=== PATIENT | male | born 1940 | race Caucasian/White ===

== ENCOUNTER 2017-11-23 10:15 | Inpatient (IN) ==
[2017-11-23] MEDS ORDERED: Bisacodyl 10 MG Supp RECTAL PRN (14:59)
[2017-11-23] MEDS ORDERED: Acetaminophen 325 MG Tablet PO PRN (14:59)
[2017-11-23] MEDS ORDERED: Dextrose 50% in Water 50 ML Vial IV.PUSH PRN (15:15)
--- NOTE | 2017-11-23 17:06 | P.HP ---
<Mery Daniel - Last Filed: 11/23/17 16:43> History of Present Illness Service: 11/23/17 Primary Care Physician: UNKNOWN Chief Complaint: SOB History of Present Illness: 77-year-old male with past medical history significant for COPD, metastatic prostate cancer, bladder cancer, anemia, diastolic dysfunction, a.fib with prior ablation, HTN, obesity, and HLD who was originally admitted to [facility] on 10/26 due to septic shock, hypotension and hypoxemic respiratory failure found to be related to bilateral pneumonia. Patient was seen and evaluated by ID services during his admission and treated with IV cefepime and vancomycin. CT of chest did find adenopathy in right axillary area along with left upper nodule measuring 1.3cm possibly representing metastatic lesion, per radiologist. Patient was also noted to have low WBC count, currently on chemotherapy for metastatic prostate CA, follows with Dr. Richard Koo. Patient did have MATEO resulting in increase of creatinine to 1.46 with improvement with IVF. He was discharged from hospital on 11/02 and admitted to [facility]. He was subsequently discharged and admitted to [facility] on 11/13. While patient was in [facility] he developed tachycardia with questionable A. fib. Cardiology services consulted who did not believe patient was in A. fib rhythm. Patient also began developing increasing need for oxygen along with dyspnea on exertion. CT of the chest showed no PE, moderate to severe bilateral interstitial lung disease characteristic of either interstitial edema or pneumonitis, small left pleural effusion, line emphysematous lung changes. Patient underwent 2D echo which showed normal EF. Pulmonary services were consulted who recommended cardiac evaluation along with suspicions that respiratory symptoms were likely due to underlying history of smoking COPD, recommendations continue bronchodilators. Patient was treated with breathing treatments, oxygen increased to 6 L nasal cannula, tachycardia controlled with increase in Cardizem dose. Patient received 1 unit of PRBCs along with one- time dose of IV Lasix on 11/22 due to symptomatic anemia, H&H 8.3/25.7. Patient this morning with increasing need for oxygen, now on a nonrebreather mask. Started on empiric antibiotics for pneumonia including IV vancomycin and Zosyn. Patient was seen and examined early this morning while still in [facility]. He is awake, alert, and oriented, denies any dyspnea however there is noted dyspnea when patient is assisted to sit ups straight for examination. There is a noted cough however nonproductive, does not sound wet. Patient denies any nausea, vomiting, abdominal pain, headache, dizziness, lightheadedness, or chest pain. Patient transferred to ICU for closer monitoring, seen and examined around 4: 50pm resting comfortably in bed, heart rate noted to be in the 80s, O2 saturation 97% on partial nonrebreather. Patient is awake, alert and appears comfortable. He reports that his breathing is "better". He voices no acute concerns or complaint at the moment. Discussed with nurse who does not voice any acute concerns at the moment. Inpatient Certification: I certify that the inpatient services were ordered in accordance with Medicare regulations governing the order. This includes certification that hospital inpatient services are reasonable and necessary and in the case of services not specified as inpatient-only under 42 CFR 419.22(n), that they are appropriately provided as inpatient services in accordance to with the 2-midnight benchmark under 43 CFR 412.3(e) Estimated Total Length of Stay (Days): 4 Plans for Post Hospital Care: Not yet determined PMF - History History Provided By: Patient, Medical Record - Medical History Medical History: Medical History (Last Updated 11/13/17 @ 23:28 by Isacc Rnee RN) Atrial fibrillation Hypertension Port catheter in place Prostate cancer - Surgical History Surgical History: Surgical History (Last Updated 11/21/17 @ 15:24 by Mery Daniel) S/P ablation of atrial fibrillation - Family History Family History: Family History (Last Updated 11/14/17 @ 14:35 by Jeffery Robertson) Father Family history of cancer Sister Family history of cancer - Tobacco History Second Hand Smoke Exposure: No Smoking Status: Former smoker Tobacco Type: Cigarettes Packs Per Day: 1 - Alcohol History How Often Do You Have a Drink Containing Alcohol: Never - Substance Use History Substance History: No History of Abuse Medications and Allergies Allergies Allergy/AdvReac Type Severity Reaction Status Date / Time No Known Allergies Allergy Verified 11/13/17 18:08 Home Medications Medication Instructions Recorded Confirmed Type acetaminophen 650 mg PO Q4H PRN 11/13/17 11/23/17 History atorvastatin 10 mg PO DAILY 11/13/17 11/23/17 History budesonide 0.5 mg INHALATION Q12H 11/13/17 11/23/17 History diltiazem HCl 120 mg PO DAILY 11/13/17 11/23/17 History ferrous sulfate 325 mg PO DAILY 11/13/17 11/23/17 History heparin (porcine) 5,000 unit SUB-Q Q12H 11/13/17 11/23/17 History ipratropium-albuterol 3 ml INHALATION Q8H 11/13/17 11/23/17 History magnesium hydroxide 30 ml PO DAILY PRN 11/13/17 11/23/17 History metoprolol succinate 100 mg PO DAILY 11/13/17 11/23/17 History ondansetron 4 mg PO Q4HR 11/13/17 11/23/17 History prednisone 20 mg PO BID 11/13/17 11/23/17 History Active Medications: Active Medications Acetaminophen (Tylenol) 650 mg PO Q4H PRN PRN Reason: Pain 1-10 for Temp >101.0 Al Hydroxide/Mg Hydroxide (Milk Of Magnesia Liq) 30 ml PO Q12H PRN PRN Reason: Mild Constipation Albuterol (Duoneb Neb (Prn)) 1 ampul NEB Q2HR NEB PRN PRN Reason: SHORTNESS OF BREATH/WHEEZING Albuterol (Duoneb Neb (Alondra)) 1 ampul NEB Q6HR WHILE AWAKE NEB ALONDRA Aspirin (Ecotrin) 81 mg PO DAILY ALONDRA Atorvastatin Calcium (Lipitor) 10 mg PO HS ALONDRA Bisacodyl (Dulcolax Supp) 10 mg RECTAL DAILY PRN PRN Reason: SEVERE CONSITIPATION Dextrose (D50w Vial) 50 ml IV.PUSH UNSCH PRN PRN Reason: PER HYPOGLYCEMIA PROTOCOL Diltiazem HCl (Cardizem Cd 24hr) 240 mg PO DAILY ALONDRA Enoxaparin Sodium (Lovenox Inj) 40 mg SQ Q24H ALONDRA Famotidine (Pepcid) 20 mg PO BID ALONDRA Ferrous Sulfate (Ferosul) 325 mg PO DAILY ALONDRA Furosemide (Lasix Inj) 40 mg IV.PUSH BID@0900,1800 ALONDRA Glucagon (Glucagon Inj) 1 mg OTHER PRN PRN PRN Reason: for Hypoglycemia Protocol Ceftriaxone Sodium 2,000 mg/ (Sodium Chloride) 100 mls @ 200 mls/hr IV.SIG Q24H ALONDRA Azithromycin 500 mg/ Sodium (Chloride) 250 mls @ 250 mls/hr IV.SIG Q24H ALONDRA Insulin Aspart (Novolog Insulin Suppl Scale Inj) 0 unit SQ ACHS ALONDRA; Protocol Lactulose (Lactulose Liq) 30 ml PO DAILY PRN PRN Reason: SEVERE CONSITIPATION Methylprednisolone Sodium Succinate (Solumedrol Inj) 40 mg IV.PUSH Q6H ALONDRA Metoprolol Tartrate (Lopressor) 50 mg PO BID ALONDRA Ondansetron HCl (Zofran Odt) 4 mg PO Q4H PRN PRN Reason: NAUSEA OR VOMITING Senna/Docusate Sodium (Jayne-Colace) 1 tab PO BID [facility] Sennosides (Senokot) 17.2 mg PO Q12H PRN PRN Reason: Moderate Constipation Exam Vital signs: Vital Signs 11/23/17 16:13 Pulse Oximetry 94 L Caprini VTE Risk Assessment Caprini Risk Assessment Model: Point Value = 1 Point Value = 2 Point Value = 3 Point Value = 5 Age 41-60 Minor surgery BMI > 25 kg/m2 Swollen legs Varicose veins or History of unexplained or recurrent spontaneous Oral contraceptives or hormone replacement Sepsis (< 1 month) Serious lung disease, including pneumonia (< 1 month) Abnormal pulmonary function Acute myocardial infarction Congestive heart failure (< 1 month) History of inflammatory bowel disease Medical patient at bed rest Age 61-74 Arthroscopic surgery Major open surgery (> 45 min) Laparoscopic surgery (> 45 min) Malignancy Confined to bed (> 72 hours) Immobilizing plaster cast Central venous access Age >= 75 History of VTE Family history of VTE Factor V Leiden Prothrombin [id number] Lupus anticoagulant Anticardiolipin antibodies Elevated serum homocysteine Heparin-induced thrombocytopenia Other congenital or acquired thrombophilia Stroke (< 1 month) Elective arthroplasty Hip, pelvis, or leg fracture Acute spinal cord injury (< 1 month) Prophylaxis Regimen: Total Risk Factor Score Risk Level Prophylaxis Regimen 0-1 Low Early ambulation 2 Moderate Order ONE of the following: *Sequential Compression Device (SCD) *Heparin 5000 units SQ BID 3-4 Higher Order ONE of the following medications: *Heparin 5000 units SQ TID *Enoxaparin/Lovenox 40 mg SQ daily (WT < 150 kg, CrCl > 30 mL/min) *Enoxaparin/Lovenox 30 mg SQ daily (WT < 150 kg, CrCl > 10-29 mL/min) *Enoxaparin/Lovenox 30 mg SQ BID (WT < 150 kg, CrCl > 30 mL/min) AND/OR *Sequential Compression Device (SCD) 5 or more Highest Order ONE of the following medications: *Heparin 5000 units SQ TID (Preferred with Epidurals) *Enoxaparin/Lovenox 40 mg SQ daily (WT < 150 kg, CrCl > 30 mL/min) *Enoxaparin/Lovenox 30 mg SQ daily (WT < 150 kg, CrCl > 10-29 mL/min) *Enoxaparin/Lovenox 30 mg SQ BID (WT < 150 kg, CrCl > 30 mL/min) AND *Sequential Compression Device (SCD) Assessment and Plan - Plan 77-year-old male with past medical history significant for COPD, metastatic prostate cancer, bladder cancer, anemia, diastolic dysfunction, a.fib with prior ablation, HTN, obesity, and HLD who was originally admitted to [facility] on 10/26 due to septic shock, hypotension and hypoxemic respiratory failure found to be related to bilateral pneumonia. Patient treated and discharged with subsequent admission to [facility] on 11/13. Patient with increasing oxygen requirements along with dyspnea, recent transfusion of PRBCs on 11/22. Transfer back to ICU. Hypoxemia Concern for transfusion related acute lung injury (1unit PRBC's 11/22) Hx COPD -CTA 11/21: no PE, moderate to severe bilateral interstitial lung disease characteristic of either interstitial edema or pneumonitis, small left pleural effusion, line emphysematous lung changes. -2D echo completed on 11/22 with normal EF -Chest x-ray from this morning with stable prominent diffuse bilateral interstitial and parenchymal opacities with progression compared to 11/20 x-ray -Patient with recent treatment of pneumonia. -Received 1 dose of IV vancomycin and Zosyn while in rehab. Will switch patient over to 2 g ceftriaxone and azithromycin IV -Scheduled duo nebs and as needed, IV Solu-Medrol 40 mg every 6 hours, will also treat with Lasix 40 mg twice daily with 20 KCL BID -Check CBC in the a.m., chest x-ray in the a.m. -Consult pulmonary services to continue ongoing follow-up while in ICU Atrial fibrillation, chronic Tachycardia -Patient is s/p ablation. - Cardiology evaluated patient on 11/21, no a.fib seen on EKG's only ST with PAC's. High risk for bleeding and no anticoagulation noted to be reasonable per cardiology. -Continue Cardizem 240mg daily, Metoprolol 50mg BID - Continue low dose ASA HTN, chronic, stable HLD -Continue metoprolol and Cardizem, blood pressure stable. - on low dose ASA and Lipitor Normocytic anemia -Previously on chemo for prostate CA. - Continue oral Fe supplementation - 1 unit PRBC's 11/22, recheck CBC in the a.m. DVT prophylaxis-subcu Lovenox Discussed Condition With: Patient, nursing staff, , and . <Elva Caldwell - Last Filed: 11/24/17 00:39> History of Present Illness Primary Care Physician: UNKNOWN Inpatient Certification: I certify that the inpatient services were ordered in accordance with Medicare regulations governing the order. This includes certification that hospital inpatient services are reasonable and necessary and in the case of services not specified as inpatient-only under 42 CFR 419.22(n), that they are appropriately provided as inpatient services in accordance to with the 2-midnight benchmark under 43 CFR 412.3(e) [facility] - Medical History Medical History: Medical History (Last Updated 11/13/17 @ 23:28 by Isacc Rene, ELISA) Atrial fibrillation Hypertension Port catheter in place Prostate cancer - Surgical History Surgical History: Surgical History (Last Updated 11/21/17 @ 15:24 by Mery Daniel) S/P ablation of atrial fibrillation - Family History Family History: Family History (Last Updated 11/14/17 @ 14:35 by Jeffery Robertson) Father Family history of cancer Sister Family history of cancer Medications and Allergies Active Medications: Active Medications Acetaminophen (Tylenol) 650 mg PO Q4H PRN PRN Reason: Pain 1-10 for Temp >101.0 Al Hydroxide/Mg Hydroxide (Milk Of Magnrenea Liq) 30 ml PO Q12H PRN PRN Reason: Mild Constipation Albuterol (Duoneb Neb (Prn)) 1 ampul NEB Q2HR NEB PRN PRN Reason: SHORTNESS OF BREATH/WHEEZING Albuterol (Duoneb Neb (Alondra)) 1 ampul NEB Q6HR WHILE AWAKE NEB ALONDRA Last Admin: 11/23/17 19:36 Dose: 1 ampul Aspirin (Ecotrin) 81 mg PO DAILY ALONDRA Atorvastatin Calcium (Lipitor) 10 mg PO HS ALONDRA Last Admin: 11/23/17 20:46 Dose: 10 mg Bisacodyl (Dulcolax Supp) 10 mg RECTAL DAILY PRN PRN Reason: SEVERE CONSITIPATION Dextrose (D50w Vial) 50 ml IV.PUSH UNSCH PRN PRN Reason: PER HYPOGLYCEMIA PROTOCOL Diltiazem HCl (Cardizem Cd 24hr) 240 mg PO DAILY [facility] Enoxaparin Sodium (Lovenox Inj) 40 mg SQ Q24H [facility] Last Admin: 11/23/17 19:27 Dose: 40 mg Famotidine (Pepcid) 20 mg PO BID [facility] Last Admin: 11/23/17 20:46 Dose: 20 mg Ferrous Sulfate (Ferosul) 325 mg PO DAILY [facility] Furosemide (Lasix Inj) 40 mg IV.PUSH BID@0900,1800 [facility] Last Admin: 11/23/17 19:26 Dose: 40 mg Glucagon (Glucagon Inj) 1 mg OTHER PRN PRN PRN Reason: for Hypoglycemia Protocol Ceftriaxone Sodium 2,000 mg/ (Sodium Chloride) 100 mls @ 200 mls/hr IV.SIG Q24H [facility] Last Infusion: 11/23/17 23:18 Dose: Infused Azithromycin 500 mg/ Sodium (Chloride) 250 mls @ 250 mls/hr IV.SIG Q24H [facility] Insulin Aspart (Novolog Insulin Suppl Scale Inj) 0 unit SQ ACHS [facility]; Protocol Last Admin: 11/23/17 22:05 Dose: 3 unit Lactulose (Lactulose Liq) 30 ml PO DAILY PRN PRN Reason: SEVERE CONSITIPATION Methylprednisolone Sodium Succinate (Solumedrol Inj) 40 mg IV.PUSH Q6H [facility] Last Admin: 11/23/17 20:59 Dose: 40 mg Metoprolol Tartrate (Lopressor) 50 mg PO BID [facility] Last Admin: 11/23/17 20:46 Dose: 50 mg Ondansetron HCl (Zofran Odt) 4 mg PO Q4H PRN PRN Reason: NAUSEA OR VOMITING Potassium Chloride (K-Dur) 20 meq PO BID [facility] Last Admin: 11/23/17 20:45 Dose: 20 meq Senna/Docusate Sodium (Jayne-Colace) 1 tab PO BID [facility] Last Admin: 11/23/17 20:46 Dose: 1 tab Sennosides (Senokot) 17.2 mg PO Q12H PRN PRN Reason: Moderate Constipation Exam Vital signs: Vital Signs 11/23/17 15:00 11/23/17 16:00 11/23/17 16:13 Temperature 97.8 F Pulse Rate 86 86 Respiratory Rate 25 H Blood Pressure 126/83 126/83 Pulse Oximetry 98 95 94 L 11/23/17 17:00 11/23/17 18:00 11/23/17 18:44 Temperature Pulse Rate 86 84 Respiratory Rate Blood Pressure Pulse Oximetry 94 L 97 98 11/23/17 19:00 11/23/17 19:37 11/23/17 20:00 Temperature 97.9 F Pulse Rate 84 90 102 H Respiratory Rate 25 H 24 25 H Blood Pressure 124/60 118/57 L Pulse Oximetry 95 98 97 11/23/17 21:00 11/23/17 22:00 Temperature Pulse Rate 84 100 H Respiratory Rate 23 Blood Pressure 125/72 113/67 Pulse Oximetry 98 98 Intake & Output 11/23/17 11/23/17 11/24/17 06:59 18:59 06:59 Intake Total 240 / 240 100 / 100 Output Total 200 / 200 Balance 40 / 40 100 / 100 Weight 124.3 kg Intake: IV 100 / 100 Rocephin Inj 2,000 MG In NS Inj 100 / 100 100 ML @ 200 mls/hr IV.SIG Q24H [facility] Rx#:[id number] Oral 240 / 240 0 / 0 Output: Urine 200 / 200 Other: Weight On Admission 124.3 kg Caprini VTE Risk Assessment Caprini VTE Risk Assessment: Moderate/High Risk (score >= 2) Caprini Risk Assessment Model: Point Value = 1 Point Value = 2 Point Value = 3 Point Value = 5 Age 41-60 Minor surgery BMI > 25 kg/m2 Swollen legs Varicose veins or History of unexplained or recurrent spontaneous Oral contraceptives or hormone replacement Sepsis (< 1 month) Serious lung disease, including pneumonia (< 1 month) Abnormal pulmonary function Acute myocardial infarction Congestive heart failure (< 1 month) History of inflammatory bowel disease Medical patient at bed rest Age 61-74 Arthroscopic surgery Major open surgery (> 45 min) Laparoscopic surgery (> 45 min) Malignancy Confined to bed (> 72 hours) Immobilizing plaster cast Central venous access Age >= 75 History of VTE Family history of VTE Factor V Leiden Prothrombin [id number] Lupus anticoagulant Anticardiolipin antibodies Elevated serum homocysteine Heparin-induced thrombocytopenia Other congenital or acquired thrombophilia Stroke (< 1 month) Elective arthroplasty Hip, pelvis, or leg fracture Acute spinal cord injury (< 1 month) Prophylaxis Regimen: Total Risk Factor Score Risk Level Prophylaxis Regimen 0-1 Low Early ambulation 2 Moderate Order ONE of the following: *Sequential Compression Device (SCD) *Heparin 5000 units SQ BID 3-4 Higher Order ONE of the following medications: *Heparin 5000 units SQ TID *Enoxaparin/Lovenox 40 mg SQ daily (WT < 150 kg, CrCl > 30 mL/min) *Enoxaparin/Lovenox 30 mg SQ daily (WT < 150 kg, CrCl > 10-29 mL/min) *Enoxaparin/Lovenox 30 mg SQ BID (WT < 150 kg, CrCl > 30 mL/min) AND/OR *Sequential Compression Device (SCD) 5 or more Highest Order ONE of the following medications: *Heparin 5000 units SQ TID (Preferred with Epidurals) *Enoxaparin/Lovenox 40 mg SQ daily (WT < 150 kg, CrCl > 30 mL/min) *Enoxaparin/Lovenox 30 mg SQ daily (WT < 150 kg, CrCl > 10-29 mL/min) *Enoxaparin/Lovenox 30 mg SQ BID (WT < 150 kg, CrCl > 30 mL/min) AND *Sequential Compression Device (SCD) Assessment and Plan - Attending Attestation Patient seen/examined. Mr. Ramírez received one unit of PRBCs on 11/22/2017. Due to worsening respiratory status, we evaluated him today and decided to transfer him to the ICU. He is requiring significant amount of O2 (around 10L) via non- rebreather to maintain O2 sat 90%. We compared CXR from 11/23/2017 and 11/22/2017 and noticed significant diffuse pulmonary edema on the CXR on 11/23/2017. Given acute decline of his respiratory status and recent blood transfusion, this likely represent TRALI (Transfusion associated Lung Injury). We will start Lasix 40mg BID IV and repeat CXR in the AM. Once clinically improved, he should be able to go back to [facility]. If patient's respiratory status declines any further, he may need invasive or non-invasive measures (Mechanical ventilation vs. BiPAP). Total critical care time spent more than 35 minutes. It was necessary to evaluate and manage this patient due to possible respiratory decline.
--- NOTE | 2017-11-23 18:04 | MB ---
cc: Juan Jose Ingram MD DATE: 11/23/2017 Originally seen at [facility] with acute respiratory distress, transferred to the intensive care unit, now in intensive surgical care. HISTORY OF PRESENT ILLNESS: The patient is 77 years of age with a known history of COPD and diastolic dysfunction. The patient has metastatic prostate cancer, bladder cancer, chronic anemia, atrial fibrillation post-ablation, recently hospitalized in mid October with sepsis and shock, treated with antibiotic therapy. He did have a CT scan of the chest with a left upper lobe nodule felt metastatic. The patient was transferred originally to [facility] and subsequently to [facility], where his oxygen requirements have dramatically increased to a nonrebreathing mask, chest x-ray evidence of congestive heart failure and/or pneumonia, transferred to intensive surgical care for further management. PAST MEDICAL HISTORY: Essentially as above with history of metastatic prostate cancer, bladder cancer, hypertension, atrial fibrillation, diastolic dysfunction and COPD, metastatic lung lesion and initiation of chemotherapy. He did have atrial ablation in the past. SOCIAL HISTORY: Remote smoking history, not at present. Does not drink any alcohol. Does not use drugs. FAMILY HISTORY: Noncontributory. REVIEW OF SYSTEMS: A 12-point review of systems as per HPI and past history, otherwise negative. CURRENT MEDICATIONS: 1. Acetaminophen. 2. Levalbuterol. 3. Atorvastatin. 4. Zithromax. 5. Ceftriaxone. 6. Diltiazem. 7. Lovenox prophylaxis. 8. Pepcid. 9. Iron. 10. Lasix. 11. Insulin. 12. Solu-Medrol. 13. Lopressor. 14. Zofran p.r.n. ALLERGIES: NONE KNOWN TO MEDICATION. PHYSICAL EXAMINATION: GENERAL: The patient is alert, on a rebreathing mask upon transfer yesterday with severe tachypnea and tachycardia, now seems less distressed. VITAL SIGNS: His temperature is 98.6 degrees Fahrenheit, respirations 20, blood pressure 120/70. HEENT: Unremarkable. Eyes without icterus. NECK: No adenopathy. No thyroid enlargement. CHEST: Scattered rhonchi bilaterally. CARDIAC: S1, S2 audible, I/ ejection systolic murmur left sternal border. ABDOMEN: Lax, audible bowel sounds. PSYCHIATRIC: No clubbing, cyanosis or edema. IMAGING STUDIES: CT angiogram with severe interstitial lung disease. Small left pleural effusion. Echocardiogram: Normal ejection fraction. IMPRESSION: 1. Acute on chronic respiratory failure. 2. Congestive heart failure and/or pneumonia. 3. Metastatic prostate cancer. 4. History of bladder cancer. 5. Hypertension. 6. Hyperlipidemia. 7. Atrial fibrillation. 8. Chronic obstructive pulmonary disease. PLAN: The patient is admitted to the intensive care setting. Oxygen therapy will be continued as needed. Chest x-ray and oxygenation will be followed. Inspired oxygen fraction adjusted as needed. Continue antibiotic therapy, steroid therapy and depending on the patient's progress, proceed further well. We will follow the patient's course, along with you and depending on progress, proceed further. Juan Jose Ingram MD WWW/ALBERTO , 05:24 PM , 06:02 PM
[2017-11-23] MEDS: MethylPREDNISolone Sod Succinate Inj 40 MG/ML Vial IV.PUSH SCH ×2 (19:27→20:59)
[2017-11-23] MEDS: Enoxaparin Inj 40 MG/0.4 ML Syringe SQ SCH (19:27)
[2017-11-23] MEDS: Insulin NovoLOG Aspart Correctional Sugar Inj SQ SCH ×2 (20:36→22:05)
[2017-11-23] MEDS: Senna/Docusate Sodium 8.6/50 MG Tablet PO SCH (20:46)
[2017-11-23] MEDS: Metoprolol Tartrate 50 MG Tablet PO SCH (20:46)
[2017-11-23] MEDS: Famotidine 20 MG Tablet PO SCH (20:46)
[2017-11-24] MEDS: MethylPREDNISolone Sod Succinate Inj 40 MG/ML Vial IV.PUSH SCH ×4 (04:04→21:09)
--- NOTE | 2017-11-24 05:10 | XR ---
EXAM DATE: 11/24/2017 4:21 AM EDT AGE/SEX: 77 years / Male INDICATIONS: Shortness of breath, congestion. CLINICAL DATA: This is the patient's subsequent encounter. Patient reports that signs and symptoms h ave been present for 1 week and indicates a pain score of 4/10. MEDICAL/SURGICAL HISTORY: Chronic obstructive pulmonary disease. . Infusaport COMPARISON: [facility]IR, CHEST 1V SINGLE AP, 11/23/2017. . FINDINGS: A single AP view of the chest demonstrates unchanged bilateral patchy interstitial and alveolar opaci ties. Left-sided port unchanged.. The cardiomediastinal contours are unremarkable. Osseous structur es are intact. CONCLUSION: Unchanged interstitial and alveolar opacities Electronically signed by: Alvin Trujillo MD 11/24/2017 5:09 AM EDT
[2017-11-24 07:28] LABS: Albumin 1.9 g/dL (3.4-5.0); Calcium 6.8 mg/dL (8.5-10.1); Carbon Dioxide 19.3 meq/L (21.0-32.0); Potassium 3.9 meq/L (3.5-5.1); Total Protein 5.8 g/dL (6.4-8.2)
--- NOTE | 2017-11-24 09:34 | P.PNIM ---
Subjective Interval history: The patient said that he was having trouble breathing. He denied chest pain or chest tightness. He does endorse mucus production. He says he has been unable to ambulate lately. He said that he would not like to receive invasive measures including CPR or ventilation assistance should his respiratory status get worse. Discussed with nursing at the bedside. Physical Exam Vital signs: Vital Signs 11/23/17 15:00 11/23/17 16:00 11/23/17 16:13 Temperature 97.8 F Pulse Rate 86 86 Respiratory Rate 25 H Blood Pressure 126/83 126/83 Pulse Oximetry 98 95 94 L 11/23/17 17:00 11/23/17 18:00 11/23/17 18:44 Temperature Pulse Rate 86 84 Respiratory Rate Blood Pressure Pulse Oximetry 94 L 97 98 11/23/17 19:00 11/23/17 19:37 11/23/17 20:00 Temperature 97.9 F Pulse Rate 84 90 102 H Respiratory Rate 25 H 24 25 H Blood Pressure 124/60 118/57 L Pulse Oximetry 95 98 97 11/23/17 21:00 11/23/17 22:00 11/24/17 00:00 Temperature 98.1 F Pulse Rate 84 100 H 92 H Respiratory Rate 23 23 Blood Pressure 125/72 113/67 127/66 Pulse Oximetry 98 98 96 11/24/17 04:00 11/24/17 04:20 11/24/17 09:08 Temperature 96.4 F L Pulse Rate 90 98 H Respiratory Rate 20 22 Blood Pressure 124/63 Pulse Oximetry 94 L 95 95 Intake & Output 11/23/17 11/24/17 11/24/17 18:59 06:59 18:59 Intake Total 240 / 240 580 / 580 Output Total 200 / 200 650 / 650 Balance 40 / 40 -70 / -70 Weight 123.5 kg Intake: IV 100 / 100 Rocephin Inj 2,000 MG In NS Inj 100 / 100 100 ML @ 200 mls/hr IV.SIG Q24H FERNANDA Rx#:[id number] Oral 240 / 240 480 / 480 Output: Urine 200 / 200 650 / 650 Other: # Urine Diapers 1 Date of Last Bowel Movement 11/24/17 # Bowel Movements 1 Weight On Admission 124.3 kg Narrative: General: No acute distress. Respiratory: Lungs CTAB, No W/R/R. Gastrointestinal: Positive bowel sounds, Non-distended, Non-tender Cardiovascular: Tachycardic. No murmurs. Skin: No rash Musculoskeletal: No LE edema. Psychiatric: Cooperative, Appropriate mood & affect, Normal judgement Results - Labs CBC & Chem 7: 11/24/17 06:36 11/24/17 06:36 Laboratory Results - last 24 hr 11/24/17 06:36 Sodium 139 Potassium 3.9 Chloride 104 Carbon Dioxide 19.3 L Anion Gap 16 H BUN 44 H Creatinine 1.86 H Estimated GFR 36 L Random Glucose 221 H Calcium 6.8 L* D Prot Corrected Calcium 7.5 L Total Bilirubin 0.2 AST 10 L ALT 19 Alkaline Phosphatase 62 Total Protein 5.8 L Albumin 1.9 L - Imaging Impressions Chest X-Ray 11/24/17 06:00 CONCLUSION: Unchanged interstitial and alveolar opacities Assessment and Plan - Plan 77-year-old male with past medical history significant for COPD, metastatic prostate cancer, bladder cancer, anemia, diastolic dysfunction, a.fib with prior ablation, HTN, obesity, and HLD who was originally admitted to [facility] on 10/26 due to septic shock, hypotension and hypoxemic respiratory failure found to be related to bilateral pneumonia. Patient treated and discharged with subsequent admission to [facility] on 11/13. Patient with increasing oxygen requirements along with dyspnea, recent transfusion of PRBCs on 11/22. Transferred back to ICU. Hypoxemia Hx COPD Hx of recent pneumonia -CTA 11/21: no PE, moderate to severe bilateral interstitial lung disease characteristic of either interstitial edema or pneumonitis, small left pleural effusion, line emphysematous lung changes. -2D echo completed on 11/22 with normal EF -Chest x-ray with stable prominent diffuse bilateral interstitial and parenchymal opacities with progression compared to 11/20 x-ray -start IV Zosyn and vancomycin. -Scheduled duo nebs and as needed, IV Solu-Medrol 40 mg every 6 hours. -Consulted pulmonary services to continue ongoing follow-up. Atrial fibrillation, chronic Tachycardia -Patient is s/p ablation. - Cardiology evaluated patient on 11/21, no a.fib seen on EKG's only ST with PAC's. High risk for bleeding and no anticoagulation noted to be reasonable per cardiology. -Continue Cardizem 240mg daily, Metoprolol 50mg BID. Consider holding Lopressor to avoid bronchospasm. -Continue low dose ASA HTN, chronic, stable HLD -Continue metoprolol and Cardizem, blood pressure stable. - on low dose ASA and Lipitor Normocytic anemia -Previously on chemo for prostate CA. - Continue oral Fe supplementation - 1 unit PRBC's 11/22, recheck CBC in the a.m. Acute renal failure Likely exacerbated by Lasix. - d/c Lasix and monitor. - nephrology consult if no improvement. DVT prophylaxis-subcu Lovenox
[2017-11-24] MEDS: Insulin NovoLOG Aspart Correctional Sugar Inj SQ SCH ×4 (09:52→22:02)
[2017-11-24] MEDS: Metoprolol Tartrate 50 MG Tablet PO SCH ×2 (09:55→20:30)
[2017-11-24] MEDS: Famotidine 20 MG Tablet PO SCH ×2 (09:55→20:30)
[2017-11-24] MEDS: Ferrous Sulfate 325 MG Tablet PO SCH (09:55)
[2017-11-24] MEDS: dilTIAZem CD 240 MG Capsule PO SCH (09:55)
[2017-11-24] MEDS: Senna/Docusate Sodium 8.6/50 MG Tablet PO SCH ×2 (09:56→20:31)
[2017-11-24] MEDS ORDERED: Vancomycin Consult Pharmacy 1 EACH OTHER SCH (09:57)
[2017-11-24 11:58] LABS: Baso % (Auto) 0.3 % (0.0-2.0); Eos % (Auto) 0.1 % (0.0-4.0); Hematocrit 28.7 % (39.0-51.0); Hemoglobin 9.4 gm/dL (13.0-17.0); Lymph # (Auto) 0.2 th/mm3 (1.0-4.8); Lymph % (Auto) 5.1 % (9.0-44.0); Mean Corpuscular HGB Conc 32.8 % (32.0-36.0); Mean Corpuscular Hemoglobin 29.1 pg (27.0-34.0); Mean Corpuscular Volume 88.7 fL (80.0-100.0); Mean Platelet Volume 8.1 fL (7.0-11.0); Mono # (Auto) 0.1 th/mm3 (0.0-0.9); Mono % (Auto) 2.2 % (0.0-8.0); Neut # (Auto) 3.7 th/mm3 (1.8-7.7); Neut % (Auto) 92.3 % (16.0-70.0); Platelet Count 154 th/mm3 (150-450); Red Blood Count 3.23 mil/mm3 (4.50-5.90); Red Cell Distribution Width 22.2 % (11.6-17.2)
[2017-11-24] MEDS: Piperacil/Tazo 2.25 GM Premix 50 ML IV.SIG SCH ×2 (13:45→20:30)
[2017-11-24] MEDS ORDERED: Azithromycin Inj 500 MG in Sodium Chlor 0.9% Inj 250 ML IV.SIG SCH (14:00)
[2017-11-24] MEDS: Vancomycin Inj 1,250 MG in Sodium Chlor 0.9% Inj 250 ML IV.SIG SCH (15:38)
[2017-11-24] MEDS: Enoxaparin Inj 40 MG/0.4 ML Syringe SQ SCH (15:40)
--- NOTE | 2017-11-24 20:07 | P.PN ---
Subjective Interval history: ALERT LESS SOB Physical Exam Vital signs: Vital Signs 11/23/17 21:00 11/23/17 22:00 11/24/17 00:00 Temperature 98.1 F Pulse Rate 84 100 H 92 H Respiratory Rate 23 23 Blood Pressure 125/72 113/67 127/66 Pulse Oximetry 98 98 96 11/24/17 04:00 11/24/17 04:20 11/24/17 08:00 Temperature 96.4 F L 97.4 F L Pulse Rate 90 82 Respiratory Rate 20 22 Blood Pressure 124/63 110/60 Pulse Oximetry 94 L 95 95 11/24/17 09:08 11/24/17 12:00 11/24/17 15:33 Temperature 97.0 F L Pulse Rate 98 H 96 H 89 Respiratory Rate 22 22 22 Blood Pressure 118/58 L Pulse Oximetry 95 97 11/24/17 16:00 Temperature 97.4 F L Pulse Rate 104 H Respiratory Rate 22 Blood Pressure 121/59 L Pulse Oximetry 97 Intake & Output 11/24/17 11/24/17 11/25/17 06:59 18:59 06:59 Intake Total 580 / 580 480 / 480 Output Total 650 / 650 750 / 750 Balance -70 / -70 -270 / -270 Weight 123.5 kg Intake: IV 100 / 100 Rocephin Inj 2,000 MG In NS Inj 100 / 100 100 ML @ 200 mls/hr IV.SIG Q24H FERNANDA Rx#:[id number] Oral 480 / 480 480 / 480 Output: Urine 650 / 650 750 / 750 Other: # Urine Diapers 1 Date of Last Bowel Movement 11/24/17 11/24/17 # Bowel Movements 1 Weight On Admission 124.3 kg Narrative: General: No acute distress. Respiratory: Lungs CTAB, No W/R/R. Gastrointestinal: Positive bowel sounds, Non-distended, Non-tender Cardiovascular: Tachycardic. No murmurs. Skin: No rash Musculoskeletal: No LE edema. Psychiatric: Cooperative, Appropriate mood & affect, Normal judgement Results - Labs CBC & Chem 7: 11/24/17 11:19 11/24/17 06:36 Laboratory Results - last 24 hr 11/24/17 11/24/17 11/24/17 06:36 09:41 11:19 WBC 4.0 RBC 3.23 L Hgb 9.4 L Hct 28.7 L MCV 88.7 MCH 29.1 MCHC 32.8 RDW 22.2 H Plt Count 154 MPV 8.1 Neut % (Auto) 92.3 H Lymph % (Auto) 5.1 L [place] % (Auto) 2.2 Eos % (Auto) 0.1 Baso % (Auto) 0.3 Neut # (Auto) 3.7 Lymph # (Auto) 0.2 L [place] # (Auto) 0.1 Eos # (Auto) 0.0 Baso # (Auto) 0.0 WBC Differential . Differential Comment Auto diff final Sodium 139 Potassium 3.9 Chloride 104 Carbon Dioxide 19.3 L Anion Gap 16 H BUN 44 H Creatinine 1.86 H Estimated GFR 36 L POC Glucose 251 H Random Glucose 221 H Calcium 6.8 L* D Prot Corrected Calcium 7.5 L Total Bilirubin 0.2 AST 10 L ALT 19 Alkaline Phosphatase 62 Total Protein 5.8 L Albumin 1.9 L 11/24/17 11/24/17 12:59 18:33 WBC RBC Hgb Hct MCV MCH MCHC RDW Plt Count MPV Neut % (Auto) Lymph % (Auto) [place] % (Auto) Eos % (Auto) Baso % (Auto) Neut # (Auto) Lymph # (Auto) [place] # (Auto) Eos # (Auto) Baso # (Auto) WBC Differential Differential Comment Sodium Potassium Chloride Carbon Dioxide Anion Gap BUN Creatinine Estimated GFR POC Glucose 249 H 283 H Random Glucose Calcium Prot Corrected Calcium Total Bilirubin AST ALT Alkaline Phosphatase Total Protein Albumin - Imaging Impressions Chest X-Ray 11/24/17 06:00 CONCLUSION: Unchanged interstitial and alveolar opacities Assessment and Plan - Plan RESPIRATORY FAILURE COPD CHF PLAN O2 NEEDED BRONCHODILATORS F/U CXRAY
[2017-11-24] MEDS ORDERED: Zolpidem Tartrate 5 MG Tablet PO ONE (23:42)
[2017-11-25] MEDS: Piperacil/Tazo 2.25 GM Premix 50 ML IV.SIG SCH ×4 (01:46→17:00)
[2017-11-25] MEDS ORDERED: Heparin Central Flush 100 UNIT/ML 5 ML Vial IV.FLUSH PRN ×2 (02:07)
[2017-11-25] MEDS: MethylPREDNISolone Sod Succinate Inj 40 MG/ML Vial IV.PUSH SCH ×3 (03:38→21:09)
[2017-11-25 05:19] LABS: Hematocrit 27.9 % (39.0-51.0); Hemoglobin 9.2 gm/dL (13.0-17.0); Mean Corpuscular HGB Conc 33.1 % (32.0-36.0); Mean Corpuscular Hemoglobin 29.5 pg (27.0-34.0); Mean Corpuscular Volume 89.1 fL (80.0-100.0); Platelet Count 162 th/mm3 (150-450); Red Blood Count 3.12 mil/mm3 (4.50-5.90); Red Cell Distribution Width 22.5 % (11.6-17.2); White Blood Count 4.5 th/mm3 (4.0-11.0)
[2017-11-25 06:25] LABS: Calcium 7.3 mg/dL (8.5-10.1); Potassium 3.6 meq/L (3.5-5.1)
[2017-11-25 06:54] LABS: Total Protein 5.9 g/dL (6.4-8.2)
[2017-11-25] MEDS: Famotidine 20 MG Tablet PO SCH ×2 (08:23→21:10)
[2017-11-25] MEDS: dilTIAZem CD 240 MG Capsule PO SCH (08:23)
[2017-11-25] MEDS: Ferrous Sulfate 325 MG Tablet PO SCH (08:23)
[2017-11-25] MEDS: Senna/Docusate Sodium 8.6/50 MG Tablet PO SCH (08:23)
[2017-11-25] MEDS: Metoprolol Tartrate 50 MG Tablet PO SCH ×2 (08:23→21:10)
[2017-11-25] MEDS: Insulin NovoLOG Aspart Correctional Sugar Inj SQ SCH ×4 (08:28→21:10)
--- NOTE | 2017-11-25 12:10 | P.PN ---
Subjective Interval history: Follow-up respiratory failure with hypoxemia November 25, 2017-patient seen and examined, has some shortness of breath but denies any chest pain. Physical Exam Vital signs: Vital Signs 11/24/17 15:33 11/24/17 16:00 11/24/17 20:00 Temperature 97.4 F L 98.0 F Pulse Rate 89 104 H 109 H Respiratory Rate 22 22 23 Blood Pressure 121/59 L 125/60 Pulse Oximetry 97 95 11/24/17 20:30 11/25/17 00:00 11/25/17 02:33 Temperature 98 F Pulse Rate 109 H 109 H Respiratory Rate 19 23 Blood Pressure 125/60 Pulse Oximetry 95 94 L 11/25/17 04:00 11/25/17 08:00 11/25/17 09:00 Temperature 98.3 F 98.3 F Pulse Rate 107 H 104 H 156 H Respiratory Rate 28 H 21 22 Blood Pressure 144/71 H 139/70 134/73 Pulse Oximetry 89 L 94 L 88 L 11/25/17 09:13 11/25/17 10:00 Temperature Pulse Rate 129 H Respiratory Rate 22 Blood Pressure 126/69 Pulse Oximetry 95 94 L Intake & Output 11/24/17 11/25/17 11/25/17 18:59 06:59 18:59 Intake Total 530 / 530 892.5 / 892.5 Output Total 750 / 750 770 / 770 Balance -220 / -220 122.5 / 122.5 Intake: IV 50 / 50 412.5 / 412.5 Zosyn 2.25 GM Premix 50 ML @ 50 / 50 150 / 150 100 mls/hr IV.SIG Q6HR [facility]ERNA[facility] Rx#: [id number] Vancomycin Inj 1,250 MG In NS 262.5 / 262.5 Inj 250 ML @ 250 mls/hr IV.SIG Q24H FERNANDA Rx#:[id number] Oral 480 / 480 480 / 480 Output: Urine 750 / 750 770 / 770 Other: Date of Last Bowel Movement 11/24/17 11/24/17 11/24/17 Narrative: GENERAL: NAD SKIN: Warm and dry. HEAD: Normocephalic. EYES: No scleral icterus. No injection or drainage. NECK: Supple, trachea midline. No JVD or lymphadenopathy. CARDIOVASCULAR: Regular rate and rhythm without murmurs, gallops, or rubs. RESPIRATORY: Breath sounds decreased bilaterally. No accessory muscle use. GASTROINTESTINAL: Abdomen soft, non-tender, nondistended. MUSCULOSKELETAL: No cyanosis, or edema. BACK: Nontender without obvious deformity. No CVA tenderness. Results - Labs CBC & Chem 7: 11/25/17 04:30 11/25/17 04:30 Laboratory Results - last 24 hr 11/24/17 11/24/17 11/25/17 12:59 18:33 04:30 WBC 4.5 RBC 3.12 L Hgb 9.2 L Hct 27.9 L MCV 89.1 MCH 29.5 MCHC 33.1 RDW 22.5 H Plt Count 162 MPV 8.0 Sodium Potassium Chloride Carbon Dioxide Anion Gap BUN Creatinine Estimated GFR POC Glucose 249 H 283 H Random Glucose Calcium Prot Corrected Calcium Total Protein Nasal Screen MRSA (PCR) 11/25/17 11/25/17 11/25/17 04:30 08:01 08:27 WBC RBC Hgb Hct MCV MCH MCHC RDW Plt Count MPV Sodium 142 Potassium 3.6 Chloride 105 Carbon Dioxide 22.0 Anion Gap 15 BUN 46 H Creatinine 1.86 H Estimated GFR 36 L POC Glucose 211 H Random Glucose 189 H Calcium 7.3 L* Prot Corrected Calcium 7.9 L Total Protein 5.9 L Nasal Screen MRSA (PCR) Not detected 11/25/17 11:35 WBC RBC Hgb Hct MCV MCH MCHC RDW Plt Count MPV Sodium Potassium Chloride Carbon Dioxide Anion Gap BUN Creatinine Estimated GFR POC Glucose 245 H Random Glucose Calcium Prot Corrected Calcium Total Protein Nasal Screen MRSA (PCR) Assessment and Plan - Assessment (1) Acute hypoxemic respiratory failure Code(s): J96.01 - Acute respiratory failure with hypoxia Status: Resolved - Plan 77-year-old man with Hypoxemia Hx COPD Hx of recent pneumonia -CTA 11/21: no PE, moderate to severe bilateral interstitial lung disease characteristic of either interstitial edema or pneumonitis, small left pleural effusion, line emphysematous lung changes. -2D echo completed on 11/22 with normal EF -Chest x-ray with stable prominent diffuse bilateral interstitial and parenchymal opacities with progression compared to 11/20 x-ray -Currently on IV Zosyn and vancomycin. -Scheduled duo nebs and as needed, IV Solu-Medrol 40 mg or change it to q. 12 hour. -Appreciate input from pulmonary medicine. Atrial fibrillation, chronic Tachycardia -Patient is s/p ablation. - Cardiology evaluated patient on 11/21, no a.fib seen on EKG's only ST with PAC's. High risk for bleeding and no anticoagulation noted to be reasonable per cardiology. -Continue Cardizem 240mg daily, Metoprolol 50mg BID. -Continue low dose ASA HTN, chronic, stable HLD -Continue metoprolol and Cardizem, blood pressure stable. - on low dose ASA and Lipitor Normocytic anemia -Previously on chemo for prostate CA. - Continue oral Fe supplementation - 1 unit PRBC's 11/22, Acute renal failure Likely exacerbated by Lasix. -Hold on nephrotoxic drug - nephrology consult if no improvement. DVT prophylaxis-subcu Lovenox
[2017-11-25] MEDS ORDERED: Metoprolol Tartrate 50 MG Tablet PO ONE (12:33)
[2017-11-25] MEDS: Vancomycin Inj 1,250 MG in Sodium Chlor 0.9% Inj 250 ML IV.SIG SCH (13:58)
[2017-11-25] MEDS: Enoxaparin Inj 40 MG/0.4 ML Syringe SQ SCH (13:58)
--- NOTE | 2017-11-25 16:04 | P.PN ---
Subjective Interval history: ALERT O O2 VIA MASK Physical Exam Vital signs: Vital Signs 11/24/17 20:00 11/24/17 20:30 11/25/17 00:00 Temperature 98.0 F 98 F Pulse Rate 109 H 109 H 109 H Respiratory Rate 23 19 23 Blood Pressure 125/60 125/60 Pulse Oximetry 95 95 11/25/17 02:33 11/25/17 04:00 11/25/17 08:00 Temperature 98.3 F 98.3 F Pulse Rate 107 H 104 H Respiratory Rate 28 H 21 Blood Pressure 144/71 H 139/70 Pulse Oximetry 94 L 89 L 94 L 11/25/17 09:00 11/25/17 09:13 11/25/17 10:00 Temperature Pulse Rate 156 H 129 H Respiratory Rate 22 22 Blood Pressure 134/73 126/69 Pulse Oximetry 88 L 95 94 L 11/25/17 10:35 11/25/17 11:00 11/25/17 11:09 Temperature Pulse Rate 128 H 129 H 129 H Respiratory Rate 21 22 21 Blood Pressure 131/77 Pulse Oximetry 93 L 94 L 93 L 11/25/17 12:00 11/25/17 13:00 11/25/17 14:00 Temperature 98.8 F Pulse Rate 129 H 132 H 130 H Respiratory Rate 23 24 25 H Blood Pressure 134/77 126/75 136/88 Pulse Oximetry 93 L 95 92 L 11/25/17 15:00 Temperature Pulse Rate 131 H Respiratory Rate 26 H Blood Pressure 134/73 Pulse Oximetry 91 L Intake & Output 11/24/17 11/25/17 11/25/17 18:59 06:59 18:59 Intake Total 530 / 530 892.5 / 892.5 50 / 50 Output Total 750 / 750 770 / 770 Balance -220 / -220 122.5 / 122.5 50 / 50 Intake: IV 50 / 50 412.5 / 412.5 50 / 50 Zosyn 2.25 GM Premix 50 ML @ 50 / 50 150 / 150 50 / 50 100 mls/hr IV.SIG Q6HR FERNANDA Rx#: [id number] Vancomycin Inj 1,250 MG In NS 262.5 / 262.5 Inj 250 ML @ 250 mls/hr IV.SIG Q24H FERNANDA Rx#:[id number] Oral 480 / 480 480 / 480 Output: Urine 750 / 750 770 / 770 Other: Date of Last Bowel Movement 11/24/17 11/24/17 11/24/17 Narrative: GENERAL: NAD SKIN: Warm and dry. HEAD: Normocephalic. EYES: No scleral icterus. No injection or drainage. NECK: Supple, trachea midline. No JVD or lymphadenopathy. CARDIOVASCULAR: Regular rate and rhythm without murmurs, gallops, or rubs. RESPIRATORY: Breath sounds decreased bilaterally. No accessory muscle use. GASTROINTESTINAL: Abdomen soft, non-tender, nondistended. MUSCULOSKELETAL: No cyanosis, or edema. BACK: Nontender without obvious deformity. No CVA tenderness. Results - Labs CBC & Chem 7: 11/25/17 04:30 11/25/17 04:30 Laboratory Results - last 24 hr 11/24/17 11/25/17 11/25/17 18:33 04:30 04:30 WBC 4.5 RBC 3.12 L Hgb 9.2 L Hct 27.9 L MCV 89.1 MCH 29.5 MCHC 33.1 RDW 22.5 H Plt Count 162 MPV 8.0 Sodium 142 Potassium 3.6 Chloride 105 Carbon Dioxide 22.0 Anion Gap 15 BUN 46 H Creatinine 1.86 H Estimated GFR 36 L POC Glucose 283 H Random Glucose 189 H Calcium 7.3 L* Prot Corrected Calcium 7.9 L Total Protein 5.9 L Nasal Screen MRSA (PCR) 11/25/17 11/25/17 11/25/17 08:01 08:27 11:35 WBC RBC Hgb Hct MCV MCH MCHC RDW Plt Count MPV Sodium Potassium Chloride Carbon Dioxide Anion Gap BUN Creatinine Estimated GFR POC Glucose 211 H 245 H Random Glucose Calcium Prot Corrected Calcium Total Protein Nasal Screen MRSA (PCR) Not detected Assessment and Plan - Plan RESPIRATORY FAILURE COPD CHF PLAN O2 NEEDED BRONCHODILATORS INCREASE ACTIVITY
[2017-11-25] MEDS: Metoprolol Inj 5 MG/5 ML Vial IV.PUSH PRN (16:42)
[2017-11-25] MEDS: Esmolol 2,500 mg/250 mL Premix 2,500 MG/250 ML BAG IV.CONT PRN ×2 (18:13→23:17)
[2017-11-26] MEDS: Piperacil/Tazo 2.25 GM Premix 50 ML IV.SIG SCH ×3 (01:23→12:05)
[2017-11-26] MEDS ORDERED: Chlorhexidine Gluconate 2% 1 Pack (2 Cloths) TOPICAL PRN (04:00)
[2017-11-26] MEDS: Esmolol 2,500 mg/250 mL Premix 2,500 MG/250 ML BAG IV.CONT PRN (05:11)
[2017-11-26] MEDS: Chlorhexidine Gluconate 2% 1 Pack (2 Cloths) TOPICAL SCH (05:12)
[2017-11-26 06:48] LABS: Baso % (Auto) 0.1 % (0.0-2.0); Eos % (Auto) 0.1 % (0.0-4.0); Hematocrit 27.7 % (39.0-51.0); Lymph # (Auto) 0.3 th/mm3 (1.0-4.8); Lymph % (Auto) 7.4 % (9.0-44.0); Mean Corpuscular HGB Conc 32.5 % (32.0-36.0); Mean Corpuscular Hemoglobin 29.2 pg (27.0-34.0); Mean Corpuscular Volume 89.9 fL (80.0-100.0); Mean Platelet Volume 7.9 fL (7.0-11.0); Mono # (Auto) 0.1 th/mm3 (0.0-0.9); Mono % (Auto) 3.2 % (0.0-8.0); Neut # (Auto) 3.9 th/mm3 (1.8-7.7); Neut % (Auto) 89.2 % (16.0-70.0); Platelet Count 190 th/mm3 (150-450); Red Blood Count 3.08 mil/mm3 (4.50-5.90); Red Cell Distribution Width 22.1 % (11.6-17.2); White Blood Count 4.3 th/mm3 (4.0-11.0)
[2017-11-26 07:11] LABS: Albumin 1.8 g/dL (3.4-5.0); Calcium 7.1 mg/dL (8.5-10.1); Carbon Dioxide 24.6 meq/L (21.0-32.0); Potassium 3.7 meq/L (3.5-5.1); Total Protein 5.4 g/dL (6.4-8.2)
[2017-11-26] MEDS: Ferrous Sulfate 325 MG Tablet PO SCH (08:23)
[2017-11-26] MEDS: Famotidine 20 MG Tablet PO SCH ×2 (08:23→21:28)
[2017-11-26] MEDS: MethylPREDNISolone Sod Succinate Inj 40 MG/ML Vial IV.PUSH SCH ×2 (08:24→21:28)
[2017-11-26] MEDS: Insulin NovoLOG Aspart Correctional Sugar Inj SQ SCH ×4 (08:25→21:35)
[2017-11-26] MEDS: Metoprolol Tartrate 50 MG Tablet PO SCH ×2 (08:39→21:28)
[2017-11-26] MEDS ORDERED: dilTIAZem CD 300 MG Capsule PO SCH (09:00)
[2017-11-26] MEDS: Amiodarone Inj 450 MG in Sodium Chlor 0.9% Inj 241 ML IV.CONT SCH ×3 (09:41→23:56)
[2017-11-26 09:58] LABS: Ovalocytes 1+
--- NOTE | 2017-11-26 11:05 | P.PN ---
Subjective Interval history: Follow-up respiratory failure with hypoxemia November 25, 2017-patient seen and examined, has some shortness of breath but denies any chest pain. November 26, 2017-patient seen and examined, sitting a few RVR not controlled with esmolol,. Reports some shortness of breath. Physical Exam Vital signs: Vital Signs 11/25/17 11:00 11/25/17 11:09 11/25/17 12:00 Temperature 98.8 F Pulse Rate 129 H 129 H 129 H Respiratory Rate 22 21 23 Blood Pressure 131/77 134/77 Pulse Oximetry 94 L 93 L 93 L 11/25/17 13:00 11/25/17 14:00 11/25/17 15:00 Temperature Pulse Rate 132 H 130 H 131 H Respiratory Rate 24 25 H 26 H Blood Pressure 126/75 136/88 134/73 Pulse Oximetry 95 92 L 91 L 11/25/17 16:00 11/25/17 18:00 11/25/17 20:00 Temperature 98.0 F 97.8 F Pulse Rate 130 H 129 H 128 H Respiratory Rate 25 H Blood Pressure 98/60 L Pulse Oximetry 91 L 11/25/17 21:26 11/25/17 22:00 11/26/17 00:00 Temperature 98.2 F Pulse Rate 127 H 128 H Respiratory Rate 24 Blood Pressure 94/58 L Pulse Oximetry 93 L 90 L 11/26/17 02:00 11/26/17 04:00 11/26/17 06:00 Temperature 98.0 F Pulse Rate 129 H 129 H 129 H Respiratory Rate 26 H Blood Pressure 92/55 L Pulse Oximetry 92 L 11/26/17 08:00 11/26/17 08:10 Temperature 98.3 F Pulse Rate 132 H Respiratory Rate Blood Pressure Pulse Oximetry 89 L Intake & Output 11/25/17 11/26/17 11/26/17 18:59 06:59 18:59 Intake Total 600 / 600 790 / 790 Output Total 700 / 700 770 / 770 Balance -100 / -100 20 / 20 Weight 115.7 kg Intake: IV 100 / 100 550 / 550 Brevibloc 2,500 mg/NS 250 mL 500 / 500 Premix 2,500 mg In 250 ml @ 50 MCG/KG/MIN 37.05 mls/hr IV.CONT TITRATE PRN Rx#:[id number] Zosyn 2.25 GM Premix 50 ML @ 100 / 100 50 / 50 100 mls/hr IV.SIG Q6HR [facility] Rx#: [id number] Oral 500 / 500 240 / 240 Output: Urine 700 / 700 770 / 770 Other: Date of Last Bowel Movement 11/24/17 11/24/17 Narrative: GENERAL: NAD SKIN: Warm and dry. HEAD: Normocephalic. EYES: No scleral icterus. No injection or drainage. NECK: Supple, trachea midline. No JVD or lymphadenopathy. CARDIOVASCULAR: Regular rate and rhythm without murmurs, gallops, or rubs. RESPIRATORY: Breath sounds decreased bilaterally. No accessory muscle use. GASTROINTESTINAL: Abdomen soft, non-tender, nondistended. MUSCULOSKELETAL: No cyanosis, or edema. BACK: Nontender without obvious deformity. No CVA tenderness. Results - Labs CBC & Chem 7: 11/26/17 05:23 11/26/17 05:23 Laboratory Results - last 24 hr 11/25/17 11/25/17 11/25/17 11:35 16:53 19:53 WBC RBC Hgb Hct MCV MCH MCHC RDW Plt Count MPV Prelim Diff (Auto) Neut % (Auto) Lymph % (Auto) [place] % (Auto) Eos % (Auto) Baso % (Auto) Neut # (Auto) Lymph # (Auto) [place] # (Auto) Eos # (Auto) Baso # (Auto) WBC Differential Diff Scan Differential Comment Ovalocytes Sodium Potassium Chloride Carbon Dioxide Anion Gap BUN Creatinine Estimated GFR POC Glucose 245 H 185 H 243 H Random Glucose Calcium Prot Corrected Calcium Total Bilirubin AST ALT Alkaline Phosphatase Total Protein Albumin 11/26/17 11/26/17 11/26/17 05:23 05:23 08:22 WBC 4.3 RBC 3.08 L Hgb 9.0 L Hct 27.7 L MCV 89.9 MCH 29.2 MCHC 32.5 RDW 22.1 H Plt Count 190 MPV 7.9 Prelim Diff (Auto) Slide review pending Neut % (Auto) 89.2 H Lymph % (Auto) 7.4 L [place] % (Auto) 3.2 Eos % (Auto) 0.1 Baso % (Auto) 0.1 Neut # (Auto) 3.9 Lymph # (Auto) 0.3 L [place] # (Auto) 0.1 Eos # (Auto) 0.0 Baso # (Auto) 0.0 WBC Differential . Diff Scan Auto diff confirmed Differential Comment . Ovalocytes 1+ H Sodium 146 H Potassium 3.7 Chloride 109 H Carbon Dioxide 24.6 Anion Gap 12 BUN 46 H Creatinine 1.35 H Estimated GFR 52 L POC Glucose 209 H Random Glucose 194 H Calcium 7.1 L* Prot Corrected Calcium 8.0 L Total Bilirubin 0.4 AST 37 ALT 24 Alkaline Phosphatase 70 Total Protein 5.4 L Albumin 1.8 L Assessment and Plan - Plan 77-year-old man with Hypoxemia Hx COPD Hx of recent pneumonia -CTA 11/21: no PE, moderate to severe bilateral interstitial lung disease characteristic of either interstitial edema or pneumonitis, small left pleural effusion, line emphysematous lung changes. -2D echo completed on 11/22 with normal EF -Chest x-ray with stable prominent diffuse bilateral interstitial and parenchymal opacities with progression compared to 11/20 x-ray -Currently on IV Zosyn and vancomycin. -Scheduled duo nebs and as needed, IV Solu-Medrol 40 mg or change it to q. 12 hour. -Appreciate input from pulmonary medicine. Atrial fibrillation with RVR -Patient is s/p ablation. - Cardiology evaluated patient on 11/21, no a.fib seen on EKG's only ST with PAC's. High risk for bleeding and no anticoagulation noted to be reasonable per cardiology. -Start amiodarone drip November 26, 2017, discontinue esmolol drip -Consult cardiology -Continue low dose ASA HTN, chronic, stable HLD -Continue metoprolol and Cardizem, blood pressure stable. - on low dose ASA and Lipitor Normocytic anemia -Previously on chemo for prostate CA. - Continue oral Fe supplementation - 1 unit PRBC's 11/22, Acute renal failure Likely exacerbated by Lasix. -Hold on nephrotoxic drug - nephrology consult if no improvement. DVT prophylaxis-subcu Lovenox
[2017-11-26] MEDS: Vancomycin Inj 1,250 MG in Sodium Chlor 0.9% Inj 250 ML IV.SIG SCH (15:05)
[2017-11-26] MEDS: Enoxaparin Inj 40 MG/0.4 ML Syringe SQ SCH (15:06)
--- NOTE | 2017-11-26 15:45 | P.PN ---
Subjective Interval history: ALERT NO SOB, ON O2 VIA MASK Physical Exam Vital signs: Vital Signs 11/25/17 16:00 11/25/17 18:00 11/25/17 20:00 Temperature 98.0 F 97.8 F Pulse Rate 130 H 129 H 128 H Respiratory Rate 25 H Blood Pressure 98/60 L Pulse Oximetry 91 L 11/25/17 21:26 11/25/17 22:00 11/26/17 00:00 Temperature 98.2 F Pulse Rate 127 H 128 H Respiratory Rate 24 Blood Pressure 94/58 L Pulse Oximetry 93 L 90 L 11/26/17 02:00 11/26/17 04:00 11/26/17 06:00 Temperature 98.0 F Pulse Rate 129 H 129 H 129 H Respiratory Rate 26 H Blood Pressure 92/55 L Pulse Oximetry 92 L 11/26/17 06:01 11/26/17 06:15 11/26/17 06:30 Temperature Pulse Rate 129 H 130 H Respiratory Rate 23 24 Blood Pressure 104/55 L 106/59 L 105/63 Pulse Oximetry 92 L 89 L 11/26/17 06:45 11/26/17 07:00 11/26/17 07:01 Temperature Pulse Rate 130 H 142 H 153 H Respiratory Rate 14 35 H 34 H Blood Pressure 91/56 L 92/57 L Pulse Oximetry 94 L 94 L 88 L 11/26/17 07:16 11/26/17 07:30 11/26/17 07:45 Temperature Pulse Rate 131 H 130 H 131 H Respiratory Rate 25 H 26 H 23 Blood Pressure 139/56 L 106/64 100/58 L Pulse Oximetry 91 L 90 L 91 L 11/26/17 08:00 11/26/17 08:10 11/26/17 08:12 Temperature 98.3 F Pulse Rate 132 H 132 H 132 H Respiratory Rate 25 H 30 H 25 H Blood Pressure 102/63 101/62 96/60 L Pulse Oximetry 91 L 86 L 93 L 11/26/17 08:14 11/26/17 08:16 11/26/17 08:20 Temperature Pulse Rate 134 H 134 H 134 H Respiratory Rate 26 H 25 H 28 H Blood Pressure 93/53 L 97/61 L 100/60 Pulse Oximetry 93 L 92 L 92 L 11/26/17 08:30 11/26/17 08:45 11/26/17 09:00 Temperature Pulse Rate 134 H 134 H 134 H Respiratory Rate 14 24 23 Blood Pressure 91/58 L 91/57 L 97/62 L Pulse Oximetry 90 L 91 L 94 L 11/26/17 09:15 11/26/17 09:30 11/26/17 09:45 Temperature Pulse Rate 135 H 137 H 136 H Respiratory Rate 24 25 H 22 Blood Pressure 99/64 L 105/57 L 107/61 Pulse Oximetry 95 94 L 96 11/26/17 10:00 11/26/17 10:15 11/26/17 10:31 Temperature Pulse Rate 137 H 137 H 138 H Respiratory Rate 26 H 25 H 25 H Blood Pressure 107/58 L 89/60 L 106/54 L Pulse Oximetry 94 L 95 94 L 11/26/17 10:45 11/26/17 11:00 11/26/17 11:15 Temperature Pulse Rate 137 H 137 H 137 H Respiratory Rate 25 H 20 24 Blood Pressure 114/60 108/64 113/64 Pulse Oximetry 95 93 L 93 L 11/26/17 11:30 11/26/17 11:45 11/26/17 12:00 Temperature 98.0 F Pulse Rate 138 H 137 H 137 H Respiratory Rate 25 H 25 H 24 Blood Pressure 103/62 116/63 118/67 Pulse Oximetry 94 L 94 L 95 11/26/17 12:15 11/26/17 12:30 11/26/17 12:45 Temperature Pulse Rate 137 H 137 H 137 H Respiratory Rate 21 19 17 Blood Pressure 118/77 115/73 109/65 Pulse Oximetry 95 95 96 11/26/17 13:00 11/26/17 13:15 11/26/17 13:30 Temperature Pulse Rate 137 H 137 H 135 H Respiratory Rate 22 25 H 28 H Blood Pressure 112/71 110/65 118/72 Pulse Oximetry 94 L 95 86 L 11/26/17 13:45 11/26/17 14:00 11/26/17 14:15 Temperature Pulse Rate 137 H 137 H 137 H Respiratory Rate 23 20 18 Blood Pressure 109/62 109/69 118/76 Pulse Oximetry 94 L 97 98 11/26/17 14:30 11/26/17 14:45 11/26/17 15:00 Temperature Pulse Rate 137 H 135 H 137 H Respiratory Rate 26 H 30 H 29 H Blood Pressure 113/70 116/73 120/60 Pulse Oximetry 95 88 L 92 L 11/26/17 15:15 Temperature Pulse Rate 137 H Respiratory Rate 26 H Blood Pressure 117/58 L Pulse Oximetry 92 L Intake & Output 11/25/17 11/26/17 11/26/17 18:59 06:59 18:59 Intake Total 862.5 / 862.5 790 / 790 50 / 50 Output Total 700 / 700 770 / 770 Balance 162.5 / 162.5 20 / 20 50 / 50 Weight 115.7 kg Intake: IV 362.5 / 362.5 550 / 550 50 / 50 Brevibloc 2,500 mg/NS 250 mL 500 / 500 Premix 2,500 mg In 250 ml @ 50 MCG/KG/MIN 37.05 mls/hr IV.CONT TITRATE PRN Rx#:[id number] Zosyn 2.25 GM Premix 50 ML @ 100 / 100 50 / 50 50 / 50 100 mls/hr IV.SIG Q6HR FERNANDA Rx#: [id number] Vancomycin Inj 1,250 MG In NS 262.5 / 262.5 Inj 250 ML @ 250 mls/hr IV.SIG Q24H FERNANDA Rx#:[id number] Oral 500 / 500 240 / 240 Output: Urine 700 / 700 770 / 770 Other: Date of Last Bowel Movement 11/24/17 11/24/17 11/24/17 Narrative: GENERAL: NAD SKIN: Warm and dry. HEAD: Normocephalic. EYES: No scleral icterus. No injection or drainage. NECK: Supple, trachea midline. No JVD or lymphadenopathy. CARDIOVASCULAR: Regular rate and rhythm without murmurs, gallops, or rubs. RESPIRATORY: Breath sounds decreased bilaterally. No accessory muscle use. GASTROINTESTINAL: Abdomen soft, non-tender, nondistended. MUSCULOSKELETAL: No cyanosis, or edema. BACK: Nontender without obvious deformity. No CVA tenderness. Results - Labs CBC & Chem 7: 11/26/17 05:23 11/26/17 05:23 Laboratory Results - last 24 hr 11/25/17 11/25/17 11/26/17 16:53 19:53 05:23 WBC 4.3 RBC 3.08 L Hgb 9.0 L Hct 27.7 L MCV 89.9 MCH 29.2 MCHC 32.5 RDW 22.1 H Plt Count 190 MPV 7.9 Prelim Diff (Auto) Slide review pending Neut % (Auto) 89.2 H Lymph % (Auto) 7.4 L [place] % (Auto) 3.2 Eos % (Auto) 0.1 Baso % (Auto) 0.1 Neut # (Auto) 3.9 Lymph # (Auto) 0.3 L [place] # (Auto) 0.1 Eos # (Auto) 0.0 Baso # (Auto) 0.0 WBC Differential . Diff Scan Auto diff confirmed Differential Comment . Ovalocytes 1+ H Sodium Potassium Chloride Carbon Dioxide Anion Gap BUN Creatinine Estimated GFR POC Glucose 185 H 243 H Random Glucose Calcium Prot Corrected Calcium Total Bilirubin AST ALT Alkaline Phosphatase Total Protein Albumin 11/26/17 11/26/17 11/26/17 05:23 08:22 12:07 WBC RBC Hgb Hct MCV MCH MCHC RDW Plt Count MPV Prelim Diff (Auto) Neut % (Auto) Lymph % (Auto) [place] % (Auto) Eos % (Auto) Baso % (Auto) Neut # (Auto) Lymph # (Auto) [place] # (Auto) Eos # (Auto) Baso # (Auto) WBC Differential Diff Scan Differential Comment Ovalocytes Sodium 146 H Potassium 3.7 Chloride 109 H Carbon Dioxide 24.6 Anion Gap 12 BUN 46 H Creatinine 1.35 H Estimated GFR 52 L POC Glucose 209 H 215 H Random Glucose 194 H Calcium 7.1 L* Prot Corrected Calcium 8.0 L Total Bilirubin 0.4 AST 37 ALT 24 Alkaline Phosphatase 70 Total Protein 5.4 L Albumin 1.8 L Assessment and Plan - Plan RESPIRATORY FAILURE COPD CHF PLAN O2 NEEDED BRONCHODILATORS INCREASE ACTIVITY
[2017-11-26] MEDS: Piperacil/Tazo 3.375 GM Premix 50 ML IV.SIG SCH ×2 (17:20→23:54)
[2017-11-27] MEDS: Chlorhexidine Gluconate 2% 1 Pack (2 Cloths) TOPICAL SCH (04:02)
[2017-11-27] MEDS: Piperacil/Tazo 3.375 GM Premix 50 ML IV.SIG SCH ×3 (06:49→17:29)
[2017-11-27] MEDS: Amiodarone Inj 450 MG in Sodium Chlor 0.9% Inj 241 ML IV.CONT SCH ×3 (08:41→22:09)
--- NOTE | 2017-11-27 09:26 | MB ---
cc: Nora Mac MD DATE: 11/26/2017 REASON FOR CONSULTATION: Atrial fibrillation, possible atrial flutter with ventricular response HISTORY OF PRESENT ILLNESS: Mr. Ramírez is a 77-year-old gentleman with history of metastatic prostate cancer, bladder cancer, chronic anemia, recent hospitalization due to sepsis and shock, was at [facility]. The patient had an ablation around 2-3 years ago. Admitted to the emergency room due to chest pain and shortness of breath. He was found to have pneumonia. Antibiotic was initiated. He was on vancomycin and Zosyn. Heart rate difficult to control despite on Cardizem, metoprolol and amiodarone. I was consulted for evaluation and management. The chart was reviewed. The patient was evaluated. ALLERGIES: NONE. SOCIAL HISTORY: Negative for smoking and drinking. FAMILY HISTORY: Noncontributory to his current medical condition. MEDICATIONS: He is on DuoNeb, he is amiodarone IV, he is on aspirin 81 mg a day, he is on Lipitor 10 mg h.s., he is on Cardizem-CD 300 mg a day, he is on Lovenox subcutaneously 24 hours and famotidine, he is on metoprolol 50 mg twice a day, he is on Zofran, he is on vancomycin. He was on piperacillin, tazobactam that was discontinued. REVIEW OF SYSTEMS: Currently, referred shortness of breath and palpitation, but no chest pain or discomfort. PHYSICAL EXAMINATION: GENERAL: Alert, fully oriented. VITAL SIGNS: His blood pressure 125/68, pulse 135, respiratory rate 20. LUNGS: Decreased basal ventilation. CARDIOVASCULAR: S1, S2, tachycardic. Left infraclavicular area with a port. ABDOMEN: Obese. No mass. LOWER EXTREMITIES: No edema. ELECTROCARDIOGRAM: Indicates possible atrial fibrillation with ventricular response. LABORATORY DATA: Hemoglobin is 9, white blood cell 4.3, platelet is 190, potassium is 3.7, creatinine is 1.35, calcium is 7.1. ASSESSMENT AND RECOMMENDATIONS: Mr. Ramírez is currently on antibiotic for the pneumonia. Apparently it is resolving. The problem now is atrial fibrillation with ventricular response. Heart rate is fast, 135 beats per minute despite being on 3 negative chronotropic medication. Recent echocardiogram and that was on 11/22/2017, indicated ejection fraction of around 60-65%. At this point, Mr. Ramírez is only on Lovenox for DVT prophylaxis. I will switch him to full dose of Lovenox. He has a history of prostate cancer, metastasis and anemia. Finally, I am not sure if this gentleman is a good candidate for ablation. I am going to decrease the Lovenox. I am going to initiate Eliquis. If the heart rate continued to be high tomorrow, I will consider DANIEL and cardioversion for now. Case discussed with him. Further decision in the morning. MD MABEL Mccarthy/PROSPER , 08:44 PM , 09:28 PM
[2017-11-27] MEDS: Ferrous Sulfate 325 MG Tablet PO SCH (09:32)
[2017-11-27] MEDS: Metoprolol Tartrate 50 MG Tablet PO SCH ×2 (09:32→20:17)
[2017-11-27] MEDS: MethylPREDNISolone Sod Succinate Inj 40 MG/ML Vial IV.PUSH SCH ×2 (09:32→20:17)
[2017-11-27] MEDS: Famotidine 20 MG Tablet PO SCH ×2 (09:32→20:16)
[2017-11-27] MEDS: Insulin NovoLOG Aspart Correctional Sugar Inj SQ SCH ×4 (09:33→20:21)
--- NOTE | 2017-11-27 12:14 | ECG ---
Date Performed: 11/25/2017 Time Performed: 17:31:48 PTAGE: 77 years EKG: ATRIAL FIBRILLATION WITH RAPID VENTRICULAR RESPONSE INDETERMINATE AXIS RIGHT BUNDLE BRANCH BLOCK ABNORMAL ECG NO PREVIOUS TRACING DOCTOR: Nora Mac Interpretating Date/Time 11/27/2017 12:06:30
[2017-11-27] MEDS ORDERED: Pharmacy Ordered Lab Info OTHER ONE (13:45)
--- NOTE | 2017-11-27 14:50 | P.PNIM ---
Subjective Interval history: mildly confused. not short of breath. no pain. nursing staff reports cough up yellowish knox sputum. Physical Exam Vital signs: Vital Signs 11/26/17 14:45 11/26/17 15:00 11/26/17 15:15 Temperature Pulse Rate 135 H 137 H 137 H Respiratory Rate 30 H 29 H 26 H Blood Pressure 116/73 120/60 117/58 L Pulse Oximetry 88 L 92 L 92 L 11/26/17 15:30 11/26/17 15:45 11/26/17 16:00 Temperature 98.1 F Pulse Rate 137 H 135 H 136 H Respiratory Rate 19 16 25 H Blood Pressure 123/63 115/67 120/68 Pulse Oximetry 97 98 95 11/26/17 16:15 11/26/17 16:30 11/26/17 16:45 Temperature Pulse Rate 137 H 135 H 136 H Respiratory Rate 18 17 27 H Blood Pressure 138/68 129/75 124/69 Pulse Oximetry 97 98 98 11/26/17 17:00 11/26/17 17:15 11/26/17 17:30 Temperature Pulse Rate 135 H 136 H 135 H Respiratory Rate 23 18 18 Blood Pressure 139/76 116/65 122/76 Pulse Oximetry 93 L 96 96 11/26/17 17:45 11/26/17 18:00 11/26/17 18:15 Temperature Pulse Rate 136 H 136 H 137 H Respiratory Rate 16 16 16 Blood Pressure 119/71 121/73 119/69 Pulse Oximetry 95 96 96 11/26/17 18:30 11/26/17 20:00 11/26/17 21:14 Temperature 98.0 F Pulse Rate 135 H 134 H Respiratory Rate 33 H 16 Blood Pressure 125/68 116/66 Pulse Oximetry 90 L 100 100 11/26/17 22:00 11/27/17 00:00 11/27/17 02:00 Temperature 97.7 F Pulse Rate 134 H 132 H 132 H Respiratory Rate 23 Blood Pressure 107/65 Pulse Oximetry 98 11/27/17 02:45 11/27/17 03:00 11/27/17 03:15 Temperature Pulse Rate 133 H 132 H 132 H Respiratory Rate 15 15 14 Blood Pressure 94/67 L 99/68 L 109/72 Pulse Oximetry 99 99 100 11/27/17 03:30 11/27/17 03:45 11/27/17 04:00 Temperature 98.2 F Pulse Rate 132 H 132 H 133 H Respiratory Rate 19 19 22 Blood Pressure 99/70 L 113/68 115/73 Pulse Oximetry 100 99 97 11/27/17 04:15 11/27/17 04:30 11/27/17 04:45 Temperature Pulse Rate 132 H 131 H 133 H Respiratory Rate 18 21 20 Blood Pressure 121/78 124/78 115/81 Pulse Oximetry 99 100 99 11/27/17 05:00 11/27/17 05:15 11/27/17 05:30 Temperature Pulse Rate 133 H 133 H 135 H Respiratory Rate 16 18 19 Blood Pressure 115/79 119/81 122/80 Pulse Oximetry 100 99 96 11/27/17 05:45 11/27/17 06:00 11/27/17 06:15 Temperature Pulse Rate 134 H 134 H 134 H Respiratory Rate 19 23 21 Blood Pressure 122/79 127/71 127/76 Pulse Oximetry 100 96 100 11/27/17 06:30 11/27/17 06:45 11/27/17 07:00 Temperature Pulse Rate 134 H 134 H 134 H Respiratory Rate 19 18 29 H Blood Pressure 127/76 133/78 170/84 H Pulse Oximetry 99 100 89 L 11/27/17 07:15 11/27/17 08:00 11/27/17 08:24 Temperature 97.1 F L Pulse Rate 134 H 135 H Respiratory Rate 16 19 Blood Pressure 112/66 114/76 Pulse Oximetry 100 96 100 11/27/17 08:30 11/27/17 09:00 11/27/17 09:30 Temperature Pulse Rate 134 H 135 H 134 H Respiratory Rate 15 22 27 H Blood Pressure 112/74 112/75 119/74 Pulse Oximetry 100 99 99 11/27/17 10:00 11/27/17 10:30 11/27/17 11:00 Temperature Pulse Rate 134 H 134 H 134 H Respiratory Rate 14 19 21 Blood Pressure 117/76 119/78 116/78 Pulse Oximetry 100 100 100 11/27/17 11:30 11/27/17 12:00 11/27/17 12:30 Temperature 98.1 F Pulse Rate 134 H 134 H 134 H Respiratory Rate 18 17 17 Blood Pressure 117/71 105/68 101/66 Pulse Oximetry 99 100 100 11/27/17 13:00 11/27/17 13:30 Temperature Pulse Rate 134 H 134 H Respiratory Rate 14 22 Blood Pressure 96/67 L 97/71 L Pulse Oximetry 99 96 Intake & Output 11/26/17 11/27/17 11/27/17 18:59 06:59 18:59 Intake Total 700 / 700 540 / 540 312.5 / 312.5 Output Total 325 / 325 400 / 400 Balance 375 / 375 140 / 140 312.5 / 312.5 Weight 115.7 kg Intake: IV 350 / 350 300 / 300 312.5 / 312.5 Cordarone Inj 450 MG In NS Inj 250 / 250 250 / 250 241 ML @ 1 MG/MIN 33.33 mls/hr IV.CONT .Q7H31M FERNANDA Rx#: [id number] Zosyn 2.25 GM Premix 50 ML @ 50 / 50 100 mls/hr IV.SIG Q6HR FERNANDA Rx#: [id number] Zosyn 3.375 GM Premix 50 ML @ 50 / 50 50 / 50 50 / 50 100 mls/hr IV.SIG Q6H FERNANDA Rx#: [id number] Vancomycin Inj 1,250 MG In NS 262.5 / 262.5 Inj 250 ML @ 250 mls/hr IV.SIG Q24H FERNANDA Rx#:[id number] Oral 350 / 350 240 / 240 Output: Urine 325 / 325 400 / 400 Other: Date of Last Bowel Movement 11/26/17 11/26/17 11/27/17 # Bowel Movements 1 Narrative: GENERAL: WN/WD WM in NAD SKIN: Warm and dry. HEAD: Normocephalic. EYES: No scleral icterus. No injection or drainage. NECK: Supple, trachea midline. No JVD or lymphadenopathy. CARDIOVASCULAR: Regular rate and rhythm without murmurs, gallops, or rubs. RESPIRATORY: Breath sounds decreased bilaterally. No accessory muscle use. GASTROINTESTINAL: Abdomen soft, non-tender, nondistended. MUSCULOSKELETAL: No cyanosis, or edema. NEURO: A & O to person, place but not to time or situitation. moves all 4 ext but with generalized weakness Results - Labs CBC & Chem 7: 11/26/17 05:23 11/26/17 05:23 Laboratory Results - last 24 hr 11/26/17 11/26/17 11/27/17 17:23 20:25 08:19 POC Glucose 217 H 274 H 216 H 11/27/17 11:47 POC Glucose 217 H Assessment and Plan - Assessment (1) HCAP (healthcare-associated pneumonia) Code(s): J18.9 - Pneumonia, unspecified organism Status: Acute (2) Acute hypoxemic respiratory failure Code(s): J96.01 - Acute respiratory failure with hypoxia Status: Acute (3) COPD (chronic obstructive pulmonary disease) Code(s): J44.9 - Chronic obstructive pulmonary disease, unspecified Status: Acute - Plan 77-year-old man with Hypoxemia, Acute respiratory failure due to COPD exacerbation and community acquired pneumonia - Hx COPD Hx of recent pneumonia -CTA 11/21: no PE, moderate to severe bilateral interstitial lung disease characteristic of either interstitial edema or pneumonitis, small left pleural effusion, line emphysematous lung changes. -2D echo completed on 11/22 with normal EF -Chest x-ray with stable prominent diffuse bilateral interstitial and parenchymal opacities with progression compared to 11/20 x-ray -Currently on IV Zosyn and IV vancomycin. -Scheduled duo nebs and as needed, IV Solu-Medrol 40 mg q. 12 hour. -Appreciate input from pulmonary medicine, Dr. Jensen. Atrial fibrillation with RVR -Patient is s/p ablation. - Cardiology , Dr. Mac evaluated patient -Start amiodarone drip November 26, 2017, discontinue esmolol drip; high risk for ablation and may need DANIEL with cardioversion if persistent A. fib with RVR -Continue low dose ASA HTN, essential chronic, stable HLD -Continue metoprolol and Cardizem, blood pressure stable. - on low dose ASA and Lipitor Normocytic anemia -Previously on chemo for prostate CA. - Continue oral Fe supplementation -Transfused 1 unit PRBC's 11/22, Acute renal failure superimposed on chronic kidney disease stage IIIresolving Likely exacerbated by Lasix. -Avoid nephrotoxic drug -Clinically improving from 1.8-1.3 we will continue to monitor. DVT prophylaxis-subcu Lovenox (3) COPD (chronic obstructive pulmonary disease) Qualifiers: COPD type: COPD with acute exacerbation Qualified Code(s): J44.1 - Chronic obstructive pulmonary disease with (acute) exacerbation
[2017-11-27] MEDS: Vancomycin Inj 1,250 MG in Sodium Chlor 0.9% Inj 250 ML IV.SIG SCH (15:47)
--- NOTE | 2017-11-27 17:06 | P.PN ---
Subjective Interval history: ALERT NAD ON HIGH FIO2 Physical Exam Vital signs: Vital Signs 11/26/17 17:15 11/26/17 17:30 11/26/17 17:45 Temperature Pulse Rate 136 H 135 H 136 H Respiratory Rate 18 18 16 Blood Pressure 116/65 122/76 119/71 Pulse Oximetry 96 96 95 11/26/17 18:00 11/26/17 18:15 11/26/17 18:30 Temperature Pulse Rate 136 H 137 H 135 H Respiratory Rate 16 16 33 H Blood Pressure 121/73 119/69 125/68 Pulse Oximetry 96 96 90 L 11/26/17 20:00 11/26/17 21:14 11/26/17 22:00 Temperature 98.0 F Pulse Rate 134 H 134 H Respiratory Rate 16 Blood Pressure 116/66 Pulse Oximetry 100 100 11/27/17 00:00 11/27/17 02:00 11/27/17 02:45 Temperature 97.7 F Pulse Rate 132 H 132 H 133 H Respiratory Rate 23 15 Blood Pressure 107/65 94/67 L Pulse Oximetry 98 99 11/27/17 03:00 11/27/17 03:15 11/27/17 03:30 Temperature Pulse Rate 132 H 132 H 132 H Respiratory Rate 15 14 19 Blood Pressure 99/68 L 109/72 99/70 L Pulse Oximetry 99 100 100 11/27/17 03:45 11/27/17 04:00 11/27/17 04:15 Temperature 98.2 F Pulse Rate 132 H 133 H 132 H Respiratory Rate 19 22 18 Blood Pressure 113/68 115/73 121/78 Pulse Oximetry 99 97 99 11/27/17 04:30 11/27/17 04:45 11/27/17 05:00 Temperature Pulse Rate 131 H 133 H 133 H Respiratory Rate 21 20 16 Blood Pressure 124/78 115/81 115/79 Pulse Oximetry 100 99 100 11/27/17 05:15 11/27/17 05:30 11/27/17 05:45 Temperature Pulse Rate 133 H 135 H 134 H Respiratory Rate 18 19 19 Blood Pressure 119/81 122/80 122/79 Pulse Oximetry 99 96 100 11/27/17 06:00 11/27/17 06:15 11/27/17 06:30 Temperature Pulse Rate 134 H 134 H 134 H Respiratory Rate 23 21 19 Blood Pressure 127/71 127/76 127/76 Pulse Oximetry 96 100 99 11/27/17 06:45 11/27/17 07:00 11/27/17 07:15 Temperature Pulse Rate 134 H 134 H 134 H Respiratory Rate 18 29 H 16 Blood Pressure 133/78 170/84 H 112/66 Pulse Oximetry 100 89 L 100 11/27/17 08:00 11/27/17 08:24 11/27/17 08:30 Temperature 97.1 F L Pulse Rate 135 H 134 H Respiratory Rate 19 15 Blood Pressure 114/76 112/74 Pulse Oximetry 96 100 100 11/27/17 09:00 11/27/17 09:30 11/27/17 10:00 Temperature Pulse Rate 135 H 134 H 134 H Respiratory Rate 22 27 H 14 Blood Pressure 112/75 119/74 117/76 Pulse Oximetry 99 99 100 11/27/17 10:30 11/27/17 11:00 11/27/17 11:30 Temperature Pulse Rate 134 H 134 H 134 H Respiratory Rate 19 21 18 Blood Pressure 119/78 116/78 117/71 Pulse Oximetry 100 100 99 11/27/17 12:00 11/27/17 12:30 11/27/17 13:00 Temperature 98.1 F Pulse Rate 134 H 134 H 134 H Respiratory Rate 17 17 14 Blood Pressure 105/68 101/66 96/67 L Pulse Oximetry 100 100 99 11/27/17 13:30 11/27/17 14:00 11/27/17 14:30 Temperature Pulse Rate 134 H 134 H 134 H Respiratory Rate 22 22 18 Blood Pressure 97/71 L 104/72 100/72 Pulse Oximetry 96 95 98 11/27/17 15:00 11/27/17 15:30 11/27/17 16:00 Temperature 98.2 F Pulse Rate 134 H 135 H 135 H Respiratory Rate 18 18 17 Blood Pressure 101/75 108/73 118/77 Pulse Oximetry 100 99 99 Intake & Output 11/26/17 11/27/17 11/27/17 18:59 06:59 18:59 Intake Total 700 / 700 540 / 540 362.5 / 362.5 Output Total 325 / 325 400 / 400 Balance 375 / 375 140 / 140 362.5 / 362.5 Weight 115.7 kg Intake: IV 350 / 350 300 / 300 362.5 / 362.5 Cordarone Inj 450 MG In NS Inj 250 / 250 250 / 250 241 ML @ 1 MG/MIN 33.33 mls/hr IV.CONT .Q7H31M FERNANDA Rx#: [id number] Zosyn 2.25 GM Premix 50 ML @ 50 / 50 100 mls/hr IV.SIG Q6HR FERNANDA Rx#: [id number] Zosyn 3.375 GM Premix 50 ML @ 50 / 50 50 / 50 100 / 100 100 mls/hr IV.SIG Q6H FERNANDA Rx#: [id number] Vancomycin Inj 1,250 MG In NS 262.5 / 262.5 Inj 250 ML @ 250 mls/hr IV.SIG Q24H FERNANDA Rx#:[id number] Oral 350 / 350 240 / 240 Output: Urine 325 / 325 400 / 400 Other: Date of Last Bowel Movement 11/26/17 11/26/17 11/27/17 # Bowel Movements 1 Narrative: GENERAL: WN/WD WM in NAD SKIN: Warm and dry. HEAD: Normocephalic. EYES: No scleral icterus. No injection or drainage. NECK: Supple, trachea midline. No JVD or lymphadenopathy. CARDIOVASCULAR: Regular rate and rhythm without murmurs, gallops, or rubs. RESPIRATORY: Breath sounds decreased bilaterally. No accessory muscle use. GASTROINTESTINAL: Abdomen soft, non-tender, nondistended. MUSCULOSKELETAL: No cyanosis, or edema. NEURO: A & O to person, place but not to time or situitation. moves all 4 ext but with generalized weakness Results - Labs CBC & Chem 7: 11/26/17 05:23 11/26/17 05:23 Laboratory Results - last 24 hr 11/26/17 11/26/17 11/27/17 17:23 20:25 08:19 POC Glucose 217 H 274 H 216 H Vancomycin Trough 11/27/17 11/27/17 11/27/17 11:47 15:35 16:48 POC Glucose 217 H 195 H Vancomycin Trough 14.4 H Assessment and Plan - Plan RESPIRATORY FAILURE COPD CHF PLAN O2 NEEDED BRONCHODILATORS INCREASE ACTIVITY
--- NOTE | 2017-11-27 17:16 | P.PN ---
Subjective Interval history: Tired Physical Exam Vital signs: Vital Signs 11/26/17 17:15 11/26/17 17:30 11/26/17 17:45 Temperature Pulse Rate 136 H 135 H 136 H Respiratory Rate 18 18 16 Blood Pressure 116/65 122/76 119/71 Pulse Oximetry 96 96 95 11/26/17 18:00 11/26/17 18:15 11/26/17 18:30 Temperature Pulse Rate 136 H 137 H 135 H Respiratory Rate 16 16 33 H Blood Pressure 121/73 119/69 125/68 Pulse Oximetry 96 96 90 L 11/26/17 20:00 11/26/17 21:14 11/26/17 22:00 Temperature 98.0 F Pulse Rate 134 H 134 H Respiratory Rate 16 Blood Pressure 116/66 Pulse Oximetry 100 100 11/27/17 00:00 11/27/17 02:00 11/27/17 02:45 Temperature 97.7 F Pulse Rate 132 H 132 H 133 H Respiratory Rate 23 15 Blood Pressure 107/65 94/67 L Pulse Oximetry 98 99 11/27/17 03:00 11/27/17 03:15 11/27/17 03:30 Temperature Pulse Rate 132 H 132 H 132 H Respiratory Rate 15 14 19 Blood Pressure 99/68 L 109/72 99/70 L Pulse Oximetry 99 100 100 11/27/17 03:45 11/27/17 04:00 11/27/17 04:15 Temperature 98.2 F Pulse Rate 132 H 133 H 132 H Respiratory Rate 19 22 18 Blood Pressure 113/68 115/73 121/78 Pulse Oximetry 99 97 99 11/27/17 04:30 11/27/17 04:45 11/27/17 05:00 Temperature Pulse Rate 131 H 133 H 133 H Respiratory Rate 21 20 16 Blood Pressure 124/78 115/81 115/79 Pulse Oximetry 100 99 100 11/27/17 05:15 11/27/17 05:30 11/27/17 05:45 Temperature Pulse Rate 133 H 135 H 134 H Respiratory Rate 18 19 19 Blood Pressure 119/81 122/80 122/79 Pulse Oximetry 99 96 100 11/27/17 06:00 11/27/17 06:15 11/27/17 06:30 Temperature Pulse Rate 134 H 134 H 134 H Respiratory Rate 23 21 19 Blood Pressure 127/71 127/76 127/76 Pulse Oximetry 96 100 99 07/16/18 06:45 11/27/17 07:00 11/27/17 07:15 Temperature Pulse Rate 134 H 134 H 134 H Respiratory Rate 18 29 H 16 Blood Pressure 133/78 170/84 H 112/66 Pulse Oximetry 100 89 L 100 11/27/17 08:00 11/27/17 08:24 11/27/17 08:30 Temperature 97.1 F L Pulse Rate 135 H 134 H Respiratory Rate 19 15 Blood Pressure 114/76 112/74 Pulse Oximetry 96 100 100 11/27/17 09:00 11/27/17 09:30 11/27/17 10:00 Temperature Pulse Rate 135 H 134 H 134 H Respiratory Rate 22 27 H 14 Blood Pressure 112/75 119/74 117/76 Pulse Oximetry 99 99 100 11/27/17 10:30 11/27/17 11:00 11/27/17 11:30 Temperature Pulse Rate 134 H 134 H 134 H Respiratory Rate 19 21 18 Blood Pressure 119/78 116/78 117/71 Pulse Oximetry 100 100 99 11/27/17 12:00 11/27/17 12:30 11/27/17 13:00 Temperature 98.1 F Pulse Rate 134 H 134 H 134 H Respiratory Rate 17 17 14 Blood Pressure 105/68 101/66 96/67 L Pulse Oximetry 100 100 99 11/27/17 13:30 11/27/17 14:00 11/27/17 14:30 Temperature Pulse Rate 134 H 134 H 134 H Respiratory Rate 22 22 18 Blood Pressure 97/71 L 104/72 100/72 Pulse Oximetry 96 95 98 11/27/17 15:00 11/27/17 15:30 11/27/17 16:00 Temperature 98.2 F Pulse Rate 134 H 135 H 135 H Respiratory Rate 18 18 17 Blood Pressure 101/75 108/73 118/77 Pulse Oximetry 100 99 99 Intake & Output 11/26/17 11/27/17 11/27/17 18:59 06:59 18:59 Intake Total 700 / 700 540 / 540 362.5 / 362.5 Output Total 325 / 325 400 / 400 Balance 375 / 375 140 / 140 362.5 / 362.5 Weight 115.7 kg Intake: IV 350 / 350 300 / 300 362.5 / 362.5 Cordarone Inj 450 MG In NS Inj 250 / 250 250 / 250 241 ML @ 1 MG/MIN 33.33 mls/hr IV.CONT .Q7H31M FERNANDA Rx#: [id number] Zosyn 2.25 GM Premix 50 ML @ 50 / 50 100 mls/hr IV.SIG Q6HR FERNANDA Rx#: [id number] Zosyn 3.375 GM Premix 50 ML @ 50 / 50 50 / 50 100 / 100 100 mls/hr IV.SIG Q6H FERNANDA Rx#: [id number] Vancomycin Inj 1,250 MG In NS 262.5 / 262.5 Inj 250 ML @ 250 mls/hr IV.SIG Q24H FERNANDA Rx#:[id number] Oral 350 / 350 240 / 240 Output: Urine 325 / 325 400 / 400 Other: Date of Last Bowel Movement 11/26/17 11/26/17 11/27/17 # Bowel Movements 1 - Constitutional moderate distress - Routine HEENT Exam Head: Present: normocephalic Eye: Present: PERRL - Routine Respiratory Exam Present: accessory muscle use - Routine Cardiovascular Exam Present: S1, S2, tachycardia, irregular rhythm - Routine Abdominal Exam Present: soft - Routine Extremities Exam Present: normal capillary refill - Routine Neurological Exam Present: alert, oriented X3 - Detailed Neurological Exam: Coma Scale Eye Opening: Spontaneous Verbal Response: Oriented Motor Response: Obey commands [place] Coma Scale Total: 15 Results - Labs CBC & Chem 7: 11/26/17 05:23 11/26/17 05:23 Laboratory Results - last 24 hr 11/26/17 11/26/17 11/27/17 17:23 20:25 08:19 POC Glucose 217 H 274 H 216 H Vancomycin Trough 11/27/17 11/27/17 11/27/17 11:47 15:35 16:48 POC Glucose 217 H 195 H Vancomycin Trough 14.4 H Assessment and Plan - Assessment (1) SVT (supraventricular tachycardia) Code(s): I47.1 - Supraventricular tachycardia Status: Chronic - Plan In atrial tachycardia HR cannot be controlled DANIEL cardioversion tomorrow case discussed with patient NPO after midnight
[2017-11-28] MEDS: Piperacil/Tazo 3.375 GM Premix 50 ML IV.SIG SCH ×5 (00:47→23:13)
[2017-11-28] MEDS: Metoprolol Inj 5 MG/5 ML Vial IV.PUSH PRN (01:28)
[2017-11-28] MEDS: Chlorhexidine Gluconate 2% 1 Pack (2 Cloths) TOPICAL SCH (04:36)
[2017-11-28] MEDS: Amiodarone Inj 450 MG in Sodium Chlor 0.9% Inj 241 ML IV.CONT SCH ×2 (07:55→14:26)
[2017-11-28] MEDS: Insulin NovoLOG Aspart Correctional Sugar Inj SQ SCH ×4 (07:59→23:04)
[2017-11-28] MEDS: Metoprolol Tartrate 50 MG Tablet PO SCH ×2 (08:00→21:11)
[2017-11-28] MEDS: Famotidine 20 MG Tablet PO SCH ×2 (08:00→21:11)
[2017-11-28] MEDS: MethylPREDNISolone Sod Succinate Inj 40 MG/ML Vial IV.PUSH SCH ×2 (08:00→21:11)
[2017-11-28] MEDS: Ferrous Sulfate 325 MG Tablet PO SCH (08:00)
[2017-11-28 10:54] LABS: Baso % (Auto) 0.3 % (0.0-2.0); Eos % (Auto) 0.1 % (0.0-4.0); Hematocrit 29.4 % (39.0-51.0); Hemoglobin 9.6 gm/dL (13.0-17.0); Lymph # (Auto) 0.3 th/mm3 (1.0-4.8); Lymph % (Auto) 5.8 % (9.0-44.0); Mean Corpuscular HGB Conc 32.6 % (32.0-36.0); Mean Corpuscular Hemoglobin 29.2 pg (27.0-34.0); Mean Corpuscular Volume 89.4 fL (80.0-100.0); Mean Platelet Volume 7.7 fL (7.0-11.0); Mono # (Auto) 0.2 th/mm3 (0.0-0.9); Mono % (Auto) 3.2 % (0.0-8.0); Neut # (Auto) 4.4 th/mm3 (1.8-7.7); Neut % (Auto) 90.6 % (16.0-70.0); Platelet Count 211 th/mm3 (150-450); Red Blood Count 3.28 mil/mm3 (4.50-5.90); Red Cell Distribution Width 21.8 % (11.6-17.2); White Blood Count 4.9 th/mm3 (4.0-11.0)
[2017-11-28 11:15] LABS: Calcium 7.1 mg/dL (8.5-10.1); Carbon Dioxide 27.6 meq/L (21.0-32.0); Potassium 3.7 meq/L (3.5-5.1)
[2017-11-28 11:26] LABS: Total Protein 5.4 g/dL (6.4-8.2)
[2017-11-28] MEDS ORDERED: Phenylephrine/NS 1000 MCG/10ML Syringe IV.PUSH ONE (12:00)
--- NOTE | 2017-11-28 12:02 | P.PNIM ---
Subjective Interval history: Breathing better. No complaint of chest pain. Just completed the cardioversion. Wants to eat lunch. Physical Exam Vital signs: Vital Signs 11/27/17 12:00 11/27/17 12:30 11/27/17 13:00 Temperature 98.1 F Pulse Rate 134 H 134 H 134 H Respiratory Rate 17 17 14 Blood Pressure 105/68 101/66 96/67 L Pulse Oximetry 100 100 99 11/27/17 13:30 11/27/17 14:00 11/27/17 14:30 Temperature Pulse Rate 134 H 134 H 134 H Respiratory Rate 22 22 18 Blood Pressure 97/71 L 104/72 100/72 Pulse Oximetry 96 95 98 11/27/17 15:00 11/27/17 15:30 11/27/17 16:00 Temperature 98.2 F Pulse Rate 134 H 135 H 135 H Respiratory Rate 18 18 17 Blood Pressure 101/75 108/73 118/77 Pulse Oximetry 100 99 99 11/27/17 18:00 11/27/17 20:00 11/27/17 20:54 Temperature 97.2 F L Pulse Rate 136 H 135 H Respiratory Rate 22 Blood Pressure 108/63 Pulse Oximetry 95 98 11/27/17 22:00 11/28/17 00:00 11/28/17 02:00 Temperature 98.2 F Pulse Rate 133 H 133 H 133 H Respiratory Rate 22 Blood Pressure 107/72 Pulse Oximetry 95 11/28/17 04:00 11/28/17 06:00 11/28/17 08:00 Temperature 97.8 F 97.1 F L Pulse Rate 134 H 137 H 138 H Respiratory Rate 22 18 Blood Pressure 111/70 116/77 Pulse Oximetry 94 L 97 11/28/17 10:00 Temperature Pulse Rate 135 H Respiratory Rate Blood Pressure Pulse Oximetry Intake & Output 11/27/17 11/28/17 11/28/17 18:59 06:59 18:59 Intake Total 1203.0 / 1203.0 290 / 290 50 / 50 Output Total 625 / 625 450 / 450 Balance 578.0 / 578.0 -160 / -160 50 / 50 Weight 115.9 kg Intake: IV 903.0 / 903.0 50 / 50 50 / 50 Cordarone Inj 450 MG In NS Inj 228 / 228 241 ML @ 1 MG/MIN 33.33 mls/hr IV.CONT .Q7H31M FERNANDA Rx#: [id number] Zosyn 3.375 GM Premix 50 ML @ 150 / 150 50 / 50 50 / 50 100 mls/hr IV.SIG Q6H FERNANDA Rx#: [id number] Vancomycin Inj 1,250 MG In NS 525.0 / 525.0 Inj 250 ML @ 250 mls/hr IV.SIG Q24H FERNANDA Rx#:[id number] Oral 300 / 300 240 / 240 Output: Urine 625 / 625 450 / 450 Other: # Voids 3 Date of Last Bowel Movement 11/27/17 11/28/17 11/28/17 # Bowel Movements 2 1 Narrative: GENERAL: WN/WD WM in NAD SKIN: Warm and dry. HEAD: Normocephalic. EYES: No scleral icterus. No injection or drainage. NECK: Supple, trachea midline. No JVD or lymphadenopathy. CARDIOVASCULAR: Regular rate and rhythm w RESPIRATORY: Bibasilar few rhonchi's GASTROINTESTINAL: Abdomen soft, non-tender, nondistended. MUSCULOSKELETAL: No cyanosis, with trace edema NEURO: A & O to person, place, time. moves all 4 ext but with generalized weakness Results - Labs CBC & Chem 7: 11/28/17 10:00 11/28/17 10:00 Laboratory Results - last 24 hr 11/27/17 11/27/17 11/27/17 15:35 16:48 20:19 WBC RBC Hgb Hct MCV MCH MCHC RDW Plt Count MPV Prelim Diff (Auto) Neut % (Auto) Lymph % (Auto) Real % (Auto) Eos % (Auto) Baso % (Auto) Neut # (Auto) Lymph # (Auto) Real # (Auto) Eos # (Auto) Baso # (Auto) WBC Differential Diff Scan Differential Comment Sodium Potassium Chloride Carbon Dioxide Anion Gap BUN Creatinine Estimated GFR POC Glucose 195 H 187 H Random Glucose Calcium Prot Corrected Calcium Total Protein Vancomycin Trough 14.4 H 11/28/17 11/28/17 11/28/17 07:38 10:00 10:00 WBC 4.9 RBC 3.28 L Hgb 9.6 L Hct 29.4 L MCV 89.4 MCH 29.2 MCHC 32.6 RDW 21.8 H Plt Count 211 MPV 7.7 Prelim Diff (Auto) Slide review pending Neut % (Auto) 90.6 H Lymph % (Auto) 5.8 L Real % (Auto) 3.2 Eos % (Auto) 0.1 Baso % (Auto) 0.3 Neut # (Auto) 4.4 Lymph # (Auto) 0.3 L Real # (Auto) 0.2 Eos # (Auto) 0.0 Baso # (Auto) 0.0 WBC Differential . Diff Scan Auto diff confirmed Differential Comment . Sodium 147 H Potassium 3.7 Chloride 110 H Carbon Dioxide 27.6 Anion Gap 9 BUN 41 H Creatinine 1.16 Estimated GFR 61 L POC Glucose 182 H Random Glucose 170 H Calcium 7.1 L* Prot Corrected Calcium 8.0 L Total Protein 5.4 L Vancomycin Trough 11/28/17 11:43 WBC RBC Hgb Hct MCV MCH MCHC RDW Plt Count MPV Prelim Diff (Auto) Neut % (Auto) Lymph % (Auto) Real % (Auto) Eos % (Auto) Baso % (Auto) Neut # (Auto) Lymph # (Auto) Real # (Auto) Eos # (Auto) Baso # (Auto) WBC Differential Diff Scan Differential Comment Sodium Potassium Chloride Carbon Dioxide Anion Gap BUN Creatinine Estimated GFR POC Glucose 188 H Random Glucose Calcium Prot Corrected Calcium Total Protein Vancomycin Trough Assessment and Plan - Assessment (1) HCAP (healthcare-associated pneumonia) Code(s): J18.9 - Pneumonia, unspecified organism Status: Acute (2) Acute hypoxemic respiratory failure Code(s): J96.01 - Acute respiratory failure with hypoxia Status: Acute (3) COPD (chronic obstructive pulmonary disease) Code(s): J44.9 - Chronic obstructive pulmonary disease, unspecified Status: Acute - Plan 77-year-old man with Hypoxemia, Acute respiratory failure due to COPD exacerbation and community acquired pneumonia -continue to wean oxygen as tolerated. Hx COPD Hx of recent pneumoniaweaning off of nonrebreather to nasal cannula today. -CTA 11/21: no PE, moderate to severe bilateral interstitial lung disease characteristic of either interstitial edema or pneumonitis, small left pleural effusion, line emphysematous lung changes. -2D echo completed on 11/22 with normal EF -Chest x-ray with stable prominent diffuse bilateral interstitial and parenchymal opacities with progression compared to 11/20 x-ray -Currently on IV Zosyn and IV vancomycin. -Scheduled duonebs and as needed, IV Solu-Medrol 40 mg q. 12 hour. -Appreciate input from pulmonary medicine, Dr. Jensen. Atrial fibrillation with RVR now cardioverted to normal sinus rhythm -Patient is s/p cardioversion today. - Cardiology , Dr. Mac evaluated patient -Started amiodarone drip November 26, 2017 and now discontinued and started p.o. Lopressor, discontinue previous Esmolol drip; -Continue low dose ASA and Eliquis. HTN, essential chronic, stable HLD -Continue metoprolol and Cardizem, blood pressure stable. - on low dose ASA and Lipitor Normocytic anemia -Previously on chemo for prostate CA. - Continue oral Fe supplementation -Transfused 1 unit PRBC's 11/22, Acute renal failure superimposed on chronic kidney disease stage IIIresolving Likely exacerbated by Lasix. -Avoid nephrotoxic drug -Clinically improving from 1.8-1.16 we will continue to monitor. DVT prophylaxis-Eliquis. (3) COPD (chronic obstructive pulmonary disease) Qualifiers: COPD type: COPD with acute exacerbation Qualified Code(s): J44.1 - Chronic obstructive pulmonary disease with (acute) exacerbation
--- NOTE | 2017-11-28 12:57 | MR ---
cc: Nora Mac MD DATE: 11/28/2017 PROCEDURE PERFORMED: Cardioversion. INDICATION: Mr. Ramírez is a 77-year-old gentleman with atrial fibrillation, atrial tachyarrhythmia, not a good candidate at this point for ablation, to undergo a DANIEL and cardioversion. The risks, the nature and the benefits of the procedure were clearly stated to him. Risks include pneumothorax, cardiac arrest, need for endotracheal intubation and even . The patient understood and agreed to proceed. DESCRIPTION OF PROCEDURE: As written informed consent was obtained prior to transesophageal echo, the patient was evaluated by anesthesiologist. Sedation was maintained. Anterolateral pads were placed. A 200 sync biphasic joules was delivered that converted the patient into sinus rhythm. No incident report. CONCLUSION: Successful cardioversion. COMMENT AND RECOMMENDATION: The patient is going to be monitored. Will continue on current medication. Further decision by the managing team. Nora Mac MD HS/TL , 12:42 PM , 12:55 PM
[2017-11-28] MEDS: Vancomycin Inj 1,250 MG in Sodium Chlor 0.9% Inj 250 ML IV.SIG SCH (14:25)
--- NOTE | 2017-11-28 15:23 | ECHRPT ---
Indication: A FIB CONCLUSIONS A complete two-dimensional, color flow and Doppler transesophageal study is performed. No clot seen in left atyrium nor left atrial appendage Normal left ventricular systolic function BP: / HR: Rhythm: Technical Quality: Medications Complications There were no complications prior to, during or in recovery from the transesophag eal echocardiogram.. Proc. Components FINDINGS LEFT VENTRICLE Normal left ventricular size and wall thickness. The left ventricular systolic function is normal wi th an estimated ejection fraction in the range of 55-60%. Left ventricular diastolic function parameters a re normal. RIGHT VENTRICLE Normal right ventricular size and systolic function. LEFT ATRIUM The left atrial size is [id number] dilated. ATRIAL APPENDAGES No thrombus detected in the left atrial appendage. Normal left atrial appendage size with no evidence of thrombus formation. ATRIAL SEPTUM Normal atrial septal thickness without atrial level shunting by limited color doppler interrogation. AORTA The aortic root and proximal ascending aorta are normal in size on limited imaging. MITRAL VALVE Mild mitral valve regurgitation. AORTIC VALVE Trileaflet aortic valve. TRICUSPID VALVE There is mild tricuspid valve regurgitation. PERICADIUM There is no pericardial effusion. Nora Mac MD (Electronically Signed) Final Date:28 November 2017 15:22
--- NOTE | 2017-11-28 18:44 | P.PN ---
Subjective Interval history: He is alert and on simple mask FIO2 50 % Had cardioversion and in sinus Rhythm now. Physical Exam Vital signs: Vital Signs 11/27/17 20:00 11/27/17 20:54 11/27/17 22:00 Temperature 97.2 F L Pulse Rate 135 H 133 H Respiratory Rate 22 Blood Pressure 108/63 Pulse Oximetry 95 98 11/28/17 00:00 11/28/17 02:00 11/28/17 04:00 Temperature 98.2 F 97.8 F Pulse Rate 133 H 133 H 134 H Respiratory Rate 22 22 Blood Pressure 107/72 111/70 Pulse Oximetry 95 94 L 11/28/17 06:00 11/28/17 08:00 11/28/17 10:00 Temperature 97.1 F L Pulse Rate 137 H 138 H 135 H Respiratory Rate 18 Blood Pressure 116/77 Pulse Oximetry 97 11/28/17 12:00 11/28/17 14:00 11/28/17 14:21 Temperature 98.6 F Pulse Rate 92 H 88 86 Respiratory Rate 22 18 Blood Pressure 109/60 Pulse Oximetry 93 L 11/28/17 16:00 11/28/17 18:00 Temperature 98.1 F Pulse Rate 99 H 105 H Respiratory Rate 20 Blood Pressure 123/65 Pulse Oximetry 94 L Intake & Output 11/27/17 11/28/17 11/28/17 18:59 06:59 18:59 Intake Total 1203.0 / 1203.0 290 / 290 902.5 / 902.5 Output Total 625 / 625 450 / 450 350 / 350 Balance 578.0 / 578.0 -160 / -160 552.5 / 552.5 Weight 115.9 kg Intake: IV 903.0 / 903.0 50 / 50 662.5 / 662.5 Cordarone Inj 450 MG In NS Inj 228 / 228 250 / 250 241 ML @ 1 MG/MIN 33.33 mls/hr IV.CONT .Q7H31M FERNANDA Rx#: [id number] Zosyn 3.375 GM Premix 50 ML @ 150 / 150 50 / 50 150 / 150 100 mls/hr IV.SIG Q6H FERNANDA Rx#: [id number] Vancomycin Inj 1,250 MG In NS 525.0 / 525.0 262.5 / 262.5 Inj 250 ML @ 250 mls/hr IV.SIG Q24H FERNANDA Rx#:[id number] Oral 300 / 300 240 / 240 240 / 240 Output: Urine 625 / 625 450 / 450 350 / 350 Other: # Voids 3 2 Date of Last Bowel Movement 11/27/17 11/28/17 11/28/17 # Bowel Movements 2 1 0 Narrative: GENERAL: WN/WD WM in NAD SKIN: Warm and dry.Throat dry HEAD: Normocephalic. EYES: No scleral icterus. No injection or drainage. NECK: Supple, trachea midline. No JVD or lymphadenopathy. CARDIOVASCULAR: Regular rate and rhythm and No Murmur RESPIRATORY: Bibasilar crackles and wheeze GASTROINTESTINAL: Abdomen soft, non-tender, nondistended. MUSCULOSKELETAL: No cyanosis, with trace edema NEURO: A & O to person, place, time. moves all 4 ext but with generalized weakness Results - Labs CBC & Chem 7: 11/28/17 10:00 11/28/17 10:00 Laboratory Results - last 24 hr 11/27/17 11/28/17 11/28/17 20:19 07:38 10:00 WBC 4.9 RBC 3.28 L Hgb 9.6 L Hct 29.4 L MCV 89.4 MCH 29.2 MCHC 32.6 RDW 21.8 H Plt Count 211 MPV 7.7 Prelim Diff (Auto) Slide review pending Neut % (Auto) 90.6 H Lymph % (Auto) 5.8 L [place] % (Auto) 3.2 Eos % (Auto) 0.1 Baso % (Auto) 0.3 Neut # (Auto) 4.4 Lymph # (Auto) 0.3 L [place] # (Auto) 0.2 Eos # (Auto) 0.0 Baso # (Auto) 0.0 WBC Differential . Diff Scan Auto diff confirmed Differential Comment . Sodium Potassium Chloride Carbon Dioxide Anion Gap BUN Creatinine Estimated GFR POC Glucose 187 H 182 H Random Glucose Calcium Prot Corrected Calcium Total Protein 11/28/17 11/28/17 11/28/17 10:00 11:43 16:54 WBC RBC Hgb Hct MCV MCH MCHC RDW Plt Count MPV Prelim Diff (Auto) Neut % (Auto) Lymph % (Auto) [place] % (Auto) Eos % (Auto) Baso % (Auto) Neut # (Auto) Lymph # (Auto) [place] # (Auto) Eos # (Auto) Baso # (Auto) WBC Differential Diff Scan Differential Comment Sodium 147 H Potassium 3.7 Chloride 110 H Carbon Dioxide 27.6 Anion Gap 9 BUN 41 H Creatinine 1.16 Estimated GFR 61 L POC Glucose 188 H 219 H Random Glucose 170 H Calcium 7.1 L* Prot Corrected Calcium 8.0 L Total Protein 5.4 L Assessment and Plan - Assessment (1) Sleep apnea syndrome Code(s): G47.30 - Sleep apnea, unspecified Status: Acute Plan: BiPAP at HS 12/5 CM FIo2 30 % Continue weaning O2 to N/C 4 L. (2) Sleep apnea syndrome Code(s): G47.30 - Sleep apnea, unspecified Status: Acute (3) HCAP (healthcare-associated pneumonia) Code(s): J18.9 - Pneumonia, unspecified organism Status: Acute Plan: Continue antibiotics per ID (4) Acute hypoxemic respiratory failure Code(s): J96.01 - Acute respiratory failure with hypoxia Status: Acute Plan: Duonebs qid PRN (5) Sepsis Code(s): A41.9 - Sepsis, unspecified organism Status: Resolved (6) COPD (chronic obstructive pulmonary disease) Code(s): J44.9 - Chronic obstructive pulmonary disease, unspecified Status: Acute Plan: Symbicort 160/4.5 mcg , 2 puffs BID (7) Diastolic dysfunction Code(s): I51.9 - Heart disease, unspecified Status: Acute (8) Impaired mobility and activities of daily living Code(s): Z74.09 - Other reduced mobility Status: Acute (5) Sepsis Qualifiers: Sepsis type: sepsis due to unspecified organism Qualified Code(s): A41.9 - Sepsis, unspecified organism (6) COPD (chronic obstructive pulmonary disease) Qualifiers: COPD type: COPD with acute exacerbation Qualified Code(s): J44.1 - Chronic obstructive pulmonary disease with (acute) exacerbation
[2017-11-29] MEDS: Chlorhexidine Gluconate 2% 1 Pack (2 Cloths) TOPICAL SCH (04:20)
[2017-11-29] MEDS: Piperacil/Tazo 3.375 GM Premix 50 ML IV.SIG SCH ×3 (05:02→17:03)
[2017-11-29] MEDS: Ferrous Sulfate 325 MG Tablet PO SCH (08:13)
[2017-11-29] MEDS: MethylPREDNISolone Sod Succinate Inj 40 MG/ML Vial IV.PUSH SCH ×2 (08:13→22:36)
[2017-11-29] MEDS: Famotidine 20 MG Tablet PO SCH ×2 (08:13→22:36)
[2017-11-29] MEDS: Metoprolol Tartrate 50 MG Tablet PO SCH ×2 (08:13→22:36)
[2017-11-29] MEDS: Insulin NovoLOG Aspart Correctional Sugar Inj SQ SCH ×5 (08:14→22:40)
--- NOTE | 2017-11-29 12:54 | P.PNIM ---
Subjective Interval history: Patient states his breathing is better. no shortness of breath. No chest pain or palpitations. Physical Exam Vital signs: Vital Signs 11/28/17 14:00 11/28/17 14:21 11/28/17 16:00 Temperature 98.1 F Pulse Rate 88 86 99 H Respiratory Rate 18 20 Blood Pressure 123/65 Pulse Oximetry 94 L 11/28/17 18:00 11/28/17 20:00 11/28/17 20:27 Temperature 98.4 F Pulse Rate 105 H 94 H 89 Respiratory Rate 24 18 Blood Pressure 118/65 Pulse Oximetry 94 L 96 11/28/17 22:00 11/29/17 00:00 11/29/17 02:00 Temperature 98.7 F Pulse Rate 81 83 81 Respiratory Rate 20 Blood Pressure 130/68 Pulse Oximetry 99 11/29/17 04:00 11/29/17 05:42 11/29/17 05:43 Temperature 97.7 F Pulse Rate 88 87 87 Respiratory Rate 22 16 Blood Pressure 126/65 129/70 Pulse Oximetry 92 L 97 11/29/17 08:00 11/29/17 10:00 11/29/17 12:00 Temperature 97.2 F L 97.8 F Pulse Rate 93 H 88 90 Respiratory Rate 18 22 Blood Pressure 132/72 119/70 Pulse Oximetry 93 L 93 L Intake & Output 11/28/17 11/29/17 11/29/17 18:59 06:59 18:59 Intake Total 902.5 / 902.5 1300 / 1300 Output Total 350 / 350 450 / 450 Balance 552.5 / 552.5 850 / 850 Weight 117.6 kg Intake: IV 662.5 / 662.5 100 / 100 Cordarone Inj 450 MG In NS Inj 250 / 250 241 ML @ 1 MG/MIN 33.33 mls/hr IV.CONT .Q7H31M FERNANDA Rx#: [id number] Zosyn 3.375 GM Premix 50 ML @ 150 / 150 100 / 100 100 mls/hr IV.SIG Q6H FERNANDA Rx#: [id number] Vancomycin Inj 1,250 MG In NS 262.5 / 262.5 Inj 250 ML @ 250 mls/hr IV.SIG Q24H FERNANDA Rx#:[id number] Oral 240 / 240 1200 / 1200 Output: Urine 350 / 350 450 / 450 Other: # Voids 2 5 Date of Last Bowel Movement 11/28/17 11/29/17 11/29/17 # Bowel Movements 0 2 Narrative: GENERAL: WN/WD WM in NAD with nasal cannula SKIN: Warm and dry.Throat dry HEAD: Normocephalic. EYES: No scleral icterus. No injection or drainage. NECK: Supple, trachea midline. No JVD or lymphadenopathy. CARDIOVASCULAR: Regular rate and rhythm and No Murmur RESPIRATORY: few Bibasilar crackles and no active wheeze GASTROINTESTINAL: Abdomen soft, non-tender, nondistended. MUSCULOSKELETAL: No cyanosis, with trace edema NEURO: A & O to person, place, time. moves all 4 ext but with generalized weakness Results - Labs CBC & Chem 7: 11/28/17 10:00 11/28/17 10:00 Laboratory Results - last 24 hr 11/28/17 11/28/17 11/29/17 16:54 21:16 07:38 POC Glucose 219 H 213 H 214 H 11/29/17 11:41 POC Glucose 256 H Assessment and Plan - Assessment (1) HCAP (healthcare-associated pneumonia) Code(s): J18.9 - Pneumonia, unspecified organism Status: Acute (2) Acute hypoxemic respiratory failure Code(s): J96.01 - Acute respiratory failure with hypoxia Status: Acute (3) COPD (chronic obstructive pulmonary disease) Code(s): J44.9 - Chronic obstructive pulmonary disease, unspecified Status: Acute - Plan 77-year-old man with Hypoxemia, Acute respiratory failure due to COPD exacerbation and community acquired pneumonia -continue to wean oxygen as tolerated. Hx COPD Hx of recent pneumoniaon 3 L nasal cannula today. -CTA 11/21: no PE, moderate to severe bilateral interstitial lung disease characteristic of either interstitial edema or pneumonitis, small left pleural effusion, line emphysematous lung changes. -2D echo completed on 11/22 with normal EF -Chest x-ray with stable prominent diffuse bilateral interstitial and parenchymal opacities with progression compared to 11/20 x-ray -Currently on IV Zosyn and IV vancomycin Day #4. -Scheduled duonebs and as needed, IV Solu-Medrol 40 mg q. 12 hour. -Appreciate input from pulmonary medicine, Dr. Jensen. Atrial fibrillation with RVR now cardioverted to normal sinus rhythm -Patient is s/p cardioversion 11/28 - Cardiology , Dr. Mac evaluated patient -Started amiodarone drip November 26, 2017 and now discontinued and started p.o. Lopressor, Cardizem, discontinue previous Esmolol drip; -Continue low dose ASA and Eliquis. HTN, essential chronic, stable HLD -Continue metoprolol and Cardizem, blood pressure stable. - on low dose ASA and Lipitor Normocytic anemia -Previously on chemo for prostate CA. - Continue oral Fe supplementation -Transfused 1 unit PRBC's 11/22, Acute renal failure superimposed on chronic kidney disease stage IIIresolving Likely exacerbated by Lasix. -Avoid nephrotoxic drug -Clinically improving from 1.8-1.16 we will continue to monitor. DVT prophylaxis-Eliquis. Transfer out of [facility] – [place]. Discharge Planning: ? reture back to [facility] (3) COPD (chronic obstructive pulmonary disease) Qualifiers: COPD type: COPD with acute exacerbation Qualified Code(s): J44.1 - Chronic obstructive pulmonary disease with (acute) exacerbation
[2017-11-29] MEDS ORDERED: Pharmacy Ordered Lab Info OTHER ONE (13:45)
[2017-11-29] MEDS: Vancomycin Inj 1,250 MG in Sodium Chlor 0.9% Inj 250 ML IV.SIG SCH (15:56)
--- NOTE | 2017-11-29 18:17 | P.PN ---
Subjective Interval history: Better today and on O2 at 4 L No chest pains or fever. taking his diet well. Physical Exam Vital signs: Vital Signs 11/28/17 20:00 11/28/17 20:27 11/28/17 22:00 Temperature 98.4 F Pulse Rate 94 H 89 81 Respiratory Rate 24 18 Blood Pressure 118/65 Pulse Oximetry 94 L 96 11/29/17 00:00 11/29/17 02:00 11/29/17 04:00 Temperature 98.7 F Pulse Rate 83 81 88 Respiratory Rate 20 22 Blood Pressure 130/68 126/65 Pulse Oximetry 99 92 L 11/29/17 05:42 11/29/17 05:43 11/29/17 08:00 Temperature 97.7 F 97.2 F L Pulse Rate 87 87 93 H Respiratory Rate 16 18 Blood Pressure 129/70 132/72 Pulse Oximetry 97 93 L 11/29/17 08:40 11/29/17 10:00 11/29/17 12:00 Temperature 97.8 F Pulse Rate 83 88 90 Respiratory Rate 18 22 Blood Pressure 119/70 Pulse Oximetry 93 L 11/29/17 14:06 11/29/17 14:07 11/29/17 15:00 Temperature Pulse Rate 103 H 103 H Respiratory Rate 24 Blood Pressure Pulse Oximetry 96 11/29/17 16:00 11/29/17 17:00 11/29/17 17:58 Temperature 98.5 F Pulse Rate 104 H 95 H 105 H Respiratory Rate 20 Blood Pressure 127/68 Pulse Oximetry 92 L Intake & Output 11/28/17 11/29/17 11/29/17 18:59 06:59 18:59 Intake Total 902.5 / 902.5 1300 / 1300 1322.5 / 1322.5 Output Total 350 / 350 450 / 450 450 / 450 Balance 552.5 / 552.5 850 / 850 872.5 / 872.5 Weight 117.6 kg Intake: IV 662.5 / 662.5 100 / 100 362.5 / 362.5 Cordarone Inj 450 MG In NS Inj 250 / 250 241 ML @ 1 MG/MIN 33.33 mls/hr IV.CONT .Q7H31M [facility] Rx#: [id number] Zosyn 3.375 GM Premix 50 ML @ 150 / 150 100 / 100 100 / 100 100 mls/hr IV.SIG Q6H FERNANDA Rx#: [id number] Vancomycin Inj 1,250 MG In NS 262.5 / 262.5 262.5 / 262.5 Inj 250 ML @ 250 mls/hr IV.SIG Q24H FERNANDA Rx#:[id number] Oral 240 / 240 1200 / 1200 960 / 960 Output: Urine 350 / 350 450 / 450 450 / 450 Other: # Voids 2 5 2 Date of Last Bowel Movement 11/28/17 11/29/17 11/29/17 # Bowel Movements 0 2 1 Narrative: GENERAL: WN/WD WM in NAD with nasal cannula SKIN: Warm and dry.Throat clear. HEAD: Normocephalic. EYES: No scleral icterus. No injection or drainage. NECK: Supple, trachea midline. No JVD or lymphadenopathy. CARDIOVASCULAR: Regular rate and rhythm and No Murmur RESPIRATORY: few Bibasilar crackles and mild wheezing. GASTROINTESTINAL: Abdomen soft, non-tender, nondistended. MUSCULOSKELETAL: No cyanosis, with trace edema NEURO: A & O to person, place, time. moves all 4 ext but with weakness Results - Labs CBC & Chem 7: 11/28/17 10:00 11/28/17 10:00 Laboratory Results - last 24 hr 11/28/17 11/29/17 11/29/17 21:16 07:38 11:41 POC Glucose 213 H 214 H 256 H Vancomycin Trough 11/29/17 11/29/17 13:44 16:47 POC Glucose 255 H Vancomycin Trough 16.7 H Assessment and Plan - Assessment (1) Sleep apnea syndrome Code(s): G47.30 - Sleep apnea, unspecified Status: Acute Plan: Will Arrange sleep study as OP. Use BiPAP at Hs if he desats <90% on o2 N/C (2) Sleep apnea syndrome Code(s): G47.30 - Sleep apnea, unspecified Status: Acute (3) HCAP (healthcare-associated pneumonia) Code(s): J18.9 - Pneumonia, unspecified organism Status: Acute Plan: Continue antibiotics Zosyn/ Vanco Duonebs qid (4) Acute hypoxemic respiratory failure Code(s): J96.01 - Acute respiratory failure with hypoxia Status: Acute Plan: O2 at 4 L N/C and BiPAP as needed. (5) Sepsis Code(s): A41.9 - Sepsis, unspecified organism Status: Resolved Plan: Antibiotics as Ordered (6) COPD (chronic obstructive pulmonary disease) Code(s): J44.9 - Chronic obstructive pulmonary disease, unspecified Status: Acute (7) Diastolic dysfunction Code(s): I51.9 - Heart disease, unspecified Status: Acute (8) Impaired mobility and activities of daily living Code(s): Z74.09 - Other reduced mobility Status: Acute Plan: PT and OT evaluation (5) Sepsis Qualifiers: Sepsis type: sepsis due to unspecified organism Qualified Code(s): A41.9 - Sepsis, unspecified organism (6) COPD (chronic obstructive pulmonary disease) Qualifiers: COPD type: COPD with acute exacerbation Qualified Code(s): J44.1 - Chronic obstructive pulmonary disease with (acute) exacerbation
[2017-11-29] MEDS: Insulin Detemir Inj 1,000 UNIT/10 ML Vial SQ SCH (22:38)
--- NOTE | 2017-11-29 23:09 | P.PN ---
Subjective Interval history: Doing better but tired Physical Exam Vital signs: Vital Signs 11/29/17 00:00 11/29/17 02:00 11/29/17 04:00 Temperature 98.7 F Pulse Rate 83 81 88 Respiratory Rate 20 22 Blood Pressure 130/68 126/65 Pulse Oximetry 99 92 L 11/29/17 05:42 11/29/17 05:43 11/29/17 08:00 Temperature 97.7 F 97.2 F L Pulse Rate 87 87 93 H Respiratory Rate 16 18 Blood Pressure 129/70 132/72 Pulse Oximetry 97 93 L 11/29/17 08:40 11/29/17 10:00 11/29/17 12:00 Temperature 97.8 F Pulse Rate 83 88 90 Respiratory Rate 18 22 Blood Pressure 119/70 Pulse Oximetry 93 L 11/29/17 14:06 11/29/17 14:07 11/29/17 15:00 Temperature Pulse Rate 103 H 103 H Respiratory Rate 24 Blood Pressure Pulse Oximetry 96 11/29/17 16:00 11/29/17 17:00 11/29/17 17:58 Temperature 98.5 F Pulse Rate 104 H 95 H 105 H Respiratory Rate 20 Blood Pressure 127/68 Pulse Oximetry 92 L 11/29/17 19:00 11/29/17 21:28 Temperature Pulse Rate 104 H Respiratory Rate Blood Pressure Pulse Oximetry 96 Intake & Output 11/29/17 11/29/17 11/30/17 06:59 18:59 06:59 Intake Total 1300 / 1300 1322.5 / 1322.5 Output Total 450 / 450 450 / 450 Balance 850 / 850 872.5 / 872.5 Weight 117.6 kg Intake: IV 100 / 100 362.5 / 362.5 Zosyn 3.375 GM Premix 50 ML @ 100 / 100 100 / 100 100 mls/hr IV.SIG Q6H [facility] Rx#: [id number] Vancomycin Inj 1,250 MG In NS 262.5 / 262.5 Inj 250 ML @ 250 mls/hr IV.SIG Q24H FERNANDA Rx#:[id number] Oral 1200 / 1200 960 / 960 Output: Urine 450 / 450 450 / 450 Other: # Voids 5 2 Date of Last Bowel Movement 11/29/17 11/29/17 # Bowel Movements 2 1 - Constitutional mild distress - Routine HEENT Exam Head: Present: normocephalic Eye: Present: PERRL ENT: Present: mucous membranes moist - Routine Respiratory Exam Present: accessory muscle use - Routine Extremities Exam Present: normal capillary refill - Routine Neurological Exam Present: alert, oriented X3 - Detailed Neurological Exam: Coma Scale Eye Opening: Spontaneous Results - Labs CBC & Chem 7: 11/28/17 10:00 11/28/17 10:00 Laboratory Results - last 24 hr 11/29/17 11/29/17 11/29/17 07:38 11:41 13:44 POC Glucose 214 H 256 H Nasal Screen MRSA (PCR) Vancomycin Trough 16.7 H 11/29/17 11/29/17 11/29/17 16:47 17:16 22:22 POC Glucose 255 H 171 H Nasal Screen MRSA (PCR) Not detected Vancomycin Trough Assessment and Plan - Assessment (1) SVT (supraventricular tachycardia) Code(s): I47.1 - Supraventricular tachycardia Status: Chronic - Plan Was cardioverted yesterday Back into atrial tach/ atrial fibrillation HR high Still some SOB EPS and ablation discussed. The risk, the nature and benefits discussed. Patient understand and agree to proceed NPO after midnight Ablation in AM
[2017-11-30] MEDS: Piperacil/Tazo 3.375 GM Premix 50 ML IV.SIG SCH ×4 (01:12→20:18)
[2017-11-30] MEDS: Insulin NovoLOG Aspart Correctional Sugar Inj SQ SCH ×4 (09:34→22:49)
[2017-11-30] MEDS: Famotidine 20 MG Tablet PO SCH ×2 (09:44→20:23)
[2017-11-30] MEDS: MethylPREDNISolone Sod Succinate Inj 40 MG/ML Vial IV.PUSH SCH ×2 (09:44→20:23)
[2017-11-30] MEDS: Metoprolol Tartrate 50 MG Tablet PO SCH ×2 (09:44→22:48)
[2017-11-30] MEDS: Ferrous Sulfate 325 MG Tablet PO SCH (09:45)
[2017-11-30] MEDS ORDERED: Phenylephrine/NS 1000 MCG/10ML Syringe IV.PUSH ONE (12:00)
[2017-11-30] MEDS ORDERED: Neostigmine Inj 5 MG/5 ML Syringe IV.PUSH ONE (12:00)
[2017-11-30] MEDS ORDERED: Glycopyrrolate Inj 1 MG/5 ML Syringe IV.PUSH ONE (12:00)
[2017-11-30] MEDS ORDERED: Sodium Chlor 0.9% Inj 1,000 ML IV.SIG ONE (12:00)
[2017-11-30] MEDS ORDERED: Heparin/NS PF Inj 1,500 ML ONE (12:20)
[2017-11-30] MEDS ORDERED: Levofloxacin 500 mg Premix Inj 500 MG/100 ML PIGGYBACK IV.SIG ONE (12:21)
[2017-11-30] MEDS ORDERED: Heparin 10,000 UNITS/10 ML Vial (for IV use) ONE ×2 (12:21→12:28)
[2017-11-30] MEDS ORDERED: Isoproterenol 200mcg/50mL Bag 200 MCG/50 ML BAG IV.CONT ONE (12:27)
[2017-11-30] MEDS ORDERED: fentaNYL Citrate Inj 100 MCG/2 ML Ampul ONE (12:28)
[2017-11-30] MEDS ORDERED: Protamine Sulfate Inj 50 MG/5 ML Vial ONE (12:28)
[2017-11-30] MEDS ORDERED: Heparin Drip 25,000 UNIT/250 ML BAG IV.CONT ONE (12:28)
[2017-11-30] MEDS: Chlorhexidine Gluconate 2% 1 Pack (2 Cloths) TOPICAL SCH (12:30)
--- NOTE | 2017-11-30 13:03 | P.PNWCN ---
Wound Care Nurse Consult Description: Consult for Pressure ulcer on sacrum per Dr Gutierrez Communicated with: Patient Recommendation: Continue applying Calazime BID and PRN for healing moisture related skin loss on bilateral buttocks. Additional information: *Late entry* Patient seen in [facility] for wound evaluation of sacrum per Dr Gutierrez. Patient positioned himself to his right side for financial underwriter to visualize his buttocks, sacrum, and coccyx areas. Sacrum is unremarkable, however bilateral buttocks have resolving partial thickness skin loss wounds. Calazime was applied and patient was repositioned to his right side with pillows underneath him to help keep him on his side. 2 staggered ultrasorbs were noted for moisture wicking capabilities as well. Patient was encouraged to reposition often and keep using the Calazime for skin protection with the closing wounds on bilateral buttocks. Wound/Pressure Injury - Wound Left Buttocks Wound Bed Appearance: [place], Red Drainage Amount: None Dressing Status: Open to Air Topical: barrier cream applied Primary Dressing: Open to air Right Buttocks Wound Bed Appearance: [place], Red Drainage Amount: None Dressing Status: Open to Air Topical: barrier cream applied
--- NOTE | 2017-11-30 15:46 | CATHPROC ---
[address] Bio HIS Report Study Information Study Number Admission Scheduled Start Study Start [id number] Nov 23 2017 1:30PM 11/30/2017 Nov 30 2017 12:07PM [place] [facility] Cardiac Catheterization Admit Source Facility Department Emergency department [facility] - [employer] Physician and Clinical Staff Initial Nora Grimaldo Donkey Engine Firer/Fireman Naeem Rossi,RT(R) Donkey Engine Firer/Fireman Iveth Rod RN Other Anesthesia, BOX BLANK MACHINE FEEDER Recorder Leyla Lee BSN Scrub Judy Benitez,RT(R) TECH2 Procedures Performed Procedure Location (Site) Vessel Name Ablation Procedure ICE CATHETER INSERT RA Atruim Equipment Time Hydrate Thickener Operator Description Size Mfg Part Number Used/Scraped NEEDLE, TRANSSEPTAL NRG 98 [id number] 13:29 [facility] Used C1 *[id number] [employer]/ [place] [id number] 13:29 KIT, TRANSDUCER / AFIB Used PACER *[id number] CATHETER, TACTICATH ABLAT BUNDLE 13:56 [facility] Used 65 BUNDLE *[id number]- BUNDLE [id number] CATHETER, FR7 OPTIMA SPIRAL 13:29 [facility] FR7 *[id number]- Used BUNDLE BUNDLE [id number] 13:29 [facility] CATHETER, JSN, QUAD BUNDLE FR 5 *[id number]- Used BUNDLE [id number] 13:29 [facility] CATHETER, JSN, QUAD BUNDLE FR 5 *[id number]- Used BUNDLE [id number] SET, [place]OL [place] TUBING 13:29 [facility] *[id number]- Used BUNDLE BUNDLE SHEATH, FR8.5 STEERABLE SM 13:37 [facility] 71CM [id number] Used 71CM BUNDLE [id number] 14:56 [employer] MEDICAL VASCADE, FR5 CLOSURE SYSTEM FR 5 Used *[id number] 14:56 [employer] VASCADE, FR6 CLOSURE SYSTEM FR 6\\7 Used *[id number] 14:56 [employer] VASCADE, FR6 CLOSURE SYSTEM FR 6\\7 Used *[id number] 14:56 [employer] MEDICAL VASCADE, FR6 CLOSURE SYSTEM FR 6\\7 Used *[id number] 14:56 C[employer] MEDICAL VASCADE, FR6 CLOSURE SYSTEM FR 6\\7 Used *[id number] COVER, TRANSDUCER CABLE 612-113 13:29 [employer] Used ACUNAV *[id number] 13:29 CORDIS/PACER SHEATH, FR10 TAMMY 11CM FR 10 Used *[id number] 13:29 CORDIS/PACER SHEATH, FR9 TAMMY 11CM FR 9 [id number] Used [id number] 13:29 [employer] BLANKET,WARM AIR CCL * Used *[id number] 13:29 [employer] PACK, CCL CUSTOM * Used *[id number] 13:30 [employer] MEDICAL SHEATH, FR5.5 PRELUDE 11CM FR 5 [id number] Used [id number] 13:29 NAMIC TUBING, HIGH PRESSURE 48" 48" Used *[id number] 13:29 NAMIC TUBING, HIGH PRESSURE 48" 48" Used *[id number] 13:28 [facility] MEDICAL SHEATH, EPS, FR6 FAST CATH FR 6 Used *[id number] 13:29 [facility] MEDICAL SHEATH, EPS, FR7 FAST CATH FR 7 [id number] Used [id number] 13:28 [facility] MEDICAL SHEATH, EPS, FR8 FAST CATH FR 8 Used *[id number] 13:29 [facility] MEDICAL SHEATH, EPS, FR8 FAST CATH FR 8 Used *[id number] CATHETER, ACUNAV FR10 ICE [id number] 13:32 RALPH FR 10 Used (RALPH) *[id number] [facility] PAD, ELECTROSURGICAL 13:29 * [id number] *[id number] Used SURGICAL GROUNDING (BLUE) Labs Hgb (g/dl) Hct (%) WBC (l/cumm) Platelets (thousands) 11.60-17.00 35.00-51.00 4.00-11.00 150.00-450.00 9.6 29.4 3.3 211 Glucose (mg/dl) BUN (mg/dl) Creatinine (mg/dl) BUN:Creatinine (1:x) 74.00-106.00 7.00-18.00 0.50-1.30 10.00-20.00 188 41 1.1 37.3 Na (meq/l) K (meq/l) 136.00-145.00 3.50-5.10 147 3.7 Medication Medication Total Dose (Bolus/Oral) Medication Total Dosage/Unit 1% XYLOCAINE 20 mL HEPARIN 42273 units LASIX 40 mg PROTAMINE 40 mg Medications (Bolus/Oral) Medication Time Given Dosage/Unit Administered By Reason 1% XYLOCAINE 11/30/2017 1:22:57 PM 10 mL Nora Mac 10 mL 1% XYLOCAINE given by Nora Mac in Left Groin via Subcutaneous. Ordered by Nora Mac. 1% XYLOCAINE 11/30/2017 1:30:34 PM 10 mL Nora Mac 10 mL 1% XYLOCAINE given in lab by Nora Mac in Right Groin via Subcutaneous. Ordered by Anna Mac. HEPARIN 11/30/2017 1:35:36 PM 27048 units Anesthesia, BOX BLANK MACHINE FEEDER 07565 units HEPARIN given in lab by Anesthesia, BOX BLANK MACHINE FEEDER via Peripheral IV. Ordered by Nora Mac. HEPARIN 11/30/2017 1:55:49 PM 3000 units Anesthesia, BOX BLANK MACHINE FEEDER 3000 units HEPARIN given in lab by Anesthesia, BOX BLANK MACHINE FEEDER via Peripheral IV. Ordered by Nora Mac. HEPARIN 11/30/2017 2:13:54 PM 3000 units Anesthesia, BOX BLANK MACHINE FEEDER 3000 units HEPARIN given in lab by Anesthesia, BOX BLANK MACHINE FEEDER via Peripheral IV. Ordered by Nora Mac. HEPARIN 11/30/2017 2:30:13 PM 2000 units Anesthesia, BOX BLANK MACHINE FEEDER 2000 units HEPARIN given in lab by Anesthesia, BOX BLANK MACHINE FEEDER via Peripheral IV. Ordered by Nora Mac. PROTAMINE 11/30/2017 2:57:25 PM 40 mg Anesthesia, BOX BLANK MACHINE FEEDER 40 mg PROTAMINE given in lab by Anesthesia, BOX BLANK MACHINE FEEDER. Ordered by Nora Mac. LASIX 11/30/2017 2:57:40 PM 40 mg Anesthesia, BOX BLANK MACHINE FEEDER 40 mg LASIX given in lab by Anesthesia, BOX BLANK MACHINE FEEDER via Peripheral IV. Ordered by Nora Mac. Medication (Drip) Medication Time Given Dosage/Unit Concentration/Unit Diluent (ml) Solution HEPARIN DRIP 11/30/2017 1:56:05 PM 1000 units/hr 53903 units 250 D5W 1000 units/hr HEPARIN DRIP given in lab by Anesthesia, BOX BLANK MACHINE FEEDER via Peripheral IV. Pump/Drip Flow = 10 ml /hr using D5[place] [address] units in 250 ml. Ordered by Nora Mac. HEPARIN DRIP STOPPED 11/30/2017 2:46:11 PM 0 units/hr 0 0 units/hr HEPARIN DRIP STOPPED given in lab by Anesthesia, BOX BLANK MACHINE FEEDER. Pump/Drip Flow = 0 ml/hr using [Aileen ution Name]. Ordered by Nora Mac. ISUPREL 11/30/2017 2:35:04 PM 10 mcg/min 1 mg 250 NaCl .9 10 mcg/min ISUPREL given in lab by Anesthesia, BOX BLANK MACHINE FEEDER via Peripheral IV. Pump/Drip Flow = 150 ml/hr usi ng NaCl .9 with a concentration of 1 mg in 250 ml. Ordered by Nora Mac. IV Solutions 11/30/2017 12:37:07 PM 50 mL (IV) NaCl .9 IV Solutions given by Anesthesia, BOX BLANK MACHINE FEEDER in Left Antecubital via Peripheral IV. Pump/Drip Flow using Na Cl .9. Ordered by Nora Mac. At KVO IV Solutions 11/30/2017 12:37:25 PM 50 mL (IV) NaCl .9 IV Solutions given by Anesthesia, BOX BLANK MACHINE FEEDER via Port IV to left subclavian. Pump/Drip Flow using NaCl .9. Ordered by Nora Mac. LEVAQUIN 11/30/2017 12:45:49 PM 100 mL/hr 500 100 NaCl .9 100 mL/hr LEVAQUIN given by Anesthesia, BOX BLANK MACHINE FEEDER via Peripheral IV. Pump/Drip Flow = 0 ml/hr using NaCl . 9 with a concentration of 500 in 100 ml. Ordered by Nora Mac. Initial Case Assessment Cardiovascular HR Rhythm NIBP Chest Pain 84 af 145/77 0 Edema Present Skin color Skin None Normal Warm Dry Circulatory - Lower Extremities Color Lower Right Color Lower Left Normal Normal Neurological State Oriented to time-place- Alert Moves all extremities person Respiration - General Respiration Rate SpO2 (%) O2 (lpm) (B/min) 15 92 5 Final Case Assessment Cardiovascular HR Rhythm NIBP 84 sr 99/58 Edema Present Skin color Skin None Normal Warm Dry Circulatory - Lower Extremities Color Lower Right Color Lower Left Normal Normal Neurological State Moves all extremities Respiration - General Respiration Rate SpO2 (%) O2 (lpm) (B/min) 12 98 5 Chronological Log Time Study Chronological Log 12:05:00 Patient arrived via Bed. 12:05:04 Patient Name, D.O.B, / Armband Verified By R.N. 12:05:07 Consent signed by the physician and the patient and verified by the [employer] staff. 12:05:10 Pre-op and post- op instructions given; patient acknowledges understanding of instructions. 12:05:14 Verbal Stimulation=2 Physical Stimulation=2 Airway=2 Respiration=2 TOTAL=8. (0=absent, 1=li mited, 2=present) 12:07:26 Patient has been NPO for More than 6Hrs. 12:07:33 Skin Breakdown-generalized bruising 12:07:46 Patient Warmer Placed on the Table. 12:07:47 Disposable Defibrillator Pads Placed On Patient. 12:07:48 Zeinab Prominences Protected 12:07:49 A # 20 IV was noted in the Antecubital (left). Grade = 0 12:07:51 A Port IV was noted in the Subclav. Vein (Lft.) 12:07:54 History and physical on the chart or being dictated. Assessment: Initial Case, HR=84 BPM, Rhythm=af, UJPT=894/77 mmhg, Chest Pain=0, Edema=None, Col or=Normal, Skin = Warm, Dry Lower Right Extremities: Color=Normal 12:17:59 Lower Left Extremities: Color=Normal Neurological: State=Alert, Ox3, GODINEZ Respiration: Resp=15 B/min, SpO2=92 %, O2=5 lpm 12:22:11 Skin Breakdown- scattered bruising to upper body 12:37:00 Table restraints applied according to hospital policy IV Solutions given by Anesthesia, BOX BLANK MACHINE FEEDER in Left Antecubital via Peripheral IV. Pump/Drip Flow us ing NaCl .9. Ordered by 12:37:07 Nora Mac. At [facility] IV Solutions given by Anesthesia, BOX BLANK MACHINE FEEDER via Port IV to left subclavian. Pump/Drip Flow using NaC l .9. Ordered by Bubba, 12:37:25 [address]ora. 12:42:05 Dr Mac aware no INR available 100 mL/hr LEVAQUIN given by Anesthesia, BOX BLANK MACHINE FEEDER via Peripheral IV. Pump/Drip Flow = 0 ml/hr using NaCl .9 with a 12:45:49 concentration of 500 in 100 ml. Ordered by Nora Mac. 12:47:58 Reference ECG taken 13:00:[address] Mckeon at bedside 13:01:33 Lopez placed per Rn, MM 13:04:51 Bilateral groins prepped with 2% chlorhexidine, and draped after a 3 minute waiting time. 13:09:49 MD paged 13:10:31 MD responded 13:18:37 MD arrived. Time Out. Correct patient, procedure, procedure equipment, site and side verified with physicia n present. Time 13:22:24 concurred by MD, individual staff and BOX BLANK MACHINE FEEDER. Time Out #2 - Consents verified, patient in correct position, all results are labled and displa yed, safety precautions 13:22:27 taken, antibiotics administered. Time out concurred by MD, individual staff and BOX BLANK MACHINE FEEDER in procedu re 13:22:40 Case Start 13:22:57 10 mL 1% XYLOCAINE given by Nora Mac in Left Groin via Subcutaneous. Ordered by Nora Mac. 13:27:12 Vascular access was obtained in the Fem Vein (left). 13:27:17 Vascular access was obtained in the Fem Vein (left). 13:27:20 Vascular access was obtained in the Fem Vein (left). 13:27:23 Vascular access was obtained in the Fem Art (left). 13:27:36 A SHEATH, FR5.5 PRELUDE 11CM FR 5 was advanced into the Fem Art (left) using the Percutaneo us technique. 13:30:05 A SHEATH, EPS, FR6 FAST CATH FR 6 was advanced into the Fem Vein (left) using the Percutane ous technique. 13:30:20 A SHEATH, EPS, FR7 FAST CATH FR 7 was advanced into the Fem Vein (left) using the Percutane ous technique. 13:30:25 A SHEATH, FR10 TAMMY 11CM FR 10 was advanced into the Fem Vein (left) using the Percutaneo us technique. 13:30:34 10 mL 1% XYLOCAINE given in lab by Nora Mac in Right Groin via Subcutaneous. Ordered b Nora Briceño. 13:30:51 Vascular access was obtained in the Fem Vein (right). 13:30:59 A SHEATH, EPS, FR8 FAST CATH FR 8 was advanced into the Fem Art (right) using the Percutane ous technique. A CATHETER, JSN, QUAD BUNDLE FR 5 was advanced vis Fem Vein (left) and placed in the CS. Placem ent was visually 13:31:11 confirmed under fluoroscopy. A CATHETER, JSN, QUAD BUNDLE FR 5 was advanced vis Fem Vein (left) and placed in the HIS. Place ment was 13:31:59 visually confirmed under fluoroscopy. 13:32:06 CATHETER, ACUNAV FR10 ICE (RALPH) FR 10 Was Postioned. A SHEATH, FR8.5 STEERABLE SM 71CM BUNDLE 71CM was exchanged in the Fem Vein (right). This was n ecessary in 13:35:09 order to accomodate a larger catheter. 13:35:25 Leslie in 13:35:36 36767 units HEPARIN given in lab by Anesthesia, BOX BLANK MACHINE FEEDER via Peripheral IV. Ordered by Anna Mac. 13:37:34 A eps was advanced to the right atrium and passed through the septal wall to the left atriu m. 13:37:41 Leslie out A CATHETER, FR7 OPTIMA SPIRAL BUNDLE FR7 was advanced vis Fem Vein (right) and placed in the LA . Placement 13:38:27 was visually confirmed under fluoroscopy. 13:40:45 Mapping in progress 13:43:42 Activated Clotting Time Drawn 13:48:22 Activated Clotting Time Redrawn 13:49:05 Mapping catheter removed A CATHETER, TACTICATH ABLAT 65 BUNDLE was advanced vis Fem Vein (right) and placed in the LA. P lacement was 13:54:27 visually confirmed under fluoroscopy. 13:55:02 ACT (Normal Range 90-180) = 307 13:55:49 3000 units HEPARIN given in lab by Anesthesia, BOX BLANK MACHINE FEEDER via Peripheral IV. Ordered by Adi Mac 1000 units/hr HEPARIN DRIP given in lab by Anesthesia, BOX BLANK MACHINE FEEDER via Peripheral IV. Pump/Drip Flow = 10 ml/hr using 13:56:05 [place] [address] units in 250 ml. Ordered by Hanscy. Bubba 13:59:51 Ablation in progress 14:07:57 Activated Clotting Time Drawn 14:13:49 ACT (Normal Range 90-180) = 293 14:13:54 3000 units HEPARIN given in lab by Anesthesia, BOX BLANK MACHINE FEEDER via Peripheral IV. Ordered by Adi Mac. 14:20:36 Ablation continues 14:22:49 Activated Clotting Time Drawn 14:29:38 ACT (Normal Range 90-180) = 314 14:30:13 2000 units HEPARIN given in lab by Anesthesia, BOX BLANK MACHINE FEEDER via Peripheral IV. Ordered by Adi Mac 10 mcg/min ISUPREL given in lab by Anesthesia, BOX BLANK MACHINE FEEDER via Peripheral IV. Pump/Drip Flow = 150 ml/ hr using NaCl .9 14:35:04 with a concentration of 1 mg in 250 ml. Ordered by Nora Mac. 14:35:51 Activated Clotting Time Drawn 14:40:18 EP study in progress 14:43:05 ACT (Normal Range 90-180) = 337 14:45:21 Isuprel off 14:45:47 EP study complete 0 units/hr HEPARIN DRIP STOPPED given in lab by Anesthesia, BOX BLANK MACHINE FEEDER. Pump/Drip Flow = 0 ml/hr usin g [Solution 14:46:11 Name]. Ordered by Nora Mac. 14:46:16 Ablation procedure performed: AFIB. 14:46:24 EP Procedure was performed. 14:56:07 Catheter(s) removed without difficulty 14:57:25 40 mg PROTAMINE given in lab by Josué, BETINA. Ordered by Hanscy. Bubba 14:57:40 40 mg LASIX given in lab by Josué, BOX BLANK MACHINE FEEDER via Peripheral IV. Ordered by Nora Mac. 15:03:31 VASCADE, FR5 CLOSURE SYSTEM FR 5 placement in the Fem Art (left) 15:04:09 VASCADE, FR6 CLOSURE SYSTEM FR 6\\7 placement in the Fem Vein (left) 15:05:06 VASCADE, FR6 CLOSURE SYSTEM FR 6\\7 placement in the Fem Vein (left) 15:06:08 VASCADE, FR6 CLOSURE SYSTEM FR 6\\7 placement in the Fem Vein (left) 15:07:17 VASCADE, FR6 CLOSURE SYSTEM FR 6\\7 placement in the Fem Vein (right) 15:07:25 Case End (Physician broke scrub) 15:10:13 Activated Clotting Time Drawn 15:11:56 Sterile dressing applied to site 15:11:57 No case complications noted. 15:11:58 Cine recording checked. 15:12:00 Bedside Report will be given. 15:12:40 PACU called. Spoke to Judy Assessment: Final Case, HR=84 BPM, Rhythm=sr, NIBP=99/58 mmhg, Edema=None, Color=Normal, Skin = Warm, Dry Lower Right Extremities: Color=Normal 15:13:07 Lower Left Extremities: Color=Normal Neurological: GDOINEZ Respiration: Resp=12 B/min, SpO2=98 %, O2=5 lpm 15:15:02 ACT (Normal Range 90-180) = 224 15:23:34 Pt extubated per anesthesia 15:28:52 Patient moved to stretcher 15:32:51 Pacu called, spoke to [facility], re: Cpap set up request per anesthesia End Study - Contrast Media Used In Study Contrast Total Opened (mL) Total Used (mL) Total Wasted (mL) Unspecified 0 0 0 End Study - Maximum Contrast Load Max Contrast Load (mL) 530.0 End Study - Radiation Exposure Fluoro Time (minutes) 3.4 End Study - Patient Disposition Complications Transferred To Interventional Outcome No Telemetry Bed successful
--- NOTE | 2017-11-30 15:50 | P.PN ---
Physical Exam Vital signs: Vital Signs 11/29/17 16:00 11/29/17 17:00 11/29/17 17:58 Temperature 98.5 F Pulse Rate 104 H 95 H 105 H Respiratory Rate 20 Blood Pressure 127/68 Pulse Oximetry 92 L 11/29/17 19:00 11/29/17 20:00 11/29/17 21:00 Temperature Pulse Rate 104 H 107 H 100 H Respiratory Rate 16 Blood Pressure 159/90 H Pulse Oximetry 95 11/29/17 21:28 11/29/17 22:00 11/29/17 23:00 Temperature Pulse Rate 98 H 98 H Respiratory Rate Blood Pressure Pulse Oximetry 96 11/30/17 00:00 11/30/17 01:00 11/30/17 02:00 Temperature Pulse Rate 85 84 87 Respiratory Rate 20 Blood Pressure 159/81 H Pulse Oximetry 96 11/30/17 03:00 11/30/17 04:00 11/30/17 05:00 Temperature Pulse Rate 84 88 82 Respiratory Rate 16 Blood Pressure 144/84 H Pulse Oximetry 92 L 11/30/17 06:00 11/30/17 07:00 11/30/17 08:00 Temperature 97.8 F Pulse Rate 92 H 94 H 90 Respiratory Rate Blood Pressure 145/79 H Pulse Oximetry 92 L 11/30/17 08:29 11/30/17 12:00 Temperature 98.0 F Pulse Rate 92 H 90 Respiratory Rate 16 22 Blood Pressure 154/89 H Pulse Oximetry 93 L 92 L Intake & Output 11/29/17 11/30/17 11/30/17 18:59 06:59 18:59 Intake Total 1322.5 / 1322.5 340 / 340 Output Total 450 / 450 925 / 925 Balance 872.5 / 872.5 -585 / -585 Weight 116.6 kg Intake: IV 362.5 / 362.5 100 / 100 Zosyn 3.375 GM Premix 50 ML @ 100 / 100 100 / 100 100 mls/hr IV.SIG Q6H FERNANDA Rx#: [id number] Vancomycin Inj 1,250 MG In NS 262.5 / 262.5 Inj 250 ML @ 250 mls/hr IV.SIG Q24H FERNANDA Rx#:[id number] Oral 960 / 960 240 / 240 Output: Urine 450 / 450 925 / 925 Other: # Voids 2 Date of Last Bowel Movement 11/29/17 11/29/17 11/30/17 # Bowel Movements 1 1 Narrative: Subjective Interval history: Patient appears in nad. Some sob however imprpved. No chest pain or palpitations. No nausea or diaphoresis. o v/d/c. Has wounds in his back, wound care nurse to evelauate patient Physical Exam GENERAL: WN/WD WM in NAD with nasal cannula SKIN: Wounds on his buttocks CARDIOVASCULAR: Regular rate and rhythm and No Murmur RESPIRATORY: few Bibasilar crackles and no active wheeze GASTROINTESTINAL: Abdomen soft, non-tender, nondistended. MUSCULOSKELETAL: No cyanosis, with trace edema NEURO: A & O to person, place, time. moves all 4 ext but with generalized weakness Assessment and Plan 77-year-old man with Hypoxemia, Acute respiratory failure due to COPD exacerbation and community acquired pneumonia -continue to wean oxygen as tolerated. Hx COPD Hx of recent pneumoniaon 3 L nasal cannula today. -CTA 11/21: no PE, moderate to severe bilateral interstitial lung disease characteristic of either interstitial edema or pneumonitis, small left pleural effusion, line emphysematous lung changes. -2D echo completed on 11/22 with normal EF -Chest x-ray with stable prominent diffuse bilateral interstitial and parenchymal opacities with progression compared to 11/20 x-ray -Currently on IV Zosyn and IV vancomycin Day #4. -Scheduled duonebs and as needed, IV Solu-Medrol 40 mg q. 12 hour. -Appreciate input from pulmonary medicine, Dr. Jensen. Atrial fibrillation with RVR now cardioverted to normal sinus rhythm -Patient is s/p cardioversion 11/28 - Cardiology , Dr. Mac evaluated patient -Started amiodarone drip November 26, 2017 and now discontinued and started p.o. Lopressor, Cardizem, discontinue previous Esmolol drip; -Continue low dose ASA and Eliquis. - plan for ablation per Dr Mac EPS HTN, essential chronic, stable HLD -Continue metoprolol and Cardizem, blood pressure stable. - on low dose ASA and Lipitor Normocytic anemia -Previously on chemo for prostate CA. - Continue oral Fe supplementation -Transfused 1 unit PRBC's 11/22, Acute renal failure superimposed on chronic kidney disease stage IIIresolving Likely exacerbated by Lasix. -Avoid nephrotoxic drug -Clinically improving from 1.8-1.16 we will continue to monitor. Wounds on his buttocks bilateral buttocks have resolving partial thickness skin loss wounds: Wound care evaluation , appreciate recommendations spoke with Aiyana . Continue applying Calazime BID and PRN for healing moisture related skin loss on bilateral buttocks. DVT prophylaxis-Eliquis. Discharge Planning: ? return back to [facility] Results - Labs CBC & Chem 7: 11/28/17 10:00 11/30/17 05:55 Laboratory Results - last 24 hr 11/29/17 11/29/17 11/29/17 16:47 17:16 22:22 Creatinine Estimated GFR POC Glucose 255 H 171 H Nasal Screen MRSA (PCR) Not detected 11/30/17 11/30/17 05:55 08:53 Creatinine 1.48 H Estimated GFR 46 L POC Glucose 147 H Nasal Screen MRSA (PCR) Assessment and Plan - Assessment (1) HCAP (healthcare-associated pneumonia) Code(s): J18.9 - Pneumonia, unspecified organism Status: Acute (2) Acute hypoxemic respiratory failure Code(s): J96.01 - Acute respiratory failure with hypoxia Status: Acute (3) COPD (chronic obstructive pulmonary disease) Code(s): J44.9 - Chronic obstructive pulmonary disease, unspecified Status: Acute (3) COPD (chronic obstructive pulmonary disease) Qualifiers: COPD type: COPD with acute exacerbation Qualified Code(s): J44.1 - Chronic obstructive pulmonary disease with (acute) exacerbation
--- NOTE | 2017-11-30 16:50 | P.PCNCA ---
Atrial Fibrillation Ablation - Afib Ablation Procedure Date: 11/30/17 Atrial Fibrillation Ablation: PROCEDURES PERFORMED: 1. Electrophysiology study on Isuprel infusion 2. CS cannulation 3. 3-D mapping 4. Transseptal approach 5. Right and left heart catheterization 6. Intracardiac echo 7. Radiofrequency ablation of atrial fibrillation 8. Pulmonary vein isolation 9. Posterior wall ablation 10. Mitral line creation 11. Anterior wall ablation 12. Cardioversion INDICATIONS FOR THE PROCEDURE Yogesh Ramírez is a 77-year-old M with hx of atrial fibrillation, previous cardioversion this week, back into atrial tach referred for electrophysiology study and ablation. The risks, the nature and the benefits of the procedure were clearly stated to the patient. The risks include pneumothorax, cardiac perforation, stroke, need for open heart surgery and even . The patient understood and agreed to proceed. DESCRIPTION OF THE PROCEDURE IN DETAIL After written informed consent was obtained, the patient was brought to the EP lab where and was prepped and draped in the usual sterile fashion. Conscious sedation was initiated and maintained throughout the procedure by the anesthesiologist. Once sedation was verified, the right and left inguinal areas were anesthetized with 2% Xylocaine. Using modified Seldinger technique, the left femoral vein was cannulated on three occasions, three guidewires were advanced. Over the wire a 6, 7 and a 10-Armenian Hemaquet were advanced. Then the left femoral artery was cannulated on one occasion, one guidewire was advanced. Over the wire a 4-Armenian Hemaquet was advanced. Then the right femoral vein was cannulated on one occasion, one guidewire was advanced. Over the wire a 8-Armenian Hemaquet was advanced. Then under fluoroscopic guidance through the 6 and 7-Armenian Hemaquet, two 5-Armenian Yuli curved quadripolar electrophysiology catheters were advanced and placed around the His as well as coronary sinus. Basic interval was measured. Patient conerted back into sinus rhythm apparently this morning. Through the 10-Armenian Hemaquet, a [employer] intracardiac echo catheter was advanced and placed at the right atrium. Multiple view was obtained. There was no pericardial effusion, pulmonary vein was seen, atrial septal was visualized. Then the 8-Armenian Hemaquet in the right femoral vein was exchanged for Agilis transseptal sheath that was placed all the way to the superior vena cava. Through the sheath a Edmund needle was advanced, then the sheath, the dilator and the needle were progressed until foci engaged. Once engaged, the needle was advanced. RF was delivered for 2 seconds. I was able to cross into the left atrium. Once the needle crossed, the dilator was advanced. Once the dilator crossed, the sheath was advanced. Once the sheath crossed, the dilator and the needle were removed. At this point I did flood the system and fluid movement was seen in the left atrium the indicates the sheath is in good position. The patient already received 10,000 units of heparin. The goal is to keep an ACT around 350 during ablation. Then through the sheath a [place] Lyle 20 pulse circumferential catheter was advanced. Using NuMedii endocardial solution mapping system, a two-dimensional configuration of the left atrium was obtained. Points were taken at the left superior and inferior veins, right superior and inferior veins, mitral valve, and appendages. Then through the sheath a [place]. Lyle TactiCath 65cm 3.5mm irrigated tipped mapping and radiofrequency ablation catheter was advanced. Esophageal probe was placed temperature monitoring during ablation. When it increased to 0.5 degrees Celsius above baseline, I moved to a different area of the atrium. First I did isolate the left superior and inferior vein. I did make a big [place] around the veins. Posterior was ablated. A mitral line was created. Lateral wall was ablated. Then the right superior and inferior veins were isolated. I did remap the atrium. At that point I did advance the circumferential catheter again into the vein. There was no signal into the vein , pacing from the vein showed no conduction to the atrium. Isuprel infusion was initiated at 10 mcg for over 15 minutes. No tachyarrhythmia was induced, post Isuprel no tachyarrhythmia was induced. At that point the procedure was complete. All catheters were removed, atrial septal sheath was exchanged for 9- Armenian Hemaquet, intracardiac echo showed no pericardial effusion. There is still good flow in the pulmonary vein. The patient is going to be transferred to the recovery room. No incident report. The patient tolerated the procedure. Blood loss was minimal. FINDINGS 1. Electrocardiogram: At baseline the patient was in sinus rhythm, post procedure electrocardiogram was unchanged.. 2. Basic interval: Base cycle length was around 840. AH at 90 and HV at 54 milliseconds. 3. Tachyarrhythmia: Atrial fibrillation was mapped and ablated. The ablation was successful. CONCLUSION Successful electrophysiology study, mapping, radiofrequency ablation of atrial fibrillation, pulmonary vein isolation, posterior wall ablation, mitral line creation, anterior wall ablation. COMMENTS AND RECOMMENDATIONS The patient is going to be transferred to the telemetry unit. Will be observed and further decision by the management team.
[2017-11-30 18:05] LABS: Calcium 6.7 mg/dL (8.5-10.1); Carbon Dioxide 24.1 meq/L (21.0-32.0); Potassium 4.2 meq/L (3.5-5.1)
[2017-11-30 18:17] LABS: Total Protein 5.1 g/dL (6.4-8.2)
--- NOTE | 2017-11-30 19:19 | P.PN ---
Subjective Interval history: Awake and seems lethargic . Had atrial Ablation. On O2 5 L. Now in sinus rhythm. Physical Exam Vital signs: Vital Signs 11/29/17 20:00 11/29/17 21:00 11/29/17 21:28 Temperature Pulse Rate 107 H 100 H Respiratory Rate 16 Blood Pressure 159/90 H Pulse Oximetry 95 96 11/29/17 22:00 11/29/17 23:00 11/30/17 00:00 Temperature Pulse Rate 98 H 98 H 85 Respiratory Rate 20 Blood Pressure 159/81 H Pulse Oximetry 96 11/30/17 01:00 11/30/17 02:00 11/30/17 03:00 Temperature Pulse Rate 84 87 84 Respiratory Rate Blood Pressure Pulse Oximetry 11/30/17 04:00 11/30/17 05:00 11/30/17 06:00 Temperature Pulse Rate 88 82 92 H Respiratory Rate 16 Blood Pressure 144/84 H Pulse Oximetry 92 L 11/30/17 07:00 11/30/17 08:00 11/30/17 08:29 Temperature 97.8 F Pulse Rate 94 H 90 92 H Respiratory Rate 16 Blood Pressure 145/79 H Pulse Oximetry 92 L 93 L 11/30/17 11:00 11/30/17 12:00 11/30/17 15:42 Temperature 98.0 F 97.4 F L Pulse Rate 91 H 90 96 H Respiratory Rate 22 15 Blood Pressure 154/89 H 119/60 Pulse Oximetry 92 L 95 11/30/17 16:00 11/30/17 16:02 11/30/17 16:15 Temperature Pulse Rate 93 H 93 H Respiratory Rate 15 14 Blood Pressure 105/59 L 109/57 L Pulse Oximetry 95 92 L 94 L 11/30/17 16:30 11/30/17 16:45 11/30/17 17:00 Temperature Pulse Rate 91 H 91 H 97 H Respiratory Rate 17 18 20 Blood Pressure 112/60 112/58 L 109/58 L Pulse Oximetry 99 91 L 93 L 11/30/17 17:15 11/30/17 17:45 11/30/17 18:00 Temperature Pulse Rate 96 H 94 H 92 H Respiratory Rate 26 H 26 H 15 Blood Pressure 108/59 L 114/63 113/63 Pulse Oximetry 93 L 92 L 95 11/30/17 18:15 07/19/18 18:30 11/30/17 18:35 Temperature Pulse Rate 91 H 93 H 91 H Respiratory Rate 15 18 Blood Pressure 107/58 L 104/67 Pulse Oximetry 95 94 L Intake & Output 11/30/17 11/30/17 12/01/17 06:59 18:59 06:59 Intake Total 340 / 340 100 / 100 Output Total 925 / 925 950 / 950 Balance -585 / -585 -850 / -850 Weight 116.6 kg Intake: IV 100 / 100 100 / 100 Levaquin 500 mg Premix Inj 500 100 / 100 mg In 100 ml @ 0 mls/hr IV.SIG .STK-MED ONE Rx#:[id number] Zosyn 3.375 GM Premix 50 ML @ 100 / 100 100 mls/hr IV.SIG Q6H FERNANDA Rx#: [id number] Oral 240 / 240 Output: Urine 925 / 925 Urine Amount (Catheter) 950 / 950 Indwelling Urethral Catheter 950 / 950 Other: Date of Last Bowel Movement 11/29/17 11/30/17 # Bowel Movements 1 Narrative: Subjective Interval history: Patient appears sleepy. Some sob at rest . No chest pain or palpitations. Physical Exam GENERAL: WN/WD WM in NAD with nasal cannula SKIN: Wounds on his buttocks CARDIOVASCULAR: Regular rate and rhythm and No Murmur RESPIRATORY: few Bibasilar crackles and occ wheeze GASTROINTESTINAL: Abdomen soft, non-tender, nondistended. MUSCULOSKELETAL: No cyanosis, with trace edema NEURO: A & O to person, place, time. moves all 4 ext but with generalized weakness Assessment and Plan 77-year-old man with Hypoxemia, Acute respiratory failure due to COPD exacerbation and community acquired pneumonia -continue to wean oxygen as tolerated. Hx COPD Hx of recent pneumoniaon 4 L nasal cannula today. -CTA 11/21: no PE, moderate to severe bilateral interstitial lung disease characteristic of either interstitial edema or pneumonitis, small left pleural effusion, line emphysematous lung changes. -2D echo completed on 11/22 with normal EF -Chest x-ray with stable prominent diffuse bilateral interstitial and parenchymal opacities with progression compared to 11/20 x-ray -Currently on IV Zosyn and IV vancomycin. -Scheduled duonebs and as needed, IV Solu-Medrol 40 mg q. 12 hour and will taper in am. Atrial fibrillation with RVR now cardioverted to normal sinus rhythm -Patient is s/p cardioversion 11/28 - Cardiology , Dr. Mac took him for Atrial ablation which was successful. -Started amiodarone drip November 26, 2017 -Continue low dose ASA and Eliquis. HTN, essential chronic, stable HLD -Continue metoprolol and Cardizem, blood pressure stable. - on low dose ASA and Lipitor Normocytic anemia -Previously on chemo for prostate CA. - Continue oral Fe supplementation -Transfused 1 unit PRBC's 11/22, Acute renal failure superimposed on chronic kidney disease stage IIIresolving Likely exacerbated by Lasix. -Avoid nephrotoxic drug -Clinically improving from 1.8-1.16 we will continue to monitor. Wounds on his buttocks bilateral buttocks have resolving partial thickness skin loss wounds: Wound care evaluation , appreciate recommendations spoke with Aiyana . Continue applying Calazime BID and PRN for healing moisture related skin loss on bilateral buttocks. - Urinary Catheter Management Indwelling Urethral Catheter Cath placed during this visit: no Results - Labs CBC & Chem 7: 12/02/17 05:00 12/02/17 05:00 Laboratory Results - last 24 hr 11/29/17 11/30/17 11/30/17 22:22 05:55 08:53 Sodium Potassium Chloride Carbon Dioxide Anion Gap BUN Creatinine 1.48 H Estimated GFR 46 L POC Glucose 171 H 147 H Random Glucose Calcium Prot Corrected Calcium Magnesium Total Protein 11/30/17 11/30/17 17:11 17:11 Sodium 146 H Potassium 4.2 Chloride 110 H Carbon Dioxide 24.1 Anion Gap 12 BUN 40 H Creatinine 1.28 Estimated GFR 55 L POC Glucose Random Glucose 165 H Calcium 6.7 L* Prot Corrected Calcium 7.7 L Magnesium 1.6 Total Protein 5.1 L Assessment and Plan - Assessment (1) Sleep apnea syndrome Code(s): G47.30 - Sleep apnea, unspecified Status: Chronic (2) Sleep apnea syndrome Code(s): G47.30 - Sleep apnea, unspecified Status: Acute (3) HCAP (healthcare-associated pneumonia) Code(s): J18.9 - Pneumonia, unspecified organism Status: Acute Onset Date: ~ 10/26/17 (4) Acute hypoxemic respiratory failure Code(s): J96.01 - Acute respiratory failure with hypoxia Status: Acute Onset Date: ~11/23/17 (5) Sepsis Code(s): A41.9 - Sepsis, unspecified organism Status: Resolved (6) COPD (chronic obstructive pulmonary disease) Code(s): J44.9 - Chronic obstructive pulmonary disease, unspecified Status: Chronic (7) Diastolic dysfunction Code(s): I51.9 - Heart disease, unspecified Status: Acute (8) Impaired mobility and activities of daily living Code(s): Z74.09 - Other reduced mobility Status: Acute Onset Date: ~ - Plan 1. O2 at 5 L N/C and wean 2. BIPAP at HS 125 CM if he agrees 3.Duoneb nebs qid.PRN 4. Continue Diuretic daily 5. Labs in am 6. Transfer to rehab Floor (5) Sepsis Qualifiers: Sepsis type: sepsis due to unspecified organism Qualified Code(s): A41.9 - Sepsis, unspecified organism (6) COPD (chronic obstructive pulmonary disease) Qualifiers: COPD type: emphysema Emphysema type: unspecified Qualified Code(s): J43.9 - Emphysema, unspecified
[2017-11-30] MEDS: Insulin Detemir Inj 1,000 UNIT/10 ML Vial SQ SCH (20:25)
[2017-12-01] MEDS: Piperacil/Tazo 3.375 GM Premix 50 ML IV.SIG SCH ×6 (01:30→18:10)
[2017-12-01 05:31] LABS: Baso % (Auto) 0.3 % (0.0-2.0); Hematocrit 25.7 % (39.0-51.0); Hemoglobin 8.4 gm/dL (13.0-17.0); Lymph # (Auto) 0.5 th/mm3 (1.0-4.8); Lymph % (Auto) 8.6 % (9.0-44.0); Mean Corpuscular HGB Conc 32.7 % (32.0-36.0); Mean Corpuscular Hemoglobin 29.7 pg (27.0-34.0); Mean Corpuscular Volume 90.8 fL (80.0-100.0); Mean Platelet Volume 7.1 fL (7.0-11.0); Mono # (Auto) 0.2 th/mm3 (0.0-0.9); Mono % (Auto) 4.2 % (0.0-8.0); Neut # (Auto) 4.6 th/mm3 (1.8-7.7); Neut % (Auto) 86.9 % (16.0-70.0); Platelet Count 166 th/mm3 (150-450); Red Blood Count 2.83 mil/mm3 (4.50-5.90); White Blood Count 5.3 th/mm3 (4.0-11.0)
[2017-12-01 05:46] LABS: Activated Partial Thrombo Time 20.6 sec (24.3-30.1); INR 1.2 Ratio; Prothrombin Time 12.1 sec (9.8-11.6)
[2017-12-01 06:07] LABS: Albumin 1.8 g/dL (3.4-5.0); Calcium 6.4 mg/dL (8.5-10.1); Carbon Dioxide 26.2 meq/L (21.0-32.0); Magnesium 1.5 mg/dL (1.5-2.5); Total Protein 4.8 g/dL (6.4-8.2)
[2017-12-01 07:42] LABS: Lymphocytes 8 % (9-44); Metamyelocytes 2 % (0-1); Monocytes 5 % (0-8); Myelocytes 1 % (0-0)
[2017-12-01 07:43] LABS: Ovalocytes 1+; Platelet Estimate Normal (Normal); Platelet Morphology Normal (Normal); Stomatocytes 1+; Tear Drop Cells 1+
[2017-12-01] MEDS: MethylPREDNISolone Sod Succinate Inj 40 MG/ML Vial IV.PUSH SCH ×2 (08:37→21:40)
[2017-12-01] MEDS: Ferrous Sulfate 325 MG Tablet PO SCH (08:37)
[2017-12-01] MEDS: Famotidine 20 MG Tablet PO SCH ×2 (08:37→21:40)
[2017-12-01] MEDS: Metoprolol Tartrate 50 MG Tablet PO SCH ×2 (08:38→21:40)
[2017-12-01] MEDS: Insulin NovoLOG Aspart Correctional Sugar Inj SQ SCH ×4 (08:38→22:00)
[2017-12-01] MEDS: Vancomycin Inj 1,250 MG in Sodium Chlor 0.9% Inj 250 ML IV.SIG SCH ×2 (08:43→15:23)
--- NOTE | 2017-12-01 08:43 | P.PN ---
Subjective Interval history: Feeling better Physical Exam Vital signs: Vital Signs 11/30/17 11:00 11/30/17 12:00 11/30/17 15:42 Temperature 98.0 F 97.4 F L Pulse Rate 91 H 90 96 H Respiratory Rate 22 15 Blood Pressure 154/89 H 119/60 Pulse Oximetry 92 L 95 11/30/17 16:00 11/30/17 16:02 11/30/17 16:15 Temperature Pulse Rate 93 H 93 H Respiratory Rate 15 14 Blood Pressure 105/59 L 109/57 L Pulse Oximetry 95 92 L 94 L 11/30/17 16:30 11/30/17 16:45 11/30/17 17:00 Temperature Pulse Rate 91 H 91 H 97 H Respiratory Rate 17 18 20 Blood Pressure 112/60 112/58 L 109/58 L Pulse Oximetry 99 91 L 93 L 11/30/17 17:15 11/30/17 17:45 11/30/17 18:00 Temperature Pulse Rate 96 H 94 H 92 H Respiratory Rate 26 H 26 H 15 Blood Pressure 108/59 L 114/63 113/63 Pulse Oximetry 93 L 92 L 95 11/30/17 18:15 11/30/17 18:30 11/30/17 18:35 Temperature Pulse Rate 91 H 93 H 91 H Respiratory Rate 15 18 Blood Pressure 107/58 L 104/67 Pulse Oximetry 95 94 L 11/30/17 19:00 11/30/17 19:53 11/30/17 20:00 Temperature 97.8 F Pulse Rate 96 H 110 H Respiratory Rate 20 Blood Pressure 110/64 Pulse Oximetry 92 L 93 L 11/30/17 21:00 11/30/17 22:00 11/30/17 23:00 Temperature Pulse Rate 92 H 96 H 92 H Respiratory Rate Blood Pressure Pulse Oximetry 12/01/17 00:00 12/01/17 01:00 12/01/17 02:00 Temperature 97.6 F Pulse Rate 91 H 98 H 92 H Respiratory Rate 20 Blood Pressure 107/67 Pulse Oximetry 97 12/01/17 03:00 12/01/17 04:00 12/01/17 05:00 Temperature 98 F Pulse Rate 102 H 97 H 98 H Respiratory Rate 20 Blood Pressure 110/67 Pulse Oximetry 93 L 12/01/17 06:00 12/01/17 07:46 Temperature 97.7 F Pulse Rate 94 H 97 H Respiratory Rate 20 Blood Pressure 131/69 Pulse Oximetry 93 L Intake & Output 11/30/17 12/01/17 12/01/17 18:59 06:59 18:59 Intake Total 580 / 580 870 / 870 Output Total 1410 / 1410 800 / 800 Balance -830 / -830 70 / 70 Weight 118.6 kg Intake: IV 100 / 100 150 / 150 Levaquin 500 mg Premix Inj 500 100 / 100 mg In 100 ml @ 0 mls/hr IV.SIG .STK-MED ONE Rx#:[id number] Zosyn 3.375 GM Premix 50 ML @ 150 / 150 100 mls/hr IV.SIG Q6H FERNANDA Rx#: [id number] Oral 480 / 480 720 / 720 Output: Urine 460 / 460 800 / 800 Urine Amount (Catheter) 950 / 950 Indwelling Urethral Catheter 950 / 950 Other: Post Void Residual 150 Date of Last Bowel Movement 11/30/17 11/30/17 - Constitutional no acute distress - Routine HEENT Exam Head: Present: normocephalic Eye: Present: PERRL ENT: Present: mucous membranes moist - Routine Neck Exam Present: normal carotid upstroke - Routine Respiratory Exam Present: CTA bilaterally - Routine Cardiovascular Exam Present: RRR, S1, S2 - Routine Neurological Exam Present: alert, oriented X3 - Detailed Neurological Exam: Coma Scale Eye Opening: Spontaneous - Urinary Catheter Management Indwelling Urethral Catheter Cath placed during this visit: no Results - Labs CBC & Chem 7: 12/01/17 05:18 12/01/17 05:18 Laboratory Results - last 24 hr 11/30/17 11/30/17 11/30/17 08:53 17:11 17:11 WBC RBC Hgb Hct MCV MCH MCHC RDW Plt Count MPV Prelim Diff (Auto) Neut % (Auto) Lymph % (Auto) [place] % (Auto) Eos % (Auto) Baso % (Auto) Neut # (Auto) Lymph # (Auto) [place] # (Auto) Eos # (Auto) Baso # (Auto) WBC Differential Seg Neuts % (Manual) Band Neuts % (Manual) Lymphocytes % (Manual) Monocytes % (Manual) Metamyelocytes % (Man) Myelocytes % (Man) Abs Neuts (Manual) Differential Comment Platelet Estimate Platelet Morphology Tear Drop Cells Ovalocytes Stomatocytes PT INR APTT Sodium 146 H Potassium 4.2 Chloride 110 H Carbon Dioxide 24.1 Anion Gap 12 BUN 40 H Creatinine 1.28 Estimated GFR 55 L POC Glucose 147 H Random Glucose 165 H Calcium 6.7 L* Prot Corrected Calcium 7.7 L Magnesium 1.6 Total Bilirubin AST ALT Alkaline Phosphatase Total Protein 5.1 L Albumin 11/30/17 12/01/17 12/01/17 20:36 05:18 05:18 WBC 5.3 RBC 2.83 L Hgb 8.4 L Hct 25.7 L MCV 90.8 MCH 29.7 MCHC 32.7 RDW 22.0 H Plt Count 166 MPV 7.1 Prelim Diff (Auto) Slide review pending Neut % (Auto) 86.9 H Lymph % (Auto) 8.6 L [place] % (Auto) 4.2 Eos % (Auto) 0.0 Baso % (Auto) 0.3 Neut # (Auto) 4.6 Lymph # (Auto) 0.5 L [place] # (Auto) 0.2 Eos # (Auto) 0.0 Baso # (Auto) 0.0 WBC Differential Manual diff final Seg Neuts % (Manual) 71 H Band Neuts % (Manual) 13 H Lymphocytes % (Manual) 8 L Monocytes % (Manual) 5 Metamyelocytes % (Man) 2 H Myelocytes % (Man) 1 H Abs Neuts (Manual) 4.6 Differential Comment . Platelet Estimate Normal Platelet Morphology Normal Tear Drop Cells 1+ H Ovalocytes 1+ H Stomatocytes 1+ H PT INR APTT Sodium 144 Potassium 4.0 Chloride 107 Carbon Dioxide 26.2 Anion Gap 11 BUN 39 H Creatinine 1.43 H Estimated GFR 48 L POC Glucose 143 H Random Glucose 135 H Calcium 6.4 L* Prot Corrected Calcium 7.5 L Magnesium 1.5 Total Bilirubin 0.3 AST 21 ALT 27 Alkaline Phosphatase 69 Total Protein 4.8 L Albumin 1.8 L 12/01/17 12/01/17 05:18 07:53 WBC RBC Hgb Hct MCV MCH MCHC RDW Plt Count MPV Prelim Diff (Auto) Neut % (Auto) Lymph % (Auto) [place] % (Auto) Eos % (Auto) Baso % (Auto) Neut # (Auto) Lymph # (Auto) [place] # (Auto) Eos # (Auto) Baso # (Auto) WBC Differential Seg Neuts % (Manual) Band Neuts % (Manual) Lymphocytes % (Manual) Monocytes % (Manual) Metamyelocytes % (Man) Myelocytes % (Man) Abs Neuts (Manual) Differential Comment Platelet Estimate Platelet Morphology Tear Drop Cells Ovalocytes Stomatocytes PT 12.1 H INR 1.2 APTT 20.6 L Sodium Potassium Chloride Carbon Dioxide Anion Gap BUN Creatinine Estimated GFR POC Glucose 138 H Random Glucose Calcium Prot Corrected Calcium Magnesium Total Bilirubin AST ALT Alkaline Phosphatase Total Protein Albumin Assessment and Plan - Assessment (1) SVT (supraventricular tachycardia) Code(s): I47.1 - Supraventricular tachycardia Status: Chronic - Plan SP Afib ablation Doing well Feeling better Continue on current meds can be DH Follow up with me 3 weeks post discharge
--- NOTE | 2017-12-01 11:17 | P.PN ---
Physical Exam Vital signs: Vital Signs 11/30/17 12:00 11/30/17 15:42 11/30/17 16:00 Temperature 98.0 F 97.4 F L Pulse Rate 90 96 H 93 H Respiratory Rate 22 15 15 Blood Pressure 154/89 H 119/60 105/59 L Pulse Oximetry 92 L 95 95 11/30/17 16:02 11/30/17 16:15 11/30/17 16:30 Temperature Pulse Rate 93 H 91 H Respiratory Rate 14 17 Blood Pressure 109/57 L 112/60 Pulse Oximetry 92 L 94 L 99 11/30/17 16:45 11/30/17 17:00 11/30/17 17:15 Temperature Pulse Rate 91 H 97 H 96 H Respiratory Rate 18 20 26 H Blood Pressure 112/58 L 109/58 L 108/59 L Pulse Oximetry 91 L 93 L 93 L 11/30/17 17:45 11/30/17 18:00 11/30/17 18:15 Temperature Pulse Rate 94 H 92 H 91 H Respiratory Rate 26 H 15 15 Blood Pressure 114/63 113/63 107/58 L Pulse Oximetry 92 L 95 95 11/30/17 18:30 11/30/17 18:35 11/30/17 19:00 Temperature Pulse Rate 93 H 91 H 96 H Respiratory Rate 18 Blood Pressure 104/67 Pulse Oximetry 94 L 11/30/17 19:53 11/30/17 20:00 11/30/17 21:00 Temperature 97.8 F Pulse Rate 110 H 92 H Respiratory Rate 20 Blood Pressure 110/64 Pulse Oximetry 92 L 93 L 11/30/17 22:00 11/30/17 23:00 12/01/17 00:00 Temperature 97.6 F Pulse Rate 96 H 92 H 91 H Respiratory Rate 20 Blood Pressure 107/67 Pulse Oximetry 97 12/01/17 01:00 12/01/17 02:00 12/01/17 03:00 Temperature Pulse Rate 98 H 92 H 102 H Respiratory Rate Blood Pressure Pulse Oximetry 12/01/17 04:00 12/01/17 05:00 12/01/17 06:00 Temperature 98 F Pulse Rate 97 H 98 H 94 H Respiratory Rate 20 Blood Pressure 110/67 Pulse Oximetry 93 L 12/01/17 07:00 12/01/17 07:46 12/01/17 08:00 Temperature 97.7 F Pulse Rate 105 H 97 H 96 H Respiratory Rate 20 Blood Pressure 131/69 Pulse Oximetry 93 L 12/01/17 08:54 12/01/17 09:00 12/01/17 10:00 Temperature Pulse Rate 101 H 98 H 104 H Respiratory Rate 20 Blood Pressure Pulse Oximetry 96 12/01/17 10:59 Temperature Pulse Rate 105 H Respiratory Rate Blood Pressure Pulse Oximetry Intake & Output 11/30/17 12/01/17 12/01/17 18:59 06:59 18:59 Intake Total 580 / 580 870 / 870 Output Total 1410 / 1410 800 / 800 Balance -830 / -830 70 / 70 Weight 118.6 kg Intake: IV 100 / 100 150 / 150 Levaquin 500 mg Premix Inj 500 100 / 100 mg In 100 ml @ 0 mls/hr IV.SIG .STK-MED ONE Rx#:[id number] Zosyn 3.375 GM Premix 50 ML @ 150 / 150 100 mls/hr IV.SIG Q6H [facility] Rx#: [id number] Oral 480 / 480 720 / 720 Output: Urine 460 / 460 800 / 800 Urine Amount (Catheter) 950 / 950 Indwelling Urethral Catheter 950 / 950 Other: Post Void Residual 150 Date of Last Bowel Movement 11/30/17 11/30/17 Narrative: Subjective Interval history: Patient is in bed he appears weak however much more improved today. With some shortness of breath however improved significantly. He was noted tachycardic in the afternoon. Increase metoprolol to 75 mg p.o. twice daily. Monitor on telemetry. No nausea or vomiting no diarrhea or constipation. No lightheadedness. Physical Exam GENERAL: WN/WD WM in NAD with nasal cannula SKIN: Wounds on his buttocks CARDIOVASCULAR: Tachycardic. Regular rate and rhythm and No Murmur RESPIRATORY: few Bibasilar crackles and occ wheeze GASTROINTESTINAL: Abdomen soft, non-tender, nondistended. MUSCULOSKELETAL: No cyanosis, with trace edema NEURO: A & O to person, place, time. moves all 4 ext but with generalized weakness Assessment and Plan 77-year-old man with Hypoxemia, Acute respiratory failure due to COPD exacerbation and community acquired pneumonia -continue to wean oxygen as tolerated. Hx COPD Hx of recent pneumoniaon 4 L nasal cannula today. -CTA 11/21: no PE, moderate to severe bilateral interstitial lung disease characteristic of either interstitial edema or pneumonitis, small left pleural effusion, line emphysematous lung changes. -2D echo completed on 11/22 with normal EF -Chest x-ray with stable prominent diffuse bilateral interstitial and parenchymal opacities with progression compared to 11/20 x-ray -Currently on IV Zosyn and IV vancomycin. -Scheduled duonebs and as needed Atrial fibrillation with RVR now cardioverted to normal sinus rhythm -Patient is s/p cardioversion 11/28. Cardiology , Dr. Mac. s/p Atrial ablation . -Started amiodarone drip November 26, 2017 . -Continue low dose ASA and Eliquis. HTN, essential chronic, stable HLD -Continue metoprolol and Cardizem, blood pressure stable. - on low dose ASA and Lipitor Normocytic anemia -Previously on chemo for prostate CA. - Continue oral Fe supplementation -Transfused 1 unit PRBC's 11/22, Acute renal failure superimposed on chronic kidney disease stage IIIresolving Likely exacerbated by Lasix. -Avoid nephrotoxic drug -Clinically improving from 1.8-1.16 we will continue to monitor. - Urinary Catheter Management Indwelling Urethral Catheter Cath placed during this visit: no Results - Labs CBC & Chem 7: 12/01/17 05:18 12/01/17 05:18 Laboratory Results - last 24 hr 11/30/17 11/30/17 11/30/17 17:11 17:11 20:36 WBC RBC Hgb Hct MCV MCH MCHC RDW Plt Count MPV Prelim Diff (Auto) Neut % (Auto) Lymph % (Auto) [place] % (Auto) Eos % (Auto) Baso % (Auto) Neut # (Auto) Lymph # (Auto) [place] # (Auto) Eos # (Auto) Baso # (Auto) WBC Differential Seg Neuts % (Manual) Band Neuts % (Manual) Lymphocytes % (Manual) Monocytes % (Manual) Metamyelocytes % (Man) Myelocytes % (Man) Abs Neuts (Manual) Differential Comment Platelet Estimate Platelet Morphology Tear Drop Cells Ovalocytes Stomatocytes PT INR APTT Sodium 146 H Potassium 4.2 Chloride 110 H Carbon Dioxide 24.1 Anion Gap 12 BUN 40 H Creatinine 1.28 Estimated GFR 55 L POC Glucose 143 H Random Glucose 165 H Calcium 6.7 L* Prot Corrected Calcium 7.7 L Magnesium 1.6 Total Bilirubin AST ALT Alkaline Phosphatase Total Protein 5.1 L Albumin 12/01/17 12/01/17 12/01/17 05:18 05:18 05:18 WBC 5.3 RBC 2.83 L Hgb 8.4 L Hct 25.7 L MCV 90.8 MCH 29.7 MCHC 32.7 RDW 22.0 H Plt Count 166 MPV 7.1 Prelim Diff (Auto) Slide review pending Neut % (Auto) 86.9 H Lymph % (Auto) 8.6 L [place] % (Auto) 4.2 Eos % (Auto) 0.0 Baso % (Auto) 0.3 Neut # (Auto) 4.6 Lymph # (Auto) 0.5 L [place] # (Auto) 0.2 Eos # (Auto) 0.0 Baso # (Auto) 0.0 WBC Differential Manual diff final Seg Neuts % (Manual) 71 H Band Neuts % (Manual) 13 H Lymphocytes % (Manual) 8 L Monocytes % (Manual) 5 Metamyelocytes % (Man) 2 H Myelocytes % (Man) 1 H Abs Neuts (Manual) 4.6 Differential Comment . Platelet Estimate Normal Platelet Morphology Normal Tear Drop Cells 1+ H Ovalocytes 1+ H Stomatocytes 1+ H PT 12.1 H INR 1.2 APTT 20.6 L Sodium 144 Potassium 4.0 Chloride 107 Carbon Dioxide 26.2 Anion Gap 11 BUN 39 H Creatinine 1.43 H Estimated GFR 48 L POC Glucose Random Glucose 135 H Calcium 6.4 L* Prot Corrected Calcium 7.5 L Magnesium 1.5 Total Bilirubin 0.3 AST 21 ALT 27 Alkaline Phosphatase 69 Total Protein 4.8 L Albumin 1.8 L 12/01/17 07:53 WBC RBC Hgb Hct MCV MCH MCHC RDW Plt Count MPV Prelim Diff (Auto) Neut % (Auto) Lymph % (Auto) [place] % (Auto) Eos % (Auto) Baso % (Auto) Neut # (Auto) Lymph # (Auto) [place] # (Auto) Eos # (Auto) Baso # (Auto) WBC Differential Seg Neuts % (Manual) Band Neuts % (Manual) Lymphocytes % (Manual) Monocytes % (Manual) Metamyelocytes % (Man) Myelocytes % (Man) Abs Neuts (Manual) Differential Comment Platelet Estimate Platelet Morphology Tear Drop Cells Ovalocytes Stomatocytes PT INR APTT Sodium Potassium Chloride Carbon Dioxide Anion Gap BUN Creatinine Estimated GFR POC Glucose 138 H Random Glucose Calcium Prot Corrected Calcium Magnesium Total Bilirubin AST ALT Alkaline Phosphatase Total Protein Albumin Assessment and Plan - Assessment (1) HCAP (healthcare-associated pneumonia) Code(s): J18.9 - Pneumonia, unspecified organism Status: Acute (2) Acute hypoxemic respiratory failure Code(s): J96.01 - Acute respiratory failure with hypoxia Status: Acute (3) COPD (chronic obstructive pulmonary disease) Code(s): J44.9 - Chronic obstructive pulmonary disease, unspecified Status: Acute (3) COPD (chronic obstructive pulmonary disease) Qualifiers: COPD type: COPD with acute exacerbation Qualified Code(s): J44.1 - Chronic obstructive pulmonary disease with (acute) exacerbation
--- NOTE | 2017-12-01 16:31 | P.PN ---
Subjective Interval history: He is awake and on O2 3 L. has a rapid HR today. >110. No chest pain or SOB. Physical Exam Vital signs: Vital Signs 11/30/17 16:30 11/30/17 16:45 11/30/17 17:00 Temperature Pulse Rate 91 H 91 H 97 H Respiratory Rate 17 18 20 Blood Pressure 112/60 112/58 L 109/58 L Pulse Oximetry 99 91 L 93 L 11/30/17 17:15 11/30/17 17:45 11/30/17 18:00 Temperature Pulse Rate 96 H 94 H 92 H Respiratory Rate 26 H 26 H 15 Blood Pressure 108/59 L 114/63 113/63 Pulse Oximetry 93 L 92 L 95 11/30/17 18:15 11/30/17 18:30 11/30/17 18:35 Temperature Pulse Rate 91 H 93 H 91 H Respiratory Rate 15 18 Blood Pressure 107/58 L 104/67 Pulse Oximetry 95 94 L 11/30/17 19:00 11/30/17 19:53 11/30/17 20:00 Temperature 97.8 F Pulse Rate 96 H 110 H Respiratory Rate 20 Blood Pressure 110/64 Pulse Oximetry 92 L 93 L 11/30/17 21:00 11/30/17 22:00 11/30/17 23:00 Temperature Pulse Rate 92 H 96 H 92 H Respiratory Rate Blood Pressure Pulse Oximetry 12/01/17 00:00 12/01/17 01:00 12/01/17 02:00 Temperature 97.6 F Pulse Rate 91 H 98 H 92 H Respiratory Rate 20 Blood Pressure 107/67 Pulse Oximetry 97 12/01/17 03:00 12/01/17 04:00 12/01/17 05:00 Temperature 98 F Pulse Rate 102 H 97 H 98 H Respiratory Rate 20 Blood Pressure 110/67 Pulse Oximetry 93 L 12/01/17 06:00 12/01/17 07:00 12/01/17 07:46 Temperature 97.7 F Pulse Rate 94 H 105 H 97 H Respiratory Rate 20 Blood Pressure 131/69 Pulse Oximetry 93 L 12/01/17 08:00 12/01/17 08:54 12/01/17 09:00 Temperature Pulse Rate 96 H 101 H 98 H Respiratory Rate 20 Blood Pressure Pulse Oximetry 96 12/01/17 10:00 12/01/17 10:59 12/01/17 12:00 Temperature 98.0 F Pulse Rate 104 H 105 H 108 H Respiratory Rate 22 Blood Pressure 131/60 Pulse Oximetry 91 L 12/01/17 12:36 12/01/17 15:29 Temperature 98.2 F Pulse Rate 99 H 108 H Respiratory Rate 20 22 Blood Pressure 133/53 L Pulse Oximetry 96 Intake & Output 11/30/17 12/01/17 12/01/17 18:59 06:59 18:59 Intake Total 580 / 580 870 / 870 Output Total 1410 / 1410 800 / 800 Balance -830 / -830 70 / 70 Weight 118.6 kg Intake: IV 100 / 100 150 / 150 Levaquin 500 mg Premix Inj 500 100 / 100 mg In 100 ml @ 0 mls/hr IV.SIG .STK-MED ONE Rx#:[id number] Zosyn 3.375 GM Premix 50 ML @ 150 / 150 100 mls/hr IV.SIG Q6H [facility] Rx#: [id number] Oral 480 / 480 720 / 720 Output: Urine 460 / 460 800 / 800 Urine Amount (Catheter) 950 / 950 Indwelling Urethral Catheter 950 / 950 Other: Post Void Residual 150 Date of Last Bowel Movement 11/30/17 11/30/17 Narrative: Subjective Interval history: Patient is alert and oriented Physical Exam GENERAL: WN/WD WM in NAD with nasal cannula SKIN: Wounds on his buttocks CARDIOVASCULAR: Regular rate and rhythm and No Murmur RESPIRATORY: few Bibasilar crackles and occ wheeze GASTROINTESTINAL: Abdomen soft, non-tender, nondistended. MUSCULOSKELETAL: No cyanosis, with trace edema NEURO: A & O to person, place, time. moves all 4 ext but with generalized weakness Assessment and Plan 77-year-old man with Hypoxemia, Acute respiratory failure due to COPD exacerbation and community acquired pneumonia -continue to wean oxygen as tolerated. Hx COPD Hx of recent pneumoniaon 4 L nasal cannula today. -CTA 11/21: no PE, moderate to severe bilateral interstitial lung disease characteristic of either interstitial edema or pneumonitis, small left pleural effusion, line emphysematous lung changes. -2D echo completed on 11/22 with normal EF -Chest x-ray with stable prominent diffuse bilateral interstitial and parenchymal opacities with progression compared to 11/20 x-ray -Currently on IV Zosyn and IV vancomycin. -Scheduled duonebs and as needed GENERAL: SKIN: Warm and dry. HEAD: Normocephalic. EYES: No scleral icterus. No injection or drainage. NECK: Supple, trachea midline. No JVD or lymphadenopathy. CARDIOVASCULAR: Regular rate and rhythm without murmurs, gallops, or rubs. RESPIRATORY: Breath sounds equal bilaterally. No accessory muscle use. GASTROINTESTINAL: Abdomen soft, non-tender, nondistended. MUSCULOSKELETAL: No cyanosis, or edema. BACK: Nontender without obvious deformity. No CVA tenderness. Atrial fibrillation with RVR now cardioverted to normal sinus rhythm -Patient is s/p cardioversion 11/28 - Cardiology , Dr. Mac took him for Atrial ablation which was successful. -Started amiodarone drip November 26, 2017 -Continue low dose ASA and Eliquis. HTN, essential chronic, stable HLD -Continue metoprolol and Cardizem, blood pressure stable. - on low dose ASA and Lipitor Normocytic anemia -Previously on chemo for prostate CA. - Continue oral Fe supplementation -Transfused 1 unit PRBC's 11/22, Acute renal failure superimposed on chronic kidney disease stage IIIresolving Likely exacerbated by Lasix. -Avoid nephrotoxic drug -Clinically improving from 1.8-1.16 we will continue to monitor. - Urinary Catheter Management Indwelling Urethral Catheter Cath placed during this visit: no Results - Labs CBC & Chem 7: 12/01/17 05:18 12/01/17 05:18 Laboratory Results - last 24 hr 11/30/17 11/30/17 11/30/17 17:11 17:11 20:36 WBC RBC Hgb Hct MCV MCH MCHC RDW Plt Count MPV Prelim Diff (Auto) Neut % (Auto) Lymph % (Auto) [place] % (Auto) Eos % (Auto) Baso % (Auto) Neut # (Auto) Lymph # (Auto) [place] # (Auto) Eos # (Auto) Baso # (Auto) WBC Differential Seg Neuts % (Manual) Band Neuts % (Manual) Lymphocytes % (Manual) Monocytes % (Manual) Metamyelocytes % (Man) Myelocytes % (Man) Abs Neuts (Manual) Differential Comment Platelet Estimate Platelet Morphology Tear Drop Cells Ovalocytes Stomatocytes PT INR APTT Sodium 146 H Potassium 4.2 Chloride 110 H Carbon Dioxide 24.1 Anion Gap 12 BUN 40 H Creatinine 1.28 Estimated GFR 55 L POC Glucose 143 H Random Glucose 165 H Calcium 6.7 L* Prot Corrected Calcium 7.7 L Magnesium 1.6 Total Bilirubin AST ALT Alkaline Phosphatase Total Protein 5.1 L Albumin 12/01/17 12/01/17 12/01/17 05:18 05:18 05:18 WBC 5.3 RBC 2.83 L Hgb 8.4 L Hct 25.7 L MCV 90.8 MCH 29.7 MCHC 32.7 RDW 22.0 H Plt Count 166 MPV 7.1 Prelim Diff (Auto) Slide review pending Neut % (Auto) 86.9 H Lymph % (Auto) 8.6 L [place] % (Auto) 4.2 Eos % (Auto) 0.0 Baso % (Auto) 0.3 Neut # (Auto) 4.6 Lymph # (Auto) 0.5 L [place] # (Auto) 0.2 Eos # (Auto) 0.0 Baso # (Auto) 0.0 WBC Differential Manual diff final Seg Neuts % (Manual) 71 H Band Neuts % (Manual) 13 H Lymphocytes % (Manual) 8 L Monocytes % (Manual) 5 Metamyelocytes % (Man) 2 H Myelocytes % (Man) 1 H Abs Neuts (Manual) 4.6 Differential Comment . Platelet Estimate Normal Platelet Morphology Normal Tear Drop Cells 1+ H Ovalocytes 1+ H Stomatocytes 1+ H PT 12.1 H INR 1.2 APTT 20.6 L Sodium 144 Potassium 4.0 Chloride 107 Carbon Dioxide 26.2 Anion Gap 11 BUN 39 H Creatinine 1.43 H Estimated GFR 48 L POC Glucose Random Glucose 135 H Calcium 6.4 L* Prot Corrected Calcium 7.5 L Magnesium 1.5 Total Bilirubin 0.3 AST 21 ALT 27 Alkaline Phosphatase 69 Total Protein 4.8 L Albumin 1.8 L 12/01/17 12/01/17 07:53 12:20 WBC RBC Hgb Hct MCV MCH MCHC RDW Plt Count MPV Prelim Diff (Auto) Neut % (Auto) Lymph % (Auto) [place] % (Auto) Eos % (Auto) Baso % (Auto) Neut # (Auto) Lymph # (Auto) [place] # (Auto) Eos # (Auto) Baso # (Auto) WBC Differential Seg Neuts % (Manual) Band Neuts % (Manual) Lymphocytes % (Manual) Monocytes % (Manual) Metamyelocytes % (Man) Myelocytes % (Man) Abs Neuts (Manual) Differential Comment Platelet Estimate Platelet Morphology Tear Drop Cells Ovalocytes Stomatocytes PT INR APTT Sodium Potassium Chloride Carbon Dioxide Anion Gap BUN Creatinine Estimated GFR POC Glucose 138 H 165 H Random Glucose Calcium Prot Corrected Calcium Magnesium Total Bilirubin AST ALT Alkaline Phosphatase Total Protein Albumin Assessment and Plan - Assessment (1) Sleep apnea syndrome Code(s): G47.30 - Sleep apnea, unspecified Status: Acute Plan: Sleep test as OP (2) Sleep apnea syndrome Code(s): G47.30 - Sleep apnea, unspecified Status: Acute (3) HCAP (healthcare-associated pneumonia) Code(s): J18.9 - Pneumonia, unspecified organism Status: Acute Plan: Antibiotics as ordered (4) Acute hypoxemic respiratory failure Code(s): J96.01 - Acute respiratory failure with hypoxia Status: Acute (5) COPD (chronic obstructive pulmonary disease) Code(s): J44.9 - Chronic obstructive pulmonary disease, unspecified Status: Acute Plan: O2 3 L. Duonebs qid PRN (6) Diastolic dysfunction Code(s): I51.9 - Heart disease, unspecified Status: Acute (7) Impaired mobility and activities of daily living Code(s): Z74.09 - Other reduced mobility Status: Acute (5) COPD (chronic obstructive pulmonary disease) Qualifiers: COPD type: COPD with acute exacerbation Qualified Code(s): J44.1 - Chronic obstructive pulmonary disease with (acute) exacerbation
--- NOTE | 2017-12-01 19:04 | ECG ---
Date Performed: 12/01/2017 Time Performed: 06:35:42 PTAGE: 77 years EKG: Sinus rhythm Indeterminate axis Right bundle branch block Possible inferior infarct - age undetermined Lateral ST -T changes may be due to myocardial ischemia Since previous tracing, no significant change noted Abno rmal ECG PREVIOUS TRACING : 11/30/2017 17.11 DOCTOR: Maria De Jesus Fernandez Interpretating Date/Time 12/01/2017 19:03:18
[2017-12-01] MEDS: Insulin Detemir Inj 1,000 UNIT/10 ML Vial SQ SCH (21:40)
[2017-12-02] MEDS: Piperacil/Tazo 3.375 GM Premix 50 ML IV.SIG SCH ×4 (00:01→17:15)
[2017-12-02 05:23] LABS: Baso % (Auto) 0.1 % (0.0-2.0); Eos % (Auto) 0.2 % (0.0-4.0); Hematocrit 23.1 % (39.0-51.0); Hemoglobin 7.7 gm/dL (13.0-17.0); Lymph # (Auto) 0.5 th/mm3 (1.0-4.8); Lymph % (Auto) 8.7 % (9.0-44.0); Mean Corpuscular HGB Conc 33.4 % (32.0-36.0); Mean Corpuscular Hemoglobin 29.6 pg (27.0-34.0); Mean Corpuscular Volume 88.4 fL (80.0-100.0); Mean Platelet Volume 7.2 fL (7.0-11.0); Mono # (Auto) 0.2 th/mm3 (0.0-0.9); Neut # (Auto) 5.3 th/mm3 (1.8-7.7); Platelet Count 150 th/mm3 (150-450); Red Blood Count 2.61 mil/mm3 (4.50-5.90); Red Cell Distribution Width 21.8 % (11.6-17.2); White Blood Count 6.1 th/mm3 (4.0-11.0)
[2017-12-02 05:48] LABS: Potassium 4.3 meq/L (3.5-5.1)
[2017-12-02 06:50] LABS: Calcium 6.4 mg/dL (8.5-10.1); Carbon Dioxide 24.9 meq/L (21.0-32.0)
[2017-12-02 07:16] LABS: Total Protein 4.6 g/dL (6.4-8.2)
[2017-12-02] MEDS: Famotidine 20 MG Tablet PO SCH ×2 (08:42→21:27)
[2017-12-02] MEDS: Ferrous Sulfate 325 MG Tablet PO SCH (08:42)
[2017-12-02] MEDS: Metoprolol Tartrate 50 MG Tablet PO SCH ×2 (08:42→21:26)
[2017-12-02] MEDS: MethylPREDNISolone Sod Succinate Inj 40 MG/ML Vial IV.PUSH SCH (08:42)
[2017-12-02] MEDS: Insulin NovoLOG Aspart Correctional Sugar Inj SQ SCH ×4 (08:43→21:25)
[2017-12-02 09:42] LABS: Lymphocytes 5 % (9-44); Metamyelocytes 8 % (0-1); Monocytes 1 % (0-8); Ovalocytes 1+
[2017-12-02 09:43] LABS: Platelet Estimate Normal (Normal); Platelet Morphology Normal (Normal)
--- NOTE | 2017-12-02 12:11 | P.PN ---
Physical Exam Vital signs: Vital Signs 12/01/17 12:36 12/01/17 13:00 12/01/17 14:00 Temperature Pulse Rate 99 H 110 H 120 H Respiratory Rate 20 Blood Pressure Pulse Oximetry 12/01/17 15:00 12/01/17 15:29 12/01/17 16:00 Temperature 98.2 F Pulse Rate 54 L 108 H 98 H Respiratory Rate 22 Blood Pressure 133/53 L Pulse Oximetry 96 12/01/17 17:00 12/01/17 18:00 12/01/17 19:00 Temperature Pulse Rate 100 H 98 H 96 H Respiratory Rate Blood Pressure Pulse Oximetry 12/01/17 20:00 12/01/17 21:00 12/01/17 21:05 Temperature 98 F Pulse Rate 90 98 H Respiratory Rate 20 Blood Pressure 115/61 Pulse Oximetry 94 L 94 L 12/01/17 22:00 12/01/17 23:00 12/02/17 00:00 Temperature 97 F L Pulse Rate 92 H 92 H 82 Respiratory Rate 22 Blood Pressure 120/71 Pulse Oximetry 92 L 12/02/17 01:00 12/02/17 02:00 12/02/17 03:00 Temperature Pulse Rate 80 78 85 Respiratory Rate Blood Pressure Pulse Oximetry 12/02/17 03:56 12/02/17 04:00 12/02/17 05:00 Temperature 97.8 F Pulse Rate 83 78 83 Respiratory Rate 20 Blood Pressure 114/66 Pulse Oximetry 96 12/02/17 06:00 12/02/17 07:00 12/02/17 08:00 Temperature 97.5 F L Pulse Rate 85 88 86 Respiratory Rate 21 Blood Pressure 124/67 Pulse Oximetry 96 12/02/17 09:00 12/02/17 10:00 Temperature Pulse Rate 84 79 Respiratory Rate Blood Pressure Pulse Oximetry Intake & Output 12/01/17 12/02/17 12/02/17 18:59 06:59 18:59 Intake Total 910 / 910 870 / 870 Output Total 460 / 460 650 / 650 Balance 450 / 450 220 / 220 Weight 120.3 kg Intake: IV 50 / 50 150 / 150 Zosyn 3.375 GM Premix 50 ML @ 50 / 50 150 / 150 100 mls/hr IV.SIG Q6H [facility] Rx#: [id number] Oral 860 / 860 720 / 720 Output: Urine 460 / 460 650 / 650 Other: Date of Last Bowel Movement 11/30/17 12/02/17 Narrative: Subjective Interval history: Follow-up acute respiratory failure hypoxemia and COPD exacerbation pneumonia, A. fib with RVR S/P ablation Heart rate is better controlled today after metoprolol was increased. Patient still with shortness of breath coughing but not much. No nausea or vomiting feels very tired. No fever or chills. Physical Exam GENERAL: WN/WD WM in NAD with nasal cannula SKIN: Wounds on his buttocks CARDIOVASCULAR: Tachycardic. Regular rate and rhythm and No Murmur RESPIRATORY: few Bibasilar crackles and occ wheeze GASTROINTESTINAL: Abdomen soft, non-tender, nondistended. MUSCULOSKELETAL: No cyanosis, with trace edema NEURO: A & O to person, place, time. moves all 4 ext but with generalized weakness Assessment and Plan 77-year-old man with Hypoxemia, Acute respiratory failure due to COPD exacerbation and community acquired pneumonia -continue to wean oxygen as tolerated. Hx COPD Hx of recent pneumoniaon 4 L nasal cannula today. -CTA 11/21: no PE, moderate to severe bilateral interstitial lung disease characteristic of either interstitial edema or pneumonitis, small left pleural effusion, line emphysematous lung changes. -2D echo completed on 11/22 with normal EF -Chest x-ray with stable prominent diffuse bilateral interstitial and parenchymal opacities with progression compared to 11/20 x-ray -Currently on IV Zosyn and IV vancomycin. -Scheduled duonebs and as needed Atrial fibrillation with RVR now cardioverted to normal sinus rhythm -Patient is s/p cardioversion 11/28. Cardiology , Dr. Mac. s/p Atrial ablation . -Started amiodarone drip November 26, 2017 . -Continue low dose ASA and Eliquis. HTN, essential chronic, stable HLD -Continue metoprolol and Cardizem, blood pressure stable. - on low dose ASA and Lipitor Normocytic anemia -Previously on chemo for prostate CA. - Continue oral Fe supplementation -Transfused 1 unit PRBC's 11/22, Acute renal failure superimposed on chronic kidney disease stage IIIresolving Likely exacerbated by Lasix. -Avoid nephrotoxic drug Continue to monitor kidney function Discussed with the patient, nurse. - Urinary Catheter Management Indwelling Urethral Catheter Cath placed during this visit: no Results - Labs CBC & Chem 7: 12/02/17 05:00 12/02/17 05:00 Laboratory Results - last 24 hr 12/01/17 12/01/17 12/01/17 12:20 17:05 21:33 WBC RBC Hgb Hct MCV MCH MCHC RDW Plt Count MPV Prelim Diff (Auto) Neut % (Auto) Lymph % (Auto) [place] % (Auto) Eos % (Auto) Baso % (Auto) Neut # (Auto) Lymph # (Auto) [place] # (Auto) Eos # (Auto) Baso # (Auto) WBC Differential Seg Neuts % (Manual) Band Neuts % (Manual) Lymphocytes % (Manual) Monocytes % (Manual) Metamyelocytes % (Man) Abs Neuts (Manual) Differential Comment Platelet Estimate Platelet Morphology Ovalocytes Sodium Potassium Chloride Carbon Dioxide Anion Gap BUN Creatinine Estimated GFR POC Glucose 165 H 230 H 167 H Random Glucose Calcium Prot Corrected Calcium Total Protein 12/02/17 12/02/17 12/02/17 05:00 05:00 07:35 WBC 6.1 RBC 2.61 L Hgb 7.7 L Hct 23.1 L MCV 88.4 MCH 29.6 MCHC 33.4 RDW 21.8 H Plt Count 150 MPV 7.2 Prelim Diff (Auto) Slide review pending Neut % (Auto) 87.0 H Lymph % (Auto) 8.7 L [place] % (Auto) 4.0 Eos % (Auto) 0.2 Baso % (Auto) 0.1 Neut # (Auto) 5.3 Lymph # (Auto) 0.5 L [place] # (Auto) 0.2 Eos # (Auto) 0.0 Baso # (Auto) 0.0 WBC Differential Manual diff final Seg Neuts % (Manual) 68 Band Neuts % (Manual) 18 H Lymphocytes % (Manual) 5 L Monocytes % (Manual) 1 Metamyelocytes % (Man) 8 H Abs Neuts (Manual) 5.7 Differential Comment . Platelet Estimate Normal Platelet Morphology Normal Ovalocytes 1+ H Sodium 144 Potassium 4.3 Chloride 109 H Carbon Dioxide 24.9 Anion Gap 10 BUN 40 H Creatinine 1.64 H Estimated GFR 41 L POC Glucose 104 Random Glucose 120 H Calcium 6.4 L* Prot Corrected Calcium 7.6 L Total Protein 4.6 L Assessment and Plan - Assessment (1) HCAP (healthcare-associated pneumonia) Code(s): J18.9 - Pneumonia, unspecified organism Status: Acute (2) Acute hypoxemic respiratory failure Code(s): J96.01 - Acute respiratory failure with hypoxia Status: Acute (3) COPD (chronic obstructive pulmonary disease) Code(s): J44.9 - Chronic obstructive pulmonary disease, unspecified Status: Acute (3) COPD (chronic obstructive pulmonary disease) Qualifiers: COPD type: COPD with acute exacerbation Qualified Code(s): J44.1 - Chronic obstructive pulmonary disease with (acute) exacerbation
[2017-12-02] MEDS ORDERED: Pharmacy Ordered Lab Info OTHER ONE (13:45)
--- NOTE | 2017-12-02 15:16 | P.PN ---
Subjective Interval history: More alert and Breathing easy. On O2 3 L. wants to walk. Less leg edema Physical Exam Vital signs: Vital Signs 12/01/17 15:29 12/01/17 16:00 12/01/17 17:00 Temperature 98.2 F Pulse Rate 108 H 98 H 100 H Respiratory Rate 22 Blood Pressure 133/53 L Pulse Oximetry 96 12/01/17 18:00 12/01/17 19:00 12/01/17 20:00 Temperature 98 F Pulse Rate 98 H 96 H 90 Respiratory Rate 20 Blood Pressure 115/61 Pulse Oximetry 94 L 12/01/17 21:00 12/01/17 21:05 12/01/17 22:00 Temperature Pulse Rate 98 H 92 H Respiratory Rate Blood Pressure Pulse Oximetry 94 L 12/01/17 23:00 12/02/17 00:00 12/02/17 01:00 Temperature 97 F L Pulse Rate 92 H 82 80 Respiratory Rate 22 Blood Pressure 120/71 Pulse Oximetry 92 L 12/02/17 02:00 12/02/17 03:00 12/02/17 03:56 Temperature 97.8 F Pulse Rate 78 85 83 Respiratory Rate 20 Blood Pressure 114/66 Pulse Oximetry 96 12/02/17 04:00 12/02/17 05:00 12/02/17 06:00 Temperature Pulse Rate 78 83 85 Respiratory Rate Blood Pressure Pulse Oximetry 12/02/17 07:00 12/02/17 08:00 12/02/17 09:00 Temperature 97.5 F L Pulse Rate 88 86 84 Respiratory Rate 21 Blood Pressure 124/67 Pulse Oximetry 96 12/02/17 10:00 12/02/17 11:00 12/02/17 12:00 Temperature 98 F Pulse Rate 79 79 78 Respiratory Rate 20 Blood Pressure 102/70 Pulse Oximetry 94 L 12/02/17 13:00 Temperature Pulse Rate 80 Respiratory Rate Blood Pressure Pulse Oximetry Intake & Output 12/01/17 12/02/17 12/02/17 18:59 06:59 18:59 Intake Total 910 / 910 870 / 870 50 / 50 Output Total 460 / 460 650 / 650 Balance 450 / 450 220 / 220 50 / 50 Weight 120.3 kg Intake: IV 50 / 50 150 / 150 50 / 50 Zosyn 3.375 GM Premix 50 ML @ 50 / 50 150 / 150 50 / 50 100 mls/hr IV.SIG Q6H FERNANDA Rx#: [id number] Oral 860 / 860 720 / 720 Output: Urine 460 / 460 650 / 650 Other: Date of Last Bowel Movement 11/30/17 12/02/17 Narrative: Subjective Interval history: Patient is in bed he appears weak however much more improved today. With some shortness of breath however improved significantly. He was noted tachycardic in the afternoon. Increase metoprolol to 75 mg p.o. twice daily. Monitor on telemetry. No nausea or vomiting no diarrhea or constipation. No lightheadedness. Physical Exam GENERAL: WN/WD WM in NAD with nasal cannula 3 L SKIN: Wounds on his buttocks CARDIOVASCULAR: Tachycardic. Regular rate and rhythm and No Murmur RESPIRATORY: few Bibasilar crackles and occ wheeze upper chest GASTROINTESTINAL: Abdomen soft, non-tender, nondistended. MUSCULOSKELETAL: No cyanosis, with trace edema NEURO: A & O to person, place, time. moves all 4 ext but with generalized weakness Assessment and Plan - Urinary Catheter Management Indwelling Urethral Catheter Cath placed during this visit: no Results - Labs CBC & Chem 7: 12/02/17 05:00 12/02/17 05:00 Laboratory Results - last 24 hr 12/01/17 12/01/17 12/02/17 17:05 21:33 05:00 WBC 6.1 RBC 2.61 L Hgb 7.7 L Hct 23.1 L MCV 88.4 MCH 29.6 MCHC 33.4 RDW 21.8 H Plt Count 150 MPV 7.2 Prelim Diff (Auto) Slide review pending Neut % (Auto) 87.0 H Lymph % (Auto) 8.7 L [place] % (Auto) 4.0 Eos % (Auto) 0.2 Baso % (Auto) 0.1 Neut # (Auto) 5.3 Lymph # (Auto) 0.5 L [place] # (Auto) 0.2 Eos # (Auto) 0.0 Baso # (Auto) 0.0 WBC Differential Manual diff final Seg Neuts % (Manual) 68 Band Neuts % (Manual) 18 H Lymphocytes % (Manual) 5 L Monocytes % (Manual) 1 Metamyelocytes % (Man) 8 H Abs Neuts (Manual) 5.7 Differential Comment . Platelet Estimate Normal Platelet Morphology Normal Ovalocytes 1+ H Sodium Potassium Chloride Carbon Dioxide Anion Gap BUN Creatinine Estimated GFR POC Glucose 230 H 167 H Random Glucose Calcium Prot Corrected Calcium Total Protein Vancomycin Trough 12/02/17 12/02/17 12/02/17 05:00 07:35 12:05 WBC RBC Hgb Hct MCV MCH MCHC RDW Plt Count MPV Prelim Diff (Auto) Neut % (Auto) Lymph % (Auto) [place] % (Auto) Eos % (Auto) Baso % (Auto) Neut # (Auto) Lymph # (Auto) [place] # (Auto) Eos # (Auto) Baso # (Auto) WBC Differential Seg Neuts % (Manual) Band Neuts % (Manual) Lymphocytes % (Manual) Monocytes % (Manual) Metamyelocytes % (Man) Abs Neuts (Manual) Differential Comment Platelet Estimate Platelet Morphology Ovalocytes Sodium 144 Potassium 4.3 Chloride 109 H Carbon Dioxide 24.9 Anion Gap 10 BUN 40 H Creatinine 1.64 H Estimated GFR 41 L POC Glucose 104 119 H Random Glucose 120 H Calcium 6.4 L* Prot Corrected Calcium 7.6 L Total Protein 4.6 L Vancomycin Trough 12/02/17 13:05 WBC RBC Hgb Hct MCV MCH MCHC RDW Plt Count MPV Prelim Diff (Auto) Neut % (Auto) Lymph % (Auto) [place] % (Auto) Eos % (Auto) Baso % (Auto) Neut # (Auto) Lymph # (Auto) [place] # (Auto) Eos # (Auto) Baso # (Auto) WBC Differential Seg Neuts % (Manual) Band Neuts % (Manual) Lymphocytes % (Manual) Monocytes % (Manual) Metamyelocytes % (Man) Abs Neuts (Manual) Differential Comment Platelet Estimate Platelet Morphology Ovalocytes Sodium Potassium Chloride Carbon Dioxide Anion Gap BUN Creatinine Estimated GFR POC Glucose Random Glucose Calcium Prot Corrected Calcium Total Protein Vancomycin Trough 15.6 H Assessment and Plan - Assessment (1) Sleep apnea syndrome Code(s): G47.30 - Sleep apnea, unspecified Status: Acute (2) Sleep apnea syndrome Code(s): G47.30 - Sleep apnea, unspecified Status: Acute (3) HCAP (healthcare-associated pneumonia) Code(s): J18.9 - Pneumonia, unspecified organism Status: Acute (4) Acute hypoxemic respiratory failure Code(s): J96.01 - Acute respiratory failure with hypoxia Status: Acute (5) COPD (chronic obstructive pulmonary disease) Code(s): J44.9 - Chronic obstructive pulmonary disease, unspecified Status: Acute (6) Diastolic dysfunction Code(s): I51.9 - Heart disease, unspecified Status: Acute (7) Impaired mobility and activities of daily living Code(s): Z74.09 - Other reduced mobility Status: Acute - Plan 1. O2 at 3 L. 2. PT evaluation to ambulate/. 3. D/C IV Steroids. 4. Continue Diuretic daily. 5. Duoneb nebs qid. (5) COPD (chronic obstructive pulmonary disease) Qualifiers: COPD type: COPD with acute exacerbation Qualified Code(s): J44.1 - Chronic obstructive pulmonary disease with (acute) exacerbation
[2017-12-02] MEDS: Vancomycin Inj 1,250 MG in Sodium Chlor 0.9% Inj 250 ML IV.SIG SCH (15:24)
[2017-12-02] MEDS: Insulin Detemir Inj 1,000 UNIT/10 ML Vial SQ SCH (21:25)
[2017-12-02] MEDS: predniSONE 10 MG Tablet PO SCH (21:26)
[2017-12-03] MEDS: Piperacil/Tazo 3.375 GM Premix 50 ML IV.SIG SCH ×2 (05:26)
[2017-12-03] MEDS: Insulin NovoLOG Aspart Correctional Sugar Inj SQ SCH (08:02)
[2017-12-03] MEDS: Metoprolol Tartrate 50 MG Tablet PO SCH (08:47)
[2017-12-03] MEDS: predniSONE 10 MG Tablet PO SCH (08:48)
[2017-12-03] MEDS: Ferrous Sulfate 325 MG Tablet PO SCH (08:48)
[2017-12-03] MEDS: Famotidine 20 MG Tablet PO SCH (08:48)
--- NOTE | 2017-12-03 09:27 | P.DS ---
Date of admission: 11/23/17 13:30 Primary care physician: UNKNOWN Brief History from admission: 77-year-old male with past medical history significant for COPD, metastatic prostate cancer, bladder cancer, anemia, diastolic dysfunction, a.fib with prior ablation, HTN, obesity, and HLD who was originally admitted to [facility] on 10/26 due to septic shock, hypotension and hypoxemic respiratory failure found to be related to bilateral pneumonia. Patient was seen and evaluated by ID services during his admission and treated with IV cefepime and vancomycin. CT of chest did find adenopathy in right axillary area along with left upper nodule measuring 1.3cm possibly representing metastatic lesion, per radiologist. Patient was also noted to have low WBC count, currently on chemotherapy for metastatic prostate CA, follows with Dr. Richard Koo. Patient did have MATEO resulting in increase of creatinine to 1.46 with improvement with IVF. He was discharged from hospital on 11/02 and admitted to [facility]. He was subsequently discharged and admitted to [facility] on 11/13. While patient was in [facility] he developed tachycardia with questionable A. fib. Cardiology services consulted who did not believe patient was in A. fib rhythm. Patient also began developing increasing need for oxygen along with dyspnea on exertion. CT of the chest showed no PE, moderate to severe bilateral interstitial lung disease characteristic of either interstitial edema or pneumonitis, small left pleural effusion, line emphysematous lung changes. Patient underwent 2D echo which showed normal EF. Pulmonary services were consulted who recommended cardiac evaluation along with suspicions that respiratory symptoms were likely due to underlying history of smoking COPD, recommendations continue bronchodilators. Patient was treated with breathing treatments, oxygen increased to 6 L nasal cannula, tachycardia controlled with increase in Cardizem dose. Patient received 1 unit of PRBCs along with one- time dose of IV Lasix on 11/22 due to symptomatic anemia, H&H 8.3/25.7. Patient this morning with increasing need for oxygen, now on a nonrebreather mask. Started on empiric antibiotics for pneumonia including IV vancomycin and Zosyn. Patient was seen and examined early this morning while still in [place] [facility]. He is awake, alert, and oriented, denies any dyspnea however there is noted dyspnea when patient is assisted to sit ups straight for examination. There is a noted cough however nonproductive, does not sound wet. Patient denies any nausea, vomiting, abdominal pain, headache, dizziness, lightheadedness, or chest pain. Patient transferred to ICU for closer monitoring, seen and examined around 4: 50pm resting comfortably in bed, heart rate noted to be in the 80s, O2 saturation 97% on partial nonrebreather. Patient is awake, alert and appears comfortable. He reports that his breathing is "better". He voices no acute concerns or complaint at the moment. Discussed with nurse who does not voice any acute concerns at the moment. DS: Diagnosis - Discharge Diagnosis (1) HCAP (healthcare-associated pneumonia) Status: Acute (2) Acute hypoxemic respiratory failure Status: Acute (3) COPD (chronic obstructive pulmonary disease) Status: Chronic DS: Medications - Discharge Medications Prescriptions: apixaban [Eliquis] 5 mg PO BID #120 tab aspirin 81 mg PO DAILY #30 tab cefuroxime axetil 500 mg PO Q12H #10 tab diltiazem HCl 300 mg PO DAILY #30 cap metoprolol tartrate 75 mg PO BID #60 tab DS: Summary Hospital Course: Clinical update at discharge. Patient feels much better today says he wants to do more physical therapy. Discussed with Dr. Kapadia patient is accepted to [place] [facility]. Heart rate is better controlled he denies any chest pain or shortness of breath no chest pain. Patient is a 77-year-old male who presented with hypoxemia, acute respiratory failure due to COPD exacerbation and committee acquired pneumonia requiring oxygen. Had a CTA 11/21 no PE however show moderate to severe bilateral indices show lung disease characterized of dictation show edema or pneumonitis also patient with small left pleural effusion, emphysematous lung changes. 2D echo 11/22 with normal ejection fraction. Patient was treated with IV antibiotics Zosyn and vancomycin, blood cultures negative by 5 days, changed to p.o. antibiotic Ceftin. Patient also with A. fib and RVR cardioverted to normal sinus rhythm by Sayed he had atrial ablation. He had also a cardioversion 11/28. He was placed on amiodarone drip weaned off. Beta-simone increased at discharge to 75 mg p.o. twice daily. Continue Cardizem. Patient was started on low dose of aspirin and Eliquis. Patient also with normocytic anemia with the previous chemo on prostatic prostate cancer. Started on iron supplement. He was transfused 1 unit of blood on 11/22. However noted hemoglobin been dropping. Discussed with Dr. Kapadia. Will hold Eliquis and aspirin. Monitor H&H and transfuse if needed. Continue iron supplement. Anemia workup. Patient is discharged to [place] seems fairly stable condition to follow-up with PCP and consultants as outpatient. - Time Spent with Patient Total time spent providing and/or coordinating discharge services: Greater than 30 minutes - Quality: VTE Deep Vein Thrombosis/Pulmonary Embolism Present on Admission: No Exam Vital signs: Vital Signs 12/02/17 10:00 12/02/17 11:00 12/02/17 12:00 Temperature 98 F Pulse Rate 79 79 78 Respiratory Rate 20 Blood Pressure 102/70 Pulse Oximetry 94 L 12/02/17 13:00 12/02/17 14:00 12/02/17 15:00 Temperature Pulse Rate 80 92 H 92 H Respiratory Rate Blood Pressure Pulse Oximetry 12/02/17 16:00 12/02/17 17:00 12/02/17 18:00 Temperature 97.8 F Pulse Rate 90 99 H 91 H Respiratory Rate 20 Blood Pressure 96/60 L Pulse Oximetry 91 L 12/02/17 19:00 12/02/17 20:00 12/02/17 20:53 Temperature 98 F Pulse Rate 90 95 H Respiratory Rate 18 Blood Pressure 122/67 Pulse Oximetry 95 95 12/02/17 21:00 12/02/17 22:00 12/02/17 23:00 Temperature Pulse Rate 100 H 90 90 Respiratory Rate Blood Pressure Pulse Oximetry 12/03/17 00:00 12/03/17 01:00 12/03/17 02:00 Temperature 98.8 F Pulse Rate 91 H 88 85 Respiratory Rate 18 Blood Pressure 121/69 Pulse Oximetry 94 L 12/03/17 03:00 12/03/17 04:00 12/03/17 05:00 Temperature 97.2 F L Pulse Rate 87 86 86 Respiratory Rate 18 Blood Pressure 122/66 Pulse Oximetry 12/03/17 06:00 12/03/17 07:00 Temperature Pulse Rate 88 88 Respiratory Rate Blood Pressure Pulse Oximetry Intake & Output 12/02/17 12/03/17 12/03/17 18:59 06:59 18:59 Intake Total 820 / 820 820 / 820 262.5 / 262.5 Output Total 600 / 600 800 / 800 Balance 220 / 220 20 / 20 262.5 / 262.5 Weight 118.9 kg Intake: IV 100 / 100 100 / 100 262.5 / 262.5 Zosyn 3.375 GM Premix 50 ML @ 100 / 100 100 / 100 100 mls/hr IV.SIG Q6H FERNANDA Rx#: [id number] Vancomycin Inj 1,250 MG In NS 262.5 / 262.5 Inj 250 ML @ 250 mls/hr IV.SIG Q24H FERNANDA Rx#:[id number] Oral 720 / 720 720 / 720 Output: Urine 600 / 600 750 / 750 Stool 50 / 50 Other: # Voids 4 Date of Last Bowel Movement 12/02/17 12/03/17 # Bowel Movements 1 Narrative: GENERAL: Pleasant elderly male appears to not acute distress. CARDIOVASCULAR: Regular rate and rhythm without murmurs, gallops, or rubs. RESPIRATORY: Breath sounds equal bilaterally. No accessory muscle use. GASTROINTESTINAL: Abdomen soft, non-tender, nondistended. MUSCULOSKELETAL: No cyanosis, or edema. SKIN: Buttocks with minimal pressure wounds, wound care following BACK: Nontender without obvious deformity. No CVA tenderness. Results Procedures completed during hospitalization: Cardiac ablation Labs on day of discharge: Labs from last 24 hours 12/03/17 12/02/17 12/02/17 07:08 19:57 17:07 WBC Differential Seg Neuts % (Manual) Band Neuts % (Manual) Lymphocytes % (Manual) Monocytes % (Manual) Metamyelocytes % (Man) Abs Neuts (Manual) Platelet Estimate Platelet Morphology Ovalocytes POC Glucose 98 163 H 138 H Vancomycin Trough 12/02/17 12/02/17 12/02/17 13:05 12:05 05:00 WBC Differential Manual diff final Seg Neuts % (Manual) 68 Band Neuts % (Manual) 18 H Lymphocytes % (Manual) 5 L Monocytes % (Manual) 1 Metamyelocytes % (Man) 8 H Abs Neuts (Manual) 5.7 Platelet Estimate Normal Platelet Morphology Normal Ovalocytes 1+ H POC Glucose 119 H Vancomycin Trough 15.6 H - Impressions ITS Impressions Chest X-Ray 11/24/17 06:00 CONCLUSION: Unchanged interstitial and alveolar opacities Discharge Plan - Discharge Disposition Patient Disposition: 64 Rehab Inpatient - Discharge Condition Condition: Stable - Discharge Order Discharge Orders: Discharge Order (Routine); Ordered 12/03/17 Ordered By: Gris Landers - Discharge Details Anticipated Discharge Date: 12/03/17 - Physicians Team Primary Care Provider: UNKNOWN, Attending Provider: Gris Landers Other Providers: Juan Jose Ingram MD ; Nora Mac MD ; Oliver Goss MD - Rxs /Orders / Referrals /Forms Prescriptions: New apixaban [Eliquis] 5 mg Tablet 5 mg PO BID Qty: 120 RF: 0 aspirin 81 mg Tablet,Delayed Release (Dr/Ec) 81 mg PO DAILY Qty: 30 RF: 0 cefuroxime axetil 250 mg Tablet 500 mg PO Q12H Qty: 10 RF: 0 diltiazem HCl 300 mg Capsule,Extended Release 24hr 300 mg PO DAILY Qty: 30 RF: 0 metoprolol tartrate 50 mg Tablet 75 mg PO BID Qty: 60 RF: 0 Continue acetaminophen 325 mg Tablet 650 mg PO Q4H PRN (Reason: Pain (Scale Score 1-3)) atorvastatin 10 mg Tablet 10 mg PO DAILY budesonide 0.5 mg/2 mL Suspension For Nebulization 0.5 mg INHALATION Q12H ferrous sulfate 325 mg (65 mg iron) Tablet 325 mg PO DAILY insulin aspart U-100 0 units Sub-Q ACHS ipratropium-albuterol 0.5 mg-3 mg(2.5 mg base)/3 mL Solution For Nebulization 3 ml INHALATION Q8H Lactobacillus acidoph-L.bulgar 1 tab PO BID magnesium hydroxide 400 mg/5 mL Suspension 30 ml PO DAILY PRN (Reason: Constipation) ondansetron 4 mg Tablet,Disintegrating 4 mg PO Q4HR PRN (Reason: Nausea) prednisone 20 mg PO BID Discontinued diltiazem HCl 120 mg Capsule,Ext.Rel 24h Degradable 120 mg PO DAILY heparin (porcine) 5,000 unit/mL Solution 5,000 unit SUB-Q Q12H metoprolol succinate 100 mg Tablet Extended Release 24 Hr 100 mg PO DAILY Referrals: Nora Mac MD [Physician] - See Instructions ( Please call the physician' s office to book the appointment to be seen within [1 week].) UNKNOWN, [Primary Care Provider] - See Instructions ( Please call the physician's office to book the appointment to be seen within [2-3 days ].) Juan Jose Ingram MD [Physician] - See Instructions ( Please call the physician' s office to book the appointment to be seen within [ 1 week ].)
[2017-12-03 09:56] VITALS: BP 130/58; RESP 20; TEMP 97.8; O2SAT 95
[2017-12-03 11:25] VITALS: PULSE 79
[2017-12-03 14:51] LABS: % Iron Saturation 29.6 % (20-50); Folate 4.6 ng/mL (3.1-17.5)
--- NOTE | 2017-12-04 07:15 | ECG ---
Date Performed: 11/30/2017 Time Performed: 17:11:12 PTAGE: 77 years EKG: SINUS TACHYCARDIA INDETERMINATE AXIS RIGHT BUNDLE BRANCH BLOCK ABNORMAL ECG PREVIOUS TRACING : 11/25/2017 17.31 When compared to the prior EKG, the patient now appears to be in sinus tachycardia. DOCTOR: Maria De Jesus Fernandez Interpretating Date/Time 12/04/2017 07:13:38
[2017-12-05] MEDS ORDERED: Pharmacy Ordered Lab Info OTHER ONE (13:45)
== END 2017-12-03 13:08 ==
LOC: N03 13:30 → HIMC 11-25 06:20 → HCIS 11-29 14:58
PROVIDERS: ADMIT Hospitalist; ATTEND Hospitalist
DX: Z79.51 Long term (current) use of inhaled steroids; J44.1 Chronic obstructive pulmonary disease with (acute) exacerbation; N18.3 Chronic kidney disease, stage 3 (moderate); I48.2 Chronic atrial fibrillation; J18.9 Pneumonia, unspecified organism; I13.0 Hypertensive heart and chronic kidney disease with heart failure and stage 1 through stage 4 chronic kidney disease, or unspecified chronic kidney disease; G47.30 Sleep apnea, unspecified; C78.00 Secondary malignant neoplasm of unspecified lung; R26.9 Unspecified abnormalities of gait and mobility; I50.9 Heart failure, unspecified; J44.0 Chronic obstructive pulmonary disease with (acute) lower respiratory infection; C61 Malignant neoplasm of prostate; Z87.891 Personal history of nicotine dependence; I47.1 Supraventricular tachycardia; N17.9 Acute kidney failure, unspecified; Z92.21 Personal history of antineoplastic chemotherapy; D64.9 Anemia, unspecified; J96.21 Acute and chronic respiratory failure with hypoxia; Z68.41 Body mass index [BMI] 40.0-44.9, adult; Y95 Nosocomial condition; Z85.51 Personal history of malignant neoplasm of bladder; E66.01 Morbid (severe) obesity due to excess calories; Z87.01 Personal history of pneumonia (recurrent); E78.5 Hyperlipidemia, unspecified

== ENCOUNTER 2017-12-07 14:49 | Inpatient (IN) ==
[2017-12-07] MEDS ORDERED: Bisacodyl 10 MG Supp RECTAL PRN (15:30)
[2017-12-07] MEDS ORDERED: Temazepam 15 MG Capsule PO PRN (15:30)
[2017-12-07] MEDS ORDERED: Acetaminophen 325 MG Tablet PO PRN (15:30)
--- NOTE | 2017-12-07 17:01 | P.HP ---
History of Present Illness Primary Care Physician: No Primary Care Physician History of Present Illness: This is a 77-year-old male with past medical history significant for COPD, metastatic prostate cancer, bladder cancer, anemia, diastolic dysfunction, a.fib with prior ablation, HTN, obesity, and HLD who was originally admitted to [facility] on 10/26 due to septic shock, hypotension and hypoxemic respiratory failure found to be related to bilateral pneumonia. Patient was seen and evaluated by ID services during his admission and treated with IV cefepime and vancomycin. CT of chest did find adenopathy in right axillary area along with left upper nodule measuring 1.3cm possibly representing metastatic lesion, per radiologist. Patient was also noted to have low WBC count, currently on chemotherapy for metastatic prostate CA, follows with Dr. Richard Koo. Patient did have MATEO resulting in increase of creatinine to 1.46 with improvement with IVF. He was discharged from hospital on 11/02 and admitted to [facility]. He was subsequently discharged and admitted to [facility] on 11/13. While patient was in [facility] he developed tachycardia with questionable A. fib. Cardiology services consulted who did not believe patient was in A. fib rhythm. Patient also began developing increasing need for oxygen along with dyspnea on exertion. CT of the chest showed no PE, moderate to severe bilateral interstitial lung disease characteristic of either interstitial edema or pneumonitis, small left pleural effusion, line emphysematous lung changes. Patient underwent 2D echo which showed normal EF. Pulmonary services were consulted who recommended cardiac evaluation along with suspicions that respiratory symptoms were likely due to underlying history of smoking COPD, recommendations continue bronchodilators. Patient was treated with breathing treatments, oxygen increased to 6 L nasal cannula, tachycardia controlled with increase in Cardizem dose. Patient received 1 unit of PRBCs along with one- time dose of IV Lasix on 11/22 due to symptomatic anemia, H&H 8.3/25.7. Patient was treated with IV antibiotics Zosyn and vancomycin, blood cultures negative, changed to p.o. antibiotic Ceftin. Patient also with A. fib and RVR cardioverted to normal sinus rhythm by Dr. Mac, had an atrial ablation. He had also a cardioversion 11/28. He was placed on amiodarone drip weaned off. Beta-simone increased at discharge to 75 mg p.o. twice daily. Continue Cardizem. Patient was started on low dose of aspirin and Eliquis. Patient also with normocytic anemia with the previous chemo on prostatic prostate cancer. Started on iron supplement. He was transfused 1 unit of blood on 11/22. However noted hemoglobin has been dropping yesterday from 8.2 to 7.4 on 12/06/17, held Eliquis x 1 day and was given 1 unit PRBC. Monitor H&H and transfuse if needed. Continue iron supplement. Patient also has had sustained tachycardia with intermittent a flutter with HR in the 120's and this afternoon elevated in the 130's. Patient was transferred to [facility] for further monitoring and transferred to [facility] service. Patient is assessed and completely asymptomatic. HR 130's with apparent a flutter on monitor. Continued on 4LNC. Inpatient Certification: I certify that the inpatient services were ordered in accordance with Medicare regulations governing the order. This includes certification that hospital inpatient services are reasonable and necessary and in the case of services not specified as inpatient-only under 42 CFR 419.22(n), that they are appropriately provided as inpatient services in accordance to with the 2-midnight benchmark under 43 CFR 412.3(e) Estimated Total Length of Stay (Days): 3 Plans for Post Hospital Care: Not yet determined Review of Systems All other systems reviewed negative except as stated in HPI PMFSH - History History Provided By: Patient - Medical History Medical History: Medical History (Last Reviewed 12/03/17 @ 13:51 by MOON Lopez) Atrial fibrillation Hypertension Port catheter in place Prostate cancer - Surgical History Surgical History: Surgical History (Last Reviewed 12/03/17 @ 13:51 by MOON Lopez) S/P ablation of atrial fibrillation - Family History Family History: Family History (Last Reviewed 12/03/17 @ 13:51 by MOON Lopez) Father Family history of cancer Sister Family history of cancer - Tobacco History Second Hand Smoke Exposure: No Smoking Status: Former smoker Tobacco Type: Cigarettes Packs Per Day: 1 - Alcohol History How Often Do You Have a Drink Containing Alcohol: Never - Substance Use History Substance History: No History of Abuse - Travel History History of Recent Travel: No Medications and Allergies Active Medications: Active Medications Acetaminophen (Tylenol) 650 mg PO Q4H PRN PRN Reason: Temp > 100.4 Al Hydroxide/Mg Hydroxide (Milk Of Carolyn Ron) 30 ml PO Q12H PRN PRN Reason: Mild Constipation Albuterol (Duoneb Neb (Alondra)) 1 ampul NEB Q8HR ALT NEB [facility] Apixaban (Eliquis) 5 mg PO BID [facility] Atorvastatin Calcium (Lipitor) 10 mg PO DAILY [facility] Bisacodyl (Dulcolax Supp) 10 mg RECTAL DAILY PRN PRN Reason: SEVERE CONSITIPATION Budesonide (Pulmocort Respule Neb) 0.5 mg NEB Q12HR NEB [facility] Cefuroxime Axetil (Ceftin) 500 mg PO Q12HR [facility] Diltiazem HCl (Cardizem Cd 24hr) 300 mg PO DAILY [facility] Ferrous Sulfate (Ferosul) 325 mg PO DAILY [facility] Lactobacillus Acidophilus (Lactinex) 1 tab PO BID [facility] Lactulose (Lactulose Liq) 30 ml PO DAILY PRN PRN Reason: SEVERE CONSITIPATION Metoprolol Tartrate (Lopressor) 100 mg PO BID [facility] Ondansetron HCl (Zofran Odt) 4 mg PO Q6H PRN PRN Reason: NAUSEA OR VOMITING Ondansetron HCl (Zofran Inj) 4 mg IV.PUSH Q6H PRN PRN Reason: NAUSEA OR VOMITING Pantoprazole Sodium (Protonix) 40 mg PO DAILY [facility] Prednisone (Deltasone) 20 mg PO BID [facility] Senna/Docusate Sodium (Jayne-Colace) 1 tab PO BID [facility] Sennosides (Senokot) 17.2 mg PO Q12H PRN PRN Reason: Moderate Constipation Temazepam (Restoril) 15 mg PO HS PRN PRN Reason: INSOMNIA Allergies Allergy/AdvReac Type Severity Reaction Status Date / Time No Known Allergies Allergy Verified 11/13/17 18:08 Home Medications Medication Instructions Recorded Confirmed Type ipratropium-albuterol 3 ml INHALATION Q8H 11/13/17 12/03/17 History Exam Narrative: GENERAL: Well-developed, obese male patient in NAD. On supplemental O2 4 L. SKIN: Warm and dry. No rash. Pale. HEAD: Normocephalic. Atraumatic. EYES: Pupils equal and round. No scleral icterus. No injection or drainage. ENT: No nasal bleeding or discharge. Mucous membranes pink and moist. NECK: Supple. Trachea midline. CARDIOVASCULAR: Sinus tachycardia. S1, S2 noted. No murmur appreciated. RESPIRATORY: No accessory muscle use. Diminished breath sounds secondary to body habitus. Breath sounds equal bilaterally. GASTROINTESTINAL: Abdomen soft, non-tender, nondistended. Round and obese. Normoactive bowel sounds x4. MUSCULOSKELETAL: No obvious deformities. Extremities without clubbing, cyanosis , or edema. NEUROLOGICAL: Awake and alert. No obvious cranial nerve deficits. Motor grossly within normal limits. 5/5 muscle strength in bilateral upper and lower extremities. Normal speech. PSYCHIATRIC: Appropriate mood and affect; insight and judgment normal. Results - Labs CBC & Chem 7: 12/08/17 03:24 12/08/17 03:24 Caprini VTE Risk Assessment Caprini VTE Risk Assessment: Moderate/High Risk (score >= 2) Caprini Risk Assessment Model: Point Value = 1 Point Value = 2 Point Value = 3 Point Value = 5 Age 41-60 Minor surgery BMI > 25 kg/m2 Swollen legs Varicose veins or History of unexplained or recurrent spontaneous Oral contraceptives or hormone replacement Sepsis (< 1 month) Serious lung disease, including pneumonia (< 1 month) Abnormal pulmonary function Acute myocardial infarction Congestive heart failure (< 1 month) History of inflammatory bowel disease Medical patient at bed rest Age 61-74 Arthroscopic surgery Major open surgery (> 45 min) Laparoscopic surgery (> 45 min) Malignancy Confined to bed (> 72 hours) Immobilizing plaster cast Central venous access Age >= 75 History of VTE Family history of VTE Factor V Leiden Prothrombin [id number] Lupus anticoagulant Anticardiolipin antibodies Elevated serum homocysteine Heparin-induced thrombocytopenia Other congenital or acquired thrombophilia Stroke (< 1 month) Elective arthroplasty Hip, pelvis, or leg fracture Acute spinal cord injury (< 1 month) Prophylaxis Regimen: Total Risk Factor Score Risk Level Prophylaxis Regimen 0-1 Low Early ambulation 2 Moderate Order ONE of the following: *Sequential Compression Device (SCD) *Heparin 5000 units SQ BID 3-4 Higher Order ONE of the following medications: *Heparin 5000 units SQ TID *Enoxaparin/Lovenox 40 mg SQ daily (WT < 150 kg, CrCl > 30 mL/min) *Enoxaparin/Lovenox 30 mg SQ daily (WT < 150 kg, CrCl > 10-29 mL/min) *Enoxaparin/Lovenox 30 mg SQ BID (WT < 150 kg, CrCl > 30 mL/min) AND/OR *Sequential Compression Device (SCD) 5 or more Highest Order ONE of the following medications: *Heparin 5000 units SQ TID (Preferred with Epidurals) *Enoxaparin/Lovenox 40 mg SQ daily (WT < 150 kg, CrCl > 30 mL/min) *Enoxaparin/Lovenox 30 mg SQ daily (WT < 150 kg, CrCl > 10-29 mL/min) *Enoxaparin/Lovenox 30 mg SQ BID (WT < 150 kg, CrCl > 30 mL/min) AND *Sequential Compression Device (SCD) Assessment and Plan - Plan 77-year-old man with Atrial flutter with RVR -EKG done today and reviewed showing tachycardia with HR in the high 120's. On exam this morning patient was in sinus tachycardic rhythm. Although now placed on monitor and in a flutter with HR in the 130's. -Patient is s/p cardioversion 11/28. Cardiology, Dr. Mac. s/p Atrial ablation. Started amiodarone drip November 26, 2017 at that time. Was eventually dcd. -Was previously on low dose ASA and Eliquis, these have been resumed. -Primary team gave one dose of Amiodarone and increased Metoprolol yesterday with no improvement in heart rate. -Consult placed to cardiology. Input and recommendations pending. Normocytic anemia -Previously on chemo for prostate CA. -Continue oral Fe supplementation -Transfused 1 unit PRBC's 11/22. -Drop in H&H from 8.2 to 7.4 yesterday on 12/06/17. Status post 1 unit PRBC transfusion. H&H stable. Continue to follow. -Follow H&H trends. Acute on chronic respiratory failure with hypoxia and need for supplemental O2 Left-sided small pleural effusion Hx COPD Hx of recent community acquired pneumonia -CTA 11/21: no PE, moderate to severe bilateral interstitial lung disease characteristic of either interstitial edema or pneumonitis, small left pleural effusion, line emphysematous lung changes. -2D echo completed on 11/22 with normal EF. -Scheduled duonebs. -Repeat chest x-ray from yesterday reviewed showing some possible left sided small pleural effusion, seen on previous exam. -Patient has no leukocytosis or fever. Continue to monitor for infection. Will continue Ceftin from previous admission. HTN, essential chronic, stable HLD -Continue metoprolol and Cardizem, blood pressure stable. -Continue low dose ASA -Continued on Lipitor. Chronic kidney disease stage III -Avoid nephrotoxic drug DVT Prophylaxis: SCDs. [place].
[2017-12-07] MEDS ORDERED: Sodium Chlor 0.9% Inj 500 ML IV.SIG ONE ×2 (19:40→22:00)
[2017-12-07] MEDS: predniSONE 20 MG Tablet PO SCH (22:03)
[2017-12-07] MEDS: Senna/Docusate Sodium 8.6/50 MG Tablet PO SCH (22:03)
[2017-12-07] MEDS: Metoprolol Tartrate 100 MG Tablet PO SCH (22:03)
[2017-12-07] MEDS: Lactobacillus Acidophilus/L. Spores Tablet PO SCH (22:04)
[2017-12-08] MEDS ORDERED: Metoprolol Inj 5 MG/5 ML Vial IV.PUSH ONE (02:02)
[2017-12-08] MEDS ORDERED: Dextrose 5%/NaCl 0.45% Inj 500 ML IV.SIG ONE (03:20)
[2017-12-08 03:56] LABS: Baso % (Auto) 0.4 % (0.0-2.0); Eos % (Auto) 0.2 % (0.0-4.0); Hemoglobin 7.7 gm/dL (13.0-17.0); Lymph # (Auto) 0.5 th/mm3 (1.0-4.8); Lymph % (Auto) 8.1 % (9.0-44.0); Mean Corpuscular HGB Conc 33.5 % (32.0-36.0); Mean Corpuscular Hemoglobin 30.6 pg (27.0-34.0); Mean Corpuscular Volume 91.1 fL (80.0-100.0); Mean Platelet Volume 7.6 fL (7.0-11.0); Mono # (Auto) 0.2 th/mm3 (0.0-0.9); Mono % (Auto) 3.9 % (0.0-8.0); Neut # (Auto) 5.3 th/mm3 (1.8-7.7); Neut % (Auto) 87.4 % (16.0-70.0); Platelet Count 125 th/mm3 (150-450); Red Blood Count 2.53 mil/mm3 (4.50-5.90); Red Cell Distribution Width 20.8 % (11.6-17.2); White Blood Count 6.1 th/mm3 (4.0-11.0)
[2017-12-08 04:24] LABS: Calcium 7.5 mg/dL (8.5-10.1); Carbon Dioxide 26.4 meq/L (21.0-32.0)
[2017-12-08 05:52] LABS: Platelet Morphology Normal (Normal)
[2017-12-08] MEDS: Metoprolol Tartrate 100 MG Tablet PO SCH ×2 (08:40→21:32)
[2017-12-08] MEDS: Ferrous Sulfate 325 MG Tablet PO SCH (08:40)
[2017-12-08] MEDS: Lactobacillus Acidophilus/L. Spores Tablet PO SCH ×2 (08:40→21:32)
[2017-12-08] MEDS: Senna/Docusate Sodium 8.6/50 MG Tablet PO SCH ×2 (08:41→21:33)
[2017-12-08] MEDS: predniSONE 20 MG Tablet PO SCH ×2 (08:41→21:32)
[2017-12-08] MEDS: dilTIAZem CD 300 MG Capsule PO SCH (08:41)
--- NOTE | 2017-12-08 10:13 | P.PN ---
Subjective Interval history: Nursing reports Hemoccult positive stool since last night. H&H status post transfusion 7.7, previously was 7.1 patient denies any abdominal pain. Is asymptomatic. Heart rate is still very tachyarrhythmic beyond 130. Nursing reports that electrophysiology has seen the patient this morning anticipates possible procedure on Monday. Physical Exam Vital signs: Vital Signs 12/07/17 16:00 12/07/17 20:00 12/07/17 20:14 Temperature 97.9 F Pulse Rate 134 H 134 H 135 H Respiratory Rate 18 22 Blood Pressure 103/61 110/60 Pulse Oximetry 96 94 L 95 12/07/17 22:00 12/08/17 00:00 12/08/17 00:53 Temperature 98.0 F Pulse Rate 135 H 137 H 137 H Respiratory Rate 20 Blood Pressure 95/54 L Pulse Oximetry 95 12/08/17 02:00 12/08/17 04:00 12/08/17 04:17 Temperature 98.1 F Pulse Rate 137 H 134 H 135 H Respiratory Rate 15 20 Blood Pressure 127/67 Pulse Oximetry 95 12/08/17 06:00 12/08/17 08:00 Temperature 98.1 F Pulse Rate 137 H 138 H Respiratory Rate Blood Pressure Pulse Oximetry 98 Intake & Output 12/07/17 12/08/17 12/08/17 18:59 06:59 18:59 Intake Total 50 / 50 1740 / 1740 Output Total 0 / 0 700 / 700 Balance 50 / 50 1040 / 1040 Weight 120.5 kg Intake: IV 1500 / 1500 D5W-1/2 NS Inj 500 ML @ Wide 500 / 500 Open IV.SIG .Q0M ONE Rx#: [id number] NS Inj 500 ML @ Wide Open IV. 1000 / 1000 SIG BOLUS ONE Rx#:[id number] Oral 50 / 50 240 / 240 Output: Urine 0 / 0 700 / 700 Other: Date of Last Bowel Movement 12/07/17 12/07/17 # Bowel Movements 1 Weight On Admission 120.5 kg Results - Labs CBC & Chem 7: 12/08/17 03:24 12/08/17 03:24 Laboratory Results - last 24 hr 12/07/17 12/08/17 12/08/17 17:00 03:24 03:24 WBC 6.1 RBC 2.53 L Hgb 7.7 L Hct 23.0 L MCV 91.1 MCH 30.6 MCHC 33.5 RDW 20.8 H Plt Count 125 L MPV 7.6 Prelim Diff (Auto) Slide review pending Neut % (Auto) 87.4 H Lymph % (Auto) 8.1 L [place] % (Auto) 3.9 Eos % (Auto) 0.2 Baso % (Auto) 0.4 Neut # (Auto) 5.3 Lymph # (Auto) 0.5 L [place] # (Auto) 0.2 Eos # (Auto) 0.0 Baso # (Auto) 0.0 WBC Differential . Differential Comment . Platelet Estimate Low L Platelet Morphology Normal Sodium 142 Potassium 4.0 Chloride 107 Carbon Dioxide 26.4 Anion Gap 9 BUN 27 H Creatinine 0.98 Estimated GFR 75 L Random Glucose 155 H Lactic Acid Calcium 7.5 L Nasal Screen MRSA (PCR) Not detected 12/08/17 03:24 WBC RBC Hgb Hct MCV MCH MCHC RDW Plt Count MPV Prelim Diff (Auto) Neut % (Auto) Lymph % (Auto) [place] % (Auto) Eos % (Auto) Baso % (Auto) Neut # (Auto) Lymph # (Auto) [place] # (Auto) Eos # (Auto) Baso # (Auto) WBC Differential Differential Comment Platelet Estimate Platelet Morphology Sodium Potassium Chloride Carbon Dioxide Anion Gap BUN Creatinine Estimated GFR Random Glucose Lactic Acid 1.8 Calcium Nasal Screen MRSA (PCR) Microbiology 12/07/17 21:19 Stool Stool Occult Blood (HUGO) - Final Hemoccult positive Assessment and Plan - Plan 77-year-old man with Atrial flutter with RVR vs sinus tachycardia -Patient is s/p cardioversion 11/28. Cardiology, Dr. Mac. s/p Atrial ablation. Started amiodarone drip November 26, 2017 at that time. Was eventually dcd. -awaiting cardiology consult dictation to come thru; anticipate another ablation vs pacer placement -amiodarone, lopressor, and cardizem although these maynot help if ablation has been successful -telemetry Suspected GI bleed -h/h still low despite most recent transfusion yesterday coming from [place] -consulting GI; will stop eliquis for now. may cover afib/flutter with lovenox or heparin once cleared by GI. Normocytic anemia -Previously on chemo for prostate CA. -Continue oral Fe supplementation -Transfused 1 unit PRBC's 11/22. s/p 1 unit yesterday; h/h in AM Acute on chronic respiratory failure with hypoxia and need for supplemental O2 Left-sided small pleural effusion Hx COPD Hx of recent community acquired pneumonia -CTA 11/21: no PE, moderate to severe bilateral interstitial lung disease characteristic of either interstitial edema or pneumonitis, small left pleural effusion, line emphysematous lung changes. -2D echo completed on 11/22 with normal EF. -Scheduled duonebs. -Will continue Ceftin from previous admission per ID recs. HTN, essential chronic, stable HLD -Continue metoprolol and Cardizem, blood pressure stable. -hold ASa IN LIGHT Of bleed -Continued on Lipitor. Chronic kidney disease stage III -Avoid nephrotoxic drug
--- NOTE | 2017-12-08 11:52 | P.CONGI ---
History of Present Illness Consult date: 12/08/17 Consult reason: Gi bleed Chief complaint: HALICAT History of Present Illness: This is a 77-year-old male with past medical history significant for COPD, metastatic prostate cancer, bladder cancer, anemia, diastolic dysfunction, a.fib with prior ablation, HTN, obesity, who is here after Halicat was initiated while in [facility] for respiratory stress. Pt had recent admission to [facility] on 10/26 due to septic shock, hypotension and hypoxemic respiratory failure and bilateral pneumonia. Gi consulted for anemia. hgb on admission 7.7. He received one unit of blood at [facility]. Pt denies nausea, vomiting, abd pain, hematemesis, diarrhea, constipation, melena or hematochezia. States his urine is brown. Reports having colonoscopy about 3 yrs ago. Never had EGD before. Currently pt is tacky cardiac, hypotensive. He was found to have heme (+) stools. <Inga Avalos - Last Filed: 12/08/17 11:33> Review of Systems All other systems reviewed negative except as stated in HPI <Inga Avalos - Last Filed: 12/08/17 11:33> PMFSH - History History Provided By: Patient - Medical History Medical History: Medical History (Last Reviewed 12/03/17 @ 13:51 by MOON Lopez) Atrial fibrillation Hypertension Port catheter in place Prostate cancer - Surgical History Surgical History: Surgical History (Last Reviewed 12/03/17 @ 13:51 by MOON Lopez) S/P ablation of atrial fibrillation - Family History Family History: Family History (Last Reviewed 12/03/17 @ 13:51 by MOON Lopez) Father Family history of cancer Sister Family history of cancer - Tobacco History Second Hand Smoke Exposure: No Smoking Status: Former smoker Tobacco Type: Cigarettes Packs Per Day: 1 - Alcohol History How Often Do You Have a Drink Containing Alcohol: Never - Substance Use History Substance History: No History of Abuse - Travel History History of Recent Travel: No <Inga Avlaos - Last Filed: 12/08/17 11:33> - Medical History Medical History: Medical History (Last Reviewed 12/03/17 @ 13:51 by MOON Lopez) Atrial fibrillation Hypertension Port catheter in place Prostate cancer - Surgical History Surgical History: Surgical History (Last Reviewed 12/03/17 @ 13:51 by MOON Lopez) S/P ablation of atrial fibrillation - Family History Family History: Family History (Last Reviewed 12/03/17 @ 13:51 by MOON Lopez) Father Family history of cancer Sister Family history of cancer <JeriDick - Last Filed: 12/08/17 18:10> Medications and Allergies Active Medications: Active Medications Acetaminophen (Tylenol) 650 mg PO Q4H PRN PRN Reason: Temp > 100.4 Al Hydroxide/Mg Hydroxide (Milk Of Magnesia Liq) 30 ml PO Q12H PRN PRN Reason: Mild Constipation Albuterol (Duoneb Neb ([facility])) 1 ampul NEB Q8HR ALT NEB [facility] Last Admin: 12/08/17 04:16 Dose: 1 ampul Atorvastatin Calcium (Lipitor) 10 mg PO DAILY [facility] Last Admin: 12/08/17 08:40 Dose: 10 mg Bisacodyl (Dulcolax Supp) 10 mg RECTAL DAILY PRN PRN Reason: SEVERE CONSITIPATION Budesonide (Pulmocort Respule Neb) 0.5 mg NEB Q12HR NEB [facility] Last Admin: 12/07/17 20:11 Dose: 0.5 mg Cefuroxime Axetil (Ceftin) 500 mg PO Q12HR [facility] Last Admin: 12/08/17 08:40 Dose: 500 mg Diltiazem HCl (Cardizem Cd 24hr) 300 mg PO DAILY [facility] Last Admin: 12/08/17 08:41 Dose: 300 mg Ferrous Sulfate (Ferosul) 325 mg PO DAILY [facility] Last Admin: 12/08/17 08:40 Dose: 325 mg Lactobacillus Acidophilus (Lactinex) 1 tab PO BID [facility] Last Admin: 12/08/17 08:40 Dose: 1 tab Lactulose (Lactulose Liq) 30 ml PO DAILY PRN PRN Reason: SEVERE CONSITIPATION Metoprolol Tartrate (Lopressor) 100 mg PO BID [facility] Last Admin: 12/08/17 08:40 Dose: 100 mg Ondansetron HCl (Zofran Odt) 4 mg PO Q6H PRN PRN Reason: NAUSEA OR VOMITING Ondansetron HCl (Zofran Inj) 4 mg IV.PUSH Q6H PRN PRN Reason: NAUSEA OR VOMITING Pantoprazole Sodium (Protonix) 40 mg PO DAILY [facility] Last Admin: 12/08/17 08:41 Dose: 40 mg Prednisone (Deltasone) 20 mg PO BID [facility] Last Admin: 12/08/17 08:41 Dose: 20 mg Senna/Docusate Sodium (Jayne-Colace) 1 tab PO BID [facility] Last Admin: 12/08/17 08:41 Dose: 1 tab Sennosides (Senokot) 17.2 mg PO Q12H PRN PRN Reason: Moderate Constipation Temazepam (Restoril) 15 mg PO HS PRN PRN Reason: INSOMNIA <Amawi,Dyllanawla - Last Filed: 12/08/17 11:33> Active Medications: Active Medications Acetaminophen (Tylenol) 650 mg PO Q4H PRN PRN Reason: Temp > 100.4 Al Hydroxide/Mg Hydroxide (Milk Of Magnesia Liq) 30 ml PO Q12H PRN PRN Reason: Mild Constipation Albuterol (Duoneb Neb ([facility])) 1 ampul NEB Q8HR ALT NEB [facility] Last Admin: 12/08/17 11:37 Dose: 1 ampul Atorvastatin Calcium (Lipitor) 10 mg PO DAILY [facility] Last Admin: 12/08/17 08:40 Dose: 10 mg Bisacodyl (Dulcolax Supp) 10 mg RECTAL DAILY PRN PRN Reason: SEVERE CONSITIPATION Budesonide (Pulmocort Respule Neb) 0.5 mg NEB Q12HR NEB [facility] Last Admin: 12/08/17 11:38 Dose: 0.5 mg Cefuroxime Axetil (Ceftin) 500 mg PO Q12HR [facility] Last Admin: 12/08/17 08:40 Dose: 500 mg Diltiazem HCl (Cardizem Cd 24hr) 300 mg PO DAILY [facility] Last Admin: 12/08/17 08:41 Dose: 300 mg Ferrous Sulfate (Ferosul) 325 mg PO DAILY [facility] Last Admin: 12/08/17 08:40 Dose: 325 mg Lactobacillus Acidophilus (Lactinex) 1 tab PO BID [facility] Last Admin: 12/08/17 08:40 Dose: 1 tab Lactulose (Lactulose Liq) 30 ml PO DAILY PRN PRN Reason: SEVERE CONSITIPATION Metoprolol Tartrate (Lopressor) 100 mg PO BID [facility] Last Admin: 12/08/17 08:40 Dose: 100 mg Ondansetron HCl (Zofran Odt) 4 mg PO Q6H PRN PRN Reason: NAUSEA OR VOMITING Ondansetron HCl (Zofran Inj) 4 mg IV.PUSH Q6H PRN PRN Reason: NAUSEA OR VOMITING Pantoprazole Sodium (Protonix) 40 mg PO DAILY [facility] Last Admin: 12/08/17 08:41 Dose: 40 mg Prednisone (Deltasone) 20 mg PO BID [facility] Last Admin: 12/08/17 08:41 Dose: 20 mg Senna/Docusate Sodium (Jayne-Colace) 1 tab PO BID [facility] Last Admin: 12/08/17 08:41 Dose: 1 tab Sennosides (Senokot) 17.2 mg PO Q12H PRN PRN Reason: Moderate Constipation Temazepam (Restoril) 15 mg PO HS PRN PRN Reason: INSOMNIA <HemlanceAmmar - Last Filed: 12/08/17 18:10> Allergies Allergy/AdvReac Type Severity Reaction Status Date / Time No Known Allergies Allergy Verified 11/13/17 18:08 Home Medications Medication Instructions Recorded Confirmed Type ipratropium-albuterol 3 ml INHALATION Q8H 11/13/17 12/03/17 History Exam Vital signs: Vital Signs 12/07/17 16:00 12/07/17 20:00 12/07/17 20:14 Temperature 97.9 F Pulse Rate 134 H 134 H 135 H Respiratory Rate 18 22 Blood Pressure 103/61 110/60 Pulse Oximetry 96 94 L 95 12/07/17 22:00 12/08/17 00:00 12/08/17 00:53 Temperature 98.0 F Pulse Rate 135 H 137 H 137 H Respiratory Rate 20 Blood Pressure 95/54 L Pulse Oximetry 95 12/08/17 02:00 12/08/17 04:00 12/08/17 04:17 Temperature 98.1 F Pulse Rate 137 H 134 H 135 H Respiratory Rate 15 20 Blood Pressure 127/67 Pulse Oximetry 95 12/08/17 06:00 12/08/17 08:00 12/08/17 10:00 Temperature 98.1 F Pulse Rate 137 H 138 H 135 H Respiratory Rate Blood Pressure Pulse Oximetry 98 Intake & Output 12/07/17 12/08/17 12/08/17 18:59 06:59 18:59 Intake Total 50 / 50 1740 / 1740 Output Total 0 / 0 700 / 700 Balance 50 / 50 1040 / 1040 Weight 120.5 kg Intake: IV 1500 / 1500 D5W-1/2 NS Inj 500 ML @ Wide 500 / 500 Open IV.SIG .Q0M ONE Rx#: [id number] NS Inj 500 ML @ Wide Open IV. 1000 / 1000 SIG BOLUS ONE Rx#:[id number] Oral 50 / 50 240 / 240 Output: Urine 0 / 0 700 / 700 Other: Date of Last Bowel Movement 12/07/17 12/07/17 # Bowel Movements 1 Weight On Admission 120.5 kg - Constitutional no acute distress - Routine HEENT Exam Head: Present: normocephalic ENT: Present: mucous membranes moist - Routine Neck Exam Present: supple - Routine Respiratory Exam Present: CTA bilaterally - Routine Cardiovascular Exam Present: tachycardia - Routine Abdominal Exam Present: soft, normoactive bowel sounds. Absent: tenderness, distended - Routine Skin Exam Present: intact, dry - Routine Neurological Exam Present: alert, oriented X3 <Inga Avalos - Last Filed: 12/08/17 11:33> Vital signs: Vital Signs 12/07/17 20:00 12/07/17 20:14 12/07/17 22:00 Temperature 97.9 F Pulse Rate 134 H 135 H 135 H Respiratory Rate 18 22 Blood Pressure 110/60 Pulse Oximetry 94 L 95 12/08/17 00:00 12/08/17 00:53 12/08/17 02:00 Temperature 98.0 F Pulse Rate 137 H 137 H 137 H Respiratory Rate 20 Blood Pressure 95/54 L Pulse Oximetry 95 12/08/17 04:00 12/08/17 04:17 12/08/17 06:00 Temperature 98.1 F Pulse Rate 134 H 135 H 137 H Respiratory Rate 15 20 Blood Pressure 127/67 Pulse Oximetry 95 12/08/17 08:00 12/08/17 10:00 12/08/17 11:39 Temperature 98.1 F Pulse Rate 138 H 135 H 124 H Respiratory Rate 18 Blood Pressure Pulse Oximetry 98 12/08/17 11:41 12/08/17 12:00 12/08/17 14:00 Temperature 98.4 F Pulse Rate 124 H 124 H Respiratory Rate Blood Pressure Pulse Oximetry 96 12/08/17 15:55 12/08/17 15:57 12/08/17 17:14 Temperature 98.8 F 98.8 F Pulse Rate 124 H 134 H Respiratory Rate Blood Pressure 100/71 105/59 L Pulse Oximetry Intake & Output 12/07/17 12/08/17 12/08/17 18:59 06:59 18:59 Intake Total 50 / 50 1740 / 1740 0 / 0 Output Total 0 / 0 700 / 700 Balance 50 / 50 1040 / 1040 0 / 0 Weight 120.5 kg Intake: IV 1500 / 1500 D5W-1/2 NS Inj 500 ML @ Wide 500 / 500 Open IV.SIG .Q0M ONE Rx#: [id number] NS Inj 500 ML @ Wide Open IV. 1000 / 1000 SIG BOLUS ONE Rx#:[id number] Oral 50 / 50 240 / 240 Intake (Blood Product) Amt 0 / 0 Rbc As-3 Leukoreduced Unit 0 / 0 [id number] Output: Urine 0 / 0 700 / 700 Other: Date of Last Bowel Movement 12/07/17 12/07/17 # Bowel Movements 1 Weight On Admission 120.5 kg <Dick Wilcox - Last Filed: 12/08/17 18:10> Results - Labs CBC & Chem 7: 12/08/17 03:24 12/08/17 03:24 Labs: Laboratory Results - last 24 hr 12/07/17 12/08/17 12/08/17 17:00 03:24 03:24 WBC 6.1 RBC 2.53 L Hgb 7.7 L Hct 23.0 L MCV 91.1 MCH 30.6 MCHC 33.5 RDW 20.8 H Plt Count 125 L MPV 7.6 Prelim Diff (Auto) Slide review pending Neut % (Auto) 87.4 H Lymph % (Auto) 8.1 L [place] % (Auto) 3.9 Eos % (Auto) 0.2 Baso % (Auto) 0.4 Neut # (Auto) 5.3 Lymph # (Auto) 0.5 L [place] # (Auto) 0.2 Eos # (Auto) 0.0 Baso # (Auto) 0.0 WBC Differential . Differential Comment . Platelet Estimate Low L Platelet Morphology Normal Sodium 142 Potassium 4.0 Chloride 107 Carbon Dioxide 26.4 Anion Gap 9 BUN 27 H Creatinine 0.98 Estimated GFR 75 L Random Glucose 155 H Lactic Acid Calcium 7.5 L Nasal Screen MRSA (PCR) Not detected 12/08/17 03:24 WBC RBC Hgb Hct MCV MCH MCHC RDW Plt Count MPV Prelim Diff (Auto) Neut % (Auto) Lymph % (Auto) [place] % (Auto) Eos % (Auto) Baso % (Auto) Neut # (Auto) Lymph # (Auto) [place] # (Auto) Eos # (Auto) Baso # (Auto) WBC Differential Differential Comment Platelet Estimate Platelet Morphology Sodium Potassium Chloride Carbon Dioxide Anion Gap BUN Creatinine Estimated GFR Random Glucose Lactic Acid 1.8 Calcium Nasal Screen MRSA (PCR) <Inga Avalos - Last Filed: 12/08/17 11:33> - Labs CBC & Chem 7: 12/08/17 03:24 12/08/17 03:24 Labs: Laboratory Results - last 24 hr 12/07/17 12/08/17 12/08/17 17:00 03:24 03:24 WBC 6.1 RBC 2.53 L Hgb 7.7 L Hct 23.0 L MCV 91.1 MCH 30.6 MCHC 33.5 RDW 20.8 H Plt Count 125 L MPV 7.6 Prelim Diff (Auto) Slide review pending Neut % (Auto) 87.4 H Lymph % (Auto) 8.1 L [place] % (Auto) 3.9 Eos % (Auto) 0.2 Baso % (Auto) 0.4 Neut # (Auto) 5.3 Lymph # (Auto) 0.5 L [place] # (Auto) 0.2 Eos # (Auto) 0.0 Baso # (Auto) 0.0 WBC Differential . Differential Comment . Platelet Estimate Low L Platelet Morphology Normal Sodium 142 Potassium 4.0 Chloride 107 Carbon Dioxide 26.4 Anion Gap 9 BUN 27 H Creatinine 0.98 Estimated GFR 75 L Random Glucose 155 H Lactic Acid Calcium 7.5 L Nasal Screen MRSA (PCR) Not detected MTS Gel Crossmatch Bld Prod Order Comment 12/08/17 12/08/17 03:24 16:04 WBC RBC Hgb Hct MCV MCH MCHC RDW Plt Count MPV Prelim Diff (Auto) Neut % (Auto) Lymph % (Auto) [place] % (Auto) Eos % (Auto) Baso % (Auto) Neut # (Auto) Lymph # (Auto) [place] # (Auto) Eos # (Auto) Baso # (Auto) WBC Differential Differential Comment Platelet Estimate Platelet Morphology Sodium Potassium Chloride Carbon Dioxide Anion Gap BUN Creatinine Estimated GFR Random Glucose Lactic Acid 1.8 Calcium Nasal Screen MRSA (PCR) MTS Gel Crossmatch See Detail Bld Prod Order Comment <Dick Wilcox - Last Filed: 12/08/17 18:10> Assessment and Plan - Plan - Anemia/heme (+) stools- Likely multifactorial, pt with hx of metastatic prostate cancer, bladder cancer could be a factor, possible GI bleed. pt denies active bleed hgb on admission 7.7. He received one unit of blood at [facility]. Pt denies nausea, vomiting, abd pain, hematemesis, diarrhea, constipation, melena or hematochezia. States his urine is brown. Reports having colonoscopy about 3 yrs ago. Never had EGD before. Currently pt is tacky cardiac, hypotensive. He was found to have heme (+) stools. - metastatic prostate cancer, bladder cancer Follwoing with oncology - a.magno- was on Elqiuis ( this is on hold), Cariology consulted - Respiratory distress - Pt had recent admission to [facility] on 10/26 due to septic shock , hypotension and hypoxemic respiratory failure and bilateral pneumonia. Plan: - Diet per attending - Ok for pt to go on Lovenox or heparin from GI stand point - Pt not having active bleed, not stable medically for any procedures, will monitor for now - Cont. PPI - Monitor hh - Transfuse as needed - Supportive care - Pt seen and examined by Dr. Wilcox and myself and this note is written on his behalf. <Inga Avalos - Last Filed: 12/08/17 11:33> - Plan Patient was seen and examined, patient is significantly anemic, could be chronic disease or cancer, no sign of active bleeding, patient is not stable for any procedure at this time, continue medical management with packed RBC, once stable by current radiology standard and if there is continuation of anemia with sign of bleeding then an endoscopy and possible colonoscopy can be entertained at that time we will follow-up with you <Dick Wilcox - Last Filed: 12/08/17 18:10>
--- NOTE | 2017-12-08 21:03 | MB ---
cc: Nora Mac MD, Hanscy MD Massodi, Hammad DATE: 12/08/2017 REASON FOR CONSULTATION: Tachyarrhythmia. HISTORY OF PRESENT ILLNESS: Mr. Ramírez is a 77-year-old gentleman with morbid obesity who was on chemotherapy. The gentleman has recent hospitalization due to atrial tachyarrhythmia. He was cardioverted, subsequently ablated back in sinus rhythm. The gentleman was readmitted yesterday due to atrial tachyarrhythmia, possible atrial fibrillation. Heart rate is very difficult to control. I was consulted for further evaluation and management. The chart was reviewed. The patient was evaluated. ALLERGIES: NONE. SOCIAL HISTORY: Negative for smoking and drinking. FAMILY HISTORY: Noncontributory to his current medical condition. MEDICATIONS: 1. Albuterol. 2. Ceftin 3. Cardizem 4. Metoprolol. 5. Lactulose 6. Eliquis. REVIEW OF SYSTEMS: Currently, the patient referred no chest pain and no chest discomfort. No vomiting, no fever. Referred tachycardia and shortness of breath. PHYSICAL EXAMINATION: GENERAL: Alert, fully oriented. VITAL SIGNS: On evaluation blood pressure is 127/77, pulse 134, respiratory rate 20. LUNGS: Ventilated. CARDIOVASCULAR: S1, S2. No gallop. Tachycardic. ABDOMEN: Obese. No mass. No bruit. EXTREMITIES: No edema. CARDIOLOGY STUDIES: Electrocardiogram - supraventricular tachyarrhythmia. ASSESSMENT AND RECOMMENDATION: Mr. Ramírez has atrial fibrillation, atrial tachycardia. Hemoglobin is only 7.2 to 7.4. He will need blood transfusion. Also, heart rate is very high. I am going to initiate flecainide for the patient. There is no history of coronary artery disease. Ejection fraction on the last ____ was okay. If the heart rate cannot be controlled with medication, then ablation will be considered. Case discussed with the patient. I will follow during hospitalization. MD MABEL Mccarthy/SA , 08:25 PM , 08:33 PM
[2017-12-08] MEDS: Flecainide 100 MG Tablet PO SCH (21:33)
[2017-12-09 06:37] LABS: Hematocrit 27.3 % (39.0-51.0); Hemoglobin 9.2 gm/dL (13.0-17.0); Mean Corpuscular HGB Conc 33.8 % (32.0-36.0); Mean Corpuscular Hemoglobin 30.8 pg (27.0-34.0); Mean Corpuscular Volume 91.4 fL (80.0-100.0); Mean Platelet Volume 7.4 fL (7.0-11.0); Platelet Count 124 th/mm3 (150-450); Red Blood Count 2.99 mil/mm3 (4.50-5.90); Red Cell Distribution Width 19.6 % (11.6-17.2); White Blood Count 6.8 th/mm3 (4.0-11.0)
[2017-12-09] MEDS: Flecainide 100 MG Tablet PO SCH ×2 (08:09→20:48)
[2017-12-09] MEDS: Senna/Docusate Sodium 8.6/50 MG Tablet PO SCH ×2 (08:09→20:48)
[2017-12-09] MEDS: predniSONE 20 MG Tablet PO SCH ×2 (08:09→20:48)
[2017-12-09] MEDS: Ferrous Sulfate 325 MG Tablet PO SCH (08:09)
[2017-12-09] MEDS: Metoprolol Tartrate 100 MG Tablet PO SCH ×2 (08:09→20:48)
[2017-12-09] MEDS: Lactobacillus Acidophilus/L. Spores Tablet PO SCH ×2 (08:09→20:48)
[2017-12-09] MEDS: dilTIAZem CD 300 MG Capsule PO SCH (08:09)
--- NOTE | 2017-12-09 14:13 | P.PNGI ---
Subjective Interval history: Pt is resting in bed, had BM today, no bleeding reported, no nausea, no vomiting , no abd pain Physical Exam Vital signs: Vital Signs 12/08/17 15:55 12/08/17 15:57 12/08/17 17:14 Temperature 98.8 F 98.8 F Pulse Rate 124 H 134 H Respiratory Rate Blood Pressure 100/71 105/59 L Pulse Oximetry 12/08/17 18:00 12/08/17 19:53 12/08/17 20:00 Temperature 98.7 F Pulse Rate 134 H 135 H 135 H Respiratory Rate 18 Blood Pressure 110/69 Pulse Oximetry 96 96 12/08/17 22:00 12/09/17 00:00 12/09/17 02:00 Temperature 97.8 F Pulse Rate 135 H 129 H 125 H Respiratory Rate Blood Pressure 121/75 Pulse Oximetry 12/09/17 03:39 12/09/17 04:00 12/09/17 06:00 Temperature Pulse Rate 123 H 123 H 126 H Respiratory Rate 18 16 Blood Pressure 126/78 Pulse Oximetry 100 12/09/17 08:00 12/09/17 10:00 12/09/17 12:02 Temperature 98.4 F Pulse Rate 127 H 116 H 115 H Respiratory Rate 20 Blood Pressure Pulse Oximetry 94 L 94 L Intake & Output 12/08/17 12/09/17 12/09/17 18:59 06:59 18:59 Intake Total 660 / 660 665 / 665 Output Total 1150 / 1150 500 / 500 Balance -490 / -490 165 / 165 Weight 118.6 kg Intake: Oral 660 / 660 240 / 240 Other 25 / 25 Rbc As-3 Leukoreduced Unit 25 / 25 [id number] Intake (Blood Product) Amt 0 / 0 400 / 400 Rbc As-3 Leukoreduced Unit 0 / 0 400 / 400 [id number] Output: Urine 1150 / 1150 500 / 500 Other: Date of Last Bowel Movement 12/07/17 12/08/17 12/08/17 # Bowel Movements 1 1 - Constitutional no acute distress - Routine HEENT Exam Head: Present: normocephalic - Routine Neck Exam Present: supple - Routine Respiratory Exam Present: CTA bilaterally - Routine Cardiovascular Exam Present: tachycardia - Routine Abdominal Exam Present: soft, normoactive bowel sounds. Absent: tenderness, distended - Routine Extremities Exam Present: edema - Routine Skin Exam Present: intact, dry - Routine Neurological Exam Present: alert, oriented X3 Results - Labs CBC & Chem 7: 12/09/17 06:25 12/08/17 03:24 Laboratory Results - last 24 hr 12/08/17 12/09/17 16:04 06:25 WBC 6.8 RBC 2.99 L Hgb 9.2 L Hct 27.3 L MCV 91.4 MCH 30.8 MCHC 33.8 RDW 19.6 H Plt Count 124 L MPV 7.4 MTS Gel Crossmatch See Detail Bld Prod Order Comment Assessment and Plan - Plan - Anemia/heme (+) stools- Likely multifactorial, pt with hx of metastatic prostate cancer, bladder cancer could be a factor, possible GI bleed. pt denies active bleed. Hgb today 9.2 hgb on admission 7.7. He [facility]. Pt denies nausea, vomiting, abd pain, hematemesis, diarrhea, constipation, melena or hematochezia. States his urine is brown. Reports having colonoscopy about 3 yrs ago. Never had EGD before. Currently pt is tacky cardiac, hypotensive. He was found to have heme (+) stools. - metastatic prostate cancer, bladder cancer Follwoing with oncology - diana- was on Elqiuis ( this is on hold), Cariology consulted - Respiratory distress - Pt had recent admission to [facility] on 10/26 due to septic shock , hypotension and hypoxemic respiratory failure and bilateral pneumonia. Plan: - Diet per attending - Ok for pt to start Lovenox or heparin from GI stand point - Pt not having active bleed, not stable medically for any procedures, will monitor for now - Cont. PPI - Monitor hh - Transfuse as needed - Supportive care - Pt seen and examined by Dr. Ny and myself and this note is written on his behalf.
[2017-12-09] MEDS ORDERED: Heparin - SQ 10,000 UNITS/ML Vial SQ ONE (15:31)
--- NOTE | 2017-12-09 15:31 | P.PN ---
Subjective Interval history: Nursing denies any deterioration since last night. Patient still tachycardic. Asymptomatic. Physical Exam Vital signs: Vital Signs 12/08/17 15:55 12/08/17 15:57 12/08/17 17:14 Temperature 98.8 F 98.8 F Pulse Rate 124 H 134 H Respiratory Rate Blood Pressure 100/71 105/59 L Pulse Oximetry 12/08/17 18:00 12/08/17 19:53 12/08/17 20:00 Temperature 98.7 F Pulse Rate 134 H 135 H 135 H Respiratory Rate 18 Blood Pressure 110/69 Pulse Oximetry 96 96 12/08/17 22:00 12/09/17 00:00 12/09/17 02:00 Temperature 97.8 F Pulse Rate 135 H 129 H 125 H Respiratory Rate Blood Pressure 121/75 Pulse Oximetry 12/09/17 03:39 12/09/17 04:00 12/09/17 06:00 Temperature Pulse Rate 123 H 123 H 126 H Respiratory Rate 18 16 Blood Pressure 126/78 Pulse Oximetry 100 12/09/17 08:00 12/09/17 10:00 12/09/17 12:00 Temperature 98.4 F 98.2 F Pulse Rate 127 H 116 H 116 H Respiratory Rate Blood Pressure Pulse Oximetry 94 L 12/09/17 12:02 12/09/17 14:00 Temperature Pulse Rate 115 H 114 H Respiratory Rate 20 Blood Pressure Pulse Oximetry 94 L Intake & Output 12/08/17 12/09/17 12/09/17 18:59 06:59 18:59 Intake Total 660 / 660 665 / 665 Output Total 1150 / 1150 500 / 500 Balance -490 / -490 165 / 165 Weight 118.6 kg Intake: Oral 660 / 660 240 / 240 Other Rbc As-3 Leukoreduced Unit [id number] Intake (Blood Product) Amt 0 / 0 400 / 400 Rbc As-3 Leukoreduced Unit 0 / 0 400 / 400 [id number] Output: Urine 1150 / 1150 500 / 500 Other: Date of Last Bowel Movement 12/07/17 12/08/17 12/08/17 # Bowel Movements 1 1 Narrative: Sinus tachycardic rhythm on auscultation Unlabored breathing, lying in bed comfortably Results - Labs CBC & Chem 7: 12/09/17 06:25 12/08/17 03:24 Laboratory Results - last 24 hr 12/08/17 12/09/17 16:04 06:25 WBC 6.8 RBC 2.99 L Hgb 9.2 L Hct 27.3 L MCV 91.4 MCH 30.8 MCHC 33.8 RDW 19.6 H Plt Count 124 L MPV 7.4 MTS Gel Crossmatch See Detail Bld Prod Order Comment Assessment and Plan - Plan 77-year-old man with Atrial flutter with RVR vs sinus tachycardia -Patient is s/p cardioversion 11/28. Cardiology, Dr. Mac. s/p Atrial ablation. Started amiodarone drip November 26, 2017 at that time. Was eventually dcd. -Being dosed with procainamide, electrophysiology following, may plan for pacemaker if no improvement by Monday Suspected GI bleed -h/h still low despite most recent transfusion yesterday coming from [facility] -Heparin or Lovenox while inpatient to cover for A. fib, H&H is holding steady after 2 units of transfusion of blood, patient is too unstable for EGD procedure at this time per GI acute on chronic Normocytic anemia -Previously on chemo for prostate CA. -Continue oral Fe supplementation Acute on chronic respiratory failure with hypoxia and need for supplemental O2 Left-sided small pleural effusion Hx COPD Hx of recent community acquired pneumonia -CTA 11/21: no PE, moderate to severe bilateral interstitial lung disease characteristic of either interstitial edema or pneumonitis, small left pleural effusion, line emphysematous lung changes. -2D echo completed on 11/22 with normal EF. -Scheduled duonebs. -Will continue Ceftin from previous admission per ID recs. HTN, essential chronic, stable HLD -Continue metoprolol and Cardizem, blood pressure stable. -hold ASa IN LIGHT Of bleed -Continued on Lipitor. Chronic kidney disease stage III -Avoid nephrotoxic drug
[2017-12-09] MEDS: Enoxaparin Inj 40 MG/0.4 ML Syringe SQ SCH (20:47)
[2017-12-10] MEDS: dilTIAZem CD 300 MG Capsule PO SCH (09:09)
[2017-12-10] MEDS: predniSONE 20 MG Tablet PO SCH ×2 (09:09→21:25)
[2017-12-10] MEDS: Senna/Docusate Sodium 8.6/50 MG Tablet PO SCH ×2 (09:09→21:25)
[2017-12-10] MEDS: Lactobacillus Acidophilus/L. Spores Tablet PO SCH ×2 (09:09→21:25)
[2017-12-10] MEDS: Flecainide 100 MG Tablet PO SCH ×2 (09:10→21:26)
[2017-12-10] MEDS: Ferrous Sulfate 325 MG Tablet PO SCH (09:10)
[2017-12-10] MEDS: Enoxaparin Inj 40 MG/0.4 ML Syringe SQ SCH ×2 (09:10→21:25)
[2017-12-10] MEDS: Metoprolol Tartrate 100 MG Tablet PO SCH ×2 (09:10→21:25)
--- NOTE | 2017-12-10 10:35 | P.PN ---
Subjective Interval history: Nursing denies any deterioration since last night. Nursing thinks that the procainamide is not showing sustained improvement in the heart rate. Patient himself is a since back. He is actually feeling really excited about the fact that he says he was able to stand for the first time in 3 weeks today. Denies any chest pain Physical Exam Vital signs: Vital Signs 12/09/17 11:00 12/09/17 11:30 12/09/17 12:00 Temperature 98.2 F Pulse Rate 116 H 117 H 116 H Respiratory Rate 18 18 27 H Blood Pressure 108/67 114/69 Pulse Oximetry 95 95 95 12/09/17 12:01 12/09/17 12:02 12/09/17 12:30 Temperature Pulse Rate 115 H 115 H 108 H Respiratory Rate 23 20 19 Blood Pressure 108/72 108/64 Pulse Oximetry 94 L 94 L 95 12/09/17 13:00 12/09/17 13:30 12/09/17 14:00 Temperature Pulse Rate 119 H 113 H 114 H Respiratory Rate 20 20 16 Blood Pressure 116/75 91/60 L 96/65 L Pulse Oximetry 93 L 95 94 L 12/09/17 14:30 12/09/17 15:00 12/09/17 15:30 Temperature Pulse Rate 116 H 119 H 120 H Respiratory Rate 19 17 19 Blood Pressure 100/68 103/68 108/70 Pulse Oximetry 95 95 95 12/09/17 16:00 12/09/17 16:30 12/09/17 17:00 Temperature 99.2 F Pulse Rate 121 H 121 H 121 H Respiratory Rate 18 18 18 Blood Pressure 112/74 113/69 120/68 Pulse Oximetry 95 95 96 12/09/17 17:30 12/09/17 18:00 12/09/17 18:30 Temperature Pulse Rate 121 H 121 H 122 H Respiratory Rate 18 18 18 Blood Pressure 116/71 121/77 114/73 Pulse Oximetry 95 95 95 12/09/17 19:00 12/09/17 19:30 12/09/17 20:00 Temperature 98.0 F Pulse Rate 121 H 122 H 121 H Respiratory Rate 17 22 26 H Blood Pressure 113/79 111/77 114/78 Pulse Oximetry 95 93 L 92 L 12/09/17 20:17 12/09/17 22:00 12/10/17 00:00 Temperature 97.7 F Pulse Rate 110 H 123 H 121 H Respiratory Rate 22 16 Blood Pressure 116/73 Pulse Oximetry 96 98 12/10/17 02:00 12/10/17 04:00 12/10/17 04:43 Temperature 97.4 F L Pulse Rate 119 H 118 H 110 H Respiratory Rate 18 18 Blood Pressure 129/81 Pulse Oximetry 95 12/10/17 06:00 12/10/17 08:00 12/10/17 10:00 Temperature 98.3 F Pulse Rate 118 H 119 H 112 H Respiratory Rate Blood Pressure Pulse Oximetry 97 Intake & Output 12/09/17 12/10/17 12/10/17 18:59 06:59 18:59 Intake Total 425 / 425 480 / 480 Output Total 450 / 450 750 / 750 Balance -25 / -25 -270 / -270 Weight 119.2 kg Intake: Oral 425 / 425 480 / 480 Output: Urine 450 / 450 750 / 750 Other: # Voids 3 Date of Last Bowel Movement 12/08/17 12/09/17 12/09/17 # Bowel Movements 1 Narrative: Heart sounds indicate sinus tachycardia Unlabored breathing, clear lungs bilaterally, mildly edematous arms Results - Labs CBC & Chem 7: 12/09/17 06:25 12/08/17 03:24 Assessment and Plan - Plan 77-year-old man with Atrial flutter with RVR vs sinus tachycardia -Patient is s/p cardioversion 11/28. Cardiology, Dr. Mac. s/p Atrial ablation. Started amiodarone drip November 26, 2017 at that time. Was eventually dcd. -Being dosed with flecainide, electrophysiology following, may plan for pacemaker if no improvement by Monday; will make NPO empirically tonight at midnight. Suspected GI bleed -h/h still low despite most recent transfusion yesterday coming from [facility] -Heparin or Lovenox while inpatient to cover for A. fib, H&H is holding steady after 2 units of transfusion of blood, patient is too unstable for EGD procedure at this time per GI acute on chronic Normocytic anemia -Previously on chemo for prostate CA. -Continue oral Fe supplementation Acute on chronic respiratory failure with hypoxia and need for supplemental O2 Left-sided small pleural effusion Hx COPD Hx of recent community acquired pneumonia -CTA 11/21: no PE, moderate to severe bilateral interstitial lung disease characteristic of either interstitial edema or pneumonitis, small left pleural effusion, line emphysematous lung changes. -2D echo completed on 11/22 with normal EF. -Scheduled duonebs. -Will continue Ceftin from previous admission per ID recs. HTN, essential chronic, stable HLD -Continue metoprolol and Cardizem, blood pressure stable. -hold ASa IN LIGHT Of bleed -Continued on Lipitor. Chronic kidney disease stage III -Avoid nephrotoxic drug
--- NOTE | 2017-12-10 14:58 | P.PNGI ---
Subjective Interval history: Patient is resting in the bed awake answering simple questions Hemoglobin 9.2, patient denies any dark stools Patient requiring oxygen at 4 L nasal cannula Heart rate remains tachycardic atrial fib flutter Physical Exam Vital signs: Vital Signs 12/09/17 15:00 12/09/17 15:30 12/09/17 16:00 Temperature 99.2 F Pulse Rate 119 H 120 H 121 H Respiratory Rate 17 19 18 Blood Pressure 103/68 108/70 112/74 Pulse Oximetry 95 95 95 12/09/17 16:30 12/09/17 17:00 12/09/17 17:30 Temperature Pulse Rate 121 H 121 H 121 H Respiratory Rate 18 18 18 Blood Pressure 113/69 120/68 116/71 Pulse Oximetry 95 96 95 12/09/17 18:00 12/09/17 18:30 12/09/17 19:00 Temperature Pulse Rate 121 H 122 H 121 H Respiratory Rate 18 18 17 Blood Pressure 121/77 114/73 113/79 Pulse Oximetry 95 95 95 12/09/17 19:30 12/09/17 20:00 12/09/17 20:17 Temperature 98.0 F Pulse Rate 122 H 121 H 110 H Respiratory Rate 22 26 H 22 Blood Pressure 111/77 114/78 Pulse Oximetry 93 L 92 L 96 12/09/17 22:00 12/10/17 00:00 12/10/17 01:30 Temperature 97.7 F Pulse Rate 123 H 121 H Respiratory Rate 16 Blood Pressure 116/73 122/77 Pulse Oximetry 98 12/10/17 02:00 12/10/17 02:30 12/10/17 03:00 Temperature Pulse Rate 119 H 118 H 118 H Respiratory Rate 17 18 19 Blood Pressure 118/74 114/80 125/77 Pulse Oximetry 96 95 95 12/10/17 03:30 12/10/17 04:00 12/10/17 04:30 Temperature 97.4 F L Pulse Rate 117 H 118 H 117 H Respiratory Rate 20 17 19 Blood Pressure 139/85 129/81 126/81 Pulse Oximetry 95 95 96 12/10/17 04:43 12/10/17 05:00 12/10/17 05:30 Temperature Pulse Rate 110 H 118 H 117 H Respiratory Rate 18 25 H 18 Blood Pressure 125/80 130/80 Pulse Oximetry 95 97 12/10/17 06:00 12/10/17 06:30 12/10/17 07:00 Temperature Pulse Rate 118 H 118 H 118 H Respiratory Rate 15 16 16 Blood Pressure 128/78 128/80 131/78 Pulse Oximetry 95 96 95 12/10/17 07:30 12/10/17 08:00 12/10/17 08:30 Temperature 98.3 F Pulse Rate 119 H 119 H 119 H Respiratory Rate 17 15 15 Blood Pressure 126/80 117/76 125/79 Pulse Oximetry 96 97 96 12/10/17 09:00 12/10/17 10:00 12/10/17 10:03 Temperature Pulse Rate 117 H 112 H 111 H Respiratory Rate 29 H 22 29 H Blood Pressure 129/93 H 114/67 Pulse Oximetry 93 L 94 L 95 12/10/17 10:30 12/10/17 11:00 12/10/17 11:30 Temperature Pulse Rate 106 H 109 H 107 H Respiratory Rate 18 21 27 H Blood Pressure 102/63 105/66 117/72 Pulse Oximetry 95 95 86 L 12/10/17 11:47 12/10/17 12:00 12/10/17 12:30 Temperature 98.1 F Pulse Rate 109 H 109 H 111 H Respiratory Rate 19 20 17 Blood Pressure 110/66 112/67 Pulse Oximetry 96 98 96 12/10/17 13:00 12/10/17 13:30 12/10/17 14:00 Temperature Pulse Rate 112 H 111 H 112 H Respiratory Rate 17 20 20 Blood Pressure 110/67 106/64 106/61 Pulse Oximetry 95 94 L 94 L Intake & Output 12/09/17 12/10/17 12/10/17 18:59 06:59 18:59 Intake Total 425 / 425 480 / 480 Output Total 450 / 450 750 / 750 Balance -25 / -25 -270 / -270 Weight 119.2 kg Intake: Oral 425 / 425 480 / 480 Output: Urine 450 / 450 750 / 750 Other: # Voids 3 Date of Last Bowel Movement 12/08/17 12/09/17 12/09/17 # Bowel Movements 1 - Constitutional mild distress - Routine HEENT Exam Head: Present: normocephalic, atraumatic Eye: Present: EOMI ENT: Present: mucous membranes moist - Routine Neck Exam Present: supple - Routine Respiratory Exam Present: decreased breath sounds (Oxygen at 4 L nasal cannula, exertional SOB) - Routine Cardiovascular Exam Present: tachycardia, irregularly irregular - Routine Abdominal Exam Present: soft (Round, soft,) - Routine Skin Exam Present: intact Results - Labs CBC & Chem 7: 12/09/17 06:25 12/08/17 03:24 Assessment and Plan - Plan - Anemia/heme (+) stools- Likely multifactorial, pt with hx of metastatic prostate cancer, bladder cancer could be a factor, possible GI bleed. pt denies active bleed. Hgb today 9.2 hgb on admission 7.7. He received one unit of blood at [facility]. Pt denies nausea, vomiting, abd pain, hematemesis, diarrhea, constipation, melena or hematochezia. States his urine is brown. Reports having colonoscopy about 3 yrs ago. Never had EGD before. Currently pt is tacky cardiac, hypotensive. He was found to have heme (+) stools. - metastatic prostate cancer, bladder cancer Follwoing with oncology - a.fib- was on Elqiuis ( this is on hold), Cardiology consulted - Respiratory distress - Pt had recent admission to [facility] on 10/26 due to septic shock , hypotension and hypoxemic respiratory failure and bilateral pneumonia. 12/10/2017 current hemoglobin 9.2 no obvious bleeding noted. Patient continues to have atrial flutter, heart rate 119. Patient states history of polyps, and denies any melena or dark stools. No lower extremity edema. Patient needs to be stable from a cardiac perspective before any GI workup or procedures can be done. As long as patient has no obvious bleeding this could be done on an outpatient basis Plan: - Diet per attending - Ok for pt to start Lovenox or heparin from GI stand point -Okay for GI procedures on an outpatient basis. Needs to have cardiac workup first and will need cardiac clearance - PPI - Monitor labs including H&H and transfuse if needed - Supportive care GI will sign off for now but please reconsult for any acute new issues - Pt seen and examined by Dr. Ny and myself and this note is written on his behalf.
[2017-12-11] MEDS: Metoprolol Tartrate 100 MG Tablet PO SCH ×2 (08:42→21:16)
[2017-12-11] MEDS: Enoxaparin Inj 40 MG/0.4 ML Syringe SQ SCH ×2 (08:42→21:17)
[2017-12-11] MEDS: Ferrous Sulfate 325 MG Tablet PO SCH (08:43)
[2017-12-11] MEDS: Senna/Docusate Sodium 8.6/50 MG Tablet PO SCH ×2 (08:44→21:16)
[2017-12-11] MEDS: predniSONE 20 MG Tablet PO SCH ×2 (08:44→21:16)
[2017-12-11] MEDS: Lactobacillus Acidophilus/L. Spores Tablet PO SCH ×2 (08:44→21:16)
[2017-12-11] MEDS: dilTIAZem CD 300 MG Capsule PO SCH (08:44)
[2017-12-11] MEDS: Flecainide 100 MG Tablet PO SCH (10:08)
--- NOTE | 2017-12-11 11:23 | P.PNIM ---
Subjective Interval history: This is a 77-year-old male with past medical history significant for COPD, metastatic prostate cancer, bladder cancer, anemia, diastolic dysfunction, a.fib with prior ablation, HTN, obesity, and HLD who was originally admitted to [facility] on 10/26 due to septic shock, hypotension and hypoxemic respiratory failure found to be related to bilateral pneumonia. Patient was seen and evaluated by ID services during his admission and treated with IV cefepime and vancomycin. CT of chest did find adenopathy in right axillary area along with left upper nodule measuring 1.3cm possibly representing metastatic lesion, per radiologist. Patient was also noted to have low WBC count, currently on chemotherapy for metastatic prostate CA, follows with Dr. Richard Koo. Patient did have MATEO resulting in increase of creatinine to 1.46 with improvement with IVF. He was discharged from hospital on 11/02 and admitted to [facility]. He was subsequently discharged and admitted to [facility] on 11/13. While patient was in [facility] he developed tachycardia with questionable A. fib. Cardiology services consulted who did not believe patient was in A. fib rhythm. Patient also began developing increasing need for oxygen along with dyspnea on exertion. CT of the chest showed no PE, moderate to severe bilateral interstitial lung disease characteristic of either interstitial edema or pneumonitis, small left pleural effusion, line emphysematous lung changes. Patient underwent 2D echo which showed normal EF. Pulmonary services were consulted who recommended cardiac evaluation along with suspicions that respiratory symptoms were likely due to underlying history of smoking COPD, recommendations continue bronchodilators. Patient was treated with breathing treatments, oxygen increased to 6 L nasal cannula, tachycardia controlled with increase in Cardizem dose. Patient received 1 unit of PRBCs along with one- time dose of IV Lasix on 11/22 due to symptomatic anemia, H&H 8.3/25.7. Patient was treated with IV antibiotics Zosyn and vancomycin, blood cultures negative, changed to p.o. antibiotic Ceftin. Patient also with A. fib and RVR cardioverted to normal sinus rhythm by Dr. Bruno, had an atrial ablation. He had also a cardioversion 11/28. He was placed on amiodarone drip weaned off. Beta-simone increased at discharge to 75 mg p.o. twice daily. Continue Cardizem. Patient was started on low dose of aspirin and Eliquis. Patient also with normocytic anemia with the previous chemo on prostatic prostate cancer. Started on iron supplement. He was transfused 1 unit of blood on 11/22. However noted hemoglobin has been dropping yesterday from 8.2 to 7.4 on 12/06/17, held Eliquis x 1 day and was given 1 unit PRBC. Monitor H&H and transfuse if needed. Continue iron supplement. Patient also has had sustained tachycardia with intermittent a flutter with HR in the 120's and this afternoon elevated in the 130's. Patient was transferred to [facility] for further monitoring and transferred to [facility] service. Patient is assessed and completely asymptomatic. HR 130's with apparent a flutter on monitor. Continued on 4LNC. 12-08 Nursing reports Hemoccult positive stool since last night. H&H status post transfusion 7.7, previously was 7.1 patient denies any abdominal pain. Is asymptomatic. Heart rate is still very tachyarrhythmic beyond 130. Nursing reports that electrophysiology has seen the patient this morning anticipates possible procedure on Monday. 12-09 Nursing denies any deterioration since last night. Patient still tachycardic. Asymptomatic. 12-10 Nursing denies any deterioration since last night. Nursing thinks that the procainamide is not showing sustained improvement in the heart rate. He is actually feeling really excited about the fact that he says he was able to stand for the first time in 3 weeks today. Denies any chest pain 12-[address] BRUNO INPUT MONITOR HEART RATE DW RN AND PT AND CM GI HAS SIGNED OFF WILL NEED TO RESTART ELIQUIS OR THE EQUIVALENT-- CURRENTLY ONLY ON LOVENOX 40 SUBQ BID Physical Exam Vital signs: Vital Signs 12/10/17 11:30 12/10/17 11:47 12/10/17 12:00 Temperature 98.1 F Pulse Rate 107 H 109 H 109 H Respiratory Rate 27 H 19 20 Blood Pressure 117/72 110/66 Pulse Oximetry 86 L 96 98 12/10/17 12:30 12/10/17 13:00 12/10/17 13:30 Temperature Pulse Rate 111 H 112 H 111 H Respiratory Rate 17 17 20 Blood Pressure 112/67 110/67 106/64 Pulse Oximetry 96 95 94 L 12/10/17 14:00 12/10/17 14:30 12/10/17 15:00 Temperature Pulse Rate 112 H 113 H 113 H Respiratory Rate 20 19 18 Blood Pressure 106/61 112/68 107/66 Pulse Oximetry 94 L 96 95 12/10/17 15:30 12/10/17 16:00 12/10/17 16:31 Temperature 97.9 F Pulse Rate 113 H 114 H 112 H Respiratory Rate 22 18 19 Blood Pressure 113/66 101/69 105/59 L Pulse Oximetry 94 L 95 96 12/10/17 18:00 12/10/17 19:45 12/10/17 20:00 Temperature 97.4 F L Pulse Rate 116 H 110 H 117 H Respiratory Rate 18 14 18 Blood Pressure 115/79 120/74 Pulse Oximetry 96 95 12/10/17 22:00 12/11/17 00:00 12/11/17 02:00 Temperature 97.5 F L Pulse Rate 116 H 117 H 114 H Respiratory Rate 18 Blood Pressure 109/73 Pulse Oximetry 96 12/11/17 02:03 12/11/17 04:00 12/11/17 04:14 Temperature 97.8 F Pulse Rate 114 H 118 H 115 H Respiratory Rate 18 17 Blood Pressure 104/73 Pulse Oximetry 97 12/11/17 07:00 12/11/17 07:51 12/11/17 08:00 Temperature 97.7 F Pulse Rate 114 H 115 H 114 H Respiratory Rate 15 18 Blood Pressure 127/84 Pulse Oximetry 95 Intake & Output 12/10/17 12/11/17 12/11/17 18:59 06:59 18:59 Intake Total 300 / 300 240 / 240 Output Total 250 / 250 600 / 600 Balance 50 / 50 -360 / -360 Weight 119.5 kg Intake: Oral 300 / 300 240 / 240 Output: Urine 250 / 250 600 / 600 Other: Date of Last Bowel Movement 12/10/17 12/10/17 # Bowel Movements 1 Narrative: GENERAL: Awake alert and oriented 3- talkative and cooperative SKIN: Warm and dry. HEAD: Atraumatic. Normocephalic. EYES: Pupils equal and round. No scleral icterus. No injection or drainage. EOMI ENT: No nasal bleeding or discharge. Mucous membranes pink and moist. Tongue is midline NECK: Trachea midline. No JVD. Supple CARDIOVASCULAR: IRRegular rate and rhythm. S1-S2 no S3 or S4 RESPIRATORY: No accessory muscle use. Clear to auscultation. Breath sounds equal bilaterally. GASTROINTESTINAL: Abdomen soft, non-tender, nondistended. Hepatic and splenic margins not palpable. MUSCULOSKELETAL: Extremities without clubbing, cyanosis, or edema. No obvious deformities. NEUROLOGICAL: Awake and alert. No obvious cranial nerve deficits. Motor grossly within normal limits. 4 out of 5 muscle strength in the arms and legs. Normal speech. PSYCHIATRIC: Appropriate mood and affect; insight and judgment normal. Results - Labs CBC & Chem 7: 12/09/17 06:25 12/08/17 03:24 Assessment and Plan - Plan 77-year-old man with Atrial flutter with RVR vs sinus tachycardia -Patient is s/p cardioversion 11/28. Cardiology, Dr. Bruno. s/p Atrial ablation. Started amiodarone drip November 26, 2017 at that time. Was eventually dcd. -Being dosed with flecainide, electrophysiology following, may plan for pacemaker if no improvement by Monday; will make NPO empirically tonight at midnight. Await Dr. BRUNO INPUT Suspected GI bleed -h/h still low despite most recent transfusion yesterday coming from [facility] -Heparin or Lovenox while inpatient to cover for A. fib, H&H is holding steady after 2 units of transfusion of blood, patient is too unstable for EGD procedure at this time per GI acute on chronic Normocytic anemia -Previously on chemo for prostate CA. -Continue oral Fe supplementation Acute on chronic respiratory failure with hypoxia and need for supplemental O2 Left-sided small pleural effusion Hx COPD Hx of recent community acquired pneumonia -CTA 11/21: no PE, moderate to severe bilateral interstitial lung disease characteristic of either interstitial edema or pneumonitis, small left pleural effusion, line emphysematous lung changes. -2D echo completed on 11/22 with normal EF. -Scheduled duonebs. -Will continue Ceftin from previous admission per ID recs. HTN, essential chronic, stable HLD -Continue metoprolol and Cardizem, blood pressure stable. -hold ASa IN LIGHT Of bleed -Continued on Lipitor. Chronic kidney disease stage III -Avoid nephrotoxic drug Code Status: FULL CODE Discussed Condition With: PRANAV RN AND PT AND CM Discharge Planning: AWAIT CARDIAC CLEARANCE
[2017-12-11 18:55] LABS: Magnesium 1.3 mg/dL (1.5-2.5)
[2017-12-11 19:03] LABS: Free T4 (Free Thyroxine) 0.88 ng/dL (0.76-1.46); Thyroid Stimulating Hormone 2.43 uIU/mL (0.358-3.740)
[2017-12-11] MEDS ORDERED: Mag Sulf 1 gm/100 ml Premix 100 ML IV.SIG ONE (20:45)
[2017-12-11 21:59] LABS: Hemoglobin A1c 6.2 % (4.3-6.0)
--- NOTE | 2017-12-11 22:58 | P.PN ---
Subjective Interval history: Feeling tired Physical Exam Vital signs: Vital Signs 12/11/17 00:00 12/11/17 02:00 12/11/17 02:03 Temperature 97.5 F L Pulse Rate 117 H 114 H 114 H Respiratory Rate 18 Blood Pressure 109/73 Pulse Oximetry 96 12/11/17 04:00 12/11/17 04:14 12/11/17 07:00 Temperature 97.8 F Pulse Rate 118 H 115 H 114 H Respiratory Rate 18 17 Blood Pressure 104/73 Pulse Oximetry 97 12/11/17 07:51 12/11/17 08:00 12/11/17 09:00 Temperature 97.7 F Pulse Rate 115 H 114 H 114 H Respiratory Rate 15 18 Blood Pressure 127/84 Pulse Oximetry 95 12/11/17 10:00 12/11/17 11:00 12/11/17 12:00 Temperature 97.3 F L Pulse Rate 116 H 114 H 110 H Respiratory Rate 18 Blood Pressure 116/68 Pulse Oximetry 92 L 12/11/17 13:00 12/11/17 14:00 12/11/17 15:00 Temperature Pulse Rate 108 H 108 H 107 H Respiratory Rate Blood Pressure Pulse Oximetry 12/11/17 16:00 12/11/17 17:00 12/11/17 18:00 Temperature 97.6 F Pulse Rate 108 H 106 H 108 H Respiratory Rate 20 Blood Pressure 104/56 L Pulse Oximetry 92 L 12/11/17 19:12 Temperature Pulse Rate 112 H Respiratory Rate 16 Blood Pressure Pulse Oximetry 94 L Intake & Output 12/11/17 12/11/17 12/12/17 06:59 18:59 06:59 Intake Total 240 / 240 1300 / 1300 Output Total 600 / 600 680 / 680 Balance -360 / -360 620 / 620 Weight 119.5 kg Intake: Oral 240 / 240 1300 / 1300 Output: Urine 600 / 600 680 / 680 Other: Date of Last Bowel Movement 12/10/17 # Bowel Movements 1 - Constitutional no acute distress, mild distress - Routine HEENT Exam Head: Present: normocephalic Eye: Present: PERRL ENT: Present: mucous membranes moist - Routine Respiratory Exam Present: CTA bilaterally - Routine Cardiovascular Exam Present: tachycardia, irregular rhythm - Routine Abdominal Exam Present: soft Results - Labs CBC & Chem 7: 12/09/17 06:25 12/08/17 03:24 Laboratory Results - last 24 hr 12/11/17 12/11/17 17:56 17:56 Hemoglobin A1c 6.2 H Phosphorus 3.0 Magnesium 1.3 L TSH 2.430 Free T4 0.88 Assessment and Plan - Assessment (1) Chronic a-fib Code(s): I48.2 - Chronic atrial fibrillation Status: Chronic Plan: In left atrial tachycardia Previous ablation HR cannot be controlled despite multiple medications EPS and ablation discussed. IF HR cannot be controlled then AV node ablation and pacer will be considered Case discussed with patient. (2) SVT (supraventricular tachycardia) Code(s): I47.1 - Supraventricular tachycardia Status: Chronic Plan: Regular tachycardia. Possible left atrial tachycardia
[2017-12-12 06:41] LABS: Anion Gap 10 meq/L (5-15); Aspartate Aminotransferase 8 U/L (15-37); Blood Urea Nitrogen 25 mg/dL (7-18); Calcium 7.8 mg/dL (8.5-10.1); Carbon Dioxide 25.4 meq/L (21.0-32.0); Chloride 104 meq/L (98-107); Glomerular Filtration Rate 72 mL/min (>89); Glucose,Random 155 mg/dL (74-106); Magnesium 1.5 mg/dL (1.5-2.5); Potassium 4.4 meq/L (3.5-5.1); Sodium 139 meq/L (136-145)
[2017-12-12 06:46] LABS: Alanine Aminotransferase 23 U/L (12-78); Alkaline Phosphatase 96 U/L (45-117)
[2017-12-12] MEDS: Senna/Docusate Sodium 8.6/50 MG Tablet PO SCH ×2 (08:19→20:50)
[2017-12-12] MEDS: Lactobacillus Acidophilus/L. Spores Tablet PO SCH ×2 (08:19→20:50)
[2017-12-12] MEDS: Metoprolol Tartrate 100 MG Tablet PO SCH ×2 (08:20→20:50)
[2017-12-12] MEDS: dilTIAZem CD 300 MG Capsule PO SCH (08:20)
[2017-12-12] MEDS: predniSONE 20 MG Tablet PO SCH ×2 (08:20→20:50)
[2017-12-12] MEDS: Ferrous Sulfate 325 MG Tablet PO SCH (08:20)
[2017-12-12] MEDS: Enoxaparin Inj 40 MG/0.4 ML Syringe SQ SCH (08:21)
[2017-12-12] MEDS ORDERED: Sodium Chlor 0.9% Inj 500 ML IV.SIG ONE (12:00)
[2017-12-12] MEDS ORDERED: Lidocaine PF 1% Inj 5 ML Syringe INFILTRATN ONE (12:00)
[2017-12-12] MEDS ORDERED: Phenylephrine/NS 1000 MCG/10ML Syringe IV.PUSH ONE (12:00)
[2017-12-12] MEDS ORDERED: Neostigmine Inj 5 MG/5 ML Syringe IV.PUSH ONE (12:00)
[2017-12-12] MEDS ORDERED: Glycopyrrolate Inj 1 MG/5 ML Syringe IV.PUSH ONE (12:00)
[2017-12-12] MEDS ORDERED: Isoproterenol 200mcg/50mL Bag 200 MCG/50 ML BAG IV.CONT ONE (13:12)
[2017-12-12] MEDS ORDERED: fentaNYL Citrate Inj 100 MCG/2 ML Ampul ONE (13:12)
[2017-12-12] MEDS ORDERED: Heparin Drip 25,000 UNIT/250 ML BAG IV.CONT ONE (13:12)
[2017-12-12] MEDS ORDERED: Heparin 10,000 UNITS/10 ML Vial (for IV use) ONE ×2 (13:13→14:20)
[2017-12-12] MEDS ORDERED: Levofloxacin 500 mg Premix Inj 500 MG/100 ML PIGGYBACK IV.SIG ONE (13:13)
[2017-12-12] MEDS ORDERED: Famotidine PF Inj 20 MG/2 ML Vial ONE (13:13)
[2017-12-12] MEDS ORDERED: Protamine Sulfate Inj 50 MG/5 ML Vial ONE ×2 (13:13→15:53)
--- NOTE | 2017-12-12 16:02 | CATHPROC ---
Patient Name: Yogesh Ramírez Study #: [id number] Initial MD: Nora Mac Date of : 1940 Study Date: 12/12/2017 Cardiac Catheterization Report 12/12/2017 4:18:56 PM Financial #: [id number] 1 of 11 Patient Name: Yogesh Ramírez Study #: [id number] Initial MD: Nora Mac Date of : 1940 Study Date: 12/12/2017 Entire Case Report Patient Information Patient Name Yogesh Ramírez Date of 1940 Age 77 years Financial # [id number] Gender M AlternateID Lab Number 2 Room Number 245 Height (in) 72.0 Height (cm) 182.8 BSA 2.39 Weight (lbs) 261.6 Weight (kg) 118.9 Patient Address/Phone Number Home Address [facility] Home Phone Number [address] [phone] Study Information Study Number Admission Scheduled Start Study Start [id number] Dec 07 2017 3:15PM 12/12/2017 Dec 12 2017 12:50PM [facility] Cardiac Catheterization Admit Source Facility Department Other [facility] Physician and Clinical Staff Initial Nora Grimaldo [address] Judge Naeem Rossi,RT(R) Other Anesthesia, PROCESS DEVELOPMENT ENGINEER Recorder Iveth Rod,RN Recorder Christina Garner,ELISA Scrub Judy Benitez,RT(R) TECH2 X-Ray Kadi Fuller RCIS Procedures Performed Procedure Location (Site) Vessel Name Ablation Procedure ICE CATHETER INSERT RA Atruim RF Ablation LT. ATRIUM LT. ATRIUM Equipment Time First Line Production Supervisor Description Size Mfg Part Number Used/Scraped NEEDLE, TRANSSEPTAL [facility] 98 [id number] 13:19 [facility] [place] Used C1 *[id number] 12/12/2017 4:18:56 PM Financial #: [id number] 2 of 11 Patient Name: Yogesh Ramírez Study #: [id number] Initial MD: Nora Mac Date of : 1940 Study Date: 12/12/2017 BIOSENSE EL CATHETER, CELSIUS DS, 8MM, F [id number] 14:10 FR 7 Used INC. TYPE QUAD *[id number] [employer]/ EP [id number] 13:19 KIT, TRANSDUCER / AFIB Used PACER *[id number] CATHETER, TACTICATH ABLAT BUNDLE 13:19 BUND[facility] Used 65 BUNDLE *[id number]- BUNDLE [id number] CATHETER, FR7 OPTIMA SPIRAL 13:19 BUND[facility] FR7 *6686964- Used BUNDLE BUNDLE [id number] 13:19 BUN[facility] CATHETER, JSN, QUAD BUNDLE FR 5 *1076988- Used BUNDLE [id number] 13:19 BUND[facility] CATHETER, JSN, QUAD BUNDLE FR 5 *3066905- Used BUNDLE [id number] SET, COOL POINT TUBING 13:19 BUND[facility] *[id number]- Used BUNDLE BUNDLE SHEATH, FR8.5 STEERABLE SM 13:19 BUND[facility] 71CM [id number] Used 71CM BUNDLE [id number] 15:30 CARD[employer]A MEDICAL VASCADE, FR5 CLOSURE SYSTEM FR 5 Used *[id number] 15:30 C[employer] MEDICAL VASCADE, FR6 CLOSURE SYSTEM FR 6\\7 Used *[id number] 15:30 CARD[employer]A MEDICAL VASCADE, FR6 CLOSURE SYSTEM FR 6\\7 Used *[id number] 15:33 CARDIVA MEDICAL VASCADE, FR6 CLOSURE SYSTEM FR 6\\7 Used *[id number] 15:29 CARDIVA MEDICAL VASCADE, FR6 CLOSURE SYSTEM FR 6\\7 Used *1500161 COVER, TRANSDUCER CABLE 612-113 13:19 [employer] Used ACUNAV *[id number] 13:19 CORDIS/PACER SHEATH, FR10 TAMMY 11CM FR 10 Used *[id number] 13:19 CORDIS/PACER SHEATH, FR9 TAMMY 11CM FR 9 [id number] Used [id number] 13:19 MEDLINE [employer] BLANKET,WARM AIR CCL * Used *5558883 [id number] 13:19 [employer] PACK, CCL CUSTOM * Used *7634964 13:19 MEDLINE PACER FLOYD, LIMB * 2530 *[id number] Used 14:02 iSnap MEDICAL SHEATH, FR5.5 PRELUDE 11CM FR 5 [id number] Used [id number] 13:19 NAMIC TUBING, HIGH PRESSURE 48" 48" Used *5163418 [id number] 13:19 NAMIC TUBING, HIGH PRESSURE 48" 48" Used *7273091 [id number] 13:19 [facility] MEDICAL ELECTRODE KIT, PETER X SURFACE * Used *[id number] 815809 13:19 [facility] MEDICAL SHEATH, EPS, FR6 FAST CATH FR 6 Used *5563310 13:19 [facility] MEDICAL SHEATH, EPS, FR7 FAST CATH FR 7 [id number] Used 074722 13:19 [facility] MEDICAL SHEATH, EPS, FR8 FAST CATH FR 8 Used *[id number] CATHETER, ACUNAV FR10 ICE [id number] 14:10 RALPH FR 10 Used (RALPH) *[id number] 12/12/2017 4:18:56 PM Financial #: [id number] Patient Name: Yogesh Ramírez Study #: [id number] Initial MD: Nora Mac Date of : 1940 Study Date: 12/12/2017 [facility] PAD, ELECTROSURGICAL 13:19 * [id number] *[id number] Used SURGICAL GROUNDING (BLUE) Insurance Information Insurance Payor Medicare Third Libertarian Third Libertarian Number MEDICARE A B MCRAB History: Allergies Allergy Reaction No Known Allergies History: Risk Factors Hypertension Dyslipidemia Yes Yes Chronic Lung Disease Labs Hgb (g/dl) Hct (%) RBC (MIL/MM3) WBC (l/cumm) Platelets (thousands) 11.60-17.00 35.00-51.00 4.00-5.90 4.00-11.00 150.00-450.00 9.0 27 2.9 6.8 124 Glucose (mg/dl) BUN (mg/dl) Creatinine (mg/dl) BUN:Creatinine (1:x) 74.00-106.00 7.00-18.00 0.50-1.30 10.00-20.00 155 25 1.0 25 Na (meq/l) K (meq/l) 136.00-145.00 3.50-5.10 139 4.4 INR (PTT:PT) 0.90-1.10 1.2 Medication Medication Total Dose (Bolus/Oral) Medication Total Dosage/Unit 1% XYLOCAINE 40 mL HEPARIN 91164 units PROTAMINE 60 mg 12/12/2017 4:18:56 PM Financial #: [id number] Patient Name: Yogesh Ramírez Study #: [id number] Initial MD: Nora Mac Date of : 1940 Study Date: 12/12/2017 Medications (Bolus/Oral) Medication Time Given Dosage/Unit Administered By Reason 1% XYLOCAINE 12/12/2017 2:00:44 PM 20 mL oNra Mac 20 mL 1% XYLOCAINE given in lab by Nora Mac in Left Groin via Subcutaneous. 1% XYLOCAINE 12/12/2017 2:03:46 PM 20 mL Nora Mac 20 mL 1% XYLOCAINE given in lab by Nora Mac in Right Groin via Subcutaneous. HEPARIN 12/12/2017 2:20:30 PM 57227 units Anesthesia, PROCESS DEVELOPMENT ENGINEER As per physicians v erbal order 10242 units HEPARIN given in lab by Anesthesia, PROCESS DEVELOPMENT ENGINEER via Peripheral IV. Ordered by Nora Mac. [place] son: As per physicians verbal order. HEPARIN 12/12/2017 2:34:11 PM 3000 units Anesthesia, PROCESS DEVELOPMENT ENGINEER As per physicians ve rbal order 3000 units HEPARIN given in lab by Anesthesia, PROCESS DEVELOPMENT ENGINEER via Peripheral IV. Ordered by Nora Mac. Reas on: As per physicians verbal order. HEPARIN 12/12/2017 2:49:25 PM 1500 units Anesthesia, PROCESS DEVELOPMENT ENGINEER As per physicians ve rbal order 1500 units HEPARIN given in lab by Anesthesia, PROCESS DEVELOPMENT ENGINEER via Peripheral IV. Ordered by Nora Mac. Reas on: As per physicians verbal order. PROTAMINE 12/12/2017 3:26:40 PM 40 mg Anesthesia, PROCESS DEVELOPMENT ENGINEER As per physicians neo bal order 40 mg PROTAMINE given in lab by Anesthesia, PROCESS DEVELOPMENT ENGINEER. Ordered by Nora Mac. Reason: As per physicians verbal order. PROTAMINE 12/12/2017 3:54:44 PM 20 mg Anesthesia, PROCESS DEVELOPMENT ENGINEER As per physicians neo bal order 20 mg PROTAMINE given in lab by Anesthesia, PROCESS DEVELOPMENT ENGINEER. Ordered by Nora Mac. Reason: As per physicians verbal order. Medication (Drip) Medication Time Given Dosage/Unit Concentration/Unit Diluent (ml) Solution HEPARIN DRIP 12/12/2017 2:20:43 PM 1000 units/hr 39108 units 250 D5W 1000 units/hr HEPARIN DRIP given in lab by Anesthesia, PROCESS DEVELOPMENT ENGINEER via Peripheral IV. Pump/Drip Flow = 10 ml /hr using D5[place] [address] units in 250 ml. Ordered by Nora Mac. Reason: As per physicians verbal order. HEPARIN DRIP STOPPED 12/12/2017 3:22:17 PM 0 units/hr 0 0 units/hr HEPARIN DRIP STOPPED given in lab by Anesthesia, PROCESS DEVELOPMENT ENGINEER. Pump/Drip Flow = 0 ml/hr using [Aileen ution Name]. Ordered by Nora Mac. Reason: As per physicians verbal order. Discontinued at 12/12/2017 15:22. ISUPREL 12/12/2017 3:11:54 PM 20 mcg/min 1 mg 250 NaCl .9 20 mcg/min ISUPREL given in lab by Josué, PROCESS DEVELOPMENT ENGINEER via Peripheral IV. Pump/Drip Flow = 300 ml/hr usi ng NaCl .9 with a concentration of 1 mg in 250 ml. Ordered by Nora Mac. Reason: As per physicians verbal order. ISUPREL DRIP STOPPED 12/12/2017 3:19:12 PM 0 units/hr 0 D5W 0 units/hr ISUPREL DRIP STOPPED given in lab by Josué, BETINA. Pump/Drip Flow = 0 ml/hr using D5W. Ordered by Nora Mac. Reason: As per physicians verbal order. Discontinued at 12/12/2017 15:19. LEVAQUIN 12/12/2017 1:40:35 PM 100 mL/hr 500 100 NaCl .9 100 mL/hr LEVAQUIN given in lab by Anesthesia, PROCESS DEVELOPMENT ENGINEER via Peripheral IV. Pump/Drip Flow = 0 ml/hr using NaCl .9 with a concentration of 500 in 100 ml. Ordered by Nora Mac. Reason: As per physicians verbal order. 12/12/2017 4:18:56 PM Financial #: [id number] Patient Name: Yogesh Ramírez Study #: [id number] Initial MD: Nora Mac Date of : 1940 Study Date: 12/12/2017 Initial Case Assessment Cardiovascular HR Rhythm NIBP 115 af 109/76 Edema Present Skin color Skin None Normal Warm Dry Circulatory - Right Pulses Dorsalis Pedis 1 Scale (0,1,2,3,4,d) Circulatory - Left Pulses Dorsalis Pedis 1 Scale (0,1,2,3,4,d) Circulatory - Lower Extremities Color Lower Left Normal Neurological State Oriented to time-place- Alert Moves all extremities person Respiration - General Respiration Rate SpO2 (%) (B/min) 21 97 12/12/2017 4:18:56 PM Financial #: [id number] 6 of 11 Patient Name: Yogesh Ramírez Study #: [id number] Initial MD: Nora Mac Date of : 1940 Study Date: 12/12/2017 Final Case Assessment Cardiovascular HR NIBP 69 136/81 Edema Present Skin color Skin None Normal Warm Dry Circulatory - Right Pulses Dorsalis Pedis 1 Scale (0,1,2,3,4,d) Circulatory - Left Pulses Dorsalis Pedis 1 Scale (0,1,2,3,4,d) Circulatory - Lower Extremities Color Lower Right Color Lower Left Normal Normal Neurological State Restless Moves all extremities Comment: follows commands, opens eyes but very restless. Respiration - General Respiration Rate SpO2 (%) O2 (lpm) (B/min) 14 92 4 Chronological Log Time Study Chronological Log 12:50:02 Patient arrived via Bed. 12:50:02 Patient Name, D.O.B, / Armband Verified By R.N. 12:50:03 Consent signed by the physician and the patient and verified by the [facility] staff. 12:50:04 Pre-op and post- op instructions given; patient acknowledges understanding of instructions. 12:52:21 History and physical on the chart. 12:54:08 Anesthesia at bedside. Assumes care of patient. Will 12:54:13 Patient has been NPO for More than 6Hrs. Skin Breakdown- scabs bilateral shins, extensive abd bruising, extensive bilateral groin bruisi ng, generalized bruising 12:54:14 and a nodule present on right pubis. 12/12/2017 4:18:56 PM Financial #: [id number] 7 11 Patient Name: Yogesh Ramírez Study #: [id number] Initial MD: Nora Mac Date of : 1940 Study Date: 12/12/2017 12:54:15 Patient Warmer Placed on the Table. 12:54:17 Disposable Defibrillator Pads Placed On Patient. 12:54:17 Zeinab Prominences Protected 12:54:44 A # 20 IV was noted in the Antecubital (right). Grade = 0 0.9% NaCl @ KVO A # 20 beauchamp needle IV was noted in the Subclav. Vein (Lft. Grade = 0). Aspirated and wasted 10 ml from beauchamp lock 12:54:45 and flushed with saline. Connected to 0.9% NaCl @ KVO Assessment: Initial Case, OA=994 BPM, Rhythm=af, QNKO=744/76 mmhg, Edema=None, Color=Normal, Sk in = Warm, Dry Right Pulses: Onel Ped=1 12:55:26 Left Pulses: Onel Ped=1 Lower Left Extremities: Color=Normal Neurological: State=Alert, Ox3, GODINEZ Respiration: Resp=21 B/min, SpO2=97 % 13:16:45 Reference ECG taken 13:18:12 Table restraints applied according to hospital policy 13:19:39 MD paged 13:24:27 MD arrived. 13:34:26 Anesthesiologist present for intubation. Indwelling #14FR Lopez catheter inserted aseptically and secured to leg. Draining freely to bed side bag clear yellow 13:39:55 urine returns. 100 mL/hr LEVAQUIN given in lab by Anesthesia, PROCESS DEVELOPMENT ENGINEER via Peripheral IV. Pump/Drip Flow = 0 ml/hr using NaCl .9 with 13:40:35 a concentration of 500 in 100 ml. Ordered by Nora Mac. Reason: As per physicians verbal or adrianna. 13:42:49 Bilateral groins prepped with 2% chlorhexidine, and draped after a 3 minute waiting time. 13:54:21 paged 13:55:26 MD arrived. Time Out. Correct patient, procedure, procedure equipment, site and side verified with physicia n present. Time 14:00:00 concurred by MD, individual staff and PROCESS DEVELOPMENT ENGINEER. Time Out #2 - Consents verified, patient in correct position, all results are labled and displa yed, safety precautions 14:00:20 taken, antibiotics administered. Time out concurred by MD, individual staff and PROCESS DEVELOPMENT ENGINEER in procedu re 14:00:30 Case Start 14:00:44 20 mL 1% XYLOCAINE given in lab by Nora Mac in Left Groin via Subcutaneous. 14:01:13 Vascular access was obtained in the Fem Vein (left). 14:01:18 Vascular access was obtained in the Fem Vein (left). 14:01:24 Vascular access was obtained in the Fem Vein (left). 14:01:24 Vascular access was obtained in the Fem Art (left). A SHEATH, FR5.5 PRELUDE 11CM FR 5 was advanced into the Fem Art (left) using the Modified Seldi nger technique. 14:01:48 0.9ns pressure bag connected. 14:02:32 A SHEATH, EPS, FR6 FAST CATH FR 6 was advanced into the Fem Vein (left) using the Modified Seldinger technique. 14:02:43 A SHEATH, EPS, FR7 FAST CATH FR 7 was advanced into the Fem Vein (left) using the Modified Seldinger technique. 14:02:49 A SHEATH, EPS, FR8 FAST CATH FR 8 was advanced into the Fem Vein (left) using the Modified Seldinger technique. 14:03:46 20 mL 1% XYLOCAINE given in lab by Nora Mac in Right Groin via Subcutaneous. 14:04:06 Vascular access was obtained in the Fem Vein (right). 14:04:13 A SHEATH, EPS, FR8 FAST CATH FR 8 was advanced into the Fem Vein (right) using the Modified Seldinger technique. 12/12/2017 4:18:56 PM Financial #: [id number] 8 of 11 Patient Name: Yogesh Ramírez Study #: [id number] Initial MD: Nora Mac Date of : 1940 Study Date: 12/12/2017 A CATHETER, JSN, QUAD BUNDLE FR 5 was advanced vis Fem Vein (left) and placed in the CS. Placem ent was visually 14:04:42 confirmed under fluoroscopy. A CATHETER, JSN, QUAD BUNDLE FR 5 was advanced vis Fem Vein (left) and placed in the HIS. Place ment was 14:05:18 visually confirmed under fluoroscopy. 14:08:10 CATHETER, ACUNAV FR10 ICE (RALPH) FR 10 Was Postioned. A CATHETER, CELSIUS DS, 8MM, F TYPE QUAD FR 7 was advanced vis Fem Vein (right) and placed in t he LA. 14:11:08 Placement was visually confirmed under fluoroscopy. 14:13:05 RF Ablation of the LT. ATRIUM with a CATHETER, KALYN DS, 8MM, F TYPE QUAD FR 7. 14:17:25 Ablation catheter out. A SHEATH, FR8.5 STEERABLE SM 71CM BUNDLE 71CM was exchanged in the Fem Vein (right). This was n ecessary in 14:18:46 order for catheter support. A CATHETER, TACTICATH ABLAT 65 BUNDLE was advanced to the right atrium and passed through the s eptal wall to 14:20:11 the left atrium. 56162 units HEPARIN given in lab by Anesthesia, PROCESS DEVELOPMENT ENGINEER via Peripheral IV. Ordered by Hope Mac Reason: As per 14:20:30 physicians verbal order. 1000 units/hr HEPARIN DRIP given in lab by Anesthesia, PROCESS DEVELOPMENT ENGINEER via Peripheral IV. Pump/Drip Flow = 10 ml/hr using 14:20:43 [place] [address] units in 250 ml. Ordered by Hanscy. Bubba Reason: As per devan irving verbal order. A CATHETER, FR7 OPTIMA SPIRAL BUNDLE FR7 was advanced vis Fem Vein (right) and placed in the LA . Placement 14:26:17 was visually confirmed under fluoroscopy. 14:26:30 Mapping in progress. 14:29:20 Mapping completed. Mapping catheter out. 14:30:00 Beginning of case Body Temp_36.4_. A CATHETER, TACTICATH ABLAT 65 BUNDLE was advanced vis Fem Vein (right) and placed in the LA. P lacement was 14:31:32 visually confirmed under fluoroscopy. 14:32:03 RF ablation LA in progress. 14:33:02 ACT (Normal Range 90-180) = 305 3000 units HEPARIN given in lab by Anesthesia, PROCESS DEVELOPMENT ENGINEER via Peripheral IV. Ordered by Nora Mac Reason: As per 14:34:11 physicians verbal order. 14:42:08 Activated Clotting Time Drawn 14:49:18 ACT (Normal Range 90-180) = 348 1500 units HEPARIN given in lab by Anesthesia, PROCESS DEVELOPMENT ENGINEER via Peripheral IV. Ordered by Nora Mac Reason: As per 14:49:25 physicians verbal order. 15:02:10 Activated Clotting Time Drawn 15:04:34 Ablation Catheter was removed from LA. A CATHETER, TACTICATH ABLAT 65 BUNDLE was advanced vis Fem Vein (right) and placed in the HRA. Placement 15:04:51 was visually confirmed under fluoroscopy. 15:06:03 Tachycardia broken, converted to Sinus Rhythm 15:06:55 End Body Temp__36.3__. 15:06:55 HRA Ablation completed. 20 mcg/min ISUPREL given in lab by Anesthesia PROCESS DEVELOPMENT ENGINEER via Peripheral IV. Pump/Drip Flow = 300 ml/ hr using NaCl .9 15:11:54 with a concentration of 1 mg in 250 ml. Ordered by Nora Mac. Reason: As per physicians neo bal order. 15:15:09 ACT (Normal Range 90-180) = 357 0 units/hr ISUPREL DRIP STOPPED given in lab by Josué, BETINA. Pump/Drip Flow = 0 ml/hr usin g D5W. Ordered by 15:19:12 Nora Mac. Reason: As per physicians verbal order. Discontinued at 12/12/2017 15:19. 0 units/hr HEPARIN DRIP STOPPED given in lab by Anesthesia, BETINA. Pump/Drip Flow = 0 ml/hr usin g [Solution 15:22:17 Name]. Ordered by Nora Mac. Reason: As per physicians verbal order. Discontinued at 018 15:22. 15:22:47 All catheters removed. 12/12/2017 4:18:56 PM Financial #: [id number] 9 of 11 Patient Name: Yogesh Ramírez Study #: [id number] Initial MD: Nora Mac Date of : 1940 Study Date: 12/12/2017 15:23:30 Case End (Physician broke scrub) 40 mg PROTAMINE given in lab by Anesthesia, PROCESS DEVELOPMENT ENGINEER. Ordered by Nora Mac. Reason: As per phys icians verbal 15:26:40 order. 15:27:08 Ablation procedure performed: AFIB. 15:27:20 Implant Procedure was performed. 15:35:03 VASCADE, FR5 CLOSURE SYSTEM FR 5 placement in the Fem Art (left) 15:36:26 VASCADE, FR6 CLOSURE SYSTEM FR 6\\7 placement in the Fem Vein (right) 15:39:54 No case complications noted. 15:39:57 Cine recording checked. 15:40:31 PACU called. Spoke to Gayathri 15:40:53 Bedside Report will be given. 15:40:55 Implantable Device card placed in patient's chart. 15:41:41 VASCADE, FR6 CLOSURE SYSTEM FR 6\\7 placement in the Fem Vein (left) 15:43:43 Floor notified of successful intervention and pt to PACU first. Spoke with Rosette. 15:46:00 VASCADE, FR6 CLOSURE SYSTEM FR 6\\7 placement in the Fem Vein (left) 15:47:28 Activated Clotting Time Drawn 15:50:30 Sterile dressings applied to rt groin site. 15:51:50 VASCADE, FR6 CLOSURE SYSTEM FR 6\\7 placement in the Fem Vein (left) 15:52:37 ACT (Normal Range 90-180) = 247 20 mg PROTAMINE given in lab by Anesthesia, PROCESS DEVELOPMENT ENGINEER. Ordered by Nora Mac. Reason: As per phys icians verbal 15:54:44 order. 15:56:05 Sterile dressing applied to site left groin sites. 15:56:31 Bilateral groin sites soft, no hematomas or bleeding noted. 15:57:33 Pt extubated by anesthesia to supplemental oxygen by SFM. Assessment: Final Case, HR=69 BPM, FCKK=117/81 mmhg, Edema=None, Color=Normal, Skin = Warm, Dry Right Pulses: Onel Ped=1 Left Pulses: Onel Ped=1 15:57:47 Lower Right Extremities: Color=Normal Lower Left Extremities: Color=Normal Neurological: State=Restless, GODINEZ, Comment=follows commands, opens eyes but very restless. Respiration: Resp=14 B/min, SpO2=92 %, O2=4 lpm 16:00:17 Defibrillator and ground pads removed. Skin intact. Patient moved to stretcher. Awakened very restless and requiring supplemental oxygen by SFM. Pt created a friction 16:01:21 rub skin tear left arm. Tegaderm applied. 16:15:38 Pt transported to PACU with PROCESS DEVELOPMENT ENGINEER and tech accompanying in stable condition on supplemental oxygen and monitors. 12/12/2017 4:18:56 PM Financial #: [id number] Patient Name: Yogesh Ramírez Study #: [id number] Initial MD: Nora Mac Date of : 1940 Study Date: 12/12/2017 End Study - Contrast Media Used In Study Contrast Total Opened (mL) Total Used (mL) Total Wasted (mL) Unspecified 0 0 0 End Study - Maximum Contrast Load Max Contrast Load (mL) 594.5 End Study - Radiation Exposure Fluoro Time (minutes) 5.0 End Study - Patient Disposition Complications Transferred To No Telemetry Bed 12/12/2017 4:18:56 PM Financial #: [id number]
[2017-12-12] MEDS ORDERED: Sugammadex Inj 200 MG/2 ML Vial IV.PUSH ONE (16:03)
--- NOTE | 2017-12-12 16:27 | P.PCNCA ---
Atrial Fibrillation Ablation - Afib Ablation Procedure Date: 12/12/17 Atrial Fibrillation Ablation: PROCEDURES PERFORMED: 1. Electrophysiology study on Isuprel infusion 2. CS cannulation 3. 3-D mapping 4. Transseptal approach 5. Right and left heart catheterization 6. Intracardiac echo 7. Radiofrequency ablation of atrial fibrillation 8. Pulmonary vein isolation 9. Posterior wall ablation 10. Mitral valve isolation 11. Mitral line creation 12. Left atrial tachycardia ablation 13. Atrial flutter ablation 14. Roof line creation 15. Floor line creation 16. Anterior and posterior ablation INDICATIONS FOR THE PROCEDURE Yogesh Ramírez is a 77-year-old M with atrial fibrillation, left atrial tachycardia, very symptomatic, HR cannot be controlled with medications referred for electrophysiology study and ablation. The risks, the nature and the benefits of the procedure were clearly stated to the patient. The risks include pneumothorax, cardiac perforation, stroke, need for open heart surgery and even . The patient understood and agreed to proceed. DESCRIPTION OF THE PROCEDURE IN DETAIL After written informed consent was obtained, the patient was brought to the EP was brought to the EP lab where he was prepped and draped in the usual sterile fashion. Conscious sedation was initiated and maintained throughout the procedure by the anesthesiologist. Once sedation was verified, the right and left inguinal areas were anesthetized with 2% Xylocaine. Using modified Seldinger technique, the left femoral vein was cannulated on three occasions, three guidewires were advanced. Over the wire a 6, 7 and a 10-Welsh Hemaquet were advanced. Then the left femoral artery was cannulated on one occasion, one guidewire was advanced. Over the wire a 4-Welsh Hemaquet was advanced. Then the right femoral vein was cannulated on one occasion, one guidewire was advanced. Over the wire a 8-Welsh Hemaquet was advanced. Then under fluoroscopic guidance through the 6 and 7-Welsh Hemaquet, two 5-Welsh Yuli curved quadripolar electrophysiology catheters were advanced and placed around the His as well as coronary sinus. Basic interval was measured. The patient was in atrial fibrillation, possible atrial flutter. A this point, I decided to attempt atrial flutter ablation. Through the 8Fr hemaquet, a cordis Babcock 8mmm, F curve was advanced. Using [employer] 3D mapping system, a # D mapping of the right atrium was obtained. The catheter was placed at the critical isthmus. Rf was delivered. Activation changed. Then I decided to proceed with left atrial tachycardia/ atrial fibrillation ablation. Through the 10-Welsh Hemaquet, a [employer] AcuNav intracardiac echo catheter was advanced and placed at the right atrium. Multiple view was obtained. There is pericardial effusion, pulmonary vein was seen, atrial septal was visualized. Then the 8-Welsh Hemaquet in the right femoral vein was exchanged for Agilis transseptal sheath that was placed all the way to the superior vena cava. Through the sheath a Edmund needle was advanced, then the sheath, the dilator and the needle were progressed until foci engaged. Once engaged, the needle was advanced. RF was delivered for 2 seconds. I was able to cross into the left atrium. Once the needle crossed, the dilator was advanced. Once the dilator crossed, the sheath was advanced. Once the sheath crossed, the dilator and the needle were removed. At this point I did flood the system and fluid movement was seen in the left atrium the indicates the sheath is in good position. The patient already received 15,000 units of heparin. The goal is to keep an ACT around 350 during ablation. Then through the sheath a St. Lyle 20 pulse circumferential catheter was advanced. Using [employer] endocardial solution mapping system, a two-dimensional configuration of the left atrium was obtained. Points were taken at the left superior and inferior veins, right superior and inferior veins, mitral valve, and appendages. Then through the sheath a St. Lyle TactiCath 65cm 3.5mm irrigated tipped mapping and radiofrequency ablation catheter was advanced. Esophageal probe was placed temperature monitoring during ablation. When it increased to 0.5 degrees Celsius above baseline, I moved to a different area of the atrium. First I did completed the isolation of the left superior vein. Posterior was ablated. Then a roof line was created, a floor line was created, a mitral line was isolated, then the mitral valve was isolated. Activation map was created. Early activation was in the lateral wall. Ablation was performed. CL showed no change. I did create a line from the floor to the roof area, passing by the left atrial appendage. Then the right superior and inferior veins were isolated. I did remap the atrium. Activation change to the right side. Atrial tachycardia was mapped. Ablation performed at the ostial portion of the coronary sinus. Patient went into sinus rhythm. At this point I decided to proceed with cardioversion. There was no signal into the vein, pacing from the vein showed no conduction to the atrium. Isuprel infusion was initiated at 20 mcg for over 10 minutes. No tachyarrhythmia was induced, post Isuprel no tachyarrhythmia was induced. At that point the procedure was complete. All catheters were removed, atrial septal sheath was exchanged for 9-Welsh Hemaquet, intracardiac echo showed no pericardial effusion. There is still good flow in the pulmonary vein. The patient is going to be transferred to the recovery room. No incident report. The patient tolerated the procedure. Blood loss was minimal. FINDINGS 1. Electrocardiogram: At baseline the patient was in atrial fibrillation, left atrial tachycardia, post procedure the patient was in sinus rhythm. 2. Basic interval: Base cycle length was around 470. Post ablation she was around 900 milliseconds. 3. Tachyarrhythmia: Atrial fibrillation was mapped and ablated. Atrial tachycardia was ablated. The ablation was successful. CONCLUSION Successful electrophysiology study, mapping, radiofrequency ablation of atrial fibrillation, left atrial tachycardia, pulmonary vein isolation, posterior ablation, mitral valve isolation, mitral line creation, roof line creation, floor line creation, left atrial tachycardia, and cardioversion. COMMENTS AND RECOMMENDATIONS The patient is going to be transferred to the telemetry unit. Will be observed and when stable can be discharged home.
--- NOTE | 2017-12-12 17:21 | P.PNIM ---
Subjective Interval history: This is a 77-year-old male with past medical history significant for COPD, metastatic prostate cancer, bladder cancer, anemia, diastolic dysfunction, a.fib with prior ablation, HTN, obesity, and HLD who was originally admitted to [facility] on 10/26 due to septic shock, hypotension and hypoxemic respiratory failure found to be related to bilateral pneumonia. Patient was seen and evaluated by ID services during his admission and treated with IV cefepime and vancomycin. CT of chest did find adenopathy in right axillary area along with left upper nodule measuring 1.3cm possibly representing metastatic lesion, per radiologist. Patient was also noted to have low WBC count, currently on chemotherapy for metastatic prostate CA, follows with Dr. Richard Koo. Patient did have MATEO resulting in increase of creatinine to 1.46 with improvement with IVF. He was discharged from hospital on 11/02 and admitted to [facility]. He was subsequently discharged and admitted to [facility] on 11/13. While patient was in [facility] he developed tachycardia with questionable A. fib. Cardiology services consulted who did not believe patient was in A. fib rhythm. Patient also began developing increasing need for oxygen along with dyspnea on exertion. CT of the chest showed no PE, moderate to severe bilateral interstitial lung disease characteristic of either interstitial edema or pneumonitis, small left pleural effusion, line emphysematous lung changes. Patient underwent 2D echo which showed normal EF. Pulmonary services were consulted who recommended cardiac evaluation along with suspicions that respiratory symptoms were likely due to underlying history of smoking COPD, recommendations continue bronchodilators. Patient was treated with breathing treatments, oxygen increased to 6 L nasal cannula, tachycardia controlled with increase in Cardizem dose. Patient received 1 unit of PRBCs along with one- time dose of IV Lasix on 11/22 due to symptomatic anemia, H&H 8.3/25.7. Patient was treated with IV antibiotics Zosyn and vancomycin, blood cultures negative, changed to p.o. antibiotic Ceftin. Patient also with A. fib and RVR cardioverted to normal sinus rhythm by Dr. Bruno, had an atrial ablation. He had also a cardioversion 11/28. He was placed on amiodarone drip weaned off. Beta-simone increased at discharge to 75 mg p.o. twice daily. Continue Cardizem. Patient was started on low dose of aspirin and Eliquis. Patient also with normocytic anemia with the previous chemo on prostatic prostate cancer. Started on iron supplement. He was transfused 1 unit of blood on 11/22. However noted hemoglobin has been dropping yesterday from 8.2 to 7.4 on 12/06/17, held Eliquis x 1 day and was given 1 unit PRBC. Monitor H&H and transfuse if needed. Continue iron supplement. Patient also has had sustained tachycardia with intermittent a flutter with HR in the 120's and this afternoon elevated in the 130's. Patient was [place] [facility] [place] and transferred to [facility] service. Patient is assessed and completely asymptomatic. HR 130's with apparent a flutter on monitor. Continued on 4LNC. 12-08 Nursing reports Hemoccult positive stool since last night. H&H status post transfusion 7.7, previously was 7.1 patient denies any abdominal pain. Is asymptomatic. Heart rate is still very tachyarrhythmic beyond 130. Nursing reports that electrophysiology has seen the patient this morning anticipates possible procedure on Monday. 12-09 Nursing denies any deterioration since last night. Patient still tachycardic. Asymptomatic. 12-10 Nursing denies any deterioration since last night. Nursing thinks that the procainamide is not showing sustained improvement in the heart rate. He is actually feeling really excited about the fact that he says he was able to stand for the first time in 3 weeks today. Denies any chest pain 12-[address] BRUNO INPUT MONITOR HEART RATE DW RN AND PT AND CM GI HAS SIGNED OFF WILL NEED TO RESTART ELIQUIS OR THE EQUIVALENT-- CURRENTLY ONLY ON LOVENOX 40 SUBQ BID 12-12 HAD AFIB ABLATION TODAY WITH DR BRUNO NO NEW COMPLAINTS RECONSULT GI SINCE NOW HAS CONTROL HEART RATE AND NEEDS ANTICOAGULATION Physical Exam Vital signs: Vital Signs 12/11/17 18:00 12/11/17 19:00 12/11/17 19:12 Temperature Pulse Rate 108 H 110 H 112 H Respiratory Rate 16 Blood Pressure Pulse Oximetry 94 L 12/11/17 20:00 12/11/17 21:00 12/11/17 22:00 Temperature 97.9 F Pulse Rate 112 H 110 H 110 H Respiratory Rate 18 Blood Pressure 118/70 Pulse Oximetry 95 12/11/17 23:00 12/12/17 00:00 12/12/17 01:00 Temperature 97.7 F Pulse Rate 112 H 113 H 111 H Respiratory Rate 18 Blood Pressure 107/71 Pulse Oximetry 97 12/12/17 02:00 12/12/17 03:00 12/12/17 04:00 Temperature 97.7 F Pulse Rate 112 H 112 H 112 H Respiratory Rate 18 Blood Pressure 111/75 Pulse Oximetry 96 12/12/17 05:00 12/12/17 06:00 12/12/17 07:00 Temperature Pulse Rate 112 H 113 H 113 H Respiratory Rate Blood Pressure Pulse Oximetry 12/12/17 07:47 12/12/17 08:00 12/12/17 09:00 Temperature 97.7 F Pulse Rate 113 H 110 H 111 H Respiratory Rate 18 20 Blood Pressure 118/71 Pulse Oximetry 94 L 96 12/12/17 10:00 12/12/17 11:00 12/12/17 12:00 Temperature 98.0 F Pulse Rate 111 H 113 H 112 H Respiratory Rate 20 Blood Pressure 105/71 Pulse Oximetry 95 12/12/17 16:21 Temperature 97.5 F L Pulse Rate 76 Respiratory Rate 20 Blood Pressure 96/56 L Pulse Oximetry 96 Intake & Output 12/11/17 12/12/17 12/12/17 18:59 06:59 18:59 Intake Total 1300 / 1300 340 / 340 100 / 100 Output Total 680 / 680 395 / 395 Balance 620 / 620 -55 / -55 100 / 100 Weight 118.9 kg Intake: IV 100 / 100 100 / 100 Levaquin 500 mg Premix Inj 500 100 / 100 mg In 100 ml @ 0 mls/hr IV.SIG .STK-MED ONE Rx#:[id number] Magnesium Sulfate 1 gm/D5W 100 100 / 100 ml Premix 100 ML @ 100 mls/hr IV.SIG ONCE ONE Rx#:[id number] Oral 1300 / 1300 240 / 240 Output: Urine 680 / 680 395 / 395 Other: Date of Last Bowel Movement 12/12/17 12/12/17 # Bowel Movements 1 Narrative: GENERAL: Awake alert and oriented 3- talkative and cooperative SKIN: Warm and dry. HEAD: Atraumatic. Normocephalic. EYES: Pupils equal and round. No scleral icterus. No injection or drainage. EOMI ENT: No nasal bleeding or discharge. Mucous membranes pink and moist. Tongue is midline NECK: Trachea midline. No JVD. Supple CARDIOVASCULAR: IRRegular rate and rhythm. S1-S2 no S3 or S4 RESPIRATORY: No accessory muscle use. Clear to auscultation. Breath sounds equal bilaterally. GASTROINTESTINAL: Abdomen soft, non-tender, nondistended. Hepatic and splenic margins not palpable. MUSCULOSKELETAL: Extremities without clubbing, cyanosis, or edema. No obvious deformities. NEUROLOGICAL: Awake and alert. No obvious cranial nerve deficits. Motor grossly within normal limits. 4 out of 5 muscle strength in the arms and legs. Normal speech. PSYCHIATRIC: Appropriate mood and affect; insight and judgment normal. Results - Labs CBC & Chem 7: 12/09/17 06:25 12/12/17 04:15 Laboratory Results - last 24 hr 12/11/17 12/11/17 12/12/17 17:56 17:56 04:15 Sodium 139 Potassium 4.4 Chloride 104 Carbon Dioxide 25.4 Anion Gap 10 BUN 25 H Creatinine 1.01 Estimated GFR 72 L Random Glucose 155 H Hemoglobin A1c 6.2 H Calcium 7.8 L Phosphorus 3.0 3.0 Magnesium 1.3 L 1.5 Total Bilirubin 0.3 AST 8 L ALT 23 Alkaline Phosphatase 96 Total Protein 5.0 L Albumin 2.0 L TSH 2.430 Free T4 0.88 - Procedures Atrial Fibrillation Ablation - Afib Ablation Procedure Date: 12/12/17 Atrial Fibrillation Ablation: PROCEDURES PERFORMED: 1. Electrophysiology study on Isuprel infusion 2. CS cannulation 3. 3-D mapping 4. Transseptal approach 5. Right and left heart catheterization 6. Intracardiac echo 7. Radiofrequency ablation of atrial fibrillation 8. Pulmonary vein isolation 9. Posterior wall ablation 10. Mitral valve isolation 11. Mitral line creation 12. Left atrial tachycardia ablation 13. Atrial flutter ablation 14. Roof line creation 15. Floor line creation 16. Anterior and posterior ablation INDICATIONS FOR THE PROCEDURE Yogesh Ramírez is a 77-year-old M with atrial fibrillation, left atrial tachycardia, very symptomatic, HR cannot be controlled with medications referred for electrophysiology study and ablation. The risks, the nature and the benefits of the procedure were clearly stated to the patient. The risks include pneumothorax, cardiac perforation, stroke, need for open heart surgery and even . The patient understood and agreed to proceed. DESCRIPTION OF THE PROCEDURE IN DETAIL After written informed consent was obtained, the patient was brought to the EP was brought to the EP lab where he was prepped and draped in the usual sterile fashion. Conscious sedation was initiated and maintained throughout the procedure by the anesthesiologist. Once sedation was verified, the right and left inguinal areas were anesthetized with 2% Xylocaine. Using modified Seldinger technique, the left femoral vein was cannulated on three occasions, three guidewires were advanced. Over the wire a 6, 7 and a 10-Mosotho Hemaquet were advanced. Then the left femoral artery was cannulated on one occasion, one guidewire was advanced. Over the wire a 4-Mosotho Hemaquet was advanced. Then the right femoral vein was cannulated on one occasion, one guidewire was advanced. Over the wire a 8-Mosotho Hemaquet was advanced. Then under fluoroscopic guidance through the 6 and 7-Mosotho Hemaquet, two 5-Mosotho Yuli curved quadripolar electrophysiology catheters were advanced and placed around the His as well as coronary sinus. Basic interval was measured. The patient was in atrial fibrillation, possible atrial flutter. A this point, I decided to attempt atrial flutter ablation. Through the 8Fr hemaquet, a cordis Babcock 8mmm, F curve was advanced. Using [employer] 3D mapping system, a # D mapping of the right atrium was obtained. The catheter was placed at the critical isthmus. Rf was delivered. Activation changed. Then I decided to proceed with left atrial tachycardia/ atrial fibrillation ablation. Through the 10-Mosotho Hemaquet, a Cordis Babcock AcuNav intracardiac echo catheter was advanced and placed at the right atrium. Multiple view was obtained. There is pericardial effusion, pulmonary vein was seen, atrial septal was visualized. Then the 8-Mosotho Hemaquet in the right femoral vein was exchanged for Agilis transseptal sheath that was placed all the way to the superior vena cava. Through the sheath a Edmund needle was advanced, then the sheath, the dilator and the needle were progressed until foci engaged. Once engaged, the needle was advanced. RF was delivered for 2 seconds. I was able to cross into the left atrium. Once the needle crossed, the dilator was advanced. Once the dilator crossed, the sheath was advanced. Once the sheath crossed, the dilator and the needle were removed. At this point I did flood the system and fluid movement was seen in the left atrium the indicates the sheath is in good position. The patient already received 15,000 units of heparin. The goal is to keep an ACT around 350 during ablation. Then through the sheath a St. Lyle 20 pulse circumferential catheter was advanced. Using [employer] endocardial solution mapping system, a two-dimensional configuration of the left atrium was obtained. Points were taken at the left superior and inferior veins, right superior and inferior veins, mitral valve, and appendages. Then through the sheath a St. Lyle TactiCath 65cm 3.5mm irrigated tipped mapping and radiofrequency ablation catheter was advanced. Esophageal probe was placed temperature monitoring during ablation. When it increased to 0.5 degrees Celsius above baseline, I moved to a different area of the atrium. First I did completed the isolation of the left superior vein. Posterior was ablated. Then a roof line was created, a floor line was created, a mitral line was isolated, then the mitral valve was isolated. Activation map was created. Early activation was in the lateral wall. Ablation was performed. CL showed no change. I did create a line from the floor to the roof area, passing by the left atrial appendage. Then the right superior and inferior veins were isolated. I did remap the atrium. Activation change to the right side. Atrial tachycardia was mapped. Ablation performed at the ostial portion of the coronary sinus. Patient went into sinus rhythm. At this point I decided to proceed with cardioversion. There was no signal into the vein, pacing from the vein showed no conduction to the atrium. Isuprel infusion was initiated at 20 mcg for over 10 minutes. No tachyarrhythmia was induced, post Isuprel no tachyarrhythmia was induced. At that point the procedure was complete. All catheters were removed, atrial septal sheath was exchanged for 9-Mosotho Hemaquet, intracardiac echo showed no pericardial effusion. There is still good flow in the pulmonary vein. The patient is going to be transferred to the recovery room. No incident report. The patient tolerated the procedure. Blood loss was minimal. FINDINGS 1. Electrocardiogram: At baseline the patient was in atrial fibrillation, left atrial tachycardia, post procedure the patient was in sinus rhythm. 2. Basic interval: Base cycle length was around 470. Post ablation she was around 900 milliseconds. 3. Tachyarrhythmia: Atrial fibrillation was mapped and ablated. Atrial tachycardia was ablated. The ablation was successful. CONCLUSION Successful electrophysiology study, mapping, radiofrequency ablation of atrial fibrillation, left atrial tachycardia, pulmonary vein isolation, posterior ablation, mitral valve isolation, mitral line creation, roof line creation, floor line creation, left atrial tachycardia, and cardioversion. COMMENTS AND RECOMMENDATIONS The patient is going to be transferred to the telemetry unit. Will be observed and when stable can be discharged home. Documented By: Nora Bruno MD Assessment and Plan - Plan 77-year-old man with Atrial flutter with RVR vs sinus tachycardia -Patient is s/p cardioversion 11/28. Cardiology, Dr. Bruno. s/p Atrial ablation. Started amiodarone drip November 26, 2017 at that time. Was eventually dcd. -Being dosed with flecainide, electrophysiology following, may plan for pacemaker if no improvement by Monday; will make NPO empirically tonight at midnight. SP A-FIB ABLATION BY DR BRUNO 12-12 Suspected GI bleed -h/h still low despite most recent transfusion yesterday coming from [facility] -Heparin or Lovenox while inpatient to cover for A. fib, H&H is holding steady after 2 units of transfusion of blood, patient is too unstable for EGD procedure at this time per GI RECONSULT GI acute on chronic Normocytic anemia -Previously on chemo for prostate CA. -Continue oral Fe supplementation Acute on chronic respiratory failure with hypoxia and need for supplemental O2 Left-sided small pleural effusion Hx COPD Hx of recent community acquired pneumonia -CTA 11/21: no PE, moderate to severe bilateral interstitial lung disease characteristic of either interstitial edema or pneumonitis, small left pleural effusion, line emphysematous lung changes. -2D echo completed on 11/22 with normal EF. -Scheduled duonebs. -Will continue Ceftin from previous admission per ID recs. HTN, essential chronic, stable HLD -Continue metoprolol and Cardizem, blood pressure stable. -hold ASa IN LIGHT Of bleed -Continued on Lipitor. Chronic kidney disease stage III -Avoid nephrotoxic drug Code Status: FULL CODE Discussed Condition With: RN AND PT AND CM Discharge Planning: HAS CARDIAC CLEARANCE NEEDS GI EVAL NOW
[2017-12-13 06:18] LABS: Baso % (Auto) 0.4 % (0.0-2.0); Eos % (Auto) 0.1 % (0.0-4.0); Hematocrit 26.7 % (39.0-51.0); Hemoglobin 8.8 gm/dL (13.0-17.0); Lymph # (Auto) 0.6 th/mm3 (1.0-4.8); Lymph % (Auto) 7.7 % (9.0-44.0); Mean Corpuscular Hemoglobin 30.4 pg (27.0-34.0); Mean Corpuscular Volume 92.1 fL (80.0-100.0); Mean Platelet Volume 7.7 fL (7.0-11.0); Mono # (Auto) 0.3 th/mm3 (0.0-0.9); Mono % (Auto) 4.2 % (0.0-8.0); Neut # (Auto) 6.4 th/mm3 (1.8-7.7); Neut % (Auto) 87.6 % (16.0-70.0); Platelet Count 115 th/mm3 (150-450); Red Cell Distribution Width 20.1 % (11.6-17.2); White Blood Count 7.4 th/mm3 (4.0-11.0)
[2017-12-13 07:05] LABS: Albumin 1.9 g/dL (3.4-5.0); Calcium 7.3 mg/dL (8.5-10.1); Carbon Dioxide 24.4 meq/L (21.0-32.0); Magnesium 1.4 mg/dL (1.5-2.5); Phosphorus 3.2 mg/dL (2.5-4.9); Potassium 4.2 meq/L (3.5-5.1); Total Protein 4.8 g/dL (6.4-8.2)
[2017-12-13 08:40] LABS: Dimorphic RBC Present; Lymphocytes 5 % (9-44); Metamyelocytes 1 % (0-1); Monocytes 3 % (0-8); Myelocytes 3 % (0-0); Platelet Morphology Normal (Normal)
[2017-12-13] MEDS: Senna/Docusate Sodium 8.6/50 MG Tablet PO SCH ×2 (08:50→20:34)
[2017-12-13] MEDS: predniSONE 20 MG Tablet PO SCH ×2 (08:50→20:35)
[2017-12-13] MEDS: Metoprolol Tartrate 100 MG Tablet PO SCH ×2 (08:50→20:37)
[2017-12-13] MEDS: Lactobacillus Acidophilus/L. Spores Tablet PO SCH ×2 (08:50→20:35)
[2017-12-13] MEDS: Ferrous Sulfate 325 MG Tablet PO SCH (08:50)
[2017-12-13] MEDS: dilTIAZem CD 300 MG Capsule PO SCH (08:50)
[2017-12-13] MEDS: Sod Chloride 0.9% Inj 1,000 ML IV.CONT SCH ×2 (09:45→20:33)
--- NOTE | 2017-12-13 10:17 | ECG ---
Date Performed: 12/12/2017 Time Performed: 16:50:34 PTAGE: 77 years EKG: Sinus rhythm INDETERMINATE AXIS RIGHT BUNDLE BRANCH BLOCK ABNORMAL ECG Since the PREVIOUS TRACING , no significant change noted PREVIOUS TRACIN12/01/2017 06.35 DOCTOR: Maria De Jesus Fernandez Interpretating Date/Time 12/13/2017 10:16:56
--- NOTE | 2017-12-13 10:25 | P.CONGI ---
History of Present Illness Consult date: 12/13/17 Consult reason: Anemia Chief complaint: HALICAT History of Present Illness: This is a 77-year-old male with past medical history significant for COPD, metastatic prostate cancer who is receiving chemotherapy and last treatment was 2 months ago, bladder cancer, anemia, Atrial fibrillation with prior ablation, HTN, obesity, who is here after Halicat was initiated while in [facility] for respiratory stress. Pt had recent admission to [facility] on 10/26 due to septic shock, hypotension and hypoxemic respiratory failure and bilateral pneumonia. GI has been consulted for anemia, hgb on admission 7.7. He received one unit of blood at [facility]. Pt denies any GI symptoms including nausea, vomiting, abdominal pain, changes in bowel habits, heartburn, any obvious GIB. Reports having colonoscopy about 3 yrs ago in [place], and findings included one polyp. Denies previous EGD. Our service was consulted four days ago and pt was noted to be too unstable at that time due to a fib with RVR, pt is now S/P ablation by Dr. Mac yesterday and is in normal sinus rhythm. We have been reconsulted to evaluate for possible EGD and colonoscopy. <Rossy De León - Last Filed: 12/13/17 10:14> Review of Systems Gastrointestinal: Denies abdominal pain, Denies black, tarry stools, Denies bright, red blood in stools, Denies change in stools, Denies nausea, Denies vomiting <Rossy De León - Last Filed: 12/13/17 10:14> [facility], [facility] - History History Provided By: Patient - Medical History Medical History: Medical History (Last Reviewed 12/13/17 @ 09:03 by Rosanne Boyd) Atrial fibrillation Hypertension Port catheter in place Prostate cancer - Surgical History Surgical History: Surgical History (Last Reviewed 12/13/17 @ 09:03 by Rosanne Boyd) S/P ablation of atrial fibrillation - Family History Family History: Family History (Last Reviewed 12/13/17 @ 09:04 by Rosanne Boyd) Father Family history of cancer Sister Family history of cancer - Tobacco History Second Hand Smoke Exposure: No Smoking Status: Former smoker Tobacco Type: Cigarettes Packs Per Day: 1 - Alcohol History How Often Do You Have a Drink Containing Alcohol: Never - Substance Use History Substance History: No History of Abuse - Travel History History of Recent Travel: No <Rossy De León - Last Filed: 12/13/17 10:14> - Medical History Medical History: Medical History (Last Reviewed 12/13/17 @ 09:03 by Rosanne Boyd) Atrial fibrillation Hypertension Port catheter in place Prostate cancer - Surgical History Surgical History: Surgical History (Last Reviewed 12/13/17 @ 09:03 by Rosanne Boyd) S/P ablation of atrial fibrillation - Family History Family History: Family History (Last Reviewed 12/13/17 @ 09:04 by Rosanne Boyd) Father Family history of cancer Sister Family history of cancer <Moreno Blanco - Last Filed: 12/13/17 15:23> Medications and Allergies Active Medications: Active Medications Acetaminophen (Tylenol) 650 mg PO Q4H PRN PRN Reason: Temp > 100.4 Al Hydroxide/Mg Hydroxide (Milk Of Magnesia Liq) 30 ml PO Q12H PRN PRN Reason: Mild Constipation Atorvastatin Calcium (Lipitor) 10 mg PO DAILY [facility] Last Admin: 12/13/17 08:49 Dose: 10 mg Bisacodyl (Dulcolax Supp) 10 mg RECTAL DAILY PRN PRN Reason: SEVERE CONSITIPATION Budesonide (Pulmocort Respule Neb) 0.5 mg NEB Q12HR NEB [facility] Last Admin: 12/13/17 09:04 Dose: 0.5 mg Cefuroxime Axetil (Ceftin) 500 mg PO Q12HR [facility] Last Admin: 12/13/17 08:50 Dose: 500 mg Diltiazem HCl (Cardizem Cd 24hr) 300 mg PO DAILY [facility] Last Admin: 12/13/17 08:50 Dose: 300 mg Enoxaparin Sodium (Lovenox Inj) 40 mg SQ Q12H [facility] Ferrous Sulfate (Ferosul) 325 mg PO DAILY [facility] Last Admin: 12/13/17 08:50 Dose: 325 mg Sodium Chloride (Ns Inj) 1,000 mls @ 100 mls/hr IV.CONT .Q10H [facility] Last Admin: 12/13/17 09:45 Dose: 100 mls/hr Lactobacillus Acidophilus (Lactinex) 1 tab PO BID [facility] Last Admin: 12/13/17 08:50 Dose: 1 tab Lactulose (Lactulose Liq) 30 ml PO DAILY PRN PRN Reason: SEVERE CONSITIPATION Metoprolol Tartrate (Lopressor) 100 mg PO BID [facility] Last Admin: 12/13/17 08:50 Dose: 100 mg Miscellaneous Information ([facility] Nursing Information) 1 each OTHER UNSCH PRN PRN Reason: SEE LABEL COMMENTS Stop: 12/13/17 16:20 Ondansetron HCl (Zofran Odt) 4 mg PO Q6H PRN PRN Reason: NAUSEA OR VOMITING Ondansetron HCl (Zofran Inj) 4 mg IV.PUSH Q6H PRN PRN Reason: NAUSEA OR VOMITING Ondansetron HCl (Zofran Inj) 4 mg IV.PUSH Q4H PRN PRN Reason: NAUSEA Pantoprazole Sodium (Protonix) 40 mg PO DAILY [facility] Last Admin: 12/13/17 08:50 Dose: 40 mg Prednisone (Deltasone) 20 mg PO BID [facility] Last Admin: 12/13/17 08:50 Dose: 20 mg Senna/Docusate Sodium (Jayne-Colace) 1 tab PO BID [facility] Last Admin: 12/13/17 08:50 Dose: 1 tab Sennosides (Senokot) 17.2 mg PO Q12H PRN PRN Reason: Moderate Constipation Temazepam (Restoril) 15 mg PO HS PRN PRN Reason: INSOMNIA <Rossy De León - Last Filed: 12/13/17 10:14> Active Medications: Active Medications Acetaminophen (Tylenol) 650 mg PO Q4H PRN PRN Reason: Temp > 100.4 Al Hydroxide/Mg Hydroxide (Milk Of Magnesia Liq) 30 ml PO Q12H PRN PRN Reason: Mild Constipation Atorvastatin Calcium (Lipitor) 10 mg PO DAILY [facility] Last Admin: 12/13/17 08:49 Dose: 10 mg Bisacodyl (Dulcolax Supp) 10 mg RECTAL DAILY PRN PRN Reason: SEVERE CONSITIPATION Budesonide (Pulmocort Respule Neb) 0.5 mg NEB Q12HR NEB [facility] Last Admin: 12/13/17 09:04 Dose: 0.5 mg Cefuroxime Axetil (Ceftin) 500 mg PO Q12HR [facility] Last Admin: 12/13/17 08:50 Dose: 500 mg Diltiazem HCl (Cardizem Cd 24hr) 300 mg PO DAILY [facility] Last Admin: 12/13/17 08:50 Dose: 300 mg Enoxaparin Sodium (Lovenox Inj) 40 mg SQ Q12H [facility] Ferrous Sulfate (Ferosul) 325 mg PO DAILY [facility] Last Admin: 12/13/17 08:50 Dose: 325 mg Sodium Chloride (Ns Inj) 1,000 mls @ 100 mls/hr IV.CONT .Q10H [facility] Last Admin: 12/13/17 09:45 Dose: 100 mls/hr Lactobacillus Acidophilus (Lactinex) 1 tab PO BID [facility] Last Admin: 12/13/17 08:50 Dose: 1 tab Lactulose (Lactulose Liq) 30 ml PO DAILY PRN PRN Reason: SEVERE CONSITIPATION Metoprolol Tartrate (Lopressor) 100 mg PO BID [facility] Last Admin: 12/13/17 08:50 Dose: 100 mg Miscellaneous Information ([facility] Nursing Information) 1 each OTHER UNSCH PRN PRN Reason: SEE LABEL COMMENTS Stop: 12/13/17 16:20 Morphine Sulfate (Morphine Inj) 2 mg IV.PUSH Q3H PRN PRN Reason: PAIN 3-5; IF UABLE TO TAKE PO Morphine Sulfate (Morphine Inj) 4 mg IV.PUSH Q3H PRN PRN Reason: PAIN 6-10;IF UNABLE TO TAKE PO Naloxone HCl (Narcan Inj) 0.4 mg IV.PUSH UNSCH PRN PRN Reason: SEE LABEL COMMENTS Ondansetron HCl (Zofran Odt) 4 mg PO Q6H PRN PRN Reason: NAUSEA OR VOMITING Ondansetron HCl (Zofran Inj) 4 mg IV.PUSH Q6H PRN PRN Reason: NAUSEA OR VOMITING Ondansetron HCl (Zofran Inj) 4 mg IV.PUSH Q4H PRN PRN Reason: NAUSEA Oxycodone/Acetaminophen (Percocet 10/325 Mg) 1 tab PO Q6H PRN PRN Reason: PAIN SCALE 6 TO 10 Oxycodone/Acetaminophen (Percocet 5/325 Mg) 1 tab PO Q6H PRN PRN Reason: PAIN SCALE 3 TO 5 Pantoprazole Sodium (Protonix) 40 mg PO DAILY [facility] Last Admin: 12/13/17 08:50 Dose: 40 mg Polyethylene Glycol/Electrolytes (Colyte Liq) 4,000 ml PO ONCE ONE Stop: 12/13/17 16:01 Prednisone (Deltasone) 20 mg PO BID [facility] Last Admin: 12/13/17 08:50 Dose: 20 mg Senna/Docusate Sodium (Jayne-Colace) 1 tab PO BID [facility] Last Admin: 12/13/17 08:50 Dose: 1 tab Sennosides (Senokot) 17.2 mg PO Q12H PRN PRN Reason: Moderate Constipation Tamsulosin HCl (Flomax) 0.4 mg PO DAILY [facility] Last Admin: 12/13/17 13:15 Dose: 0.4 mg Temazepam (Restoril) 15 mg PO HS PRN PRN Reason: INSOMNIA <Moreno Blanco - Last Filed: 12/13/17 15:23> Allergies Allergy/AdvReac Type Severity Reaction Status Date / Time No Known Allergies Allergy Verified 11/13/17 18:08 Home Medications Medication Instructions Recorded Confirmed Type ipratropium-albuterol 3 ml INHALATION Q8H 11/13/17 12/03/17 History Exam Vital signs: Vital Signs 12/12/17 11:00 12/12/17 12:00 12/12/17 15:00 Temperature 98.0 F Pulse Rate 113 H 112 H 76 Respiratory Rate 20 Blood Pressure 105/71 Pulse Oximetry 95 12/12/17 16:00 12/12/17 16:21 12/12/17 16:30 Temperature 97.5 F L Pulse Rate 76 76 74 Respiratory Rate 20 24 Blood Pressure 96/56 L 98/53 L Pulse Oximetry 96 98 12/12/17 16:45 12/12/17 17:00 12/12/17 17:34 Temperature 97.5 F L 97.6 F Pulse Rate 75 74 77 Respiratory Rate 16 18 Blood Pressure 97/55 L 127/92 H Pulse Oximetry 95 93 L 12/12/17 18:00 12/12/17 18:04 12/12/17 18:34 Temperature Pulse Rate 79 84 85 Respiratory Rate 18 16 Blood Pressure 107/60 99/62 L Pulse Oximetry 92 L 94 L 12/12/17 19:00 12/12/17 20:00 12/12/17 20:19 Temperature 97.4 F L Pulse Rate 80 78 81 Respiratory Rate 18 20 Blood Pressure 110/64 Pulse Oximetry 96 97 12/12/17 21:00 12/12/17 22:00 12/12/17 23:00 Temperature 97.6 F Pulse Rate 80 80 80 Respiratory Rate 18 Blood Pressure 97/63 L 106/68 97/59 L Pulse Oximetry 97 12/13/17 00:00 12/13/17 01:00 12/13/17 02:00 Temperature Pulse Rate 79 78 78 Respiratory Rate Blood Pressure Pulse Oximetry 12/13/17 03:00 12/13/17 04:00 12/13/17 05:00 Temperature 98.5 F Pulse Rate 80 79 80 Respiratory Rate 18 Blood Pressure 101/57 L Pulse Oximetry 96 12/13/17 06:00 12/13/17 07:00 12/13/17 08:00 Temperature 98.6 F Pulse Rate 79 84 Respiratory Rate 16 Blood Pressure 105/65 Pulse Oximetry 94 L 93 L 12/13/17 08:59 Temperature Pulse Rate 90 Respiratory Rate 16 Blood Pressure Pulse Oximetry 96 Intake & Output 12/12/17 12/13/17 12/13/17 18:59 06:59 18:59 Intake Total 340 / 340 240 / 240 Output Total 1205 / 1205 225 / 225 Balance -865 / -865 15 / 15 Weight 123 kg Intake: IV 100 / 100 Levaquin 500 mg Premix Inj 500 100 / 100 mg In 100 ml @ 0 mls/hr IV.SIG .STK-MED ONE Rx#:[id number] Oral 240 / 240 240 / 240 Output: Urine 405 / 405 Urine Amount (Catheter) 800 / 800 225 / 225 Indwelling Urethral Catheter 800 / 800 225 / 225 Other: Date of Last Bowel Movement 12/12/17 12/13/17 12/12/17 # Bowel Movements 0 1 - Constitutional no acute distress - Routine HEENT Exam Head: Present: normocephalic, atraumatic - Routine Respiratory Exam Absent: accessory muscle use - Routine Cardiovascular Exam Present: RRR - Routine Abdominal Exam Present: soft, normoactive bowel sounds. Absent: tenderness Comments: bruising to abdomen - Routine Skin Exam Present: dry, warm - Routine Neurological Exam Present: alert, oriented X3 <Rossy De León - Last Filed: 12/13/17 10:14> Vital signs: Vital Signs 12/12/17 16:00 12/12/17 16:21 12/12/17 16:30 Temperature 97.5 F L Pulse Rate 76 76 74 Respiratory Rate 20 24 Blood Pressure 96/56 L 98/53 L Pulse Oximetry 96 98 12/12/17 16:45 12/12/17 17:00 12/12/17 17:34 Temperature 97.5 F L 97.6 F Pulse Rate 75 74 77 Respiratory Rate 16 18 Blood Pressure 97/55 L 127/92 H Pulse Oximetry 95 93 L 12/12/17 18:00 12/12/17 18:04 12/12/17 18:34 Temperature Pulse Rate 79 84 85 Respiratory Rate 18 16 Blood Pressure 107/60 99/62 L Pulse Oximetry 92 L 94 L 12/12/17 19:00 12/12/17 20:00 12/12/17 20:19 Temperature 97.4 F L Pulse Rate 80 78 81 Respiratory Rate 18 20 Blood Pressure 110/64 Pulse Oximetry 96 97 12/12/17 21:00 12/12/17 22:00 12/12/17 23:00 Temperature 97.6 F Pulse Rate 80 80 80 Respiratory Rate 18 Blood Pressure 97/63 L 106/68 97/59 L Pulse Oximetry 97 12/13/17 00:00 12/13/17 01:00 12/13/17 02:00 Temperature Pulse Rate 79 78 78 Respiratory Rate Blood Pressure Pulse Oximetry 12/13/17 03:00 12/13/17 04:00 12/13/17 05:00 Temperature 98.5 F Pulse Rate 80 79 80 Respiratory Rate 18 Blood Pressure 101/57 L Pulse Oximetry 96 12/13/17 06:00 12/13/17 07:00 12/13/17 08:00 Temperature 98.6 F Pulse Rate 79 84 98 H Respiratory Rate 16 Blood Pressure 105/65 Pulse Oximetry 94 L 93 L 12/13/17 08:59 12/13/17 09:00 12/13/17 10:00 Temperature Pulse Rate 90 90 86 Respiratory Rate 16 Blood Pressure Pulse Oximetry 96 12/13/17 10:55 12/13/17 11:00 12/13/17 12:00 Temperature 97.6 F Pulse Rate 87 82 87 Respiratory Rate 18 Blood Pressure 123/75 Pulse Oximetry 94 L 12/13/17 13:00 12/13/17 14:00 12/13/17 14:44 Temperature 97.4 F L Pulse Rate 73 80 71 Respiratory Rate 17 Blood Pressure 106/64 Pulse Oximetry 94 L Intake & Output 12/12/17 12/13/17 12/13/17 18:59 06:59 18:59 Intake Total 340 / 340 240 / 240 Output Total 1205 / 1205 225 / 225 Balance -865 / -865 Weight 123 kg Intake: IV 100 / 100 Levaquin 500 mg Premix Inj 500 100 / 100 mg In 100 ml @ 0 mls/hr IV.SIG .STK-MED ONE Rx#:[id number] Oral 240 / 240 240 / 240 Output: Urine 405 / 405 Urine Amount (Catheter) 800 / 800 225 / 225 Indwelling Urethral Catheter 800 / 800 225 / 225 Other: Date of Last Bowel Movement 12/12/17 12/13/17 12/13/17 # Bowel Movements 0 1 <Morneo Blanco - Last Filed: 12/13/17 15:23> Results - Labs CBC & Chem 7: 12/13/17 04:30 12/13/17 04:30 Labs: Laboratory Results - last 24 hr 12/13/17 12/13/17 04:30 04:30 WBC 7.4 RBC 2.90 L Hgb 8.8 L Hct 26.7 L MCV 92.1 MCH 30.4 MCHC 33.0 RDW 20.1 H Plt Count 115 L MPV 7.7 Prelim Diff (Auto) Slide review pending Neut % (Auto) 87.6 H Lymph % (Auto) 7.7 L Ida % (Auto) 4.2 Eos % (Auto) 0.1 Baso % (Auto) 0.4 Neut # (Auto) 6.4 Lymph # (Auto) 0.6 L Ida # (Auto) 0.3 Eos # (Auto) 0.0 Baso # (Auto) 0.0 WBC Differential Manual diff final Seg Neuts % (Manual) 73 H Band Neuts % (Manual) 15 H Lymphocytes % (Manual) 5 L Monocytes % (Manual) 3 Metamyelocytes % (Man) 1 Myelocytes % (Man) 3 H Abs Neuts (Manual) 6.8 Differential Comment . Platelet Estimate Low L Platelet Morphology Normal Dimorphic RBCs Present H Sodium 139 Potassium 4.2 Chloride 105 Carbon Dioxide 24.4 Anion Gap 10 BUN 27 H Creatinine 0.99 Estimated GFR 74 L Random Glucose 146 H Calcium 7.3 L* Prot Corrected Calcium 8.6 Phosphorus 3.2 Magnesium 1.4 L Total Bilirubin 0.2 AST 26 ALT 24 Alkaline Phosphatase 92 Total Protein 4.8 L Albumin 1.9 L <Rossy De León - Last Filed: 12/13/17 10:14> - Labs CBC & Chem 7: 12/13/17 04:30 12/13/17 04:30 Labs: Laboratory Results - last 24 hr 12/13/17 12/13/17 04:30 04:30 WBC 7.4 RBC 2.90 L Hgb 8.8 L Hct 26.7 L MCV 92.1 MCH 30.4 MCHC 33.0 RDW 20.1 H Plt Count 115 L MPV 7.7 Prelim Diff (Auto) Slide review pending Neut % (Auto) 87.6 H Lymph % (Auto) 7.7 L Ida % (Auto) 4.2 Eos % (Auto) 0.1 Baso % (Auto) 0.4 Neut # (Auto) 6.4 Lymph # (Auto) 0.6 L Ida # (Auto) 0.3 Eos # (Auto) 0.0 Baso # (Auto) 0.0 WBC Differential Manual diff final Seg Neuts % (Manual) 73 H Band Neuts % (Manual) 15 H Lymphocytes % (Manual) 5 L Monocytes % (Manual) 3 Metamyelocytes % (Man) 1 Myelocytes % (Man) 3 H Abs Neuts (Manual) 6.8 Differential Comment . Platelet Estimate Low L Platelet Morphology Normal Dimorphic RBCs Present H Sodium 139 Potassium 4.2 Chloride 105 Carbon Dioxide 24.4 Anion Gap 10 BUN 27 H Creatinine 0.99 Estimated GFR 74 L Random Glucose 146 H Calcium 7.3 L* Prot Corrected Calcium 8.6 Phosphorus 3.2 Magnesium 1.4 L Total Bilirubin 0.2 AST 26 ALT 24 Alkaline Phosphatase 92 Total Protein 4.8 L Albumin 1.9 L <Moreno Blanco - Last Filed: 12/13/17 15:23> Assessment and Plan - Plan - Anemia/heme (+) stools- Likely multifactorial, pt with hx of metastatic prostate cancer, bladder cancer could be a factor, possible GI bleed. pt denies active bleed. Hgb today 9.2 hgb on admission 7.7. He received one unit of blood at [facility]. Pt denies nausea, vomiting, abd pain, hematemesis, diarrhea, constipation, melena or hematochezia. States his urine is brown. Reports having colonoscopy about 3 yrs ago. Never had EGD before. Currently pt is tacky cardiac, hypotensive. He was found to have heme (+) stools. - metastatic prostate cancer, bladder cancer Follwoing with oncology - diana- was on Elqiuis ( this is on hold), Cardiology consulted - Respiratory distress - Pt had recent admission to [facility] on 10/26 due to septic shock , hypotension and hypoxemic respiratory failure and bilateral pneumonia. 12/10/2017 current hemoglobin 9.2 no obvious bleeding noted. Patient continues to have atrial flutter, heart rate 119. Patient states history of polyps, and denies any melena or dark stools. No lower extremity edema. Patient needs to be stable from a cardiac perspective before any GI workup or procedures can be done. As long as patient has no obvious bleeding this could be done on an outpatient basis RECONSULT (12/13) Pt was noted to bee too unstable for GI procedures due to atrial fibrillation with RVR, pt is now S/P cardiac ablation yesterday now in sinus rhythm and stable for GI procedures. Our service has been reconsulted to evaluate pt for possible EGD and colonoscopy. As previous stated pt has been found to have heme (+) stools. Denies any obvious GIB including black, tarry stools and hematochezia. Denies any GI symptoms including nausea, vomiting, abdominal pain. Last colonoscopy 3 years ago in [place], one polyp. Denies previous EGD. Lovenox currently on hold due to bruising on abdomen. Despite transfusion on the , hgb continues to trend down. Plan: - EGD and colonoscopy tomorrow - Obtain consent - Clear liquids today - Golytely prep - NPO after MN - Monitor H/H - Lovenox on hold - Further recommendations to follow Pt has been seen and examined by myself and Dr. Blanco and this note is written on his behalf <Rossy De León - Last Filed: 12/13/17 10:14> - Plan Seen and examined, no active bleeding. EGD/Colonoscopy tomorrow. Discussed with pt. - Attending Attestation The exam, history, and the medical decision-making described in the above note were completed with the assistance of the mid-level provider. I reviewed and agree with the findings presented. I attest that I had a [id number] encounter with the patient on the same day, and personally performed and documented my assessment and findings in the medical record. <Moreno Blanco - Last Filed: 12/13/17 15:23>
[2017-12-13] MEDS ORDERED: oxyCODONE/Acetaminophen 10/325 Tablet PO PRN (12:44)
[2017-12-13] MEDS ORDERED: Morphine Inj 4 MG/ML Vial IV.PUSH PRN ×2 (12:44)
[2017-12-13] MEDS ORDERED: Naloxone Inj 0.4 MG/ML Vial IV.PUSH PRN (12:44)
[2017-12-13] MEDS ORDERED: Sodium Chlor 0.9% Inj 500 ML IV.SIG ONE (13:00)
--- NOTE | 2017-12-13 13:54 | P.PNIM ---
Subjective Interval history: This is a 77-year-old male with past medical history significant for COPD, metastatic prostate cancer, bladder cancer, anemia, diastolic dysfunction, a.fib with prior ablation, HTN, obesity, and HLD who was originally admitted to [facility] on 10/26 due to septic shock, hypotension and hypoxemic respiratory failure found to be related to bilateral pneumonia. Patient was seen and evaluated by ID services during his admission and treated with IV cefepime and vancomycin. CT of chest did find adenopathy in right axillary area along with left upper nodule measuring 1.3cm possibly representing metastatic lesion, per radiologist. Patient was also noted to have low WBC count, currently on chemotherapy for metastatic prostate CA, follows with Dr. Richard Koo. Patient did have MATEO resulting in increase of creatinine to 1.46 with improvement with IVF. He was discharged from hospital on 11/02 and admitted to [facility]. He was subsequently discharged and admitted to [facility] on 11/13. While patient was in [facility] he developed tachycardia with questionable A. fib. Cardiology services consulted who did not believe patient was in A. fib rhythm. Patient also began developing increasing need for oxygen along with dyspnea on exertion. CT of the chest showed no PE, moderate to severe bilateral interstitial lung disease characteristic of either interstitial edema or pneumonitis, small left pleural effusion, line emphysematous lung changes. Patient underwent 2D echo which showed normal EF. Pulmonary services were consulted who recommended cardiac evaluation along with suspicions that respiratory symptoms were likely due to underlying history of smoking COPD, recommendations continue bronchodilators. Patient was treated with breathing treatments, oxygen increased to 6 L nasal cannula, tachycardia controlled with increase in Cardizem dose. Patient received 1 unit of PRBCs along with one- time dose of IV Lasix on 11/22 due to symptomatic anemia, H&H 8.3/25.7. Patient was treated with IV antibiotics Zosyn and vancomycin, blood cultures negative, changed to p.o. antibiotic Ceftin. Patient also with A. fib and RVR cardioverted to normal sinus rhythm by Dr. Bruno, had an atrial ablation. He had also a cardioversion 11/28. He was placed on amiodarone drip weaned off. Beta-simone increased at discharge to 75 mg p.o. twice daily. Continue Cardizem. Patient was started on low dose of aspirin and Eliquis. Patient also with normocytic anemia with the previous chemo on prostatic prostate cancer. Started on iron supplement. He was transfused 1 unit of blood on 11/22. However noted hemoglobin has been dropping yesterday from 8.2 to 7.4 on 12/06/17, held Eliquis x 1 day and was given 1 unit PRBC. Monitor H&H and transfuse if needed. Continue iron supplement. Patient also has had sustained tachycardia with intermittent a flutter with HR in the 120's and this afternoon elevated in the 130's. Patient was transferred to [facility] for further monitoring and transferred to [facility] service. Patient is assessed and completely asymptomatic. HR 130's with apparent a flutter on monitor. Continued on 4LNC. 12-08 Nursing reports Hemoccult positive stool since last night. H&H status post transfusion 7.7, previously was 7.1 patient denies any abdominal pain. Is asymptomatic. Heart rate is still very tachyarrhythmic beyond 130. Nursing reports that electrophysiology has seen the patient this morning anticipates possible procedure on Monday. 12-09 Nursing denies any deterioration since last night. Patient still tachycardic. Asymptomatic. 12-10 Nursing denies any deterioration since last night. Nursing thinks that the procainamide is not showing sustained improvement in the heart rate. He is actually feeling really excited about the fact that he says he was able to stand for the first time in 3 weeks today. Denies any chest pain 12-[address] BRUNO INPUT MONITOR HEART RATE PRANAV RN AND PT AND CM GI HAS SIGNED OFF WILL NEED TO RESTART ELIQUIS OR THE EQUIVALENT-- CURRENTLY ONLY ON LOVENOX 40 SUBQ BID 12-12 HAD AFIB ABLATION TODAY WITH DR BRUNO NO NEW COMPLAINTS RECONSULT GI SINCE NOW HAS CONTROL HEART RATE AND NEEDS ANTICOAGULATION 8-1 TO HAVE PROCEDURES WITH GI TOMORROW AM LABS GIVE IV FLUIDS POOR URINE OUTPUT START FLOMAX DW RN AND PT AND GI Physical Exam Vital signs: Vital Signs 12/12/17 15:00 12/12/17 16:00 12/12/17 16:21 Temperature 97.5 F L Pulse Rate 76 76 76 Respiratory Rate 20 Blood Pressure 96/56 L Pulse Oximetry 96 12/12/17 16:30 12/12/17 16:45 12/12/17 17:00 Temperature 97.5 F L Pulse Rate 74 75 74 Respiratory Rate 24 16 Blood Pressure 98/53 L 97/55 L Pulse Oximetry 98 95 12/12/17 17:34 12/12/17 18:00 12/12/17 18:04 Temperature 97.6 F Pulse Rate 77 79 84 Respiratory Rate 18 18 Blood Pressure 127/92 H 107/60 Pulse Oximetry 93 L 92 L 12/12/17 18:34 12/12/17 19:00 12/12/17 20:00 Temperature 97.4 F L Pulse Rate 85 80 78 Respiratory Rate 16 18 Blood Pressure 99/62 L 110/64 Pulse Oximetry 94 L 96 12/12/17 20:19 12/12/17 21:00 12/12/17 22:00 Temperature Pulse Rate 81 80 80 Respiratory Rate 20 Blood Pressure 97/63 L 106/68 Pulse Oximetry 97 12/12/17 23:00 12/13/17 00:00 12/13/17 01:00 Temperature 97.6 F Pulse Rate 80 79 78 Respiratory Rate 18 Blood Pressure 97/59 L Pulse Oximetry 97 12/13/17 02:00 12/13/17 03:00 12/13/17 04:00 Temperature 98.5 F Pulse Rate 78 80 79 Respiratory Rate 18 Blood Pressure 101/57 L Pulse Oximetry 96 12/13/17 05:00 12/13/17 06:00 12/13/17 07:00 Temperature 98.6 F Pulse Rate 80 79 84 Respiratory Rate 16 Blood Pressure 105/65 Pulse Oximetry 94 L 12/13/17 08:00 12/13/17 08:59 12/13/17 09:00 Temperature Pulse Rate 98 H 90 90 Respiratory Rate 16 Blood Pressure Pulse Oximetry 93 L 96 12/13/17 10:00 12/13/17 10:55 12/13/17 11:00 Temperature 97.6 F Pulse Rate 86 87 82 Respiratory Rate 18 Blood Pressure 123/75 Pulse Oximetry 94 L 12/13/17 12:00 12/13/17 13:00 Temperature Pulse Rate 87 73 Respiratory Rate Blood Pressure Pulse Oximetry Intake & Output 12/12/17 12/13/17 12/13/17 18:59 06:59 18:59 Intake Total 340 / 340 240 / 240 Output Total 1205 / 1205 225 / 225 Balance -865 / -865 15 / 15 Weight 123 kg Intake: IV 100 / 100 Levaquin 500 mg Premix Inj 500 100 / 100 mg In 100 ml @ 0 mls/hr IV.SIG .[facility] Rx#:[id number] Oral 240 / 240 240 / 240 Output: Urine 405 / 405 Urine Amount (Catheter) 800 / 800 225 / 225 Indwelling Urethral Catheter 800 / 800 225 / 225 Other: Date of Last Bowel Movement 12/12/17 12/13/17 12/12/17 # Bowel Movements 0 1 Narrative: GENERAL: Awake alert and oriented 3- talkative and cooperative SKIN: Warm and dry. HEAD: Atraumatic. Normocephalic. EYES: Pupils equal and round. No scleral icterus. No injection or drainage. EOMI ENT: No nasal bleeding or discharge. Mucous membranes pink and moist. Tongue is midline NECK: Trachea midline. No JVD. Supple CARDIOVASCULAR: IRRegular rate and rhythm. S1-S2 no S3 or S4 RESPIRATORY: No accessory muscle use. Clear to auscultation. Breath sounds equal bilaterally. GASTROINTESTINAL: Abdomen soft, non-tender, nondistended. Hepatic and splenic margins not palpable. MUSCULOSKELETAL: Extremities without clubbing, cyanosis, or edema. No obvious deformities. NEUROLOGICAL: Awake and alert. No obvious cranial nerve deficits. Motor grossly within normal limits. 4 out of 5 muscle strength in the arms and legs. Normal speech. PSYCHIATRIC: Appropriate mood and affect; insight and judgment normal. - Urinary Catheter Management Indwelling Urethral Catheter Cath placed during this visit: yes, but has since been removed by the nurse Reason for continuing: Not indwelling catheter Insertion date: 12/12/17 Removal date: 12/13/17 Removal time: 00:30 Results - Labs CBC & Chem 7: 12/13/17 04:30 12/13/17 04:30 Laboratory Results - last 24 hr 12/13/17 12/13/17 04:30 04:30 WBC 7.4 RBC 2.90 L Hgb 8.8 L Hct 26.7 L MCV 92.1 MCH 30.4 MCHC 33.0 RDW 20.1 H Plt Count 115 L MPV 7.7 Prelim Diff (Auto) Slide review pending Neut % (Auto) 87.6 H Lymph % (Auto) 7.7 L Rawlins % (Auto) 4.2 Eos % (Auto) 0.1 Baso % (Auto) 0.4 Neut # (Auto) 6.4 Lymph # (Auto) 0.6 L Rawlins # (Auto) 0.3 Eos # (Auto) 0.0 Baso # (Auto) 0.0 WBC Differential Manual diff final Seg Neuts % (Manual) 73 H Band Neuts % (Manual) 15 H Lymphocytes % (Manual) 5 L Monocytes % (Manual) 3 Metamyelocytes % (Man) 1 Myelocytes % (Man) 3 H Abs Neuts (Manual) 6.8 Differential Comment . Platelet Estimate Low L Platelet Morphology Normal Dimorphic RBCs Present H Sodium 139 Potassium 4.2 Chloride 105 Carbon Dioxide 24.4 Anion Gap 10 BUN 27 H Creatinine 0.99 Estimated GFR 74 L Random Glucose 146 H Calcium 7.3 L* Prot Corrected Calcium 8.6 Phosphorus 3.2 Magnesium 1.4 L Total Bilirubin 0.2 AST 26 ALT 24 Alkaline Phosphatase 92 Total Protein 4.8 L Albumin 1.9 L - Procedures Atrial Fibrillation Ablation - Afib Ablation Procedure Date: 12/12/17 Atrial Fibrillation Ablation: PROCEDURES PERFORMED: 1. Electrophysiology study on Isuprel infusion 2. CS cannulation 3. 3-D mapping 4. Transseptal approach 5. Right and left heart catheterization 6. Intracardiac echo 7. Radiofrequency ablation of atrial fibrillation 8. Pulmonary vein isolation 9. Posterior wall ablation 10. Mitral valve isolation 11. Mitral line creation 12. Left atrial tachycardia ablation 13. Atrial flutter ablation 14. Roof line creation 15. Floor line creation 16. Anterior and posterior ablation INDICATIONS FOR THE PROCEDURE Yogesh Ramírez is a 77-year-old M with atrial fibrillation, left atrial tachycardia, very symptomatic, HR cannot be controlled with medications referred for electrophysiology study and ablation. The risks, the nature and the benefits of the procedure were clearly stated to the patient. The risks include pneumothorax, cardiac perforation, stroke, need for open heart surgery and even . The patient understood and agreed to proceed. DESCRIPTION OF THE PROCEDURE IN DETAIL After written informed consent was obtained, the patient was brought to the EP was brought to the EP lab where he was prepped and draped in the usual sterile fashion. Conscious sedation was initiated and maintained throughout the procedure by the anesthesiologist. Once sedation was verified, the right and left inguinal areas were anesthetized with 2% Xylocaine. Using modified Seldinger technique, the left femoral vein was cannulated on three occasions, three guidewires were advanced. Over the wire a 6, 7 and a 10-[place] Hemaquet were advanced. Then the left femoral artery was cannulated on one occasion, one guidewire was advanced. Over the wire a 4-[place] Hemaquet was advanced. Then the right femoral vein was cannulated on one occasion, one guidewire was advanced. Over the wire a 8-[place] Hemaquet was advanced. Then under fluoroscopic guidance through the 6 and 7-[place] Hemaquet, two 5-[place] Yuli curved quadripolar electrophysiology catheters were advanced and placed around the His as well as coronary sinus. Basic interval was measured. The patient was in atrial fibrillation, possible atrial flutter. A this point, I decided to attempt atrial flutter ablation. Through the 8Fr hemaquet, a cordis Babcock 8mmm, F curve was advanced. Using [employer] 3D mapping system, a # D mapping of the right atrium was obtained. The catheter was placed at the critical isthmus. Rf was delivered. Activation changed. Then I decided to proceed with left atrial tachycardia/ atrial fibrillation ablation. Through the 10-[place] Hemaquet, a Cordis Babcock AcuNav intracardiac echo catheter was advanced and placed at the right atrium. Multiple view was obtained. There is pericardial effusion, pulmonary vein was seen, atrial septal was visualized. Then the 8-[place] Hemaquet in the right femoral vein was exchanged for Agilis transseptal sheath that was placed all the way to the superior vena cava. Through the sheath a Edmund needle was advanced, then the sheath, the dilator and the needle were progressed until foci engaged. Once engaged, the needle was advanced. RF was delivered for 2 seconds. I was able to cross into the left atrium. Once the needle crossed, the dilator was advanced. Once the dilator crossed, the sheath was advanced. Once the sheath crossed, the dilator and the needle were removed. At this point I did flood the system and fluid movement was seen in the left atrium the indicates the sheath is in good position. The patient already received 15,000 units of heparin. The goal is to keep an ACT around 350 during ablation. Then through the sheath a [place] 20 pulse circumferential catheter was advanced. Using [employer] endocardial solution mapping system, a two-dimensional configuration of the left atrium was obtained. Points were taken at the left superior and inferior veins, right superior and inferior veins, mitral valve, and appendages. Then through the sheath a [place]. Lyle TactiCath 65cm 3.5mm irrigated tipped mapping and radiofrequency ablation catheter was advanced. Esophageal probe was placed temperature monitoring during ablation. When it increased to 0.5 degrees Celsius above baseline, I moved to a different area of the atrium. First I did completed the isolation of the left superior vein. Posterior was ablated. Then a roof line was created, a floor line was created, a mitral line was isolated, then the mitral valve was isolated. Activation map was created. Early activation was in the lateral wall. Ablation was performed. CL showed no change. I did create a line from the floor to the roof area, passing by the left atrial appendage. Then the right superior and inferior veins were isolated. I did remap the atrium. Activation change to the right side. Atrial tachycardia was mapped. Ablation performed at the ostial portion of the coronary sinus. Patient went into sinus rhythm. At this point I decided to proceed with cardioversion. There was no signal into the vein, pacing from the vein showed no conduction to the atrium. Isuprel infusion was initiated at 20 mcg for over 10 minutes. No tachyarrhythmia was induced, post Isuprel no tachyarrhythmia was induced. At that point the procedure was complete. All catheters were removed, atrial septal sheath was exchanged for 9-[place] Islander Hemaquet, intracardiac echo showed no pericardial effusion. There is still good flow in the pulmonary vein. The patient is going to be transferred to the recovery room. No incident report. The patient tolerated the procedure. Blood loss was minimal. FINDINGS 1. Electrocardiogram: At baseline the patient was in atrial fibrillation, left atrial tachycardia, post procedure the patient was in sinus rhythm. 2. Basic interval: Base cycle length was around 470. Post ablation she was around 900 milliseconds. 3. Tachyarrhythmia: Atrial fibrillation was mapped and ablated. Atrial tachycardia was ablated. The ablation was successful. CONCLUSION Successful electrophysiology study, mapping, radiofrequency ablation of atrial fibrillation, left atrial tachycardia, pulmonary vein isolation, posterior ablation, mitral valve isolation, mitral line creation, roof line creation, floor line creation, left atrial tachycardia, and cardioversion. COMMENTS AND RECOMMENDATIONS The patient is going to be transferred to the telemetry unit. Will be observed and when stable can be discharged home. Documented By: Nora Bruno MD Assessment and Plan - Plan 77-year-old man with Atrial flutter with RVR vs sinus tachycardia -Patient is s/p cardioversion 11/28. Cardiology, Dr. Bruno. s/p Atrial ablation. Started amiodarone drip November 26, 2017 at that time. Was eventually dcd. -Being dosed with flecainide, electrophysiology following, may plan for pacemaker if no improvement by Monday; will make NPO empirically tonight at midnight. SP A-FIB ABLATION BY DR BRUNO 12-12 Suspected GI bleed -h/h still low despite most recent transfusion yesterday coming from [place] -Heparin or Lovenox while inpatient to cover for A. fib, H&H is holding steady after 2 units of transfusion of blood, patient is too unstable for EGD procedure at this time per GI RECONSULT GI TO HAVE GI PROCEDURES ON - acute on chronic Normocytic anemia -Previously on chemo for prostate CA. -Continue oral Fe supplementation Acute on chronic respiratory failure with hypoxia and need for supplemental O2 Left-sided small pleural effusion Hx COPD Hx of recent community acquired pneumonia -CTA 11/21: no PE, moderate to severe bilateral interstitial lung disease characteristic of either interstitial edema or pneumonitis, small left pleural effusion, line emphysematous lung changes. -2D echo completed on 11/22 with normal EF. -Scheduled duonebs. -Will continue Ceftin from previous admission per ID recs. HTN, essential chronic, stable HLD -Continue metoprolol and Cardizem, blood pressure stable. -hold ASa IN LIGHT Of bleed -Continued on Lipitor. Chronic kidney disease stage III -Avoid nephrotoxic drug Code Status: FULL CODE Discussed Condition With: RN AND PT AND CM AND GI Discharge Planning: HAS CARDIAC CLEARANCE NEEDS GI EVAL NOW
[2017-12-13] MEDS: Enoxaparin Inj 40 MG/0.4 ML Syringe SQ SCH (15:24)
[2017-12-13] MEDS ORDERED: PEG 3350/E-Lyte Soln 4000 ML Bottle PO ONE (16:00)
--- NOTE | 2017-12-13 16:16 | P.PN ---
Subjective Interval history: Feeling better Physical Exam Vital signs: Vital Signs 12/12/17 16:21 12/12/17 16:30 12/12/17 16:45 Temperature 97.5 F L 97.5 F L Pulse Rate 76 74 75 Respiratory Rate 20 24 16 Blood Pressure 96/56 L 98/53 L 97/55 L Pulse Oximetry 96 98 95 12/12/17 17:00 12/12/17 17:34 12/12/17 18:00 Temperature 97.6 F Pulse Rate 74 77 79 Respiratory Rate 18 Blood Pressure 127/92 H Pulse Oximetry 93 L 12/12/17 18:04 12/12/17 18:34 12/12/17 19:00 Temperature Pulse Rate 84 85 80 Respiratory Rate 18 16 Blood Pressure 107/60 99/62 L Pulse Oximetry 92 L 94 L 12/12/17 20:00 12/12/17 20:19 12/12/17 21:00 Temperature 97.4 F L Pulse Rate 78 81 80 Respiratory Rate 18 20 Blood Pressure 110/64 97/63 L Pulse Oximetry 96 97 12/12/17 22:00 12/12/17 23:00 12/13/17 00:00 Temperature 97.6 F Pulse Rate 80 80 79 Respiratory Rate 18 Blood Pressure 106/68 97/59 L Pulse Oximetry 97 12/13/17 01:00 12/13/17 02:00 12/13/17 03:00 Temperature 98.5 F Pulse Rate 78 78 80 Respiratory Rate 18 Blood Pressure 101/57 L Pulse Oximetry 96 12/13/17 04:00 12/13/17 05:00 12/13/17 06:00 Temperature Pulse Rate 79 80 79 Respiratory Rate Blood Pressure Pulse Oximetry 12/13/17 07:00 12/13/17 08:00 12/13/17 08:59 Temperature 98.6 F Pulse Rate 84 98 H 90 Respiratory Rate 16 16 Blood Pressure 105/65 Pulse Oximetry 94 L 93 L 96 12/13/17 09:00 12/13/17 10:00 12/13/17 10:55 Temperature 97.6 F Pulse Rate 90 86 87 Respiratory Rate 18 Blood Pressure 123/75 Pulse Oximetry 94 L 12/13/17 11:00 12/13/17 12:00 12/13/17 13:00 Temperature Pulse Rate 82 87 73 Respiratory Rate Blood Pressure Pulse Oximetry 12/13/17 14:00 12/13/17 14:44 12/13/17 16:00 Temperature 97.4 F L Pulse Rate 80 71 75 Respiratory Rate 17 Blood Pressure 106/64 Pulse Oximetry 94 L Intake & Output 12/12/17 12/13/17 12/13/17 18:59 06:59 18:59 Intake Total 340 / 340 240 / 240 500 / 500 Output Total 1205 / 1205 225 / 225 Balance -865 / -865 15 500 / 500 Weight 123 kg Intake: IV 100 / 100 500 / 500 Levaquin 500 mg Premix Inj 500 100 / 100 mg In 100 ml @ 0 mls/hr IV.SIG .STK-MED ONE Rx#:[id number] NS Inj 500 ML @ Wide Open IV. 500 / 500 SIG BOLUS ONE Rx#:[id number] Oral 240 / 240 240 / 240 Output: Urine 405 / 405 Urine Amount (Catheter) 800 / 800 225 / 225 Indwelling Urethral Catheter 800 / 800 225 / 225 Other: Date of Last Bowel Movement 12/12/17 12/13/17 12/13/17 # Bowel Movements 0 1 - Constitutional no acute distress - Routine HEENT Exam Head: Present: normocephalic Eye: Present: PERRL ENT: Present: mucous membranes moist - Routine Cardiovascular Exam Present: RRR, S1, S2 - Routine Abdominal Exam Present: soft - Routine Neurological Exam Present: alert, oriented X3 - Urinary Catheter Management Indwelling Urethral Catheter Cath placed during this visit: yes, but has since been removed by the nurse Reason for continuing: Not indwelling catheter Insertion date: 12/12/17 Removal date: 12/13/17 Removal time: 00:30 Results - Labs CBC & Chem 7: 12/13/17 04:30 12/13/17 04:30 Laboratory Results - last 24 hr 12/13/17 12/13/17 04:30 04:30 WBC 7.4 RBC 2.90 L Hgb 8.8 L Hct 26.7 L MCV 92.1 MCH 30.4 MCHC 33.0 RDW 20.1 H Plt Count 115 L MPV 7.7 Prelim Diff (Auto) Slide review pending Neut % (Auto) 87.6 H Lymph % (Auto) 7.7 L [place] % (Auto) 4.2 Eos % (Auto) 0.1 Baso % (Auto) 0.4 Neut # (Auto) 6.4 Lymph # (Auto) 0.6 L [place] # (Auto) 0.3 Eos # (Auto) 0.0 Baso # (Auto) 0.0 WBC Differential Manual diff final Seg Neuts % (Manual) 73 H Band Neuts % (Manual) 15 H Lymphocytes % (Manual) 5 L Monocytes % (Manual) 3 Metamyelocytes % (Man) 1 Myelocytes % (Man) 3 H Abs Neuts (Manual) 6.8 Differential Comment . Platelet Estimate Low L Platelet Morphology Normal Dimorphic RBCs Present H Sodium 139 Potassium 4.2 Chloride 105 Carbon Dioxide 24.4 Anion Gap 10 BUN 27 H Creatinine 0.99 Estimated GFR 74 L Random Glucose 146 H Calcium 7.3 L* Prot Corrected Calcium 8.6 Phosphorus 3.2 Magnesium 1.4 L Total Bilirubin 0.2 AST 26 ALT 24 Alkaline Phosphatase 92 Total Protein 4.8 L Albumin 1.9 L - Procedures Atrial Fibrillation Ablation - Afib Ablation Procedure Date: 12/12/17 Atrial Fibrillation Ablation: PROCEDURES PERFORMED: 1. Electrophysiology study on Isuprel infusion 2. CS cannulation 3. 3-D mapping 4. Transseptal approach 5. Right and left heart catheterization 6. Intracardiac echo 7. Radiofrequency ablation of atrial fibrillation 8. Pulmonary vein isolation 9. Posterior wall ablation 10. Mitral valve isolation 11. Mitral line creation 12. Left atrial tachycardia ablation 13. Atrial flutter ablation 14. Roof line creation 15. Floor line creation 16. Anterior and posterior ablation INDICATIONS FOR THE PROCEDURE Yogesh Ramírez is a 77-year-old M with atrial fibrillation, left atrial tachycardia, very symptomatic, HR cannot be controlled with medications referred for electrophysiology study and ablation. The risks, the nature and the benefits of the procedure were clearly stated to the patient. The risks include pneumothorax, cardiac perforation, stroke, need for open heart surgery and even . The patient understood and agreed to proceed. DESCRIPTION OF THE PROCEDURE IN DETAIL After written informed consent was obtained, the patient was brought to the EP was brought to the EP lab where he was prepped and draped in the usual sterile fashion. Conscious sedation was initiated and maintained throughout the procedure by the anesthesiologist. Once sedation was verified, the right and left inguinal areas were anesthetized with 2% Xylocaine. Using modified Seldinger technique, the left femoral vein was cannulated on three occasions, three guidewires were advanced. Over the wire a 6, 7 and a 10-Ugandan Hemaquet were advanced. Then the left femoral artery was cannulated on one occasion, one guidewire was advanced. Over the wire a 4-Ugandan Hemaquet was advanced. Then the right femoral vein was cannulated on one occasion, one guidewire was advanced. Over the wire a 8-Ugandan Hemaquet was advanced. Then under fluoroscopic guidance through the 6 and 7-Ugandan Hemaquet, two 5-Ugandan Yuli curved quadripolar electrophysiology catheters were advanced and placed around the His as well as coronary sinus. Basic interval was measured. The patient was in atrial fibrillation, possible atrial flutter. A this point, I decided to attempt atrial flutter ablation. Through the 8Fr hemaquet, a cordis Babcock 8mmm, F curve was advanced. Using [employer] 3D mapping system, a # D mapping of the right atrium was obtained. The catheter was placed at the critical isthmus. Rf was delivered. Activation changed. Then I decided to proceed with left atrial tachycardia/ atrial fibrillation ablation. Through the 10-Ugandan Hemaquet, a Cordis Babcock AcuNav intracardiac echo catheter was advanced and placed at the right atrium. Multiple view was obtained. There is pericardial effusion, pulmonary vein was seen, atrial septal was visualized. Then the 8-Ugandan Hemaquet in the right femoral vein was exchanged for Agilis transseptal sheath that was placed all the way to the superior vena cava. Through the sheath a Edmund needle was advanced, then the sheath, the dilator and the needle were progressed until foci engaged. Once engaged, the needle was advanced. RF was delivered for 2 seconds. I was able to cross into the left atrium. Once the needle crossed, the dilator was advanced. Once the dilator crossed, the sheath was advanced. Once the sheath crossed, the dilator and the needle were removed. At this point I did flood the system and fluid movement was seen in the left atrium the indicates the sheath is in good position. The patient already received 15,000 units of heparin. The goal is to keep an ACT around 350 during ablation. Then through the sheath a [place]. Lyle 20 pulse circumferential catheter was advanced. Using [employer] endocardial solution mapping system, a two-dimensional configuration of the left atrium was obtained. Points were taken at the left superior and inferior veins, right superior and inferior veins, mitral valve, and appendages. Then through the sheath a St. Lyle TactiCath 65cm 3.5mm irrigated tipped mapping and radiofrequency ablation catheter was advanced. Esophageal probe was placed temperature monitoring during ablation. When it increased to 0.5 degrees Celsius above baseline, I moved to a different area of the atrium. First I did completed the isolation of the left superior vein. Posterior was ablated. Then a roof line was created, a floor line was created, a mitral line was isolated, then the mitral valve was isolated. Activation map was created. Early activation was in the lateral wall. Ablation was performed. CL showed no change. I did create a line from the floor to the roof area, passing by the left atrial appendage. Then the right superior and inferior veins were isolated. I did remap the atrium. Activation change to the right side. Atrial tachycardia was mapped. Ablation performed at the ostial portion of the coronary sinus. Patient went into sinus rhythm. At this point I decided to proceed with cardioversion. There was no signal into the vein, pacing from the vein showed no conduction to the atrium. Isuprel infusion was initiated at 20 mcg for over 10 minutes. No tachyarrhythmia was induced, post Isuprel no tachyarrhythmia was induced. At that point the procedure was complete. All catheters were removed, atrial septal sheath was exchanged for 9-Ugandan Hemaquet, intracardiac echo showed no pericardial effusion. There is still good flow in the pulmonary vein. The patient is going to be transferred to the recovery room. No incident report. The patient tolerated the procedure. Blood loss was minimal. FINDINGS 1. Electrocardiogram: At baseline the patient was in atrial fibrillation, left atrial tachycardia, post procedure the patient was in sinus rhythm. 2. Basic interval: Base cycle length was around 470. Post ablation she was around 900 milliseconds. 3. Tachyarrhythmia: Atrial fibrillation was mapped and ablated. Atrial tachycardia was ablated. The ablation was successful. CONCLUSION Successful electrophysiology study, mapping, radiofrequency ablation of atrial fibrillation, left atrial tachycardia, pulmonary vein isolation, posterior ablation, mitral valve isolation, mitral line creation, roof line creation, floor line creation, left atrial tachycardia, and cardioversion. COMMENTS AND RECOMMENDATIONS The patient is going to be transferred to the telemetry unit. Will be observed and when stable can be discharged home. Documented By: Nora Mac MD Assessment and Plan - Assessment (1) Chronic a-fib Code(s): I48.2 - Chronic atrial fibrillation Status: Chronic Plan: SP ablation Doing well Feeling better In sinus rhythm can be H when ok with the managing team I will be available on a PRN basis. (2) SVT (supraventricular tachycardia) Code(s): I47.1 - Supraventricular tachycardia Status: Chronic Plan: In sinus rhythm
--- NOTE | 2017-12-13 17:09 | ECG ---
Date Performed: 12/13/2017 Time Performed: 05:37:46 PTAGE: 77 years EKG: Sinus rhythm Indeterminate axis Right bundle branch block Inferior/lateral ST-T changes are nonspecific Abnormal ECG Since the PREVIOUS TRACING , no significant change noted PREVIOUS TRACIN12/12/2017 16.50 DOCTOR: Maria De Jesus Fernandez Interpretating Date/Time 12/13/2017 17:09:08
[2017-12-14] MEDS: Enoxaparin Inj 40 MG/0.4 ML Syringe SQ SCH (04:04)
[2017-12-14 06:05] LABS: Baso % (Auto) 0.1 % (0.0-2.0); Eos % (Auto) 0.2 % (0.0-4.0); Hematocrit 25.4 % (39.0-51.0); Hemoglobin 8.7 gm/dL (13.0-17.0); Lymph # (Auto) 0.5 th/mm3 (1.0-4.8); Mean Corpuscular HGB Conc 34.3 % (32.0-36.0); Mean Corpuscular Volume 90.4 fL (80.0-100.0); Mean Platelet Volume 7.2 fL (7.0-11.0); Mono # (Auto) 0.2 th/mm3 (0.0-0.9); Neut # (Auto) 5.3 th/mm3 (1.8-7.7); Neut % (Auto) 86.7 % (16.0-70.0); Platelet Count 99 th/mm3 (150-450); Red Blood Count 2.81 mil/mm3 (4.50-5.90); Red Cell Distribution Width 19.9 % (11.6-17.2); White Blood Count 6.1 th/mm3 (4.0-11.0)
[2017-12-14 06:35] LABS: Calcium 7.1 mg/dL (8.5-10.1); Carbon Dioxide 25.8 meq/L (21.0-32.0); Magnesium 1.4 mg/dL (1.5-2.5); Phosphorus 3.1 mg/dL (2.5-4.9); Potassium 3.8 meq/L (3.5-5.1); Total Protein 4.8 g/dL (6.4-8.2)
[2017-12-14 08:28] LABS: Lymphocytes 3 % (9-44); Metamyelocytes 8 % (0-1); Myelocytes 1 % (0-0); Tallied Nucleated RBC 1 (0-0)
[2017-12-14 08:29] LABS: Ovalocytes 1+
[2017-12-14 08:30] LABS: Platelet Morphology Normal (Normal)
[2017-12-14] MEDS: Lactobacillus Acidophilus/L. Spores Tablet PO SCH ×2 (09:04→20:22)
[2017-12-14] MEDS: dilTIAZem CD 300 MG Capsule PO SCH (09:05)
[2017-12-14] MEDS: predniSONE 20 MG Tablet PO SCH ×2 (09:05→20:22)
[2017-12-14] MEDS: Senna/Docusate Sodium 8.6/50 MG Tablet PO SCH ×2 (09:05→20:22)
[2017-12-14] MEDS: Ferrous Sulfate 325 MG Tablet PO SCH (09:05)
[2017-12-14] MEDS: Metoprolol Tartrate 100 MG Tablet PO SCH ×2 (09:05→20:22)
[2017-12-14] MEDS: Sod Chloride 0.9% Inj 1,000 ML IV.CONT SCH ×2 (09:45→16:22)
[2017-12-14] MEDS ORDERED: Lidocaine PF 1% Inj 5 ML Syringe INFILTRATN ONE (12:00)
--- NOTE | 2017-12-14 13:39 | ECG ---
Date Performed: 12/13/2017 Time Performed: 18:38:12 PTAGE: 77 years EKG: Sinus rhythm Indeterminate axis Right bundle branch block Inferior/lateral ST-T changes are nonspecific Abnormal ECG Since the PREVIOUS TRACING , no significant change noted PREVIOUS TRACIN12/13/2017 05.37 DOCTOR: Lul Dai Interpretating Date/Time 12/14/2017 13:38:42
--- NOTE | 2017-12-14 14:40 | GIPROC ---
[facility] [address] [facility]. [facility], [address] EGD PROCEDURE REPORT EXAM DATE: 12/14/2017 PATIENT NAME: Yogesh Ramírez MR #: [id number] BIRTHDATE: 1940 ATTENDING: Moreno Blanco MD ORDER #: [id number] [employer] REPRESENTATIVE AND ASSESSOR: Minnie Vargas RN STATUS: inpatient INDICATIONS: The patient is a 77 yr old male here for an EGD due to iron deficiency anemia PROCEDURE PERFORMED: EGD w/ biopsy MEDICATIONS: None and Per Anesthesia. TOPICAL ANESTHETIC: CONSENT: The patient understands the risks and benefits of the procedure and understands that these risks include, but are not limited to: sedation, allergic reaction, infection, perforation and/or bleeding. Alternative means of evaluation and treatment include, among others: physical exam, x-rays, and/or surgical intervention. The patient elects to proceed with this endoscopic procedure. medical equipment was checked for proper function. Hand hygiene and appropriate measures for infection prevention was taken. After the risks, benefits and alternatives of the procedure were thoroughly explained, Informed consent was verified, confirmed and timeout was successfully executed by the treatment team. The patient was anesthetized with topical anesthesia and the Pentax EG-[id number] endoscope was introduced through the mouth and advanced to the second portion of the duodenum. Retroflexed views revealed no abnormalities The gastroscope was then slowly withdrawn and removed. ESOPHAGUS: The mucosa of the esophagus appeared normal. STOMACH: There was erythematous moderate gastritis in the gastric antrum. A biopsy was performed using cold forceps. Sample sent for histology. DUODENUM: The duodenal mucosa appeared normal in the bulb and second portion of the duodenum. ADVERSE EVENTS: There were no complications. IMPRESSIONS: 1. The esophagus appeared normal 2. There was erythematous gastritis in the gastric antrum; biopsy was performed 3. Normal duodenal mucosa in the bulb and second portion of the duodenum 4. Retroflexed views revealed no abnormalities RECOMMENDATIONS: 1. Await biopsy results. Biopsy results will not be ready for 7-10 days. If you don't hear from us in two weeks, call our office for biopsy results. 2. Continue PPI PATIENT CONDITION: stable DISPOSITION: Inpatient REPEAT EXAM: Return as needed for EGD Moreno Blanco MD eSigned: Moreno Blanco MD 12/14/2017 2:39 PM cc: PATIENT NAME: Yogesh Ramírez MR#: [id number]
--- NOTE | 2017-12-14 14:54 | GIPROC ---
[facility] [address] [facility]. [facility], [address] COLONOSCOPY PROCEDURE REPORT EXAM DATE: 12/14/2017 PATIENT NAME: Yogesh Ramírez MR #: [id number] BIRTHDATE: 1940 ENDOSCOPIST: Moreno Blanco MD ORDER #: [id number] PREFORM PLATE MAKER: Steffanie Balderrama Alumbaugh, Louis, and Minnie Vargas STATUS: inpatient INDICATIONS: The patient is a 77 yr old male here for a colonoscopy due to iron deficiency anemia PROCEDURE PERFORMED: Colonoscopy with ablation Colonoscopy with biopsy MEDICATIONS: None and Per Anesthesia. PREP QUALITY: The [place] Bowel Prep Score was Right colon 3, Mid colon 2, and Left colon 2. Total = 7. PREP TYPE:GoLytely ESTIMATED BLOOD LOSS: None CONSENT: The patient understands the risks and benefits of the procedure and understands that these risks include, but are not limited to: sedation, allergic reaction, infection, perforation and/or bleeding. Alternative means of evaluation and treatment include, among others: physical exam, x-rays, and/or surgical intervention. The patient elects to proceed with this endoscopic procedure. medical equipment was checked for proper function. Hand hygiene and appropriate measures for infection prevention was taken. After the risks, benefits and alternatives of the procedure were thoroughly explained, Informed consent was verified, confirmed and timeout was successfully executed by the treatment team. A digital exam revealed external hemorrhoids The 1234 endoscope was introduced through the anus and advanced to the cecum, which was identified by both the appendix and ileocecal valve. The instrument was then slowly withdrawn as the colon was fully examined. COLON FINDINGS: Two polypoid shaped sessile polyps ranging between 3-5mm in size were found in the ascending colon. A polypectomy was performed with cold forceps. The resection was complete and the polyp tissue was completely retrieved. 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 Destruction of lesion via ablation was attempted. Bleeding from maneuver treated with cautery. Argon plasma coagulation was used. Care was given to ensure that the lumen was suctioned well. Retroflexed views revealed internal hemorrhoids and Retroflexed views revealed medium internal hemorrhoids The scope was then completely withdrawn from the patient and the procedure terminated. PROCEDURE WITHDRAWAL TIME:7minutes ADVERSE EVENTS: There were no complications. IMPRESSIONS: 1. Two sessile polyps ranging between 3-5mm in size were found in the ascending colon; polypectomy was performed with cold forceps 2. 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 Retroflexed views revealed internal hemorrhoids 4. Retroflexed views revealed medium internal hemorrhoids 5. Revealed external hemorrhoids RECOMMENDATIONS: 1. Await biopsy results. Biopsy results will not be ready for 7-10 days. If you don't hear from us in two weeks, call our office for results. 2. Continue surveillance 3. Yearly hemoccult RECALL: Return 5 years Colonoscopy, pending biopsy results Moreno Blanco MD eSigned: Moreno Blanco MD 12/14/2017 2:53 PM cc: PATIENT NAME: Yogesh Ramírez MR#: [id number]
--- NOTE | 2017-12-14 15:30 | P.PNIM ---
Subjective Interval history: This is a 77-year-old male with past medical history significant for COPD, metastatic prostate cancer, bladder cancer, anemia, diastolic dysfunction, a.fib with prior ablation, HTN, obesity, and HLD who was originally admitted to [facility] on 10/26 due to septic shock, hypotension and hypoxemic respiratory failure found to be related to bilateral pneumonia. Patient was seen and evaluated by ID services during his admission and treated with IV cefepime and vancomycin. CT of chest did find adenopathy in right axillary area along with left upper nodule measuring 1.3cm possibly representing metastatic lesion, per radiologist. Patient was also noted to have low WBC count, currently on chemotherapy for metastatic prostate CA, follows with Dr. Richard Koo. Patient did have MATEO resulting in increase of creatinine to 1.46 with improvement with IVF. He was discharged from hospital on 11/02 and admitted to [facility]. He was subsequently discharged and admitted to [facility] on 11/13. While patient was in [facility] he developed tachycardia with questionable A. fib. Cardiology services consulted who did not believe patient was in A. fib rhythm. Patient also began developing increasing need for oxygen along with dyspnea on exertion. CT of the chest showed no PE, moderate to severe bilateral interstitial lung disease characteristic of either interstitial edema or pneumonitis, small left pleural effusion, line emphysematous lung changes. Patient underwent 2D echo which showed normal EF. Pulmonary services were consulted who recommended cardiac evaluation along with suspicions that respiratory symptoms were likely due to underlying history of smoking COPD, recommendations continue bronchodilators. Patient was treated with breathing treatments, oxygen increased to 6 L nasal cannula, tachycardia controlled with increase in Cardizem dose. Patient received 1 unit of PRBCs along with one- time dose of IV Lasix on 11/22 due to symptomatic anemia, H&H 8.3/25.7. Patient was treated with IV antibiotics Zosyn and vancomycin, blood cultures negative, changed to p.o. antibiotic Ceftin. Patient also with A. fib and RVR cardioverted to normal sinus rhythm by Dr. Bruno, had an atrial ablation. He had also a cardioversion 11/28. He was placed on amiodarone drip weaned off. Beta-simone increased at discharge to 75 mg p.o. twice daily. Continue Cardizem. Patient was started on low dose of aspirin and Eliquis. Patient also with normocytic anemia with the previous chemo on prostatic prostate cancer. Started on iron supplement. He was transfused 1 unit of blood on 11/22. However noted hemoglobin has been dropping yesterday from 8.2 to 7.4 on 12/06/17, held Eliquis x 1 day and was given 1 unit PRBC. Monitor H&H and transfuse if needed. Continue iron supplement. Patient also has had sustained tachycardia with intermittent a flutter with HR in the 120's and this afternoon elevated in the 130's. Patient was transferred to [facility] for further monitoring and transferred to [facility] service. Patient is assessed and completely asymptomatic. HR 130's with apparent a flutter on monitor. Continued on 4LNC. 12-08 Nursing reports Hemoccult positive stool since last night. H&H status post transfusion 7.7, previously was 7.1 patient denies any abdominal pain. Is asymptomatic. Heart rate is still very tachyarrhythmic beyond 130. Nursing reports that electrophysiology has seen the patient this morning anticipates possible procedure on Monday. 12-09 Nursing denies any deterioration since last night. Patient still tachycardic. Asymptomatic. 12-10 Nursing denies any deterioration since last night. Nursing thinks that the procainamide is not showing sustained improvement in the heart rate. He is actually feeling really excited about the fact that he says he was able to stand for the first time in 3 weeks today. Denies any chest pain 12-[address] BRUNO INPUT MONITOR HEART RATE PRANAV RN AND PT AND CM GI HAS SIGNED OFF WILL NEED TO RESTART ELIQUIS OR THE EQUIVALENT-- CURRENTLY ONLY ON LOVENOX 40 SUBQ BID 12-12 HAD AFIB ABLATION TODAY WITH DR BRUNO NO NEW COMPLAINTS RECONSULT GI SINCE NOW HAS CONTROL HEART RATE AND NEEDS ANTICOAGULATION 8-1 TO HAVE PROCEDURES WITH GI TOMORROW AM LABS GIVE IV FLUIDS POOR URINE OUTPUT START FLOMAX DW RN AND PT AND GI 8-2 FOLLOW UP ON GI BLEEDING AND HEME POSITIVE STOOLS SP EGD AND COLONOSCOPY SEE REPORTS AM LABS IF STABLE TO [facility] TOMORROW? DW RN AND PT AND CM Physical Exam Vital signs: Vital Signs 12/13/17 16:00 12/13/17 17:00 12/13/17 17:59 Temperature Pulse Rate 75 78 80 Respiratory Rate Blood Pressure Pulse Oximetry 12/13/17 19:26 12/13/17 20:00 12/13/17 21:00 Temperature 97.8 F Pulse Rate 79 75 76 Respiratory Rate 18 20 Blood Pressure 108/67 Pulse Oximetry 97 97 12/13/17 22:00 12/13/17 23:00 12/14/17 00:00 Temperature 97.5 F L Pulse Rate 76 76 76 Respiratory Rate 18 Blood Pressure 119/65 Pulse Oximetry 99 12/14/17 01:00 12/14/17 02:00 12/14/17 03:00 Temperature 97.4 F L Pulse Rate 76 74 79 Respiratory Rate 18 Blood Pressure 123/74 Pulse Oximetry 96 12/14/17 05:00 12/14/17 07:00 12/14/17 07:56 Temperature 97.4 F L Pulse Rate 72 78 78 Respiratory Rate 18 12 Blood Pressure 119/73 Pulse Oximetry 98 99 12/14/17 07:58 12/14/17 08:00 12/14/17 09:00 Temperature Pulse Rate 78 75 Respiratory Rate Blood Pressure Pulse Oximetry 98 12/14/17 10:00 12/14/17 15:00 Temperature 97.7 F Pulse Rate 79 78 Respiratory Rate 20 Blood Pressure 115/59 L Pulse Oximetry 95 Intake & Output 12/13/17 12/14/17 12/14/17 18:59 06:59 18:59 Intake Total 500 / 500 2240 / 2240 300 / 300 Output Total 300 / 300 800 / 800 Balance 200 / 200 1440 / 1440 300 / 300 Weight 123.1 kg Intake: IV 500 / 500 1999 / 1999 NS Inj 1,000 ML @ 100 mls/hr IV 1999 / 1999 .CONT .Q10H FERNANDA Rx#:[id number] NS Inj 500 ML @ Wide Open IV. 500 / 500 SIG BOLUS ONE Rx#:[id number] Oral 240 / 240 Anesthesia Amount 300 / 300 Output: Urine 300 / 300 800 / 800 Other: # Voids 3 Date of Last Bowel Movement 12/13/17 12/14/17 12/14/17 # Bowel Movements 2 Narrative: GENERAL: Awake alert and oriented 3- talkative and cooperative SKIN: Warm and dry. HEAD: Atraumatic. Normocephalic. EYES: Pupils equal and round. No scleral icterus. No injection or drainage. EOMI ENT: No nasal bleeding or discharge. Mucous membranes pink and moist. Tongue is midline NECK: Trachea midline. No JVD. Supple CARDIOVASCULAR: IRRegular rate and rhythm. S1-S2 no S3 or S4 RESPIRATORY: No accessory muscle use. Clear to auscultation. Breath sounds equal bilaterally. GASTROINTESTINAL: Abdomen soft, non-tender, nondistended. Hepatic and splenic margins not palpable. MUSCULOSKELETAL: Extremities without clubbing, cyanosis, or edema. No obvious deformities. NEUROLOGICAL: Awake and alert. No obvious cranial nerve deficits. Motor grossly within normal limits. 4 out of 5 muscle strength in the arms and legs. Normal speech. PSYCHIATRIC: Appropriate mood and affect; insight and judgment normal. - Urinary Catheter Management Indwelling Urethral Catheter Cath placed during this visit: yes, but has since been removed by the nurse Reason for continuing: Not indwelling catheter Insertion date: 12/12/17 Removal date: 12/13/17 Removal time: 00:30 Results - Labs CBC & Chem 7: 12/14/17 05:40 12/14/17 05:40 Laboratory Results - last 24 hr 12/14/17 12/14/17 05:40 05:40 WBC 6.1 RBC 2.81 L Hgb 8.7 L Hct 25.4 L MCV 90.4 MCH 31.0 MCHC 34.3 RDW 19.9 H Plt Count 99 L MPV 7.2 Prelim Diff (Auto) Slide review pending Neut % (Auto) 86.7 H Lymph % (Auto) 9.0 Taney % (Auto) 4.0 Eos % (Auto) 0.2 Baso % (Auto) 0.1 Neut # (Auto) 5.3 Lymph # (Auto) 0.5 L Taney # (Auto) 0.2 Eos # (Auto) 0.0 Baso # (Auto) 0.0 WBC Differential Manual diff final Seg Neuts % (Manual) 79 H Band Neuts % (Manual) 8 H Lymphocytes % (Manual) 3 L Basophils % (Manual) 1 Metamyelocytes % (Man) 8 H Myelocytes % (Man) 1 H Abs Neuts (Manual) 5.9 Nucleated RBCs/100 WBC 1 H Differential Comment . Platelet Estimate Low L Platelet Morphology Normal Ovalocytes 1+ H Sodium 141 Potassium 3.8 Chloride 106 Carbon Dioxide 25.8 Anion Gap 9 BUN 24 H Creatinine 0.85 Estimated GFR 88 L Random Glucose 130 H Calcium 7.1 L* Prot Corrected Calcium 8.4 L Phosphorus 3.1 Magnesium 1.4 L Total Bilirubin 0.3 AST 17 ALT 26 Alkaline Phosphatase 100 Total Protein 4.8 L Albumin 2.0 L - Procedures Atrial Fibrillation Ablation - Afib Ablation Procedure Date: 12/12/17 Atrial Fibrillation Ablation: PROCEDURES PERFORMED: 1. Electrophysiology study on Isuprel infusion 2. CS cannulation 3. 3-D mapping 4. Transseptal approach 5. Right and left heart catheterization 6. Intracardiac echo 7. Radiofrequency ablation of atrial fibrillation 8. Pulmonary vein isolation 9. Posterior wall ablation 10. Mitral valve isolation 11. Mitral line creation 12. Left atrial tachycardia ablation 13. Atrial flutter ablation 14. Roof line creation 15. Floor line creation 16. Anterior and posterior ablation INDICATIONS FOR THE PROCEDURE Yogesh Ramírez is a 77-year-old M with atrial fibrillation, left atrial tachycardia, very symptomatic, HR cannot be controlled with medications referred for electrophysiology study and ablation. The risks, the nature and the benefits of the procedure were clearly stated to the patient. The risks include pneumothorax, cardiac perforation, stroke, need for open heart surgery and even . The patient understood and agreed to proceed. DESCRIPTION OF THE PROCEDURE IN DETAIL After written informed consent was obtained, the patient was brought to the EP was brought to the EP lab where he was prepped and draped in the usual sterile fashion. Conscious sedation was initiated and maintained throughout the procedure by the anesthesiologist. Once sedation was verified, the right and left inguinal areas were anesthetized with 2% Xylocaine. Using modified Seldinger technique, the left femoral vein was cannulated on three occasions, three guidewires were advanced. Over the wire a 6, 7 and a 10-Zimbabwean Hemaquet were advanced. Then the left femoral artery was cannulated on one occasion, one guidewire was advanced. Over the wire a 4-Zimbabwean Hemaquet was advanced. Then the right femoral vein was cannulated on one occasion, one guidewire was advanced. Over the wire a 8-Zimbabwean Hemaquet was advanced. Then under fluoroscopic guidance through the 6 and 7-Zimbabwean Hemaquet, two 5-Zimbabwean Yuli curved quadripolar electrophysiology catheters were advanced and placed around the His as well as coronary sinus. Basic interval was measured. The patient was in atrial fibrillation, possible atrial flutter. A this point, I decided to attempt atrial flutter ablation. Through the 8Fr hemaquet, a cordis Babcock 8mmm, F curve was advanced. Using Ensite 3D mapping system, a # D mapping of the right atrium was obtained. The catheter was placed at the critical isthmus. Rf was delivered. Activation changed. Then I decided to proceed with left atrial tachycardia/ atrial fibrillation ablation. Through the 10-Zimbabwean Hemaquet, a Cordis Babcock AcuNav intracardiac echo catheter was advanced and placed at the right atrium. Multiple view was obtained. There is pericardial effusion, pulmonary vein was seen, atrial septal was visualized. Then the 8-Zimbabwean Hemaquet in the right femoral vein was exchanged for Agilis transseptal sheath that was placed all the way to the superior vena cava. Through the sheath a Edmund needle was advanced, then the sheath, the dilator and the needle were progressed until foci engaged. Once engaged, the needle was advanced. RF was delivered for 2 seconds. I was able to cross into the left atrium. Once the needle crossed, the dilator was advanced. Once the dilator crossed, the sheath was advanced. Once the sheath crossed, the dilator and the needle were removed. At this point I did flood the system and fluid movement was seen in the left atrium the indicates the sheath is in good position. The patient already received 15,000 units of heparin. The goal is to keep an ACT around 350 during ablation. Then through the sheath a St. Lyle 20 pulse circumferential catheter was advanced. Using Nodalityite endocardial solution mapping system, a two-dimensional configuration of the left atrium was obtained. Points were taken at the left superior and inferior veins, right superior and inferior veins, mitral valve, and appendages. Then through the sheath a St. Lyle TactiCath 65cm 3.5mm irrigated tipped mapping and radiofrequency ablation catheter was advanced. Esophageal probe was placed temperature monitoring during ablation. When it increased to 0.5 degrees Celsius above baseline, I moved to a different area of the atrium. First I did completed the isolation of the left superior vein. Posterior was ablated. Then a roof line was created, a floor line was created, a mitral line was isolated, then the mitral valve was isolated. Activation map was created. Early activation was in the lateral wall. Ablation was performed. CL showed no change. I did create a line from the floor to the roof area, passing by the left atrial appendage. Then the right superior and inferior veins were isolated. I did remap the atrium. Activation change to the right side. Atrial tachycardia was mapped. Ablation performed at the ostial portion of the coronary sinus. Patient went into sinus rhythm. At this point I decided to proceed with cardioversion. There was no signal into the vein, pacing from the vein showed no conduction to the atrium. Isuprel infusion was initiated at 20 mcg for over 10 minutes. No tachyarrhythmia was induced, post Isuprel no tachyarrhythmia was induced. At that point the procedure was complete. All catheters were removed, atrial septal sheath was exchanged for 9-Zimbabwean Hemaquet, intracardiac echo showed no pericardial effusion. There is still good flow in the pulmonary vein. The patient is going to be transferred to the recovery room. No incident report. The patient tolerated the procedure. Blood loss was minimal. FINDINGS 1. Electrocardiogram: At baseline the patient was in atrial fibrillation, left atrial tachycardia, post procedure the patient was in sinus rhythm. 2. Basic interval: Base cycle length was around 470. Post ablation she was around 900 milliseconds. 3. Tachyarrhythmia: Atrial fibrillation was mapped and ablated. Atrial tachycardia was ablated. The ablation was successful. CONCLUSION Successful electrophysiology study, mapping, radiofrequency ablation of atrial fibrillation, left atrial tachycardia, pulmonary vein isolation, posterior ablation, mitral valve isolation, mitral line creation, roof line creation, floor line creation, left atrial tachycardia, and cardioversion. COMMENTS AND RECOMMENDATIONS The patient is going to be transferred to the telemetry unit. Will be observed and when stable can be discharged home. Documented By: Nora Bruno MD COLONOSCOPY PROCEDURE REPORT EXAM DATE: 12/14/2017 PATIENT NAME: Yogesh Ramírez MR #: [id number] BIRTHDATE: 1940 ENDOSCOPIST: Moreno Blanco MD ORDER #: [id number] CUT OFF OPERATOR SCORER: Steffanie Balderrama Alumbaugh, Louis, and Minnie Vargas STATUS: inpatient INDICATIONS: The patient is a 77 yr old male here for a colonoscopy due to iron deficiency anemia PROCEDURE PERFORMED: Colonoscopy with ablation Colonoscopy with biopsy MEDICATIONS: None and Per Anesthesia. PREP QUALITY: The Rayle Bowel Prep Score was Right colon 3, Mid colon 2, and Left colon 2. Total = 7. PREP TYPE:GoLytely ESTIMATED BLOOD LOSS: None CONSENT: The patient understands the risks and benefits of the procedure and understands that these risks include, but are not limited to: sedation, allergic reaction, infection, perforation and/or bleeding. Alternative means of evaluation and treatment include, among others: physical exam, x-rays, and/or surgical intervention. The patient elects to proceed with this endoscopic procedure. medical equipment was checked for proper function. Hand hygiene and appropriate measures for infection prevention was taken. After the risks, benefits and alternatives of the procedure were thoroughly explained, Informed consent was verified, confirmed and timeout was successfully executed by the treatment team. A digital exam revealed external hemorrhoids The 1234 endoscope was introduced through the anus and advanced to the cecum, which was identified by both the appendix and ileocecal valve. The instrument was then slowly withdrawn as the colon was fully examined. COLON FINDINGS: Two polypoid shaped sessile polyps ranging between 3-5mm in size were found in the ascending colon. A polypectomy was performed with cold forceps. The resection was complete and the polyp tissue was completely retrieved. 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 Destruction of lesion via ablation was attempted. Bleeding from maneuver treated with cautery. Argon plasma coagulation was used. Care was given to ensure that the lumen was suctioned well. Retroflexed views revealed internal hemorrhoids and Retroflexed views revealed medium internal hemorrhoids The scope was then completely withdrawn from the patient and the procedure terminated. PROCEDURE WITHDRAWAL TIME:7minutes ADVERSE EVENTS: There were no complications. IMPRESSIONS: 1. Two sessile polyps ranging between 3-5mm in size were found in the ascending colon; polypectomy was performed with cold forceps 2. 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 Retroflexed views revealed internal hemorrhoids 4. Retroflexed views revealed medium internal hemorrhoids 5. Revealed external hemorrhoids RECOMMENDATIONS: 1. Await biopsy results. Biopsy results will not be ready for 7-10 days. If you don't hear from us in two weeks, call our office for results. 2. Continue surveillance 3. Yearly hemoccult RECALL: Return 5 years Colonoscopy, pending biopsy results EGD PROCEDURE REPORT EXAM DATE: 12/14/2017 PATIENT NAME: Yogesh Ramírez MR #: [id number] BIRTHDATE: 1940 ATTENDING: Moreno Blanco MD ORDER #: [id number] CUT OFF OPERATOR SCORER: Minnie Vargas RN STATUS: inpatient INDICATIONS: The patient is a 77 yr old male here for an EGD due to iron deficiency anemia PROCEDURE PERFORMED: EGD w/ biopsy MEDICATIONS: None and Per Anesthesia. TOPICAL ANESTHETIC: CONSENT: The patient understands the risks and benefits of the procedure and understands that these risks include, but are not limited to: sedation, allergic reaction, infection, perforation and/or bleeding. Alternative means of evaluation and treatment include, among others: physical exam, x-rays, and/or surgical intervention. The patient elects to proceed with this endoscopic procedure. medical equipment was checked for proper function. Hand hygiene and appropriate measures for infection prevention was taken. After the risks, benefits and alternatives of the procedure were thoroughly explained, Informed consent was verified, confirmed and timeout was successfully executed by the treatment team. The patient was anesthetized with topical anesthesia and the Pentax EG-[id number] endoscope was introduced through the mouth and advanced to the second portion of the duodenum. Retroflexed views revealed no abnormalities The gastroscope was then slowly withdrawn and removed. ESOPHAGUS: The mucosa of the esophagus appeared normal. STOMACH: There was erythematous moderate gastritis in the gastric antrum. A biopsy was performed using cold forceps. Sample sent for histology. DUODENUM: The duodenal mucosa appeared normal in the bulb and second portion of the duodenum. ADVERSE EVENTS: There were no complications. IMPRESSIONS: 1. The esophagus appeared normal 2. There was erythematous gastritis in the gastric antrum; biopsy was performed 3. Normal duodenal mucosa in the bulb and second portion of the duodenum 4. Retroflexed views revealed no abnormalities RECOMMENDATIONS: 1. Await biopsy results. Biopsy results will not be ready for 7-10 days. If you don't hear from us in two weeks, call our office for biopsy results. 2. Continue PPI PATIENT CONDITION: stable DISPOSITION: Inpatient REPEAT EXAM: Return as needed for EGD Assessment and Plan - Plan 77-year-old man with Atrial flutter with RVR vs sinus tachycardia -Patient is s/p cardioversion 11/28. Cardiology, Dr. Bruno. s/p Atrial ablation. Started amiodarone drip November 26, 2017 at that time. Was eventually dcd. -Being dosed with flecainide, electrophysiology following, may plan for pacemaker if no improvement by Monday; will make NPO empirically tonight at midnight. SP A-FIB ABLATION BY DR BRUNO 12-12 Suspected GI bleed -h/h still low despite most recent transfusion yesterday coming from [facility] -Heparin or Lovenox while inpatient to cover for A. fib, H&H is holding steady after 2 units of transfusion of blood, patient is too unstable for EGD procedure at this time per GI RECONSULT GI TO HAVE GI PROCEDURES ON 12-14 SP EGD AND COLONOSCOPY ON 12-14 acute on chronic Normocytic anemia -Previously on chemo for prostate CA. -Continue oral Fe supplementation Acute on chronic respiratory failure with hypoxia and need for supplemental O2 Left-sided small pleural effusion Hx COPD Hx of recent community acquired pneumonia -CTA 11/21: no PE, moderate to severe bilateral interstitial lung disease characteristic of either interstitial edema or pneumonitis, small left pleural effusion, line emphysematous lung changes. -2D echo completed on 11/22 with normal EF. -Scheduled duonebs. -Will continue Ceftin from previous admission per ID recs. HTN, essential chronic, stable HLD -Continue metoprolol and Cardizem, blood pressure stable. -hold ASa IN LIGHT Of bleed -Continued on Lipitor. Chronic kidney disease stage III -Avoid nephrotoxic drug Code Status: FULL CODE Discussed Condition With: PRANAV RN AND PT AND CM Discharge Planning: AM LABS TO [facility] TOMORROW IF STABLE
[2017-12-14] MEDS ORDERED: Magnesium Sulfate Inj 2 GM in Sodium Chlor 0.9% Inj 96 ML IV.SIG ONE (16:00)
[2017-12-15] MEDS: Sod Chloride 0.9% Inj 1,000 ML IV.CONT SCH ×3 (04:00→15:18)
[2017-12-15 05:57] LABS: Baso % (Auto) 0.3 % (0.0-2.0); Eos % (Auto) 0.2 % (0.0-4.0); Hematocrit 25.9 % (39.0-51.0); Hemoglobin 8.9 gm/dL (13.0-17.0); Lymph # (Auto) 0.5 th/mm3 (1.0-4.8); Mean Corpuscular HGB Conc 34.3 % (32.0-36.0); Mean Corpuscular Volume 90.4 fL (80.0-100.0); Mean Platelet Volume 7.2 fL (7.0-11.0); Mono # (Auto) 0.2 th/mm3 (0.0-0.9); Mono % (Auto) 2.9 % (0.0-8.0); Neut # (Auto) 5.6 th/mm3 (1.8-7.7); Neut % (Auto) 88.6 % (16.0-70.0); Platelet Count 106 th/mm3 (150-450); Red Blood Count 2.87 mil/mm3 (4.50-5.90); Red Cell Distribution Width 19.7 % (11.6-17.2); White Blood Count 6.3 th/mm3 (4.0-11.0)
[2017-12-15 06:16] LABS: Alanine Aminotransferase 28 U/L (12-78); Anion Gap 8 meq/L (5-15); Aspartate Aminotransferase 14 U/L (15-37); Blood Urea Nitrogen 18 mg/dL (7-18); Calcium 7.1 mg/dL (8.5-10.1); Chloride 108 meq/L (98-107); Glomerular Filtration Rate Greater Than 89 mL/min (>89); Glucose,Random 138 mg/dL (74-106); Magnesium 1.7 mg/dL (1.5-2.5); Potassium 3.7 meq/L (3.5-5.1); Sodium 142 meq/L (136-145)
[2017-12-15 06:18] LABS: Alkaline Phosphatase 101 U/L (45-117); Total Protein 4.8 g/dL (6.4-8.2)
[2017-12-15 08:25] LABS: Eosinophils 1 % (0-4); Lymphocytes 8 % (9-44); Monocytes 1 % (0-8); Myelocytes 2 % (0-0)
[2017-12-15 08:26] LABS: Platelet Morphology Normal (Normal)
[2017-12-15] MEDS ORDERED: Magnesium Sulfate Inj 2 GM in Sodium Chlor 0.9% Inj 96 ML IV.SIG ONE (09:03)
[2017-12-15] MEDS: Senna/Docusate Sodium 8.6/50 MG Tablet PO SCH (09:47)
[2017-12-15] MEDS: Metoprolol Tartrate 100 MG Tablet PO SCH (09:47)
[2017-12-15] MEDS: dilTIAZem CD 300 MG Capsule PO SCH (09:47)
[2017-12-15] MEDS: Ferrous Sulfate 325 MG Tablet PO SCH (09:47)
[2017-12-15] MEDS: predniSONE 20 MG Tablet PO SCH (09:47)
[2017-12-15] MEDS: Lactobacillus Acidophilus/L. Spores Tablet PO SCH (09:47)
[2017-12-15] MEDS: Mag Sulf 1 gm/100 ml Premix 100 ML IV.SIG SCH ×2 (09:56→11:13)
--- NOTE | 2017-12-15 10:41 | P.PNGI ---
Subjective Interval history: Patient is resting in the bed answer simple questions appropriately Color pale scan but denies any nausea or vomiting No diarrhea no constipation no abdominal pain, current hemoglobin today 8.9 Patient is status post EGD and colonoscopy performed on 12/14/2017 results reviewed with patient <Nhung Nunez - Last Filed: 12/15/17 11:09> Physical Exam Vital signs: Vital Signs 12/14/17 15:00 12/14/17 16:00 12/14/17 17:00 Temperature 97.7 F Pulse Rate 78 76 79 Respiratory Rate 20 Blood Pressure 115/59 L Pulse Oximetry 95 12/14/17 18:00 12/14/17 19:00 12/14/17 19:56 Temperature 97.6 F Pulse Rate 88 81 78 Respiratory Rate 20 18 Blood Pressure 115/65 Pulse Oximetry 12/14/17 20:00 12/14/17 21:00 12/14/17 22:00 Temperature Pulse Rate 78 80 78 Respiratory Rate Blood Pressure Pulse Oximetry 94 L 12/14/17 23:00 12/15/17 00:00 12/15/17 01:00 Temperature 97.6 F Pulse Rate 81 76 76 Respiratory Rate 20 Blood Pressure 124/74 Pulse Oximetry 94 L 12/15/17 02:00 12/15/17 03:00 12/15/17 04:00 Temperature 98.7 F Pulse Rate 77 77 76 Respiratory Rate 18 Blood Pressure 113/67 Pulse Oximetry 94 L 12/15/17 05:00 12/15/17 06:00 12/15/17 07:00 Temperature 97.5 F L Pulse Rate 78 70 84 Respiratory Rate 17 Blood Pressure 131/68 Pulse Oximetry 95 12/15/17 07:47 12/15/17 08:00 12/15/17 09:00 Temperature Pulse Rate 81 79 78 Respiratory Rate 16 Blood Pressure Pulse Oximetry 93 L 95 12/15/17 10:00 Temperature Pulse Rate 82 Respiratory Rate Blood Pressure Pulse Oximetry Intake & Output 12/14/17 12/15/17 12/15/17 18:59 06:59 18:59 Intake Total 1400 / 1400 1240 / 1240 Output Total 450 / 450 400 / 400 Balance 950 / 950 840 / 840 Weight 125.9 kg Intake: IV 1100 / 1100 1000 / 1000 NS Inj 1,000 ML @ 100 mls/hr IV 1000 / 1000 1000 / 1000 .CONT .Q10H [facility] Rx#:[id number] Magnesium Sulfate Inj 2 GM In 100 / 100 NS Inj 96 ML @ 50 mls/hr IV.SIG ONCE ONE Rx#:[id number] Oral 240 / 240 Anesthesia Amount 300 / 300 Output: Urine 450 / 450 400 / 400 Other: Date of Last Bowel Movement 12/14/17 12/14/17 # Bowel Movements 3 - Constitutional no acute distress - Routine HEENT Exam Head: Present: normocephalic, atraumatic ENT: Present: mucous membranes moist (Morbidly obese) - Routine Neck Exam Present: supple - Routine Respiratory Exam Present: decreased breath sounds (Mild diminished breath sounds but even and unlabored at rest) - Routine Cardiovascular Exam Present: S1, S2 - Routine Abdominal Exam Present: soft - Routine Skin Exam Present: intact - Routine Neurological Exam Present: alert (Answer simple questions appropriately) - Urinary Catheter Management Indwelling Urethral Catheter Cath placed during this visit: yes, but has since been removed by the nurse Reason for continuing: Not indwelling catheter Insertion date: 12/12/17 Removal date: 12/13/17 Removal time: 00:30 <Nhung Nunez - Last Filed: 12/15/17 11:09> Vital signs: Vital Signs 12/14/17 17:00 12/14/17 18:00 12/14/17 19:00 Temperature 97.6 F Pulse Rate 79 88 81 Respiratory Rate 20 Blood Pressure 115/65 Pulse Oximetry 12/14/17 19:56 12/14/17 20:00 12/14/17 21:00 Temperature Pulse Rate 78 78 80 Respiratory Rate 18 Blood Pressure Pulse Oximetry 94 L 12/14/17 22:00 12/14/17 23:00 12/15/17 00:00 Temperature 97.6 F Pulse Rate 78 81 76 Respiratory Rate 20 Blood Pressure 124/74 Pulse Oximetry 94 L 12/15/17 01:00 12/15/17 02:00 12/15/17 03:00 Temperature 98.7 F Pulse Rate 76 77 77 Respiratory Rate 18 Blood Pressure 113/67 Pulse Oximetry 94 L 12/15/17 04:00 12/15/17 05:00 12/15/17 06:00 Temperature Pulse Rate 76 78 70 Respiratory Rate Blood Pressure Pulse Oximetry 12/15/17 07:00 12/15/17 07:47 12/15/17 08:00 Temperature 97.5 F L Pulse Rate 84 81 79 Respiratory Rate 17 16 Blood Pressure 131/68 Pulse Oximetry 95 93 L 95 12/15/17 09:00 12/15/17 10:00 12/15/17 11:00 Temperature 98.8 F Pulse Rate 78 82 79 Respiratory Rate 18 Blood Pressure 126/68 Pulse Oximetry 98 12/15/17 12:00 12/15/17 13:00 12/15/17 14:00 Temperature Pulse Rate 76 79 76 Respiratory Rate Blood Pressure Pulse Oximetry 12/15/17 15:00 12/15/17 16:00 Temperature 97.4 F L Pulse Rate 77 87 Respiratory Rate 18 Blood Pressure 115/67 Pulse Oximetry 94 L Intake & Output 12/14/17 12/15/17 12/15/17 18:59 06:59 18:59 Intake Total 1400 / 1400 1240 / 1240 1480 / 1480 Output Total 450 / 450 400 / 400 400 / 400 Balance 950 / 950 840 / 840 1080 / 1080 Weight 125.9 kg Intake: IV 1100 / 1100 1000 / 1000 1000 / 1000 NS Inj 1,000 ML @ 100 mls/hr IV 1000 / 1000 1000 / 1000 800 / 800 .CONT .Q10H [facility] Rx#:[id number] Magnesium Sulfate 1 gm/D5W 100 200 / 200 ml Premix 100 ML @ 100 mls/hr IV.SIG Q1H [facility] Rx#:[id number] Magnesium Sulfate Inj 2 GM In 100 / 100 NS Inj 96 ML @ 50 mls/hr IV.SIG ONCE ONE Rx#:[id number] Oral 240 / 240 480 / 480 Anesthesia Amount 300 / 300 Output: Urine 450 / 450 400 / 400 400 / 400 Other: Date of Last Bowel Movement 12/14/17 12/14/17 # Bowel Movements 3 - Urinary Catheter Management Indwelling Urethral Catheter Cath placed during this visit: no <Moreno Blanco - Last Filed: 12/15/17 16:40> Results - Labs CBC & Chem 7: 12/15/17 05:15 12/15/17 05:15 Laboratory Results - last 24 hr 12/15/17 12/15/17 05:15 05:15 WBC 6.3 RBC 2.87 L Hgb 8.9 L Hct 25.9 L MCV 90.4 MCH 31.0 MCHC 34.3 RDW 19.7 H Plt Count 106 L MPV 7.2 Prelim Diff (Auto) Slide review pending Neut % (Auto) 88.6 H Lymph % (Auto) 8.0 L Armstrong % (Auto) 2.9 Eos % (Auto) 0.2 Baso % (Auto) 0.3 Neut # (Auto) 5.6 Lymph # (Auto) 0.5 L Armstrong # (Auto) 0.2 Eos # (Auto) 0.0 Baso # (Auto) 0.0 WBC Differential Manual diff final Seg Neuts % (Manual) 83 H Band Neuts % (Manual) 5 Lymphocytes % (Manual) 8 L Monocytes % (Manual) 1 Eosinophils % (Manual) 1 Myelocytes % (Man) 2 H Abs Neuts (Manual) 5.7 Differential Comment . Platelet Estimate Low L Platelet Morphology Normal Sodium 142 Potassium 3.7 Chloride 108 H Carbon Dioxide 26.0 Anion Gap 8 BUN 18 Creatinine 0.68 Estimated GFR Greater than 89 Random Glucose 138 H Calcium 7.1 L* Prot Corrected Calcium 8.4 L Phosphorus 3.0 Magnesium 1.7 Total Bilirubin 0.3 AST 14 L ALT 28 Alkaline Phosphatase 101 Total Protein 4.8 L Albumin 2.0 L - Procedures Atrial Fibrillation Ablation - Afib Ablation Procedure Date: 12/12/17 Atrial Fibrillation Ablation: PROCEDURES PERFORMED: 1. Electrophysiology study on Isuprel infusion 2. CS cannulation 3. 3-D mapping 4. Transseptal approach 5. Right and left heart catheterization 6. Intracardiac echo 7. Radiofrequency ablation of atrial fibrillation 8. Pulmonary vein isolation 9. Posterior wall ablation 10. Mitral valve isolation 11. Mitral line creation 12. Left atrial tachycardia ablation 13. Atrial flutter ablation 14. Roof line creation 15. Floor line creation 16. Anterior and posterior ablation INDICATIONS FOR THE PROCEDURE Yogesh Ramírez is a 77-year-old M with atrial fibrillation, left atrial tachycardia, very symptomatic, HR cannot be controlled with medications referred for electrophysiology study and ablation. The risks, the nature and the benefits of the procedure were clearly stated to the patient. The risks include pneumothorax, cardiac perforation, stroke, need for open heart surgery and even . The patient understood and agreed to proceed. DESCRIPTION OF THE PROCEDURE IN DETAIL After written informed consent was obtained, the patient was brought to the EP was brought to the EP lab where he was prepped and draped in the usual sterile fashion. Conscious sedation was initiated and maintained throughout the procedure by the anesthesiologist. Once sedation was verified, the right and left inguinal areas were anesthetized with 2% Xylocaine. Using modified Seldinger technique, the left femoral vein was cannulated on three occasions, three guidewires were advanced. Over the wire a 6, 7 and a 10-Cambodian Hemaquet were advanced. Then the left femoral artery was cannulated on one occasion, one guidewire was advanced. Over the wire a 4-Cambodian Hemaquet was advanced. Then the right femoral vein was cannulated on one occasion, one guidewire was advanced. Over the wire a 8-Cambodian Hemaquet was advanced. Then under fluoroscopic guidance through the 6 and 7-Cambodian Hemaquet, two 5-Cambodian DOZ curved quadripolar electrophysiology catheters were advanced and placed around the His as well as coronary sinus. Basic interval was measured. The patient was in atrial fibrillation, possible atrial flutter. A this point, I decided to attempt atrial flutter ablation. Through the 8Fr hemaquet, a cordis Babcock 8mmm, F curve was advanced. Using [employer] 3D mapping system, a # D mapping of the right atrium was obtained. The catheter was placed at the critical isthmus. Rf was delivered. Activation changed. Then I decided to proceed with left atrial tachycardia/ atrial fibrillation ablation. Through the 10-Cambodian Hemaquet, a Cordis Babcock AcuNav intracardiac echo catheter was advanced and placed at the right atrium. Multiple view was obtained. There is pericardial effusion, pulmonary vein was seen, atrial septal was visualized. Then the 8-Cambodian Hemaquet in the right femoral vein was exchanged for Agilis transseptal sheath that was placed all the way to the superior vena cava. Through the sheath a Edmund needle was advanced, then the sheath, the dilator and the needle were progressed until foci engaged. Once engaged, the needle was advanced. RF was delivered for 2 seconds. I was able to cross into the left atrium. Once the needle crossed, the dilator was advanced. Once the dilator crossed, the sheath was advanced. Once the sheath crossed, the dilator and the needle were removed. At this point I did flood the system and fluid movement was seen in the left atrium the indicates the sheath is in good position. The patient already received 15,000 units of heparin. The goal is to keep an ACT around 350 during ablation. Then through the sheath a [place]. Lyle 20 pulse circumferential catheter was advanced. Using [employer] endocardial solution mapping system, a two-dimensional configuration of the left atrium was obtained. Points were taken at the left superior and inferior veins, right superior and inferior veins, mitral valve, and appendages. Then through the sheath a [place]. Lyle TactiCath 65cm 3.5mm irrigated tipped mapping and radiofrequency ablation catheter was advanced. Esophageal probe was placed temperature monitoring during ablation. When it increased to 0.5 degrees Celsius above baseline, I moved to a different area of the atrium. First I did completed the isolation of the left superior vein. Posterior was ablated. Then a roof line was created, a floor line was created, a mitral line was isolated, then the mitral valve was isolated. Activation map was created. Early activation was in the lateral wall. Ablation was performed. CL showed no change. I did create a line from the floor to the roof area, passing by the left atrial appendage. Then the right superior and inferior veins were isolated. I did remap the atrium. Activation change to the right side. Atrial tachycardia was mapped. Ablation performed at the ostial portion of the coronary sinus. Patient went into sinus rhythm. At this point I decided to proceed with cardioversion. There was no signal into the vein, pacing from the vein showed no conduction to the atrium. Isuprel infusion was initiated at 20 mcg for over 10 minutes. No tachyarrhythmia was induced, post Isuprel no tachyarrhythmia was induced. At that point the procedure was complete. All catheters were removed, atrial septal sheath was exchanged for 9-Cambodian Hemaquet, intracardiac echo showed no pericardial effusion. There is still good flow in the pulmonary vein. The patient is going to be transferred to the recovery room. No incident report. The patient tolerated the procedure. Blood loss was minimal. FINDINGS 1. Electrocardiogram: At baseline the patient was in atrial fibrillation, left atrial tachycardia, post procedure the patient was in sinus rhythm. 2. Basic interval: Base cycle length was around 470. Post ablation she was around 900 milliseconds. 3. Tachyarrhythmia: Atrial fibrillation was mapped and ablated. Atrial tachycardia was ablated. The ablation was successful. CONCLUSION Successful electrophysiology study, mapping, radiofrequency ablation of atrial fibrillation, left atrial tachycardia, pulmonary vein isolation, posterior ablation, mitral valve isolation, mitral line creation, roof line creation, floor line creation, left atrial tachycardia, and cardioversion. COMMENTS AND RECOMMENDATIONS The patient is going to be transferred to the telemetry unit. Will be observed and when stable can be discharged home. Documented By: Nora Mac MD COLONOSCOPY PROCEDURE REPORT EXAM DATE: 12/14/2017 PATIENT NAME: Yogesh Ramírez MR #: [id number] BIRTHDATE: 1940 ENDOSCOPIST: Moreno Blanco MD ORDER #: [id number] BIOCHEMISTRY TECHNOLOGIST: Steffanie Balderrama Alumbaugh, Louis, and Minnie Vargas STATUS: inpatient INDICATIONS: The patient is a 77 yr old male here for a colonoscopy due to iron deficiency anemia PROCEDURE PERFORMED: Colonoscopy with ablation Colonoscopy with biopsy MEDICATIONS: None and Per Anesthesia. PREP QUALITY: The [place] Bowel Prep Score was Right colon 3, Mid colon 2, and Left colon 2. Total = 7. PREP TYPE:GoLytely ESTIMATED BLOOD LOSS: None CONSENT: The patient understands the risks and benefits of the procedure and understands that these risks include, but are not limited to: sedation, allergic reaction, infection, perforation and/or bleeding. Alternative means of evaluation and treatment include, among others: physical exam, x-rays, and/or surgical intervention. The patient elects to proceed with this endoscopic procedure. medical equipment was checked for proper function. Hand hygiene and appropriate measures for infection prevention was taken. After the risks, benefits and alternatives of the procedure were thoroughly explained, Informed consent was verified, confirmed and timeout was successfully executed by the treatment team. A digital exam revealed external hemorrhoids The 1234 endoscope was introduced through the anus and advanced to the cecum, which was identified by both the appendix and ileocecal valve. The instrument was then slowly withdrawn as the colon was fully examined. COLON FINDINGS: Two polypoid shaped sessile polyps ranging between 3-5mm in size were found in the ascending colon. A polypectomy was performed with cold forceps. The resection was complete and the polyp tissue was completely retrieved. 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 Destruction of lesion via ablation was attempted. Bleeding from maneuver treated with cautery. Argon plasma coagulation was used. Care was given to ensure that the lumen was suctioned well. Retroflexed views revealed internal hemorrhoids and Retroflexed views revealed medium internal hemorrhoids The scope was then completely withdrawn from the patient and the procedure terminated. PROCEDURE WITHDRAWAL TIME:7minutes ADVERSE EVENTS: There were no complications. IMPRESSIONS: 1. Two sessile polyps ranging between 3-5mm in size were found in the ascending colon; polypectomy was performed with cold forceps 2. 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 Retroflexed views revealed internal hemorrhoids 4. Retroflexed views revealed medium internal hemorrhoids 5. Revealed external hemorrhoids RECOMMENDATIONS: 1. Await biopsy results. Biopsy results will not be ready for 7-10 days. If you don't hear from us in two weeks, call our office for results. 2. Continue surveillance 3. Yearly hemoccult RECALL: Return 5 years Colonoscopy, pending biopsy results EGD PROCEDURE REPORT EXAM DATE: 12/14/2017 PATIENT NAME: Yogesh Ramírez MR #: [id number] BIRTHDATE: 1940 ATTENDING: Moreno Blanco MD ORDER #: [id number] BIOCHEMISTRY TECHNOLOGIST: Minnie Vargas RN STATUS: inpatient INDICATIONS: The patient is a 77 yr old male here for an EGD due to iron deficiency anemia PROCEDURE PERFORMED: EGD w/ biopsy MEDICATIONS: None and Per Anesthesia. TOPICAL ANESTHETIC: CONSENT: The patient understands the risks and benefits of the procedure and understands that these risks include, but are not limited to: sedation, allergic reaction, infection, perforation and/or bleeding. Alternative means of evaluation and treatment include, among others: physical exam, x-rays, and/or surgical intervention. The patient elects to proceed with this endoscopic procedure. medical equipment was checked for proper function. Hand hygiene and appropriate measures for infection prevention was taken. After the risks, benefits and alternatives of the procedure were thoroughly explained, Informed consent was verified, confirmed and timeout was successfully executed by the treatment team. The patient was anesthetized with topical anesthesia and the Pentax EG-[id number] endoscope was introduced through the mouth and advanced to the second portion of the duodenum. Retroflexed views revealed no abnormalities The gastroscope was then slowly withdrawn and removed. ESOPHAGUS: The mucosa of the esophagus appeared normal. STOMACH: There was erythematous moderate gastritis in the gastric antrum. A biopsy was performed using cold forceps. Sample sent for histology. DUODENUM: The duodenal mucosa appeared normal in the bulb and second portion of the duodenum. ADVERSE EVENTS: There were no complications. IMPRESSIONS: 1. The esophagus appeared normal 2. There was erythematous gastritis in the gastric antrum; biopsy was performed 3. Normal duodenal mucosa in the bulb and second portion of the duodenum 4. Retroflexed views revealed no abnormalities RECOMMENDATIONS: 1. Await biopsy results. Biopsy results will not be ready for 7-10 days. If you don't hear from us in two weeks, call our office for biopsy results. 2. Continue PPI PATIENT CONDITION: stable DISPOSITION: Inpatient REPEAT EXAM: Return as needed for EGD <Nhung Nunez - Last Filed: 12/15/17 11:09> - Labs CBC & Chem 7: 12/15/17 05:15 12/15/17 05:15 Laboratory Results - last 24 hr 12/15/17 12/15/17 05:15 05:15 WBC 6.3 RBC 2.87 L Hgb 8.9 L Hct 25.9 L MCV 90.4 MCH 31.0 MCHC 34.3 RDW 19.7 H Plt Count 106 L MPV 7.2 Prelim Diff (Auto) Slide review pending Neut % (Auto) 88.6 H Lymph % (Auto) 8.0 L Armstrong % (Auto) 2.9 Eos % (Auto) 0.2 Baso % (Auto) 0.3 Neut # (Auto) 5.6 Lymph # (Auto) 0.5 L Armstrong # (Auto) 0.2 Eos # (Auto) 0.0 Baso # (Auto) 0.0 WBC Differential Manual diff final Seg Neuts % (Manual) 83 H Band Neuts % (Manual) 5 Lymphocytes % (Manual) 8 L Monocytes % (Manual) 1 Eosinophils % (Manual) 1 Myelocytes % (Man) 2 H Abs Neuts (Manual) 5.7 Differential Comment . Platelet Estimate Low L Platelet Morphology Normal Sodium 142 Potassium 3.7 Chloride 108 H Carbon Dioxide 26.0 Anion Gap 8 BUN 18 Creatinine 0.68 Estimated GFR Greater than 89 Random Glucose 138 H Calcium 7.1 L* Prot Corrected Calcium 8.4 L Phosphorus 3.0 Magnesium 1.7 Total Bilirubin 0.3 AST 14 L ALT 28 Alkaline Phosphatase 101 Total Protein 4.8 L Albumin 2.0 L <Moreno Blanco - Last Filed: 12/15/17 16:40> Assessment and Plan - Plan RECONSULT (12/13) Pt was noted to bee too unstable for GI procedures due to atrial fibrillation with RVR, pt is now S/P cardiac ablation yesterday now in sinus rhythm and stable for GI procedures. Our service has been reconsulted to evaluate pt for possible EGD and colonoscopy. As previous stated pt has been found to have heme (+) stools. Denies any obvious GIB including black, tarry stools and hematochezia. Denies any GI symptoms including nausea, vomiting, abdominal pain. Last colonoscopy 3 years ago in [place], one polyp. Denies previous EGD. Lovenox currently on hold due to bruising on abdomen. Despite transfusion on the , hgb continues to trend down. 12/15/2017, patient is resting in the bed denies any nausea or vomiting no obvious bleeding no abdominal pain no diarrhea or constipation. Did note some mild clear drainage post colonoscopy of probable prep. Results of EGD and colonoscopy reviewed and discussed with patient and plan of care needed. Patient currently denies any shortness of breath and does not appear to be having any problems with respiratory status. Current hemoglobin stable at 8.9. Patient is hoping to go to [facility] after this hospital stay states he is very weak and will need some assistance with ambulation. 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; Destruction of lesion via ablation was attempted Medium internal hemorrhoids and external hemorrhoids EGD performed on with findings: esophagus appeared normal, erythematous gastritis in the gastric antrum with biopsy Normal duodenal mucosa in the bulb and second portion of the duodenum Retroflexed views revealed no abnormalities Plan Diet as tolerated Biopsies are pending, will need to follow-up in our office for further results and continued plan of care Yearly Hemoccult, plan 5 year surveillance colonoscopy and repeat EGD as needed PPI GI will monitor hemoglobin while in the hospital but we will sign up and follow- up outpatient 2-4 weeks Patient was seen per myself and Dr. Blanco, this note was written on his behalf <Nhung Nunez - Last Filed: 12/15/17 11:09> - Plan Seen and examined , no active bleeding. H/H stable. s/p egd/colonoscopy. Await biopsy results. GI will sign off. Thank you - Attending Attestation The exam, history, and the medical decision-making described in the above note were completed with the assistance of the mid-level provider. I reviewed and agree with the findings presented. I attest that I had a [id number] encounter with the patient on the same day, and personally performed and documented my assessment and findings in the medical record. <Moreno Blanco - Last Filed: 12/15/17 16:40>
--- NOTE | 2017-12-15 14:16 | P.PNIM ---
Subjective Interval history: This is a 77-year-old male with past medical history significant for COPD, metastatic prostate cancer, bladder cancer, anemia, diastolic dysfunction, a.fib with prior ablation, HTN, obesity, and HLD who was originally admitted to [facility] on 10/26 due to septic shock, hypotension and hypoxemic respiratory failure found to be related to bilateral pneumonia. Patient was seen and evaluated by ID services during his admission and treated with IV cefepime and vancomycin. CT of chest did find adenopathy in right axillary area along with left upper nodule measuring 1.3cm possibly representing metastatic lesion, per radiologist. Patient was also noted to have low WBC count, currently on chemotherapy for metastatic prostate CA, follows with Dr. Richard Koo. Patient did have MATEO resulting in increase of creatinine to 1.46 with improvement with IVF. He was discharged from hospital on 11/02 and admitted to [facility]. He was subsequently discharged and admitted to [facility] on 11/13. While patient was in [facility] he developed tachycardia with questionable A. fib. Cardiology services consulted who did not believe patient was in A. fib rhythm. Patient also began developing increasing need for oxygen along with dyspnea on exertion. CT of the chest showed no PE, moderate to severe bilateral interstitial lung disease characteristic of either interstitial edema or pneumonitis, small left pleural effusion, line emphysematous lung changes. Patient underwent 2D echo which showed normal EF. Pulmonary services were consulted who recommended cardiac evaluation along with suspicions that respiratory symptoms were likely due to underlying history of smoking COPD, recommendations continue bronchodilators. Patient was treated with breathing treatments, oxygen increased to 6 L nasal cannula, tachycardia controlled with increase in Cardizem dose. Patient received 1 unit of PRBCs along with one- time dose of IV Lasix on 11/22 due to symptomatic anemia, H&H 8.3/25.7. Patient was treated with IV antibiotics Zosyn and vancomycin, blood cultures negative, changed to p.o. antibiotic Ceftin. Patient also with A. fib and RVR cardioverted to normal sinus rhythm by Dr. Bruno, had an atrial ablation. He had also a cardioversion 11/28. He was placed on amiodarone drip weaned off. Beta-simone increased at discharge to 75 mg p.o. twice daily. Continue Cardizem. Patient was started on low dose of aspirin and Eliquis. Patient also with normocytic anemia with the previous chemo on prostatic prostate cancer. Started on iron supplement. He was transfused 1 unit of blood on 11/22. However noted hemoglobin has been dropping yesterday from 8.2 to 7.4 on 12/06/17, held Eliquis x 1 day and was given 1 unit PRBC. Monitor H&H and transfuse if needed. Continue iron supplement. Patient also has had sustained tachycardia with intermittent a flutter with HR in the 120's and this afternoon elevated in the 130's. Patient was transferred [place] [facility] [place] and transferred to [facility] service. Patient is assessed and completely asymptomatic. HR 130's with apparent a flutter on monitor. Continued on 4LNC. 12-08 Nursing reports Hemoccult positive stool since last night. H&H status post transfusion 7.7, previously was 7.1 patient denies any abdominal pain. Is asymptomatic. Heart rate is still very tachyarrhythmic beyond 130. Nursing reports that electrophysiology has seen the patient this morning anticipates possible procedure on Monday. 12-09 Nursing denies any deterioration since last night. Patient still tachycardic. Asymptomatic. 12-10 Nursing denies any deterioration since last night. Nursing thinks that the procainamide is not showing sustained improvement in the heart rate. He is actually feeling really excited about the fact that he says he was able to stand for the first time in 3 weeks today. Denies any chest pain 12-[address] BRUNO INPUT MONITOR HEART RATE PRANAV RN AND PT AND CM GI HAS SIGNED OFF WILL NEED TO RESTART ELIQUIS OR THE EQUIVALENT-- CURRENTLY ONLY ON LOVENOX 40 SUBQ BID 12-12 HAD AFIB ABLATION TODAY WITH DR BRUNO NO NEW COMPLAINTS RECONSULT GI SINCE NOW HAS CONTROL HEART RATE AND NEEDS ANTICOAGULATION 8-1 TO HAVE PROCEDURES WITH GI TOMORROW AM LABS GIVE IV FLUIDS POOR URINE OUTPUT START FLOMAX DW RN AND PT AND GI 8-2 FOLLOW UP ON GI BLEEDING AND HEME POSITIVE STOOLS SP EGD AND COLONOSCOPY SEE REPORTS AM LABS IF STABLE TO [facility] TOMORROW? DW RN AND PT AND CM 8-3 FOLLOW UP GI BLEED HAD EGD AND COLONOSCOPY ON 12-14 REPLACE MAGNESIUM TO [facility] TODAY WILL NEED LABS FOLLOWED IN [facility] Physical Exam Vital signs: Vital Signs 12/14/17 15:00 12/14/17 16:00 12/14/17 17:00 Temperature 97.7 F Pulse Rate 78 76 79 Respiratory Rate 20 Blood Pressure 115/59 L Pulse Oximetry 95 12/14/17 18:00 12/14/17 19:00 12/14/17 19:56 Temperature 97.6 F Pulse Rate 88 81 78 Respiratory Rate 20 18 Blood Pressure 115/65 Pulse Oximetry 12/14/17 20:00 12/14/17 21:00 12/14/17 22:00 Temperature Pulse Rate 78 80 78 Respiratory Rate Blood Pressure Pulse Oximetry 94 L 12/14/17 23:00 12/15/17 00:00 12/15/17 01:00 Temperature 97.6 F Pulse Rate 81 76 76 Respiratory Rate 20 Blood Pressure 124/74 Pulse Oximetry 94 L 12/15/17 02:00 12/15/17 03:00 12/15/17 04:00 Temperature 98.7 F Pulse Rate 77 77 76 Respiratory Rate 18 Blood Pressure 113/67 Pulse Oximetry 94 L 12/15/17 05:00 12/15/17 06:00 12/15/17 07:00 Temperature 97.5 F L Pulse Rate 78 70 84 Respiratory Rate 17 Blood Pressure 131/68 Pulse Oximetry 95 12/15/17 07:47 12/15/17 08:00 12/15/17 09:00 Temperature Pulse Rate 81 79 78 Respiratory Rate 16 Blood Pressure Pulse Oximetry 93 L 95 12/15/17 10:00 12/15/17 11:00 12/15/17 12:00 Temperature 98.8 F Pulse Rate 82 79 76 Respiratory Rate 18 Blood Pressure 126/68 Pulse Oximetry 98 12/15/17 13:00 12/15/17 14:00 Temperature Pulse Rate 79 76 Respiratory Rate Blood Pressure Pulse Oximetry Intake & Output 12/14/17 12/15/17 12/15/17 18:59 06:59 18:59 Intake Total 1400 / 1400 1240 / 1240 200 / 200 Output Total 450 / 450 400 / 400 Balance 950 / 950 840 / 840 200 / 200 Weight 125.9 kg Intake: IV 1100 / 1100 1000 / 1000 200 / 200 NS Inj 1,000 ML @ 100 mls/hr IV 1000 / 1000 1000 / 1000 .CONT .Q10H FOR[facility]LY [facility], [facility]–1983 Rx#:[id number] Magnesium Sulfate 1 gm/D5W 100 200 / 200 ml Premix 100 ML @ 100 mls/hr IV.SIG Q1H FERNANDA Rx#:[id number] Magnesium Sulfate Inj 2 GM In 100 / 100 NS Inj 96 ML @ 50 mls/hr IV.SIG ONCE ONE Rx#:[id number] Oral 240 / 240 Anesthesia Amount 300 / 300 Output: Urine 450 / 450 400 / 400 Other: Date of Last Bowel Movement 12/14/17 12/14/17 # Bowel Movements 3 Narrative: GENERAL: Awake alert and oriented 3- talkative and cooperative SKIN: Warm and dry. HEAD: Atraumatic. Normocephalic. EYES: Pupils equal and round. No scleral icterus. No injection or drainage. EOMI ENT: No nasal bleeding or discharge. Mucous membranes pink and moist. Tongue is midline NECK: Trachea midline. No JVD. Supple CARDIOVASCULAR: IRRegular rate and rhythm. S1-S2 no S3 or S4 RESPIRATORY: No accessory muscle use. Clear to auscultation. Breath sounds equal bilaterally. GASTROINTESTINAL: Abdomen soft, non-tender, nondistended. Hepatic and splenic margins not palpable. MUSCULOSKELETAL: Extremities without clubbing, cyanosis, or edema. No obvious deformities. NEUROLOGICAL: Awake and alert. No obvious cranial nerve deficits. Motor grossly within normal limits. 4 out of 5 muscle strength in the arms and legs. Normal speech. PSYCHIATRIC: Appropriate mood and affect; insight and judgment normal. - Urinary Catheter Management Indwelling Urethral Catheter Cath placed during this visit: yes, but has since been removed by the nurse Reason for continuing: Not indwelling catheter Insertion date: 12/12/17 Removal date: 12/13/17 Removal time: 00:30 Results - Labs CBC & Chem 7: 12/15/17 05:15 12/15/17 05:15 Laboratory Results - last 24 hr 12/15/17 12/15/17 05:15 05:15 WBC 6.3 RBC 2.87 L Hgb 8.9 L Hct 25.9 L MCV 90.4 MCH 31.0 MCHC 34.3 RDW 19.7 H Plt Count 106 L MPV 7.2 Prelim Diff (Auto) Slide review pending Neut % (Auto) 88.6 H Lymph % (Auto) 8.0 L Stanton % (Auto) 2.9 Eos % (Auto) 0.2 Baso % (Auto) 0.3 Neut # (Auto) 5.6 Lymph # (Auto) 0.5 L Stanton # (Auto) 0.2 Eos # (Auto) 0.0 Baso # (Auto) 0.0 WBC Differential Manual diff final Seg Neuts % (Manual) 83 H Band Neuts % (Manual) 5 Lymphocytes % (Manual) 8 L Monocytes % (Manual) 1 Eosinophils % (Manual) 1 Myelocytes % (Man) 2 H Abs Neuts (Manual) 5.7 Differential Comment . Platelet Estimate Low L Platelet Morphology Normal Sodium 142 Potassium 3.7 Chloride 108 H Carbon Dioxide 26.0 Anion Gap 8 BUN 18 Creatinine 0.68 Estimated GFR Greater than 89 Random Glucose 138 H Calcium 7.1 L* Prot Corrected Calcium 8.4 L Phosphorus 3.0 Magnesium 1.7 Total Bilirubin 0.3 AST 14 L ALT 28 Alkaline Phosphatase 101 Total Protein 4.8 L Albumin 2.0 L - Procedures Atrial Fibrillation Ablation - Afib Ablation Procedure Date: 12/12/17 Atrial Fibrillation Ablation: PROCEDURES PERFORMED: 1. Electrophysiology study on Isuprel infusion 2. CS cannulation 3. 3-D mapping 4. Transseptal approach 5. Right and left heart catheterization 6. Intracardiac echo 7. Radiofrequency ablation of atrial fibrillation 8. Pulmonary vein isolation 9. Posterior wall ablation 10. Mitral valve isolation 11. Mitral line creation 12. Left atrial tachycardia ablation 13. Atrial flutter ablation 14. Roof line creation 15. Floor line creation 16. Anterior and posterior ablation INDICATIONS FOR THE PROCEDURE Yogesh Ramírez is a 77-year-old M with atrial fibrillation, left atrial tachycardia, very symptomatic, HR cannot be controlled with medications referred for electrophysiology study and ablation. The risks, the nature and the benefits of the procedure were clearly stated to the patient. The risks include pneumothorax, cardiac perforation, stroke, need for open heart surgery and even . The patient understood and agreed to proceed. DESCRIPTION OF THE PROCEDURE IN DETAIL After written informed consent was obtained, the patient was brought to the EP was brought to the EP lab where he was prepped and draped in the usual sterile fashion. Conscious sedation was initiated and maintained throughout the procedure by the anesthesiologist. Once sedation was verified, the right and left inguinal areas were anesthetized with 2% Xylocaine. Using modified Seldinger technique, the left femoral vein was cannulated on three occasions, three guidewires were advanced. Over the wire a 6, 7 and a 10-St Helenian Hemaquet were advanced. Then the left femoral artery was cannulated on one occasion, one guidewire was advanced. Over the wire a 4-St Helenian Hemaquet was advanced. Then the right femoral vein was cannulated on one occasion, one guidewire was advanced. Over the wire a 8-St Helenian Hemaquet was advanced. Then under fluoroscopic guidance through the 6 and 7-St Helenian Hemaquet, two 5-St Helenian Yuli curved quadripolar electrophysiology catheters were advanced and placed around the His as well as coronary sinus. Basic interval was measured. The patient was in atrial fibrillation, possible atrial flutter. A this point, I decided to attempt atrial flutter ablation. Through the 8Fr hemaquet, a cordis Babcock 8mmm, F curve was advanced. Using [employer] 3D mapping system, a # D mapping of the right atrium was obtained. The catheter was placed at the critical isthmus. Rf was delivered. Activation changed. Then I decided to proceed with left atrial tachycardia/ atrial fibrillation ablation. Through the 10-St Helenian Hemaquet, a Cordis Babcock AcuNav intracardiac echo catheter was advanced and placed at the right atrium. Multiple view was obtained. There is pericardial effusion, pulmonary vein was seen, atrial septal was visualized. Then the 8-St Helenian Hemaquet in the right femoral vein was exchanged for Agilis transseptal sheath that was placed all the way to the superior vena cava. Through the sheath a Edmund needle was advanced, then the sheath, the dilator and the needle were progressed until foci engaged. Once engaged, the needle was advanced. RF was delivered for 2 seconds. I was able to cross into the left atrium. Once the needle crossed, the dilator was advanced. Once the dilator crossed, the sheath was advanced. Once the sheath crossed, the dilator and the needle were removed. At this point I did flood the system and fluid movement was seen in the left atrium the indicates the sheath is in good position. The patient already received 15,000 units of heparin. The goal is to keep an ACT around 350 during ablation. Then through the sheath a St. Lyle 20 pulse circumferential catheter was advanced. Using Uniplaces endocardial solution mapping system, a two-dimensional configuration of the left atrium was obtained. Points were taken at the left superior and inferior veins, right superior and inferior veins, mitral valve, and appendages. Then through the sheath a St. Lyle TactiCath 65cm 3.5mm irrigated tipped mapping and radiofrequency ablation catheter was advanced. Esophageal probe was placed temperature monitoring during ablation. When it increased to 0.5 degrees Celsius above baseline, I moved to a different area of the atrium. First I did completed the isolation of the left superior vein. Posterior was ablated. Then a roof line was created, a floor line was created, a mitral line was isolated, then the mitral valve was isolated. Activation map was created. Early activation was in the lateral wall. Ablation was performed. CL showed no change. I did create a line from the floor to the roof area, passing by the left atrial appendage. Then the right superior and inferior veins were isolated. I did remap the atrium. Activation change to the right side. Atrial tachycardia was mapped. Ablation performed at the ostial portion of the coronary sinus. Patient went into sinus rhythm. At this point I decided to proceed with cardioversion. There was no signal into the vein, pacing from the vein showed no conduction to the atrium. Isuprel infusion was initiated at 20 mcg for over 10 minutes. No tachyarrhythmia was induced, post Isuprel no tachyarrhythmia was induced. At that point the procedure was complete. All catheters were removed, atrial septal sheath was exchanged for 9-St Helenian Hemaquet, intracardiac echo showed no pericardial effusion. There is still good flow in the pulmonary vein. The patient is going to be transferred to the recovery room. No incident report. The patient tolerated the procedure. Blood loss was minimal. FINDINGS 1. Electrocardiogram: At baseline the patient was in atrial fibrillation, left atrial tachycardia, post procedure the patient was in sinus rhythm. 2. Basic interval: Base cycle length was around 470. Post ablation she was around 900 milliseconds. 3. Tachyarrhythmia: Atrial fibrillation was mapped and ablated. Atrial tachycardia was ablated. The ablation was successful. CONCLUSION Successful electrophysiology study, mapping, radiofrequency ablation of atrial fibrillation, left atrial tachycardia, pulmonary vein isolation, posterior ablation, mitral valve isolation, mitral line creation, roof line creation, floor line creation, left atrial tachycardia, and cardioversion. COMMENTS AND RECOMMENDATIONS The patient is going to be transferred to the telemetry unit. Will be observed and when stable can be discharged home. Documented By: Nora Bruno MD COLONOSCOPY PROCEDURE REPORT EXAM DATE: 12/14/2017 PATIENT NAME: Yogesh Ramírez MR #: [id number] BIRTHDATE: 1940 ENDOSCOPIST: Moreno Blanco MD ORDER #: [id number] AUTOMOTIVE TIRE TECHNICIAN: Steffanie Balderrama Alumbaugh, Louis, and Minnie Vargas STATUS: inpatient INDICATIONS: The patient is a 77 yr old male here for a colonoscopy due to iron deficiency anemia PROCEDURE PERFORMED: Colonoscopy with ablation Colonoscopy with biopsy MEDICATIONS: None and Per Anesthesia. PREP QUALITY: The [place] Bowel Prep Score was Right colon 3, Mid colon 2, and Left colon 2. Total = 7. PREP TYPE:GoLytely ESTIMATED BLOOD LOSS: None CONSENT: The patient understands the risks and benefits of the procedure and understands that these risks include, but are not limited to: sedation, allergic reaction, infection, perforation and/or bleeding. Alternative means of evaluation and treatment include, among others: physical exam, x-rays, and/or surgical intervention. The patient elects to proceed with this endoscopic procedure. medical equipment was checked for proper function. Hand hygiene and appropriate measures for infection prevention was taken. After the risks, benefits and alternatives of the procedure were thoroughly explained, Informed consent was verified, confirmed and timeout was successfully executed by the treatment team. A digital exam revealed external hemorrhoids The 1234 endoscope was introduced through the anus and advanced to the cecum, which was identified by both the appendix and ileocecal valve. The instrument was then slowly withdrawn as the colon was fully examined. COLON FINDINGS: Two polypoid shaped sessile polyps ranging between 3-5mm in size were found in the ascending colon. A polypectomy was performed with cold forceps. The resection was complete and the polyp tissue was completely retrieved. 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 Destruction of lesion via ablation was attempted. Bleeding from maneuver treated with cautery. Argon plasma coagulation was used. Care was given to ensure that the lumen was suctioned well. Retroflexed views revealed internal hemorrhoids and Retroflexed views revealed medium internal hemorrhoids The scope was then completely withdrawn from the patient and the procedure terminated. PROCEDURE WITHDRAWAL TIME:7minutes ADVERSE EVENTS: There were no complications. IMPRESSIONS: 1. Two sessile polyps ranging between 3-5mm in size were found in the ascending colon; polypectomy was performed with cold forceps 2. 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 Retroflexed views revealed internal hemorrhoids 4. Retroflexed views revealed medium internal hemorrhoids 5. Revealed external hemorrhoids RECOMMENDATIONS: 1. Await biopsy results. Biopsy results will not be ready for 7-10 days. If you don't hear from us in two weeks, call our office for results. 2. Continue surveillance 3. Yearly hemoccult RECALL: Return 5 years Colonoscopy, pending biopsy results EGD PROCEDURE REPORT EXAM DATE: 12/14/2017 PATIENT NAME: Yogesh Ramírez MR #: [id number] BIRTHDATE: 1940 ATTENDING: Moreno Blanco MD ORDER #: [id number] AUTOMOTIVE TIRE TECHNICIAN: Minnie Vargas RN STATUS: inpatient INDICATIONS: The patient is a 77 yr old male here for an EGD due to iron deficiency anemia PROCEDURE PERFORMED: EGD w/ biopsy MEDICATIONS: None and Per Anesthesia. TOPICAL ANESTHETIC: CONSENT: The patient understands the risks and benefits of the procedure and understands that these risks include, but are not limited to: sedation, allergic reaction, infection, perforation and/or bleeding. Alternative means of evaluation and treatment include, among others: physical exam, x-rays, and/or surgical intervention. The patient elects to proceed with this endoscopic procedure. medical equipment was checked for proper function. Hand hygiene and appropriate measures for infection prevention was taken. After the risks, benefits and alternatives of the procedure were thoroughly explained, Informed consent was verified, confirmed and timeout was successfully executed by the treatment team. The patient was anesthetized with topical anesthesia and the Pentax EG-[id number] endoscope was introduced through the mouth and advanced to the second portion of the duodenum. Retroflexed views revealed no abnormalities The gastroscope was then slowly withdrawn and removed. ESOPHAGUS: The mucosa of the esophagus appeared normal. STOMACH: There was erythematous moderate gastritis in the gastric antrum. A biopsy was performed using cold forceps. Sample sent for histology. DUODENUM: The duodenal mucosa appeared normal in the bulb and second portion of the duodenum. ADVERSE EVENTS: There were no complications. IMPRESSIONS: 1. The esophagus appeared normal 2. There was erythematous gastritis in the gastric antrum; biopsy was performed 3. Normal duodenal mucosa in the bulb and second portion of the duodenum 4. Retroflexed views revealed no abnormalities RECOMMENDATIONS: 1. Await biopsy results. Biopsy results will not be ready for 7-10 days. If you don't hear from us in two weeks, call our office for biopsy results. 2. Continue PPI PATIENT CONDITION: stable DISPOSITION: Inpatient REPEAT EXAM: Return as needed for EGD Assessment and Plan - Plan 77-year-old man with Atrial flutter with RVR vs sinus tachycardia -Patient is s/p cardioversion 11/28. Cardiology, Dr. Bruno. s/p Atrial ablation. Started amiodarone drip November 26, 2017 at that time. Was eventually dcd. -Being dosed with flecainide, electrophysiology following, may plan for pacemaker if no improvement by Monday; will make NPO empirically tonight at midnight. SP A-FIB ABLATION BY DR BRUNO 12-12 Suspected GI bleed -h/h still low despite most recent transfusion yesterday coming from [facility] -Heparin or Lovenox while inpatient to cover for A. fib, H&H is holding steady after 2 units of transfusion of blood, patient is too unstable for EGD procedure at this time per GI RECONSULT GI TO HAVE GI PROCEDURES ON 12-14 SP EGD AND COLONOSCOPY ON 12-14 acute on chronic Normocytic anemia -Previously on chemo for prostate CA. -Continue oral Fe supplementation Acute on chronic respiratory failure with hypoxia and need for supplemental O2 Left-sided small pleural effusion Hx COPD Hx of recent community acquired pneumonia -CTA 11/21: no PE, moderate to severe bilateral interstitial lung disease characteristic of either interstitial edema or pneumonitis, small left pleural effusion, line emphysematous lung changes. -2D echo completed on 11/22 with normal EF. -Scheduled duonebs. -Will continue Ceftin from previous admission per ID recs. HTN, essential chronic, stable HLD -Continue metoprolol and Cardizem, blood pressure stable. -hold ASa IN LIGHT Of bleed -Continued on Lipitor. Chronic kidney disease stage III -Avoid nephrotoxic drug HYPOMAGNESIUM WILL REPLACE DC TO [facility] TODAY DW RN AND CM AND PT Code Status: FULL CODE Discussed Condition With: RN AND PT AND CM Discharge Planning: [facility]
--- NOTE | 2017-12-15 14:22 | P.DS ---
Date of admission: 12/07/17 15:15 Primary care physician: No Primary Care Physician Attending physician on discharge: Josue Blum Anticipated date of discharge: 12/15/17 Brief History from admission: This is a 77-year-old male with past medical history significant for COPD, metastatic prostate cancer, bladder cancer, anemia, diastolic dysfunction, a.fib with prior ablation, HTN, obesity, and HLD who was originally admitted to [facility] on 10/26 due to septic shock, hypotension and hypoxemic respiratory failure found to be related to bilateral pneumonia. Patient was seen and evaluated by ID services during his admission and treated with IV cefepime and vancomycin. CT of chest did find adenopathy in right axillary area along with left upper nodule measuring 1.3cm possibly representing metastatic lesion, per radiologist. Patient was also noted to have low WBC count, currently on chemotherapy for metastatic prostate CA, follows with Dr. Richard Koo. Patient did have MATEO resulting in increase of creatinine to 1.46 with improvement with IVF. He was discharged from hospital on 11/02 and admitted to [facility]. He was subsequently discharged and admitted to [facility] on 11/13. While patient was in [facility] he developed tachycardia with questionable A. fib. Cardiology services consulted who did not believe patient was in A. fib rhythm. Patient also began developing increasing need for oxygen along with dyspnea on exertion. CT of the chest showed no PE, moderate to severe bilateral interstitial lung disease characteristic of either interstitial edema or pneumonitis, small left pleural effusion, line emphysematous lung changes. Patient underwent 2D echo which showed normal EF. Pulmonary services were consulted who recommended cardiac evaluation along with suspicions that respiratory symptoms were likely due to underlying history of smoking COPD, recommendations continue bronchodilators. Patient was treated with breathing treatments, oxygen increased to 6 L nasal cannula, tachycardia controlled with increase in Cardizem dose. Patient received 1 unit of PRBCs along with one- time dose of IV Lasix on 11/22 due to symptomatic anemia, H&H 8.3/25.7. Patient was treated with IV antibiotics Zosyn and vancomycin, blood cultures negative, changed to p.o. antibiotic Ceftin. Patient also with A. fib and RVR cardioverted to normal sinus rhythm by Dr. Bruno, had an atrial ablation. He had also a cardioversion 11/28. He was placed on amiodarone drip weaned off. Beta-simone increased at discharge to 75 mg p.o. twice daily. Continue Cardizem. Patient was started on low dose of aspirin and Eliquis. Patient also with normocytic anemia with the previous chemo on prostatic prostate cancer. Started on iron supplement. He was transfused 1 unit of blood on 11/22. However noted hemoglobin has been dropping yesterday from 8.2 to 7.4 on 12/06/17, held Eliquis x 1 day and was given 1 unit PRBC. Monitor H&H and transfuse if needed. Continue iron supplement. Patient also has had sustained tachycardia with intermittent a flutter with HR in the 120's and this afternoon elevated in the 130's. Patient was transferred to [facility] for further monitoring and transferred to [facility] service. Patient is assessed and completely asymptomatic. HR 130's with apparent a flutter on monitor. Continued on 4LNC. DS: Diagnosis - Discharge Diagnosis (1) Diastolic dysfunction Status: Chronic (2) Impaired mobility and activities of daily living Status: Chronic (3) Stage II pressure ulcer of left buttock Status: Chronic (4) Stage II pressure ulcer of right buttock Status: Chronic (5) Stage III pressure ulcer of buttock Status: Chronic (6) COPD (chronic obstructive pulmonary disease) Status: Chronic (7) Chronic a-fib Status: Chronic (8) Dyslipidemia Status: Chronic (9) HLD (hyperlipidemia) Status: Chronic (10) Hypertension Status: Chronic (11) SVT (supraventricular tachycardia) Status: Chronic (12) Sleep apnea syndrome Status: Chronic DS: Summary Hospital Course: This is a 77-year-old male with past medical history significant for COPD, metastatic prostate cancer, bladder cancer, anemia, diastolic dysfunction, a.fib with prior ablation, HTN, obesity, and HLD who was originally admitted to [facility] on 10/26 due to septic shock, hypotension and hypoxemic respiratory failure found to be related to bilateral pneumonia. Patient was seen and evaluated by ID services during his admission and treated with IV cefepime and vancomycin. CT of chest did find adenopathy in right axillary area along with left upper nodule measuring 1.3cm possibly representing metastatic lesion, per radiologist. Patient was also noted to have low WBC count, currently on chemotherapy for metastatic prostate CA, follows with Dr. Richard Koo. Patient did have MATEO resulting in increase of creatinine to 1.46 with improvement with IVF. He was discharged from hospital on 11/02 and admitted to [facility]. He was subsequently discharged and admitted to [facility] on 11/13. While patient was in [facility] he developed tachycardia with questionable A. fib. Cardiology services consulted who did not believe patient was in A. fib rhythm. Patient also began developing increasing need for oxygen along with dyspnea on exertion. CT of the chest showed no PE, moderate to severe bilateral interstitial lung disease characteristic of either interstitial edema or pneumonitis, small left pleural effusion, line emphysematous lung changes. Patient underwent 2D echo which showed normal EF. Pulmonary services were consulted who recommended cardiac evaluation along with suspicions that respiratory symptoms were likely due to underlying history of smoking COPD, recommendations continue bronchodilators. Patient was treated with breathing treatments, oxygen increased to 6 L nasal cannula, tachycardia controlled with increase in Cardizem dose. Patient received 1 unit of PRBCs along with one- time dose of IV Lasix on 11/22 due to symptomatic anemia, H&H 8.3/25.7. Patient was treated with IV antibiotics Zosyn and vancomycin, blood cultures negative, changed to p.o. antibiotic Ceftin. Patient also with A. fib and RVR cardioverted to normal sinus rhythm by Dr. Bruno, had an atrial ablation. He had also a cardioversion 11/28. He was placed on amiodarone drip weaned off. Beta-simone increased at discharge to 75 mg p.o. twice daily. Continue Cardizem. Patient was started on low dose of aspirin and Eliquis. Patient also with normocytic anemia with the previous chemo on prostatic prostate cancer. Started on iron supplement. He was transfused 1 unit of blood on 11/22. However noted hemoglobin has been dropping yesterday from 8.2 to 7.4 on 12/06/17, held Eliquis x 1 day and was given 1 unit PRBC. Monitor H&H and transfuse if needed. Continue iron supplement. Patient also has had sustained tachycardia with intermittent a flutter with HR in the 120's and this afternoon elevated in the 130's. Patient was transferred to [facility] for further monitoring and transferred to [facility] service. Patient is assessed and completely asymptomatic. HR 130's with apparent a flutter on monitor. Continued on 4LNC. 12-08 Nursing reports Hemoccult positive stool since last night. H&H status post transfusion 7.7, previously was 7.1 patient denies any abdominal pain. Is asymptomatic. Heart rate is still very tachyarrhythmic beyond 130. Nursing reports that electrophysiology has seen the patient this morning anticipates possible procedure on Monday. 12-09 Nursing denies any deterioration since last night. Patient still tachycardic. Asymptomatic. 12-10 Nursing denies any deterioration since last night. Nursing thinks that the procainamide is not showing sustained improvement in the heart rate. He is actually feeling really excited about the fact that he says he was able to stand for the first time in 3 weeks today. Denies any chest pain 12-[address] BRUNO INPUT MONITOR HEART RATE DW RN AND PT AND CM GI HAS SIGNED OFF WILL NEED TO RESTART ELIQUIS OR THE EQUIVALENT-- CURRENTLY ONLY ON LOVENOX 40 SUBQ BID 12-12 HAD AFIB ABLATION TODAY WITH DR BRUNO NO NEW COMPLAINTS RECONSULT GI SINCE NOW HAS CONTROL HEART RATE AND NEEDS ANTICOAGULATION 12-13 TO HAVE PROCEDURES WITH GI TOMORROW AM LABS GIVE IV FLUIDS POOR URINE OUTPUT START FLOMAX DW RN AND PT AND GI 12-14 FOLLOW UP ON GI BLEEDING AND HEME POSITIVE STOOLS SP EGD AND COLONOSCOPY SEE REPORTS AM LABS IF STABLE TO [facility] TOMORROW? PRANAV RN AND PT AND CM 12-15 FOLLOW UP GI BLEED HAD EGD AND COLONOSCOPY ON 12-14 REPLACE MAGNESIUM TO [facility] TODAY WILL NEED LABS FOLLOWED IN [facility] - Time Spent with Patient Total time spent providing and/or coordinating discharge services: Greater than 30 minutes Exam Vital signs: Vital Signs 12/14/17 15:00 12/14/17 16:00 12/14/17 17:00 Temperature 97.7 F Pulse Rate 78 76 79 Respiratory Rate 20 Blood Pressure 115/59 L Pulse Oximetry 95 12/14/17 18:00 12/14/17 19:00 12/14/17 19:56 Temperature 97.6 F Pulse Rate 88 81 78 Respiratory Rate 20 18 Blood Pressure 115/65 Pulse Oximetry 12/14/17 20:00 12/14/17 21:00 12/14/17 22:00 Temperature Pulse Rate 78 80 78 Respiratory Rate Blood Pressure Pulse Oximetry 94 L 12/14/17 23:00 12/15/17 00:00 12/15/17 01:00 Temperature 97.6 F Pulse Rate 81 76 76 Respiratory Rate 20 Blood Pressure 124/74 Pulse Oximetry 94 L 12/15/17 02:00 12/15/17 03:00 12/15/17 04:00 Temperature 98.7 F Pulse Rate 77 77 76 Respiratory Rate 18 Blood Pressure 113/67 Pulse Oximetry 94 L 12/15/17 05:00 12/15/17 06:00 12/15/17 07:00 Temperature 97.5 F L Pulse Rate 78 70 84 Respiratory Rate 17 Blood Pressure 131/68 Pulse Oximetry 95 12/15/17 07:47 12/15/17 08:00 12/15/17 09:00 Temperature Pulse Rate 81 79 78 Respiratory Rate 16 Blood Pressure Pulse Oximetry 93 L 95 12/15/17 10:00 12/15/17 11:00 12/15/17 12:00 Temperature 98.8 F Pulse Rate 82 79 76 Respiratory Rate 18 Blood Pressure 126/68 Pulse Oximetry 98 12/15/17 13:00 12/15/17 14:00 Temperature Pulse Rate 79 76 Respiratory Rate Blood Pressure Pulse Oximetry Intake & Output 12/14/17 12/15/17 12/15/17 18:59 06:59 18:59 Intake Total 1400 / 1400 1240 / 1240 200 / 200 Output Total 450 / 450 400 / 400 Balance 950 / 950 840 / 840 200 / 200 Weight 125.9 kg Intake: IV 1100 / 1100 1000 / 1000 200 / 200 NS Inj 1,000 ML @ 100 mls/hr IV 1000 / 1000 1000 / 1000 .CONT .Q10H [facility] Rx#:[id number] Magnesium Sulfate 1 gm/D5W 100 200 / 200 ml Premix 100 ML @ 100 mls/hr IV.SIG Q1H [facility] Rx#:[id number] Magnesium Sulfate Inj 2 GM In 100 / 100 NS Inj 96 ML @ 50 mls/hr IV.SIG ONCE ONE Rx#:[id number] Oral 240 / 240 Anesthesia Amount 300 / 300 Output: Urine 450 / 450 400 / 400 Other: Date of Last Bowel Movement 12/14/17 12/14/17 # Bowel Movements 3 Narrative: GENERAL: Awake alert and oriented 3- talkative and cooperative SKIN: Warm and dry. HEAD: Atraumatic. Normocephalic. EYES: Pupils equal and round. No scleral icterus. No injection or drainage. EOMI ENT: No nasal bleeding or discharge. Mucous membranes pink and moist. Tongue is midline NECK: Trachea midline. No JVD. Supple CARDIOVASCULAR: IRRegular rate and rhythm. S1-S2 no S3 or S4 RESPIRATORY: No accessory muscle use. Clear to auscultation. Breath sounds equal bilaterally. GASTROINTESTINAL: Abdomen soft, non-tender, nondistended. Hepatic and splenic margins not palpable. MUSCULOSKELETAL: Extremities without clubbing, cyanosis, or edema. No obvious deformities. NEUROLOGICAL: Awake and alert. No obvious cranial nerve deficits. Motor grossly within normal limits. 4 out of 5 muscle strength in the arms and legs. Normal speech. PSYCHIATRIC: Appropriate mood and affect; insight and judgment normal. Results Procedures completed during hospitalization: Atrial Fibrillation Ablation - Afib Ablation Procedure Date: 12/12/17 Atrial Fibrillation Ablation: PROCEDURES PERFORMED: 1. Electrophysiology study on Isuprel infusion 2. CS cannulation 3. 3-D mapping 4. Transseptal approach 5. Right and left heart catheterization 6. Intracardiac echo 7. Radiofrequency ablation of atrial fibrillation 8. Pulmonary vein isolation 9. Posterior wall ablation 10. Mitral valve isolation 11. Mitral line creation 12. Left atrial tachycardia ablation 13. Atrial flutter ablation 14. Roof line creation 15. Floor line creation 16. Anterior and posterior ablation INDICATIONS FOR THE PROCEDURE Yogesh Ramírez is a 77-year-old M with atrial fibrillation, left atrial tachycardia, very symptomatic, HR cannot be controlled with medications referred for electrophysiology study and ablation. The risks, the nature and the benefits of the procedure were clearly stated to the patient. The risks include pneumothorax, cardiac perforation, stroke, need for open heart surgery and even . The patient understood and agreed to proceed. DESCRIPTION OF THE PROCEDURE IN DETAIL After written informed consent was obtained, the patient was brought to the EP was brought to the EP lab where he was prepped and draped in the usual sterile fashion. Conscious sedation was initiated and maintained throughout the procedure by the anesthesiologist. Once sedation was verified, the right and left inguinal areas were anesthetized with 2% Xylocaine. Using modified Seldinger technique, the left femoral vein was cannulated on three occasions, three guidewires were advanced. Over the wire a 6, 7 and a 10-Irish Hemaquet were advanced. Then the left femoral artery was cannulated on one occasion, one guidewire was advanced. Over the wire a 4-Irish Hemaquet was advanced. Then the right femoral vein was cannulated on one occasion, one guidewire was advanced. Over the wire a 8-Irish Hemaquet was advanced. Then under fluoroscopic guidance through the 6 and 7-Irish Hemaquet, two 5-Irish Yuli curved quadripolar electrophysiology catheters were advanced and placed around the His as well as coronary sinus. Basic interval was measured. The patient was in atrial fibrillation, possible atrial flutter. A this point, I decided to attempt atrial flutter ablation. Through the 8Fr hemaquet, a cordis Babcock 8mmm, F curve was advanced. Using [employer] 3D mapping system, a # D mapping of the right atrium was obtained. The catheter was placed at the critical isthmus. Rf was delivered. Activation changed. Then I decided to proceed with left atrial tachycardia/ atrial fibrillation ablation. Through the 10-Irish Hemaquet, a Cordis Babcock AcuNav intracardiac echo catheter was advanced and placed at the right atrium. Multiple view was obtained. There is pericardial effusion, pulmonary vein was seen, atrial septal was visualized. Then the 8-Irish Hemaquet in the right femoral vein was exchanged for Agilis transseptal sheath that was placed all the way to the superior vena cava. Through the sheath a Edmund needle was advanced, then the sheath, the dilator and the needle were progressed until foci engaged. Once engaged, the needle was advanced. RF was delivered for 2 seconds. I was able to cross into the left atrium. Once the needle crossed, the dilator was advanced. Once the dilator crossed, the sheath was advanced. Once the sheath crossed, the dilator and the needle were removed. At this point I did flood the system and fluid movement was seen in the left atrium the indicates the sheath is in good position. The patient already received 15,000 units of heparin. The goal is to keep an ACT around 350 during ablation. Then through the sheath a [place]. Lyle 20 pulse circumferential catheter was advanced. Using [employer] endocardial solution mapping system, a two-dimensional configuration of the left atrium was obtained. Points were taken at the left superior and inferior veins, right superior and inferior veins, mitral valve, and appendages. Then through the sheath a [place]. Lyle TactiCath 65cm 3.5mm irrigated tipped mapping and radiofrequency ablation catheter was advanced. Esophageal probe was placed temperature monitoring during ablation. When it increased to 0.5 degrees Celsius above baseline, I moved to a different area of the atrium. First I did completed the isolation of the left superior vein. Posterior was ablated. Then a roof line was created, a floor line was created, a mitral line was isolated, then the mitral valve was isolated. Activation map was created. Early activation was in the lateral wall. Ablation was performed. CL showed no change. I did create a line from the floor to the roof area, passing by the left atrial appendage. Then the right superior and inferior veins were isolated. I did remap the atrium. Activation change to the right side. Atrial tachycardia was mapped. Ablation performed at the ostial portion of the coronary sinus. Patient went into sinus rhythm. At this point I decided to proceed with cardioversion. There was no signal into the vein, pacing from the vein showed no conduction to the atrium. Isuprel infusion was initiated at 20 mcg for over 10 minutes. No tachyarrhythmia was induced, post Isuprel no tachyarrhythmia was induced. At that point the procedure was complete. All catheters were removed, atrial septal sheath was exchanged for 9-Irish Hemaquet, intracardiac echo showed no pericardial effusion. There is still good flow in the pulmonary vein. The patient is going to be transferred to the recovery room. No incident report. The patient tolerated the procedure. Blood loss was minimal. FINDINGS 1. Electrocardiogram: At baseline the patient was in atrial fibrillation, left atrial tachycardia, post procedure the patient was in sinus rhythm. 2. Basic interval: Base cycle length was around 470. Post ablation she was around 900 milliseconds. 3. Tachyarrhythmia: Atrial fibrillation was mapped and ablated. Atrial tachycardia was ablated. The ablation was successful. CONCLUSION Successful electrophysiology study, mapping, radiofrequency ablation of atrial fibrillation, left atrial tachycardia, pulmonary vein isolation, posterior ablation, mitral valve isolation, mitral line creation, roof line creation, floor line creation, left atrial tachycardia, and cardioversion. COMMENTS AND RECOMMENDATIONS The patient is going to be transferred to the telemetry unit. Will be observed and when stable can be discharged home. Documented By: Nora Bruno MD COLONOSCOPY PROCEDURE REPORT EXAM DATE: 12/14/2017 PATIENT NAME: Yogesh Ramírez MR #: [id number] BIRTHDATE: 1940 ENDOSCOPIST: Moreno Blanco MD ORDER #: [id number] MANAGER FLIGHT OPERATIONS: Steffanie Balderrama Alumbaugh, Louis, and Minnie Vargas STATUS: inpatient INDICATIONS: The patient is a 77 yr old male here for a colonoscopy due to iron deficiency anemia PROCEDURE PERFORMED: Colonoscopy with ablation Colonoscopy with biopsy MEDICATIONS: None and Per Anesthesia. PREP QUALITY: The [place] Bowel Prep Score was Right colon 3, Mid colon 2, and Left colon 2. Total = 7. PREP TYPE:GoLytely ESTIMATED BLOOD LOSS: None CONSENT: The patient understands the risks and benefits of the procedure and understands that these risks include, but are not limited to: sedation, allergic reaction, infection, perforation and/or bleeding. Alternative means of evaluation and treatment include, among others: physical exam, x-rays, and/or surgical intervention. The patient elects to proceed with this endoscopic procedure. medical equipment was checked for proper function. Hand hygiene and appropriate measures for infection prevention was taken. After the risks, benefits and alternatives of the procedure were thoroughly explained, Informed consent was verified, confirmed and timeout was successfully executed by the treatment team. A digital exam revealed external hemorrhoids The 1234 endoscope was introduced through the anus and advanced to the cecum, which was identified by both the appendix and ileocecal valve. The instrument was then slowly withdrawn as the colon was fully examined. COLON FINDINGS: Two polypoid shaped sessile polyps ranging between 3-5mm in size were found in the ascending colon. A polypectomy was performed with cold forceps. The resection was complete and the polyp tissue was completely retrieved. 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 Destruction of lesion via ablation was attempted. Bleeding from maneuver treated with cautery. Argon plasma coagulation was used. Care was given to ensure that the lumen was suctioned well. Retroflexed views revealed internal hemorrhoids and Retroflexed views revealed medium internal hemorrhoids The scope was then completely withdrawn from the patient and the procedure terminated. PROCEDURE WITHDRAWAL TIME:7minutes ADVERSE EVENTS: There were no complications. IMPRESSIONS: 1. Two sessile polyps ranging between 3-5mm in size were found in the ascending colon; polypectomy was performed with cold forceps 2. 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 Retroflexed views revealed internal hemorrhoids 4. Retroflexed views revealed medium internal hemorrhoids 5. Revealed external hemorrhoids RECOMMENDATIONS: 1. Await biopsy results. Biopsy results will not be ready for 7-10 days. If you don't hear from us in two weeks, call our office for results. 2. Continue surveillance 3. Yearly hemoccult RECALL: Return 5 years Colonoscopy, pending biopsy results EGD PROCEDURE REPORT EXAM DATE: 12/14/2017 PATIENT NAME: Yogesh Ramírez MR #: [id number] BIRTHDATE: 1940 ATTENDING: Moreno Blanco MD ORDER #: [id number] MANAGER FLIGHT OPERATIONS: Minnie Vargas RN STATUS: inpatient INDICATIONS: The patient is a 77 yr old male here for an EGD due to iron deficiency anemia PROCEDURE PERFORMED: EGD w/ biopsy MEDICATIONS: None and Per Anesthesia. TOPICAL ANESTHETIC: CONSENT: The patient understands the risks and benefits of the procedure and understands that these risks include, but are not limited to: sedation, allergic reaction, infection, perforation and/or bleeding. Alternative means of evaluation and treatment include, among others: physical exam, x-rays, and/or surgical intervention. The patient elects to proceed with this endoscopic procedure. medical equipment was checked for proper function. Hand hygiene and appropriate measures for infection prevention was taken. After the risks, benefits and alternatives of the procedure were thoroughly explained, Informed consent was verified, confirmed and timeout was successfully executed by the treatment team. The patient was anesthetized with topical anesthesia and the Pentax EG-[id number] endoscope was introduced through the mouth and advanced to the second portion of the duodenum. Retroflexed views revealed no abnormalities The gastroscope was then slowly withdrawn and removed. ESOPHAGUS: The mucosa of the esophagus appeared normal. STOMACH: There was erythematous moderate gastritis in the gastric antrum. A biopsy was performed using cold forceps. Sample sent for histology. DUODENUM: The duodenal mucosa appeared normal in the bulb and second portion of the duodenum. ADVERSE EVENTS: There were no complications. IMPRESSIONS: 1. The esophagus appeared normal 2. There was erythematous gastritis in the gastric antrum; biopsy was performed 3. Normal duodenal mucosa in the bulb and second portion of the duodenum 4. Retroflexed views revealed no abnormalities RECOMMENDATIONS: 1. Await biopsy results. Biopsy results will not be ready for 7-10 days. If you don't hear from us in two weeks, call our office for biopsy results. 2. Continue PPI PATIENT CONDITION: stable DISPOSITION: Inpatient REPEAT EXAM: Return as needed for EGD Completed studies during hospitalization: Laboratory Results WBC 6.3 th/mm3 (4.0-11.0) 12/15/17 05:15 RBC 2.87 mil/mm3 (4.50-5.90) L 12/15/17 05:15 Hgb 8.9 gm/dL (13.0-17.0) L 12/15/17 05:15 Hct 25.9 % (39.0-51.0) L 12/15/17 05:15 MCV 90.4 fL (80.0-100.0) 12/15/17 05:15 MCH 31.0 pg (27.0-34.0) 12/15/17 05:15 MCHC 34.3 % (32.0-36.0) 12/15/17 05:15 RDW 19.7 % (11.6-17.2) H 12/15/17 05:15 Plt Count 106 th/mm3 (150-450) L 12/15/17 05:15 MPV 7.2 fL (7.0-11.0) 12/15/17 05:15 Prelim Diff (Auto) Slide review pending 12/15/17 05:15 Neut % (Auto) 88.6 % (16.0-70.0) H 12/15/17 05:15 Lymph % (Auto) 8.0 % (9.0-44.0) L 12/15/17 05:15 [place] % (Auto) 2.9 % (0.0-8.0) 12/15/17 05:15 Eos % (Auto) 0.2 % (0.0-4.0) 12/15/17 05:15 Baso % (Auto) 0.3 % (0.0-2.0) 12/15/17 05:15 Neut # (Auto) 5.6 th/mm3 (1.8-7.7) 12/15/17 05:15 Lymph # (Auto) 0.5 th/mm3 (1.0-4.8) L 12/15/17 05:15 [place] # (Auto) 0.2 th/mm3 (0.0-0.9) 12/15/17 05:15 Eos # (Auto) 0.0 th/mm3 (0.0-0.4) 12/15/17 05:15 Baso # (Auto) 0.0 th/mm3 (0.0-0.2) 12/15/17 05:15 WBC Differential Manual diff final 12/15/17 05:15 Seg Neuts % (Manual) 83 % (16-70) H 12/15/17 05:15 Band Neuts % (Manual) 5 % (0-6) 12/15/17 05:15 Lymphocytes % (Manual) 8 % (9-44) L 12/15/17 05:15 Monocytes % (Manual) 1 % (0-8) 12/15/17 05:15 Eosinophils % (Manual) 1 % (0-4) 12/15/17 05:15 Basophils % (Manual) 1 % (0-2) 12/14/17 05:40 Metamyelocytes % (Man) 8 % (0-1) H 12/14/17 05:40 Myelocytes % (Man) 2 % (0-0) H 12/15/17 05:15 Abs Neuts (Manual) 5.7 th/mm3 (1.8-7.7) 12/15/17 05:15 Nucleated RBCs/100 WBC 1 /100 WBC (0-0) H 12/14/17 05:40 Differential Comment . 12/15/17 05:15 Platelet Estimate Low (Normal) L 12/15/17 05:15 Platelet Morphology Normal (Normal) 12/15/17 05:15 Dimorphic RBCs Present (None) H 12/13/17 04:30 Ovalocytes 1+ (None) H 12/14/17 05:40 Sodium 142 meq/L (136-145) 12/15/17 05:15 Potassium 3.7 meq/L (3.5-5.1) 12/15/17 05:15 Chloride 108 meq/L (98-107) H 12/15/17 05:15 Carbon Dioxide 26.0 meq/L (21.0-32.0) 12/15/17 05:15 Anion Gap 8 meq/L (5-15) 12/15/17 05:15 BUN 18 mg/dL (7-18) 12/15/17 05:15 Creatinine 0.68 mg/dL (0.60-1.30) 12/15/17 05:15 Estimated GFR Greater than 89 mL/min (>89) 12/15/17 05:15 Random Glucose 138 mg/dL (74-106) H 12/15/17 05:15 Hemoglobin A1c 6.2 % (4.3-6.0) H 12/11/17 17:56 Lactic Acid 1.8 mmol/L (0.4-2.0) 12/08/17 03:24 Calcium 7.1 mg/dL (8.5-10.1) L* 12/15/17 05:15 Prot Corrected Calcium 8.4 mg/dL (8.5-10.1) L 12/15/17 05:15 Phosphorus 3.0 mg/dL (2.5-4.9) 12/15/17 05:15 Magnesium 1.7 mg/dL (1.5-2.5) 12/15/17 05:15 Total Bilirubin 0.3 mg/dL (0.2-1.0) 12/15/17 05:15 AST 14 U/L (15-37) L 12/15/17 05:15 ALT 28 U/L (12-78) 12/15/17 05:15 Alkaline Phosphatase 101 U/L (45-117) 12/15/17 05:15 Total Protein 4.8 g/dL (6.4-8.2) L 12/15/17 05:15 Albumin 2.0 g/dL (3.4-5.0) L 12/15/17 05:15 TSH 2.430 uIU/mL (0.358-3.740) 12/11/17 17:56 Free T4 0.88 ng/dL (0.76-1.46) 12/11/17 17:56 Nasal Screen MRSA (PCR) Not detected (Negative) 12/07/17 17:00 MTS Gel Crossmatch See Detail 12/08/17 16:04 Bld Prod Order Comment 12/08/17 16:04 Pending studies at discharge: Pending at discharge 12/14/17 16:42 Surgical [PTH] Routine Labs on day of discharge: Labs from last 24 hours 12/15/17 12/15/17 05:15 05:15 WBC 6.3 RBC 2.87 L Hgb 8.9 L Hct 25.9 L MCV 90.4 MCH 31.0 MCHC 34.3 RDW 19.7 H Plt Count 106 L MPV 7.2 Prelim Diff (Auto) Slide review pending Neut % (Auto) 88.6 H Lymph % (Auto) 8.0 L [place] % (Auto) 2.9 Eos % (Auto) 0.2 Baso % (Auto) 0.3 Neut # (Auto) 5.6 Lymph # (Auto) 0.5 L [place] # (Auto) 0.2 Eos # (Auto) 0.0 Baso # (Auto) 0.0 WBC Differential Manual diff final Seg Neuts % (Manual) 83 H Band Neuts % (Manual) 5 Lymphocytes % (Manual) 8 L Monocytes % (Manual) 1 Eosinophils % (Manual) 1 Myelocytes % (Man) 2 H Abs Neuts (Manual) 5.7 Differential Comment . Platelet Estimate Low L Platelet Morphology Normal Sodium 142 Potassium 3.7 Chloride 108 H Carbon Dioxide 26.0 Anion Gap 8 BUN 18 Creatinine 0.68 Estimated GFR Greater than 89 Random Glucose 138 H Calcium 7.1 L* Prot Corrected Calcium 8.4 L Phosphorus 3.0 Magnesium 1.7 Total Bilirubin 0.3 AST 14 L ALT 28 Alkaline Phosphatase 101 Total Protein 4.8 L Albumin 2.0 L Discharge Plan - Discharge Disposition Patient Disposition: 64 Rehab Inpatient - Discharge Condition Condition: Good - Discharge Order Discharge Orders: Discharge Order (Routine); Ordered 12/15/17 Ordered By: Josue Blum - Discharge Details Anticipated Discharge Date: 12/15/17 Discharge Comment: DC TO [facility] - Physicians Team Primary Care Provider: Primary Care Luisi,No Attending Provider: Josue Blum Other Providers: Nora Bruno MD ; Dick Wilcox MD ; Moreno Blanco MD - Rxs /Orders / Referrals /Forms Prescriptions: New acetaminophen 325 mg Tablet 650 mg PO Q4H PRN (Reason: Temp > 100.4) RF: 0 acidophilus-sporogenes [Acidophilus Ex Str (L. sporog)] 35 million- 25 million cell Tablet 1 tab PO BID RF: 0 atorvastatin [Lipitor] 10 mg Tablet 10 mg PO DAILY RF: 0 budesonide [Pulmicort] 0.5 mg/2 mL Suspension For Nebulization 0.5 mg NEB Q12HR NEB RF: 0 enoxaparin [Lovenox] 40 mg/0.4 mL Syringe 40 mg Sub-Q Q12H RF: 0 ferrous sulfate [FeroSul] 325 mg (65 mg iron) Tablet 325 mg PO DAILY RF: 0 magnesium hydroxide [Milk of Magnesia] 400 mg/5 mL Suspension 30 ml PO Q12H PRN (Reason: Mild Constipation) RF: 0 magnesium oxide [MagOx] 400 mg Tablet 400 mg PO BID Qty: 60 RF: 0 metoprolol tartrate 100 mg Tablet 100 mg PO BID RF: 0 ondansetron 4 mg Tablet,Disintegrating 4 mg PO Q6H PRN (Reason: Nausea Or Vomiting) RF: 0 sennosides [Senna Lax] 8.6 mg Tablet 17.2 mg PO Q12H PRN (Reason: Moderate Constipation) RF: 0 sennosides-docusate sodium [Senna Plus] 8.6-50 mg Tablet 1 tab PO BID RF: 0 tamsulosin 0.4 mg Capsule,Extended Release 24hr 0.4 mg PO DAILY RF: 0 Continue bisacodyl [Bisac-Evac] 10 mg Suppository 10 mg ID DAILY PRN (Reason: Severe Consitipation) RF: 0 diltiazem HCl 300 mg Capsule,Extended Release 24hr 300 mg PO DAILY RF: 0 ipratropium-albuterol 0.5 mg-3 mg(2.5 mg base)/3 mL Solution For Nebulization 3 ml INHALATION Q8H pantoprazole 40 mg Tablet,Delayed Release (Dr/Ec) 40 mg PO DAILY RF: 0 prednisone 20 mg Tablet 20 mg PO BID RF: 0 Discontinued acetaminophen 325 mg Tablet 650 mg PO Q4H PRN (Reason: Pain (Scale Score 1-3)) RF: 0 acidophilus-sporogenes [Acidophilus Ex Str (L. sporog)] 35 million- 25 million cell Tablet 1 tab PO BID RF: 0 atorvastatin [Lipitor] 10 mg Tablet 10 mg PO DAILY RF: 0 budesonide [Pulmicort] 0.5 mg/2 mL Suspension For Nebulization 0.5 mg NEB Q12HR NEB RF: 0 cefuroxime axetil 250 mg Tablet 500 mg PO Q12H RF: 0 ferrous sulfate [FeroSul] 325 mg (65 mg iron) Tablet 325 mg PO DAILY RF: 0 metoprolol tartrate 100 mg Tablet 100 mg PO BID RF: 0 ondansetron 4 mg Tablet,Disintegrating 4 mg PO Q4HR PRN (Reason: Nausea) RF: 0 sennosides-docusate sodium [Senna Plus] 8.6-50 mg Tablet 1 tab PO BID RF: 0 Referrals: Nora Bruno MD [Physician] - See Instructions (1 TO 2 WEEKS) Moreno Blanco MD [Physician] - See Instructions (1 TO 2 WEEKS) Primary Care Amalia Butterfield [Primary Care Provider] - See Instructions (1 TO 2 WEEKS ) - Discharge Instructions Patient Printed Instructions: Colonoscopy (DC)
[2017-12-15] MEDS: Enoxaparin Inj 40 MG/0.4 ML Syringe SQ SCH (15:41)
== END 2017-12-15 16:46 ==
LOC: HIMC 15:15 → HCIS 12-10 17:43
PROVIDERS: ADMIT Hospitalist; ATTEND Hospitalist
PROC: COLONOS (2017-12-14 14:23)
PROC: PANENDO (2017-12-14 14:23)